=== PATIENT | female | born 2000 | race Caucasian/White ===

== ENCOUNTER 2018-02-18 22:39 | Emergency (ER) | payer MEDICAID, SELFPAY ==
[2018-02-18 22:40] VITALS: BP 155/98; PULSE 105; RESP 18; TEMP 36.4; O2SAT 98; BMI 33.8
--- NOTE | 2018-02-18 23:17 | CM.ED ---
SOCIAL WORK NOTE: CASE CONFERENCED WITH DR. CAMPUZANO. PT TO BE ASSESSED BY CRISIS.
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
--- NOTE | 2018-02-18 23:24 | ED.DEP ---
ED Disposition - Plan for ED Patient: Disposition: Home or Assisted Living Chief Complaint: Suicidal Instructions: ED Depression Referrals: Counseling,Center [GROUP OF PHYSICIANS] -
--- NOTE | 2018-02-18 23:42 | NURSING ---
CRISIS CALLED AT [phone]
[2018-02-18 23:50] LABS: Absolute Lymphocyte Count 3.51 X10^3/ul (0.83-4.51); Absolute Neutrophil Count 8.4 X10^3/uL (2.0-7.7); Basophil# 0.06 X10^3/uL; Basophil% 0.5 % (0-1); Eosinophil# 0.11 X10^3/uL; Eosinophils% 0.8 % (0-5); Hematocrit 38.3 % (37-47); Hemoglobin 12.7 g/dl (12.0-15.0); Lymphocyte # 3.51 X10^3/ul (4.0); Lymphocyte % 26.8 % (19-41); Mean Corp Hgb Conc 33.2 g/gl (32-36); Mean Corpuscular Hgb 28.3 pg (27.0-32.0); Mean Corpuscular Volume 85.3 fL (81-99); Mean Platelet Vol. 9.4 fl (6.2-12.0); Monocyte# 0.96 X10^3/uL; Monocyte% 7.3 % (0-10); Neutrophil # 8.42 X10^3/uL (2.7-7.7); Neutrophil % 64.3 % (47-70); Platelet Count 366 K/mm3 (150-450); RBC Distribution Width CV 13.2 % (11.6-14.6); RBC Distribution Width SD 40.8 fl (35.1-43.9); Red Blood Count 4.49 M/mm3 (4.2-5.4); White Blood Count 13.1 K/mm3 (4.4-11.0)
[2018-02-18 23:51] LABS: POSITIVE COUNT NO; POSITIVE DIFFERENTIAL NO; POSITIVE MORPHOLOGY NO
[2018-02-18 23:57] LABS: Amphetamine Urine VISTA NEGATIVE (<1000 ng/mL); Barbiturate Urine VISTA NEGATIVE (< 200 ng/mL); Benzodiazepine Urine VISTA NEGATIVE (< 200 ng/mL); Cocaine Urine VISTA NEGATIVE (< 300 ng/mL); Ecstacy Urine VISTA NEGATIVE (< 500 ng/mL); Methadone Urine VISTA NEGATIVE (< 300 ng/mL); PCP Urine VISTA NEGATIVE (< 25 ng/mL); THC Urine VISTA NEGATIVE (< 50 ng/mL); Vista UDS pH Range 4
[2018-02-19 00:05] LABS: Anion Gap 9 (5-15); BUN 11 mg/dL (7-18); BUN/Creat Ratio 14.8 RATIO (10-20); Calcium,Total 9.6 mg/dL (8.5-10.1); Chloride 109 mmol/L (98-107); Creatinine, Serum 0.74 mg/dL (0.55-1.02); EST Glomerular Filtration Rate 106 mL/min (>60); Est Glom Filt Rate - Afr Amer 128 mL/min (>60); Estimated Creatinine Clearance 95.91 ml/min; Glucose 96 mg/dL (74-106); Potassium 3.7 mmol/L (3.5-5.1); Sodium Level 141 mmol/L (136-145)
[2018-02-19 00:23] LABS: Pregnancy, Serum, hCG Quali. POSITIVE Negative (0-9 Nonpreg)
--- NOTE | 2018-02-19 00:24 | ED.RN ---
LAB CALLED WITH POSITIVE LAB RESULTS. SERUM POSITIVE. DR. ALDANA MADE AWARE. NO NEW ORDERS AT THIS TIME
[2018-02-19 00:43] VITALS: BP 155/96; PULSE 12
[2018-02-19 00:43] LABS: Mucous, Urine 0 SEEN /hpf (<or=2+); Red Blood Cells-Urine 0 SEEN /hpf (0-5)
[2018-02-19 00:45] LABS: Color, Urine Yellow (Yellow); Glucose, Dipstick Normal (Normal); Ketone-Dipstick Negative (Negative); Leukocyte Esterase-Dipstick 25 /ul (Negative); Nitrite-Dipstick Negative (Negative); Occult Blood-Urine Negative /ul (Negative); Protein-Dipstick 30 mg/dl (Negative); Specific Gravity, Urine 1.025 (1.002-1.030); Urine Bilirubin Dipstick Negative (Negative); Urine Clarity Cloudy (Clear); Urine Urobilinogen Normal (Normal)
[2018-02-19 00:59] LABS: Bacteria 1+ /hpf (None Seen)
[2018-02-19 01:00] LABS: Squamous Epithelial Cells - UA 5-10 SEEN /hpf (5-10); White Blood Cells 0-5 SEEN /hpf (0-5)
[2018-02-19 01:10] VITALS: RESP 16
--- NOTE | 2018-02-19 02:18 | ED.DEP ---
ED Disposition - Plan for ED Patient: Disposition: Home or Assisted Living Chief Complaint: Suicidal Instructions: ED Depression Prescriptions: Pnv No.95/Ferrous Fum/Folic AC [ Vitamin Tablet] 1 ea PO DAILY #30 tab Referrals: Counseling,Center [GROUP OF PHYSICIANS] - Jessica Viramontes [STAFF PHYSICIAN] -
[2018-02-19 02:38] VITALS: BP 148/92; PULSE 99; RESP 18; O2SAT 96
== END 2018-02-19 02:38 | disposition home or self-care (01) ==
PROVIDERS: Emergency Medicine; Emergency Provider Emergency Medicine
DX: F32.9 Major depressive disorder, single episode, unspecified (principal); Z33.1 Pregnant state, incidental
CPT/HCPCS: 36415; 80048; 80307; 80320; 81001; 84703; 85025; 99283; G0480

== ENCOUNTER → 2018-03-17 | Outpatient (CLI) | payer MEDICAID, SELFPAY ==
[2018-03-17 11:14] VITALS: BMI 33.8
[2018-03-17 15:29] LABS: Chlamydia Trachomatis by PCR Negative (Negative); Neisserai gonorrhoeae by PCR Negative (Negative); Probe Check PASS; Sample Adequacy Control PASS; Specimen Processing Control PASS
--- OUTSIDE RECORDS SUMMARY | 2018-06-14 20:39 | XMS RPT_ITS | CCD ---
:2000 External Reference #:[id number] Author Organization [employer] Care Team Providers Name Role Phone Unavailable Unavailable Unavailable Results Result Name Value Range Unit Interpretation Flag Date Location cur on 2018-02-28 CUR . Normal 02-28-2018 [facility] MICRO - Microbiology [facility] ([place]) ([id number]) PROCEDURE: Urine Culture [*1] SOURCE: Urine, Clean Catch BODY SITE: COLLECTED DATE/TIME: 02/25/2018 23:02 EST RECEIVED DATE/TIME: 02/26/2018 15:55 EST START DATE/TIME: 02/26/2018 15:55 EST FREE TEXT SOURCE: FINAL REPORTS Final Report [] Verified Date/Time/Personnel: 02/28/2018 07:54 EST 15,000 organisms per mL Mixed without predominant isolate(s). Sensitivity Testing not indicated. Probably contamination. Repeat culture suggested. PRELIMINARY REPORTS Preliminary Report [] Verified Date/Time/Personnel: 02/27/2018 13:26 EST Culture results pending. Performing Locations *1: This test was performed at: [facility], [address] [place] [address], [id number]- [facility] Comment: Performed By: #### CUR #### [address] [address] ua on 2018-02-26 Color Nom (U) Yellow Normal 02-26-2018 [facility] ([place]) ([id number]) Comment: Performed By: #### UA #### [address] [address] Glucose mass conc Negative Negative mg/dL Normal 02-26-2018 [facility] () [facility] ([place]) ([id number]) Comment: Performed By: #### UA #### [address] [address] Ketones Ql (U) Negative Negative Normal 02-26-2018 [facility] ([place] ([id number]) Comment: Performed By: #### UA #### [place] [address] UA Appear Clear Clear Normal 02-26-2018 [facility] ([place] ([id number]) Comment: Performed By: #### UA #### [place] [address] UA Blood Negative Negative Normal 02-26-2018 [facility] ([place]) ([id number]) Comment: Performed By: #### UA #### [place] [address] UA Leuk Est Negative Negative Normal 02-26-2018 [facility] ([place] ([id number]) Comment: Performed By: #### UA #### [place] [address] UA Nitrite Negative Negative Normal 02-26-2018 [facility] ([place] ([id number]) Comment: Performed By: #### UA #### [place] [address] UA pH 5.0 5.0 - 8.0 Normal 02-26-2018 [facility] ([place] ([id number]) Comment: Performed By: #### UA #### [place] [address] UA Protein Negative Negative Normal 02-26-2018 [facility] ([place] ([id number]) Comment: Performed By: #### UA #### [place] [address] UA Spec Grav 1.020 1.015-1.025 Normal 02-26-2018 [facility] ([place] ([id number]) Comment: Performed By: #### UA #### [place] [address] UA Specimen Type Void Normal 02-26-2018 [facility] ([place] ([id number]) Comment: Performed By: #### UA #### [place] [address] UA Urobilinogen 0.2 0.2-1.0 E.U./dL Normal 02-26-2018 [facility] ([place] ([id number]) Comment: Performed By: #### UA #### [address] [address] Urobilinogen Qn (U) Negative Negative Normal 02-26-2018 [facility] ([place] ([id number]) Comment: Performed By: #### UA #### [place] [id number] [place] [address] pregu on 2018-02-26 HCG ( test) Ql (U) Positive Normal 02-26-2018 [facility] ([place] ([id number]) Comment: Performed By: #### PREGU #### [address] [address] test (u) int HCG detected. 02-26-2018 [facility] ([place] ([id number]) Comment: Performed By: #### PREGU #### [address] [address] Encounters Date Type Reason Provider Location 02-26-2018 - Emergency department KVNG [facility] Facility:B 02-26-2018 patient visit Sawyer KNIGHT 05-23-2017 - Emergency department DARVIN KNIGHT Facility:B 05-23-2017 patient visit SUSAN JOHN Payers Payer Name Policy Number Location SELF PAY [employer] [facility] ([place] ([id number]) [id number] [facility] [place] ([address]) [id number] [facility]) ([phone]) The following information is from the original human readable content ENCOUNTER GUARANTOR PAYER SUBSCRIBER SOURCE 2018 VIVIEN Armas Primary VIVIEN Armas [facility] TAYLORDOB: Insurance:SELF PAY TAYLORDOB: [facility] [id number] E INSCOPolicy Number: [id number] [address]ository [address] [address] Date:2018 [place] [id number]: (000) Name:[phone] () 2017 VIVIEN Jackson VIVIEN Armas [facility] TAYLORDOB: Insurance:SELF TAYLORDOB: [facility] [id number] E PAYPolicy Number: [id number] Repository [address] Effective [address] Date:2017 [place] [address]Bcl: [phone]) [id number]: () Name:[phone] () (WP) Summary Purpose DATE CREATED AUTHOR AUTHOR'S ORGANIZATION 03/08/2018 [facility] ([place]) Family History No Family History Records Found Advance Directives No Advanced Directives Records Found Additional Source Comments FOR RECORDS PERTAINING TO PATIENTS WHO ARE OR HAVE BEEN ENROLLED IN A CHEMICAL DEPENDENCY/SUBSTANCE ABUSE PROGRAM, SOME INFORMATION MAY BE OMITTED. This clinical summary was aggregated from multiple sources. Caution should be exercised in using it in the provision of clinical care. This summary normalizes information from multiple sources, and as a consequence, information in this document may materially changethe coding, format and clinical context of patient data. In addition, data may be omittedin some cases. CLINICAL DECISIONS SHOULD BE BASED ON THE PRIMARY CLINICAL RECORDS. [facility] provides no warranty or guarantee of the accuracy or completeness of information in this document. UNRECOGNIZED CONTENT PROVIDED BELOW FOR UNRECOGNIZED SECTION INFORMATION SOURCE DATE CREATED AUTHOR AUTHOR'S ORGANIZATION 03/08/2018 [facility] ([place])
== END | disposition home or self-care (01) ==
PROVIDERS: Referring Provider Nurse Practitioner Women's Health; Visit Provider Nurse Practitioner Women's Health
DX: Z34.90 Encounter for supervision of normal pregnancy, unspecified, unspecified trimester (principal)
CPT/HCPCS: 87086; 87491; 87591

== ENCOUNTER → 2018-05-20 13:49 | Outpatient (CLI) | payer MEDICAID, SELFPAY ==
[2018-05-20 13:17] VITALS: BMI 41.7
[2018-05-20 14:40] LABS: Absolute Lymphocyte Count 3.27 X10^3/ul (0.83-4.51); Absolute Neutrophil Count 10.3 X10^3/uL (2.0-7.7); Basophil# 0.03 X10^3/uL; Basophil% 0.2 % (0-1); Eosinophils% 0.7 % (0-5); Hematocrit 34.4 % (37-47); Hemoglobin 11.8 g/dl (12.0-15.0); Lymphocyte # 3.27 X10^3/ul (4.0); Mean Corp Hgb Conc 34.3 g/gl (32-36); Mean Corpuscular Hgb 28.8 pg (27.0-32.0); Mean Corpuscular Volume 83.9 fL (81-99); Mean Platelet Vol. 9.5 fl (6.2-12.0); Monocyte% 7.4 % (0-10); Neutrophil # 10.25 X10^3/uL (2.7-7.7); Neutrophil % 69.2 % (47-70); Platelet Count 263 K/mm3 (150-450); RBC Distribution Width SD 39.5 fl (35.1-43.9); White Blood Count 14.8 K/mm3 (4.4-11.0)
[2018-05-20 14:41] LABS: POSITIVE COUNT NO; POSITIVE DIFFERENTIAL NO; POSITIVE MORPHOLOGY NO
[2018-05-20 14:43] LABS: Protein, Urine (Random) 21.1 mg/dL (<11.9); Protein:Creat Ratio 101 mg/g CRE (0-200)
[2018-05-20 15:06] LABS: ALB/GLOB Ratio 0.8 RATIO (0.9-2.4); AST(SGOT) 14 U/L (15-37); Alanine Aminotransfer ALT/SGPT 18 U/L (13-56); Albumin, Serum 3.5 g/dL (3.2-5.0); Alkaline Phosphatase 94 U/L (45-117); BUN 9 mg/dL (7-18); BUN/Creat Ratio 15.1 RATIO (10-20); Calcium,Total 9.7 mg/dL (8.5-10.1); Chloride 106 mmol/L (98-107); EST Glomerular Filtration Rate 136 mL/min (>60); Est Glom Filt Rate - Afr Amer 165 mL/min (>60); Globulin 4.3 g/dL (2.2-4.2); Glucose 66 mg/dL (74-106); Protein, Total 7.8 g/dL (6.4-8.2); Sodium Level 137 mmol/L (136-145)
[2018-05-20 15:07] LABS: Anion Gap 10 (5-15)
[2018-05-20 15:51] LABS: HIV - WCH Non-Reactive (Nonreactive)
[2018-05-20 18:03] LABS: Protein, Urine (Random) 82.1 mg/dL (<11.9); Protein:Creat Ratio 280 mg/g CRE (0-200)
[2018-05-21 04:56] LABS: Rapid Plasmin Reagin (RPR) NONREACTIVE (NONREACTIVE)
[2018-05-23 11:59] LABS: V-Zoster IgG (Immunity) 1868 index (Immune >165)
[2018-05-23 15:58] LABS: HEPATITIS B SURFACE AG Negative (Negative)
== END ==
PROVIDERS: Nurse Practitioner Women's Health; Referring Provider Obstetrics & Gynecology; Visit Provider Obstetrics & Gynecology
DX: O16.9 Unspecified maternal hypertension, unspecified trimester (principal); Z3A.17 17 weeks gestation of pregnancy
CPT/HCPCS: 36415; 80053; 82570; 84156; 85025; 86592; 86703; 86762; 86787; 86850; 86900; 87340

== ENCOUNTER → 2018-06-03 | Outpatient (CLI) | payer MEDICAID, SELFPAY ==
[2018-06-03 14:00] VITALS: BMI 42.8
[2018-06-03 14:51] LABS: ALB/GLOB Ratio 0.9 RATIO (0.9-2.4); AST(SGOT) 12 U/L (15-37); Alanine Aminotransfer ALT/SGPT 16 U/L (13-56); Albumin, Serum 3.5 g/dL (3.2-5.0); Alkaline Phosphatase 100 U/L (45-117); Anion Gap 8 (5-15); BUN 8 mg/dL (7-18); BUN/Creat Ratio 14.9 RATIO (10-20); Calcium,Total 9.6 mg/dL (8.5-10.1); Chloride 104 mmol/L (98-107); Creatinine, Serum 0.54 mg/dL (0.55-1.02); EST Glomerular Filtration Rate 153 mL/min (>60); Est Glom Filt Rate - Afr Amer 185 mL/min (>60); Globulin 4.1 g/dL (2.2-4.2); Glucose 68 mg/dL (74-106); Protein, Total 7.6 g/dL (6.4-8.2); Sodium Level 135 mmol/L (136-145)
[2018-06-03 15:57] LABS: Protein, Urine (Random) 22.6 mg/dL (<11.9); Protein:Creat Ratio 148 mg/g CRE (0-200)
== END | disposition home or self-care (01) ==
PROVIDERS: Referring Provider Obstetrics & Gynecology; Visit Provider Obstetrics & Gynecology
DX: O16.9 Unspecified maternal hypertension, unspecified trimester (principal)
CPT/HCPCS: 36415; 80053; 82570; 84156

== ENCOUNTER → 2018-06-17 | Outpatient (CLI) | payer MEDICAID, SELFPAY ==
[2018-06-17 13:21] VITALS: BMI 41.7
[2018-06-17 13:59] LABS: Absolute Lymphocyte Count 3.49 X10^3/ul (0.83-4.51); Absolute Neutrophil Count 11.2 X10^3/uL (2.0-7.7); Basophil# 0.03 X10^3/uL; Basophil% 0.2 % (0-1); Eosinophil# 0.12 X10^3/uL; Eosinophils% 0.8 % (0-5); Hematocrit 34.2 % (37-47); Hemoglobin 11.6 g/dl (12.0-15.0); Lymphocyte # 3.49 X10^3/ul (4.0); Lymphocyte % 21.8 % (19-41); Mean Corp Hgb Conc 33.9 g/gl (32-36); Mean Corpuscular Hgb 28.9 pg (27.0-32.0); Mean Corpuscular Volume 85.1 fL (81-99); Mean Platelet Vol. 9.5 fl (6.2-12.0); Monocyte# 1.03 X10^3/uL; Monocyte% 6.4 % (0-10); Neutrophil # 11.18 X10^3/uL (2.7-7.7); Neutrophil % 69.9 % (47-70); Platelet Count 287 K/mm3 (150-450); RBC Distribution Width CV 13.1 % (11.6-14.6); RBC Distribution Width SD 40.1 fl (35.1-43.9); Red Blood Count 4.02 M/mm3 (4.2-5.4)
[2018-06-17 14:04] LABS: POSITIVE COUNT NO; POSITIVE DIFFERENTIAL NO; POSITIVE MORPHOLOGY NO
[2018-06-17 14:16] LABS: ALB/GLOB Ratio 0.8 RATIO (0.9-2.4); AST(SGOT) 16 U/L (15-37); Alanine Aminotransfer ALT/SGPT 23 U/L (13-56); Albumin, Serum 3.5 g/dL (3.2-5.0); Alkaline Phosphatase 103 U/L (45-117); Anion Gap 11 (5-15); BUN 10 mg/dL (7-18); BUN/Creat Ratio 14.7 RATIO (10-20); Calcium,Total 9.4 mg/dL (8.5-10.1); Chloride 107 mmol/L (98-107); Creatinine, Serum 0.68 mg/dL (0.55-1.02); EST Glomerular Filtration Rate 116 mL/min (>60); Est Glom Filt Rate - Afr Amer 141 mL/min (>60); Globulin 4.3 g/dL (2.2-4.2); Glucose 62 mg/dL (74-106); Potassium 4.1 mmol/L (3.5-5.1); Protein, Total 7.8 g/dL (6.4-8.2); Sodium Level 139 mmol/L (136-145)
[2018-06-17 14:23] LABS: Protein, Urine (Random) 54.8 mg/dL (<11.9); Protein:Creat Ratio 169 mg/g CRE (0-200)
== END | disposition home or self-care (01) ==
PROVIDERS: Visit Provider Nurse Practitioner Women's Health
DX: O16.9 Unspecified maternal hypertension, unspecified trimester (principal); Z3A.00 Weeks of gestation of pregnancy not specified
CPT/HCPCS: 36415; 80053; 82570; 84156; 85025

== ENCOUNTER 2018-06-21 02:10 | Emergency (ER) | payer MEDICAID, SELFPAY ==
[2018-06-17 13:21] VITALS: BMI 41.7
[2018-06-21 02:11] VITALS: BP 133/92; PULSE 101; RESP 18; TEMP 36.7; O2SAT 98; BMI 43.8
--- NOTE | 2018-06-21 02:24 | EKG12_ITS ---
Test Reason : SHORTNESS OF BREATH Blood Pressure : / mmHG Vent. Rate : 095 BPM Atrial Rate : 095 BPM P-R Int : 126 ms QRS Dur : 086 ms QT Int : 368 ms P-R-T Axes : 045 047 025 degrees QTc Int : 462 ms Normal sinus rhythm Normal ECG Confirmed by KINGSTON ELISE, JERRI ([id number]), international editorial producer REI FREY ([id number]) on 06/23/2018 1:41:21 PM Referred By: LAWRENCE Confirmed By:JERRI ONOFRE MD
--- NOTE | 2018-06-21 02:24 | RAD_ITS ---
STUDY: X-RAY CHEST REASON FOR EXAM: Female, 18 years old. Shortness of breath TECHNIQUE: 2 views COMPARISON: None. FINDINGS: The lungs are clear and expanded. There is no demonstrated pleural abnormality. Normal size heart. Normal mediastinum and gordy. Normal visualized pulmonary arteries. Normal visualized aortic arch and descending thoracic aorta. Normal visualized thoracic spine. Normal visualized ribs, clavicles, and shoulders. There is no demonstrated abnormality of the visualized soft tissue structures of the upper abdomen. RAD/Chest PA and Lateral IMPRESSION: Normal x-ray examination of the chest. No acute findings in the lungs Electronically Signed: Fred Valderrama MD at 3:21 EDT Tel , Service support ,
--- NOTE | 2018-06-21 02:37 | ED.RN ---
NO OLD EKGS IN MUSE
[2018-06-21 02:39] LABS: Absolute Lymphocyte Count 3.67 X10^3/ul (0.83-4.51); Absolute Neutrophil Count 11.5 X10^3/uL (2.0-7.7); Basophil# 0.04 X10^3/uL; Basophil% 0.2 % (0-1); Eosinophil# 0.17 X10^3/uL; Hematocrit 31.4 % (37-47); Hemoglobin 10.9 g/dl (12.0-15.0); Lymphocyte # 3.67 X10^3/ul (4.0); Mean Corp Hgb Conc 34.7 g/gl (32-36); Mean Corpuscular Hgb 29.3 pg (27.0-32.0); Mean Corpuscular Volume 84.4 fL (81-99); Mean Platelet Vol. 9.8 fl (6.2-12.0); Monocyte# 1.12 X10^3/uL; Monocyte% 6.7 % (0-10); Neutrophil # 11.54 X10^3/uL (2.7-7.7); Neutrophil % 69.2 % (47-70); Platelet Count 247 K/mm3 (150-450); RBC Distribution Width CV 12.9 % (11.6-14.6); RBC Distribution Width SD 38.9 fl (35.1-43.9); Red Blood Count 3.72 M/mm3 (4.2-5.4); White Blood Count 16.7 K/mm3 (4.4-11.0)
[2018-06-21 02:43] LABS: POSITIVE COUNT NO; POSITIVE DIFFERENTIAL NO; POSITIVE MORPHOLOGY NO
[2018-06-21 02:57] LABS: Anion Gap 9 (5-15); BUN 10 mg/dL (7-18); BUN/Creat Ratio 16.4 RATIO (10-20); Chloride 106 mmol/L (98-107); Creatinine, Serum 0.61 mg/dL (0.55-1.02); EST Glomerular Filtration Rate 132 mL/min (>60); Est Glom Filt Rate - Afr Amer 160 mL/min (>60); Estimated Creatinine Clearance 116.35 ml/min; Glucose 87 mg/dL (74-106); Potassium 3.7 mmol/L (3.5-5.1); Sodium Level 138 mmol/L (136-145)
[2018-06-21 03:09] LABS: D-Dimer Quantitative (DVT/PE) 0.93 FEU/ug/m (0.27-0.49)
--- NOTE | 2018-06-21 03:11 | CT_ITS ---
HISTORY: SHORT OF BREATH, 22 WEEKS PREG, ELEVATED DDIMER EXAMINATION: CTA Chest WO/W Contrast TECHNIQUE: Helically acquired images were obtained of the chest following IV contrast as per pulmonary angiogram protocol with 3D reconstructions. A radiation dose optimization technique was used for this scan. IV Contrast dosage and agent: 100 Isovue 370 COMPARISON: None FINDINGS: UPPER ABDOMEN: No acute pathology. PULMONARY ARTERIES: Normal in caliber. No pulmonary embolism. AORTA AND GREAT VESSELS: Normal in caliber. No evidence of dissection. HEART AND PERICARDIUM: Heart size is normal. There is no pericardial effusion. No signs of right heart strain. MEDIASTINUM AND LENIN: There is no mediastinal or hilar adenopathy. LUNGS AND LARGE AIRWAYS: Clear. No pneumothorax. PLEURA: Unremarkable. No pleural effusion or thickening. BONES: No suspicious lytic or blastic abnormality observed. CT/CTA Chest W/WO Contrast IMPRESSION: Negative exam. No PE or acute chest disease identified. Individualized dose optimization techniques were used for this CT. at 0441 Reported and signed by: Glenn Goldman MD Electronically Signed: Glenn Goldman, at 4:40 EDT Tel , Service support ,
--- NOTE | 2018-06-21 04:53 | ED.VISSUMM ---
- ER Visit Summary Date of Service: 06/21/18 Chief Complaint: Shortness of breath History of Present Illness: The patient is a 18 F who presents with shortness of breath. She is felt short of breath for the past 4 hours. She denies any associated symptoms. No fevers chest pain congestion rhinorrhea cough nausea vomiting. She is 22 weeks . She denies any leg pain or swelling. No recent travel or surgery. No history of DVT or pulmonary embolism. Physical Examination: Heart rate 101 vitals otherwise normal No distress Moist mucous membranes Heart regular rhythm slightly tachycardic Lungs are clear Abdomen soft benign extremities without edema Alert Test Results: EKG shows sinus rhythm at a rate of 95. Labs are notable for white count of 16.7. Chemistries normal. Troponin negative. Chest x-ray normal. D-dimer elevated at 0.93. CTA of the chest is negative. Emergency Department Course and Treatment: Patient is pulmonary embolism is considered on the differential. Work-up as above notable for elevation of d-dimer so CTA was obtained which is negative. She does have a leukocytosis but she has no clear infectious source. She does not have pneumonia. She was advised to follow-up with her system support administrator and was discharged home. She understands to return for new or worsening symptoms. Treatment Plan: [] Disposition: Discharge Impression: Shortness of breath This note was generated with [employer] dictation software. It may contain incorrect words, spelling, and punctuation that were not noted in review of the chart prior to signing ED Disposition - Plan for ED Patient: Referrals: Care Physician,No Primary [Primary Care Provider] -
--- NOTE | 2018-06-21 04:55 | ED.DEP ---
ED Disposition - Plan for ED Patient: Instructions: ED Dyspnea Shortness of Breath Referrals: Care Physician,No Primary [Primary Care Provider] -
[2018-06-21 05:07] VITALS: RESP 15
== END 2018-06-21 05:08 | disposition home or self-care (01) ==
PROVIDERS: Emergency Provider Emergency Medicine
DX: O26.892 Other specified pregnancy related conditions, second trimester (principal); R06.00 Dyspnea, unspecified; R79.89 Other specified abnormal findings of blood chemistry; Z3A.22 22 weeks gestation of pregnancy
CPT/HCPCS: 36415; 71046; 71275; 80048; 84484; 85025; 85379; 93005; 99285; Q9967

== ENCOUNTER → 2018-07-30 | Outpatient (CLI) | payer MEDICAID, SELFPAY ==
[2018-07-30 15:15] VITALS: BMI 44.0
[2018-07-30 16:12] LABS: Protein, Urine (Random) 79.4 mg/dL (<11.9); Protein:Creat Ratio 238 mg/g CRE (0-200)
[2018-07-30 17:17] LABS: Absolute Lymphocyte Count 2.36 X10^3/ul (0.83-4.51); Absolute Neutrophil Count 10.9 X10^3/uL (2.0-7.7); Basophil# 0.03 X10^3/uL; Basophil% 0.2 % (0-1); Eosinophil# 0.08 X10^3/uL; Eosinophils% 0.5 % (0-5); Hematocrit 32.8 % (37-47); Lymphocyte # 2.36 X10^3/ul (4.0); Mean Corp Hgb Conc 33.5 g/gl (32-36); Mean Corpuscular Hgb 28.8 pg (27.0-32.0); Mean Corpuscular Volume 85.9 fL (81-99); Mean Platelet Vol. 10.3 fl (6.2-12.0); Monocyte# 0.99 X10^3/uL; Monocyte% 6.7 % (0-10); Neutrophil # 10.91 X10^3/uL (2.7-7.7); Neutrophil % 74.1 % (47-70); Platelet Count 275 K/mm3 (150-450); RBC Distribution Width CV 12.9 % (11.6-14.6); RBC Distribution Width SD 39.5 fl (35.1-43.9); Red Blood Count 3.82 M/mm3 (4.2-5.4); White Blood Count 14.7 K/mm3 (4.4-11.0)
[2018-07-30 17:20] LABS: POSITIVE COUNT YES; POSITIVE DIFFERENTIAL NO; POSITIVE MORPHOLOGY YES
[2018-07-30 17:42] LABS: Glucose Challenge Gest 1H 50g 117 mg/dL (70-140)
[2018-07-30 19:34] LABS: Platelet Estimate ADEQUATE (ADEQ); Red Cell Morphology NORM C+C NORMAL (NORM C&C)
[2018-08-02 14:23] LABS: Pathologist Review Reviewed
== END | disposition home or self-care (01) ==
LOC: LABSPEC 15:40 → LAB 15:51
PROVIDERS: Nurse Practitioner Women's Health; Referring Provider Obstetrics & Gynecology; Visit Provider Obstetrics & Gynecology
DX: O16.9 Unspecified maternal hypertension, unspecified trimester (principal); Z3A.27 27 weeks gestation of pregnancy
CPT/HCPCS: 36415; 82570; 82950; 84156; 85025

== ENCOUNTER → 2018-09-03 | Outpatient (CLI) | payer MEDICAID, SELFPAY ==
[2018-07-20 13:53] VITALS: BMI 43.9
[2018-09-03 15:07] VITALS: BMI 46.0
[2018-09-03 16:09] LABS: Protein, Urine (Random) 110.9 mg/dL (<11.9); Protein:Creat Ratio 348 mg/g CRE (0-200)
[2018-09-03 16:30] LABS: Absolute Lymphocyte Count 2.45 X10^3/uL (0.83-4.51); Absolute Neutrophil Count 12.4 X10^3/uL (2.0-7.7); Basophil# 0.06 X10^3/uL; Basophil% 0.4 % (0-1); Eosinophil# 0.08 X10^3/uL; Eosinophils% 0.5 % (0-5); Hematocrit 33.5 % (37-47); Hemoglobin 11.2 g/dL (12.0-15.0); Lymphocyte # 2.45 X10^3/ul (4.0); Lymphocyte % 14.9 % (19-41); Mean Corp Hgb Conc 33.4 g/dL (32-36); Mean Corpuscular Hgb 29.2 pg (27.0-32.0); Mean Corpuscular Volume 87.5 fL (81-99); Mean Platelet Vol. 10.4 fl (6.2-12.0); Monocyte# 1.14 X10^3/uL; NRBC Flagged by Analyzer 0 % (0-5); Neutrophil # 12.36 X10^3/uL (2.7-7.7); Neutrophil % 75.4 % (47-70); Platelet Count 294 K/mm3 (150-450); RBC Distribution Width CV 13.3 % (11.6-14.6); RBC Distribution Width SD 42.1 fl (35.1-43.9); Red Blood Count 3.83 M/mm3 (4.2-5.4); White Blood Count 16.4 K/mm3 (4.4-11.0)
[2018-09-03 16:53] LABS: ALB/GLOB Ratio 0.6 RATIO (0.9-2.4); AST(SGOT) 17 U/L (15-37); Alanine Aminotransfer ALT/SGPT 17 U/L (13-56); Albumin, Serum 2.7 g/dL (3.2-5.0); Alkaline Phosphatase 150 U/L (45-117); Anion Gap 7 (5-15); BUN 11 mg/dL (7-18); BUN/Creat Ratio 14.7 RATIO (10-20); Chloride 105 mmol/L (98-107); Creatinine, Serum 0.75 mg/dL (0.55-1.02); EST Glomerular Filtration Rate 105 mL/min (>60); Est Glom Filt Rate - Afr Amer 127 mL/min (>60); Globulin 4.2 g/dL (2.2-4.2); Glucose 133 mg/dL (74-106); Potassium 3.8 mmol/L (3.5-5.1); Protein, Total 6.9 g/dL (6.4-8.2); Sodium Level 136 mmol/L (136-145)
== END | disposition home or self-care (01) ==
PROVIDERS: Nurse Practitioner Women's Health; Referring Provider Obstetrics & Gynecology; Visit Provider Obstetrics & Gynecology
DX: O12.13 Gestational proteinuria, third trimester (principal); Z3A.00 Weeks of gestation of pregnancy not specified
CPT/HCPCS: 36415; 80053; 82570; 84156; 85025

== ENCOUNTER → 2018-09-10 | Outpatient (CLI) | payer MEDICAID, SELFPAY ==
[2018-07-30 15:15] VITALS: BMI 44.0
[2018-09-03 15:07] VITALS: BMI 46.0
--- NOTE | 2018-09-10 12:12 | US_ITS ---
STUDY: SECOND AND THIRD TRIMESTER OBSTETRICAL ULTRASOUND - LIMITED REASON FOR EXAM: Female, 18 years old. Routine survey. LMP: January 18, 2018. PRIOR ULTRASOUND: None. TECHNIQUE: TECHNICAL QUALITY: Adequate. FINDINGS: There is a single intrauterine fetus. The fetus is in a cephalic presentation. There is demonstrated cardiac activity with a heart rate of 139 bpm. There is a normal amniotic fluid volume. The largest amniotic fluid pocket measures 6.2 cm. The amniotic fluid index (ASAEL) is 16.0 cm. The placenta is fundal in location. There are Grade 1 placental changes. The cervix measures 3.5 cm in length. BIOMETRY: BPD: 8.54 cm: 34 weeks, 3 days HC: 31.24 cm: 35 weeks, 0 days AC: 29.15 cm: 33 weeks, 2 days FL: 5.75 cm: 30 weeks, 1 days Age by LMP: 33 weeks, 4 days. ACE by LMP: October 25, 2018. age by current US: 33 weeks, 2 days. ACE by current US: October 27, 2018. Estimated weight: 1999 grams, +/- 292 grams, 16 percentile. US/OB Limited With Biometrics IMPRESSION: Single live intrauterine gestation with mean gestational age of 33 weeks and 2 days. Electronically Signed: Domenico Kauffman, at 9:42 EDT , Service support ,
== END | disposition home or self-care (01) ==
PROVIDERS: Referring Provider Obstetrics & Gynecology; Visit Provider Obstetrics & Gynecology
DX: O16.3 Unspecified maternal hypertension, third trimester (principal); Z3A.00 Weeks of gestation of pregnancy not specified
CPT/HCPCS: 76816

== ENCOUNTER 2018-09-13 00:55 | Outpatient (CLI) | payer MEDICAID, SELFPAY ==
[2018-09-12 06:30] VITALS: BMI 46.0
[2018-09-13 01:25] VITALS: BMI 48.4
[2018-09-13 01:46] LABS: Bacteria 0 SEEN /hpf (None Seen); Mucous, Urine 0 SEEN /hpf (<or=2+)
[2018-09-13 01:51] LABS: Color, Urine Yellow (Yellow); Glucose, Dipstick Normal (Normal); Ketone-Dipstick 5 mg/dl (Negative); Leukocyte Esterase-Dipstick 25 /ul (Negative); Nitrite-Dipstick Negative (Negative); Occult Blood-Urine 10 /ul (Negative); Protein-Dipstick 100 mg/dl (Negative); Specific Gravity, Urine 1.025 (1.002-1.030); Urine Bilirubin Dipstick Negative (Negative); Urine Clarity Sl. Cloudy (Clear); Urine Urobilinogen Normal (Normal)
[2018-09-13 02:04] LABS: Calcium Oxalate Crystals Ur 1+ /hpf (<or=2+); Red Blood Cells-Urine 0-5 SEEN /hpf (0-5); Squamous Epithelial Cells - UA > 100 SEEN /hpf (5-10)
[2018-09-13 02:05] LABS: White Blood Cells 5-10 SEEN /hpf (0-5)
[2018-09-13 02:16] LABS: Fetal Fibronectin Negative
[2018-09-13 02:58] LABS: Absolute Lymphocyte Count 3.76 X10^3/uL (0.83-4.51); Absolute Neutrophil Count 12.2 X10^3/uL (2.0-7.7); Basophil# 0.09 X10^3/uL; Basophil% 0.5 % (0-1); Eosinophil# 0.14 X10^3/uL; Eosinophils% 0.8 % (0-5); Hematocrit 33.9 % (37-47); Hemoglobin 11.3 g/dL (12.0-15.0); Lymphocyte # 3.76 X10^3/ul (4.0); Lymphocyte % 20.9 % (19-41); Mean Corp Hgb Conc 33.3 g/dL (32-36); Mean Corpuscular Hgb 29.4 pg (27.0-32.0); Mean Corpuscular Volume 88.3 fL (81-99); Mean Platelet Vol. 10.1 fl (6.2-12.0); Monocyte# 1.35 X10^3/uL; Monocyte% 7.5 % (0-10); NRBC Flagged by Analyzer 0 % (0-5); Neutrophil # 12.19 X10^3/uL (2.7-7.7); Neutrophil % 67.9 % (47-70); Platelet Count 287 K/mm3 (150-450); RBC Distribution Width CV 13.3 % (11.6-14.6); RBC Distribution Width SD 42.4 fl (35.1-43.9); Red Blood Count 3.84 M/mm3 (4.2-5.4)
[2018-09-13 03:17] LABS: ALB/GLOB Ratio 0.6 RATIO (0.9-2.4); AST(SGOT) 18 U/L (15-37); Alanine Aminotransfer ALT/SGPT 16 U/L (13-56); Albumin, Serum 2.5 g/dL (3.2-5.0); Alkaline Phosphatase 149 U/L (45-117); Anion Gap 9 (5-15); BUN 14 mg/dL (7-18); BUN/Creat Ratio 23.5 RATIO (10-20); Calcium,Total 9.2 mg/dL (8.5-10.1); Chloride 110 mmol/L (98-107); EST Glomerular Filtration Rate 136 mL/min (>60); Est Glom Filt Rate - Afr Amer 164 mL/min (>60); Estimated Creatinine Clearance 118.29 ml/min; Globulin 4.3 g/dL (2.2-4.2); Glucose 84 mg/dL (74-106); Potassium 4.7 mmol/L (3.5-5.1); Protein, Total 6.8 g/dL (6.4-8.2); Sodium Level 140 mmol/L (136-145)
[2018-09-13 03:37] LABS: Protein, Urine (Random) 233.2 mg/dL (<11.9); Protein:Creat Ratio 1960 mg/g CRE (0-200)
[2018-09-13] MEDS: Betamethasone/Betamethasone 30 MG/5 ML Vial 12 MG IM (04:43)
--- NOTE | 2018-09-13 04:49 | US_ITS ---
STUDY: OBSTETRICAL ULTRASOUND - BIOPHYSICAL PROFILE REASON FOR EXAM: Female, 18 years old. well being. Preeclampsia. LMP: January 18, 2018. PRIOR ULTRASOUND: Comparison is made with prior examination dated September 10, 2018. TECHNIQUE: Transabdominal TECHNICAL QUALITY: Adequate. FINDINGS: There is a single intrauterine fetus. The fetus is in a cephalic presentation. There is demonstrated cardiac activity with a heart rate of 142 bpm. There is a normal amniotic fluid volume. The largest amniotic fluid pocket measures 6.5 cm x 3.7 cm. The amniotic fluid index (ASAEL) is 20.2 cm. The placenta is fundal in location. There are Grade 1 placental changes. Age by LMP: 34 weeks, 0 days. ACE by LMP: October 25, 2018. age by prior US: 33 weeks, 5 days. ACE by prior US: October 27, 2018. BIOPHYSICAL PROFILE: Breathing Movements (FBM): 0 Gross Body Movements (GBM): 2 Tone (FT): 2 Amniotic Fluid Volume (AFV): 2 TOTAL SCORE: US/Biophysical Prof W/O Non Stres IMPRESSION: biophysical profile of 07/17. Electronically Signed: Domenico Kauffman, at 8:50 EDT , Service support ,
--- NOTE | 2018-09-13 05:00 | PCM.HP.OB ---
- Problem List (1) Pre-eclampsia Status: Acute (2) Supervision of high risk in third trimester Status: Acute Comment: PRR ACE 10/25/18 boy Basilio BF:Woody (3) Hypertension affecting in third trimester Status: Acute Comment: baseline labs an EKG nl. no meds. weekly nsts after 32 weeks. growth q 4 and weekly afis (4) Status: Acute Qualifiers: Comment: decline genetic, carrier, and ntd screening. History Date of Admission: 09/13/18 Final ACE: 10/25/18 Gestational age: 34 Weeks and 0 Days History of this : This is a 18 year-old, G 1P0 at 34 weeks gestational age presents for contractions. Patient is not in labor however blood pressures are mildly elevated in the 140s over 80s to 90s and urine protein is elevated at almost 2000 mg. Patient denies any headaches or blurry vision and admits good movement. She denies any vaginal bleeding or loss of fluid.. Allergies No Known Allergies Allergy (Verified 09/13/18 01:26) Home Medications: Home Medications Pnv No.95/Ferrous Fum/Folic AC [ Vitamin Tablet] 1 ea PO DAILY 09/13/18 Smoking Status: Never smoker Number of Fetus(es): 1 Heart Tracins moderate variability reactive 1 isolated variable deceleration. Overall now tracing category 1 with no decelerations [place]: Irregular History Past Pregnancies: Past Pregnancies Delivery Date Name GA/Weeks Outcome Route Weight Infant Gender Labor Length Anesthesia Delivery Location Provider FOB Labs: Mom's Microbiology 09/13/18 01:52 Urine, Clean Catch Urine Culture - Pending Mom's Problem List Problem Status Onset Code Pre-eclampsia Acute O14.90 Mom[facility] Labs & Results 09/13/18 09/13/18 09/13/18 01:40 01:40 02:35 WBC 18.0 H RBC 3.84 L Hgb 11.3 L Hct 33.9 L MCV 88.3 MCH 29.4 MCHC 33.3 RDW Std Deviation 42.4 RDW Coeff of Kofi 13.3 Plt Count 287 MPV 10.1 Immature Gran % (Auto) 2.400 H Neut % (Auto) 67.9 Lymph % (Auto) 20.9 [place] % (Auto) 7.5 Eos % (Auto) 0.8 Baso % (Auto) 0.5 Absolute Neuts (auto) 12.2 H Absolute Lymphs (auto) 3.76 Nucleated RBC % 0 Sodium Potassium Chloride Carbon Dioxide Anion Gap BUN Creatinine Estim Creat Clear Calc Est GFR (MDRD) Af Amer Est GFR (MDRD) Non-Af BUN/Creatinine Ratio Glucose Calcium Total Bilirubin AST ALT Alkaline Phosphatase Total Protein Albumin Globulin Albumin/Globulin Ratio Urine Color Yellow Urine Clarity Sl. Cloudy Urine pH 6.0 Ur Specific [place] 1.025 Urine Protein 100 H Urine Glucose (UA) Normal Urine Ketones 5 H Urine Occult Blood 10 H Urine Nitrite Negative Urine Bilirubin Negative Urine Urobilinogen Normal Ur Leukocyte Esterase 25 H Urine RBC 0-5 SEEN Urine WBC 5-10 SEEN Ur Squamous Epith Cells > 100 SEEN Calcium Oxalate Crystal 1+ Urine Bacteria 0 SEEN Urine Mucus 0 SEEN U Random Total Protein Urine Creatinine Protein/Creatinin Ratio Fibronectin Negative 09/13/18 09/13/18 02:35 02:35 WBC RBC Hgb Hct MCV MCH MCHC RDW Std Deviation RDW Coeff of Kofi Plt Count MPV Immature Gran % (Auto) Neut % (Auto) Lymph % (Auto) [place] % (Auto) Eos % (Auto) Baso % (Auto) Absolute Neuts (auto) Absolute Lymphs (auto) Nucleated RBC % Sodium 140 Potassium 4.7 Chloride 110 H Carbon Dioxide 21.0 Anion Gap 9 BUN 14 Creatinine 0.60 Estim Creat Clear Calc 118.29 Est GFR (MDRD) Af Amer 164 Est GFR (MDRD) Non-Af 136 BUN/Creatinine Ratio 23.5 H Glucose 84 Calcium 9.2 Total Bilirubin 0.30 AST 18 ALT 16 Alkaline Phosphatase 149 H Total Protein 6.8 Albumin 2.5 L Globulin 4.3 H Albumin/Globulin Ratio 0.6 L Urine Color Urine Clarity Urine pH Ur Specific [place] Urine Protein Urine Glucose (UA) Urine Ketones Urine Occult Blood Urine Nitrite Urine Bilirubin Urine Urobilinogen Ur Leukocyte Esterase Urine RBC Urine WBC Ur Squamous Epith Cells Calcium Oxalate Crystal Urine Bacteria Urine Mucus U Random Total Protein 233.2 H Urine Creatinine 119.00 Protein/Creatinin Ratio 1960 H Fibronectin Social History Smoking Status Never smoker Expected Infant Delivery Method: Spontaneous Vaginal Review of Systems Constitutional: Denies: Fever, Malaise Eyes: Denies: Blurred vision, Vision Change HEENT: Denies: Head Aches, Visual Changes Cardiovascular: Denies: Chest Pain, Palpitations Respiratory: Denies: Cough, Shortness of Breath, Wheezing Gastrointestinal: Denies: Abdominal Pain, Diarrhea, Nausea, Vomiting Genitourinary: Denies: Dysuria, Hematuria Musculoskeletal: Denies: Joint Pain, Muscle pain Skin: Denies: Lesions, Rash Neurological: Denies: Blurred vision, Focal weakness, Headaches Psychiatric: Denies: Anxiety, Depression Endocrine: Denies: Heat/ Cold Intolerance Hematologic/ Lymphatic: Denies: Easy Bruising, Easy Bleeding Physical Exam General: Alert, Cooperative, No apparent distress HEENT: Atraumatic, Normocephalic. Negative for: Thyromegaly, Lymphadenopathy Cardiovascular: Regular rate Lungs: Normal air movement Abdomen: Soft, Non Tender, Gravid Neurological: Deep Tendon Reflexes 2+/4 and Symmetrical, Neuro grossly intact. Negative for: Clonus SKILL TRAINING PROGRAM COORDINATOR: Normal external genitalia. Negative for: Vulvar lesions Estimated gestational size: Appropriate for gestational size Presentation: Cephalic Cervix Dilation (cm): 1 Assessment/Plan All Active Problems (Last Reviewed 09/10/18 @ 12:59 by Myrna Panchal) Pre-eclampsia (Acute) Supervision of high risk in third trimester (Acute) Hypertension affecting in third trimester (Acute) (Acute) Elevated blood pressure affecting , antepartum (Resolved) Supervision of normal first (Resolved) This is a 18 year-old, G 1P0 at 34 weeks gestational age presents with chronic hypertension with superimposed preeclampsia with mild features. 1. Plan STO to monitor blood pressures and serial labs. 24-hour urine. 2. Maturity?plan Celestone 3. Variable heart rate deceleration recommend BPP today. growth us 16%ile last week and dean 16. Multi Select Codes - Visit Charges Observation E&M Codin Initial observation care L3
== END 2018-09-13 12:05 | disposition home or self-care (01) ==
LOC: WPOUT 00:58 → WP 01:00
PROVIDERS: Visit Provider Obstetrics & Gynecology
DX: O11.3 Pre-existing hypertension with pre-eclampsia, third trimester (principal); O09.93 Supervision of high risk pregnancy, unspecified, third trimester; O76 Abnormality in fetal heart rate and rhythm complicating labor and delivery; Z3A.34 34 weeks gestation of pregnancy
CPT/HCPCS: 59025; 59050; 76819; 80053; 81001; 82570; 82731; 84156; 85025; 87086; 87088; 96372; 99218; G0378; J0702

== ENCOUNTER 2018-09-14 07:50 | Outpatient (CLI) | payer MEDICAID, SELFPAY ==
[2018-09-13 01:25] VITALS: BMI 48.4
--- NOTE | 2018-09-14 07:56 | US_ITS ---
STUDY: OBSTETRICAL ULTRASOUND - BIOPHYSICAL PROFILE REASON FOR EXAM: Female, 18 years old. Hypertension. LMP: January 18, 2018. PRIOR ULTRASOUND: Comparison is made with prior study dated September 13, 2018. TECHNIQUE: Transabdominal TECHNICAL QUALITY: Adequate. FINDINGS: There is a single intrauterine fetus. The fetus is in a cephalic presentation. There is demonstrated cardiac activity with a heart rate of 139 bpm. There is a normal amniotic fluid volume. The largest amniotic fluid pocket measures 5. cm. The amniotic fluid index (ASAEL) is 14.3 cm. The placenta is fundal in location. There are Grade 1 placental changes. BIOPHYSICAL PROFILE: Breathing Movements (FBM): 0 Gross Body Movements (GBM): 2 Tone (FT): 2 Amniotic Fluid Volume (AFV): 2 TOTAL SCORE: 6 / 8 US/Biophysical Prof W/O Non Stres IMPRESSION: biophysical profile of 6/8. Electronically Signed: Domenico Kauffman, at 10:15 EDT , Service support ,
[2018-09-14 07:57] VITALS: BMI 47.8
[2018-09-14] MEDS: Betamethasone/Betamethasone 30 MG/5 ML Vial 12 MG IM (08:30)
[2018-09-14 09:03] LABS: Protein, Urine (Random) 191.4 mg/dL (<11.9); Protein:Creat Ratio 742 mg/g CRE (0-200)
--- NOTE | 2018-09-14 09:43 | OB.TRI.PN_ITS ---
Progress Notes Date of Service: 09/14/18 Progress Note: ptient presents with contractions, repeat bpp 09/18 fht 140 moderate variability reactive no decelerations category I tracing [place]: no regular a/p preeclampsia- second dose of celestone given reactive nst 09/18 bpp plan repeat bpp tomorrow. Laboratory Studies: Laboratory Tests 09/14/18 Range/Units 08:40 U Random Total Protein 191.4 H (<11.9) mg/dL Urine Creatinine 258.00 (NO RANGE EST.) mg/dL Protein/Creatinin Ratio 742 H (0-200) mg/g CRE
== END 2018-09-14 10:25 | disposition home or self-care (01) ==
LOC: WPOUT 07:54 → WP 07:54
PROVIDERS: Referring Provider Obstetrics & Gynecology; Visit Provider Obstetrics & Gynecology
DX: O14.90 Unspecified pre-eclampsia, unspecified trimester (principal); Z3A.00 Weeks of gestation of pregnancy not specified
CPT/HCPCS: 59025; 59050; 76819; 82570; 84156; 96372; 99218; G0378; J0702

== ENCOUNTER 2018-09-15 16:00 | Inpatient (IN) | payer MEDICAID, SELFPAY ==
[2018-07-30 15:15] VITALS: BMI 44.0
[2018-09-14 07:57] VITALS: BMI 47.8
--- NOTE | 2018-09-15 13:25 | US_ITS ---
STUDY: OBSTETRICAL ULTRASOUND - BIOPHYSICAL PROFILE REASON FOR EXAM: Female, 18 years old. Hypertension. LMP: January 18, 2019. PRIOR ULTRASOUND: Comparison is made with prior study dated September 14, 2018, September 13, 2018 and September 10, 2018. TECHNIQUE: Transabdominal TECHNICAL QUALITY: Adequate. FINDINGS: There is a single intrauterine fetus. The fetus is in a cephalic presentation. There is demonstrated cardiac activity with a heart rate of 140 bpm. There is a normal amniotic fluid volume. The largest amniotic fluid pocket measures 5.9 cm. The amniotic fluid index (ASAEL) is 18.1 cm. The placenta is fundal in location. There are Grade 1 placental changes. BIOPHYSICAL PROFILE: Breathing Movements (FBM): 0 Gross Body Movements (GBM): 2 Tone (FT): 2 Amniotic Fluid Volume (AFV): 2 TOTAL SCORE: 8 US/Biophysical Prof W/O Non Stres IMPRESSION: biophysical profile of 07/17. Electronically Signed: Domenico Kauffman, at 14:35 EDT , Service support ,
[2018-09-15 14:27] VITALS: BMI 47.8
[2018-09-15 14:46] VITALS: BMI 47.9
[2018-09-15 15:21] LABS: Hematocrit 31.4 % (37-47); Hemoglobin 10.5 g/dL (12.0-15.0); Mean Corp Hgb Conc 33.4 g/dL (32-36); Mean Corpuscular Hgb 29.3 pg (27.0-32.0); Mean Corpuscular Volume 87.7 fL (81-99); Platelet Count 295 K/mm3 (150-450); RBC Distribution Width CV 13.5 % (11.6-14.6); RBC Distribution Width SD 43.4 fl (35.1-43.9); Red Blood Count 3.58 M/mm3 (4.2-5.4)
[2018-09-15 15:24] LABS: Prothrombin Time (Protime)PT. 12.8 SECONDS (11.7-14.9)
[2018-09-15 15:25] LABS: Partial Thromboplast Time 21.8 Seconds (24.1-36.2)
[2018-09-15 15:32] LABS: Protein, Urine (Random) 114.3 mg/dL (<11.9); Protein:Creat Ratio 478 mg/g CRE (0-200)
[2018-09-15 15:35] LABS: AST(SGOT) 11 U/L (15-37); Alanine Aminotransfer ALT/SGPT 15 U/L (13-56); Creatinine, Serum 0.68 mg/dL (0.55-1.02); EST Glomerular Filtration Rate 117 mL/min (>60); Est Glom Filt Rate - Afr Amer 142 mL/min (>60); Estimated Creatinine Clearance 104.37 ml/min; Uric Acid 7.4 mg/dL (2.6-6.0)
[2018-09-15] MEDS: Lactated Ringers 1,000 ML 50 ML IV (17:10)
[2018-09-15] MEDS: Magnesium Sulfate 20 GM/500 ML BAG IV (17:35)
[2018-09-15] MEDS: miSOPROStol 25 MCG TABLET PO (17:48)
[2018-09-15] MEDS: Labetalol 200 MG Tablet PO ×2 (17:48→22:09)
[2018-09-15 20:47] LABS: ROM Internal Control Test YES-OK TO RESULT pt. (Internal QC)
[2018-09-15 20:48] LABS: ROM Patient Test Negative (Negative)
[2018-09-15 21:06] LABS: Group B Strep DNA By PCR POSITIVE (Negative); Probe Check PASS
[2018-09-16] MEDS: Magnesium Sulfate 20 GM/500 ML BAG IV ×2 (03:39→14:02)
--- NOTE | 2018-09-16 05:20 | PCM.HP.OB ---
- Problem List (1) Preeclampsia, severe Status: Acute (2) Supervision of high risk in third trimester Status: Acute Comment: PRR ACE 10/25/18 boy Basilio BF:Collin (3) Hypertension affecting in third trimester Status: Acute Comment: baseline labs an EKG nl. no meds. weekly nsts after 32 weeks. growth q 4 and weekly afis (4) Status: Acute Qualifiers: Comment: decline genetic, carrier, and ntd screening. History Date of Admission: 09/13/18 Final ACE: 10/25/18 Gestational age: 34 Weeks and 3 Days History of this : This is a 18 year-old, at 34 weeks 2 days gestational age presents for follow up after 07/17 BPP, and while FHT are reactive and overall reassuring, cat I her bps are severely elevated at 170s over 110s. she was first diagnosed with severe preeclampsia 4 days ago and was given a course of steroids. today her uic acid is elevated and she has stable proteinuria and no other lab abnormalities. she denies any WEBSTER or bv. Medical History: Medical History (Last Reviewed 09/16/18 @ 05:23 by Adriana Caldwell MD) Depression F32.9 Allergies No Known Allergies Allergy (Verified 09/15/18 15:25) Home Medications: Home Medications Pnv No.95/Ferrous Fum/Folic AC [ Vitamin Tablet] 1 ea PO DAILY 09/13/18 Smoking Status: Never smoker Alcohol: None Number of Fetus(es): 1 Heart Tracin moderate variability reactive no decelerations category I tracing [place]: no regular History Past Pregnancies: Past Pregnancies Delivery Date Name GA/Weeks Outcome Route Weight Infant Gender Labor Length Anesthesia Delivery Location Provider FOB Labs: Mom's Labs & Results 09/15/18 09/15/18 09/15/18 15:00 15:00 15:00 WBC 17.0 H RBC 3.58 L Hgb 10.5 L Hct 31.4 L MCV 87.7 MCH 29.3 MCHC 33.4 RDW Std Deviation 43.4 RDW Coeff of Kofi 13.5 Plt Count 295 MPV 10.0 PT 12.8 INR 1.0 APTT 21.8 L Creatinine Estim Creat Clear Calc Est GFR (MDRD) Af Amer Est GFR (MDRD) Non-Af Uric Acid AST ALT U Random Total Protein 114.3 H Urine Creatinine 239.00 Protein/Creatinin Ratio 478 H Vag Amniotic Fld Detect Group B Strep DNA Specimen Comment Blood Type Antibody Screen 09/15/18 09/15/18 09/15/18 15:00 15:00 20:00 WBC RBC Hgb Hct MCV MCH MCHC RDW Std Deviation RDW Coeff of Kofi Plt Count MPV PT INR APTT Creatinine 0.68 Estim Creat Clear Calc 104.37 Est GFR (MDRD) Af Amer 142 Est GFR (MDRD) Non-Af 117 Uric Acid 7.4 H AST 11 L ALT 15 U Random Total Protein Urine Creatinine Protein/Creatinin Ratio Vag Amniotic Fld Detect Group B Strep DNA POSITIVE H Specimen Comment Not Reportable Blood Type O POSITIVE Antibody Screen NEGATIVE 09/15/18 20:10 WBC RBC Hgb Hct MCV MCH MCHC RDW Std Deviation RDW Coeff of Kofi Plt Count MPV PT INR APTT Creatinine Estim Creat Clear Calc Est GFR (MDRD) Af Amer Est GFR (MDRD) Non-Af Uric Acid AST ALT U Random Total Protein Urine Creatinine Protein/Creatinin Ratio Vag Amniotic Fld Detect Negative Group B Strep DNA Specimen Comment Blood Type Antibody Screen Course Did the patient receive Yes care? Labs Blood Type: O RH: POSITIVE RPR/VDRL/Syphilis Nonreactive Rubella status Immune HbSAg Negative Date Done: 05/20/18 Chlamydia Negative Gonorrhea Negative HIV/AIDS Non-Reactive Group B Strep: Not Done Current Obstetrical History Gestational Diabetes No Incompetent Cervix No Infertility No IUGR No Macrosomia No Hypertension/Pre-eclampsia No Placenta Previa/Abruption Yes PTL/PROM No Uterine anomaly No Oligohydramnios No Polyhydramnios No Multiple gestation No Past Medical History Asthma No Diabetes No Hypertension No Heart disease No Mitral valve prolapse No Neurologic/Seizure disorder/ No Migraines Kidney disease No Liver disease No Varicosities No Clotting disorders/Hx of DVT No Thyroid Dysfunction Yes Other medical diseases No Psychiatric disorders Yes: depression Major trauma No Abnormal PAP smear No Sleep apnea No Mammogram in the last 2 years No Social History Alleged father collin Hx Smoking No Smoking Status Never smoker Expected Delivery Method: Spontaneous Vaginal Review of Systems Constitutional: Denies: Fever, Malaise Eyes: Denies: Blurred vision, Vision Change HEENT: Denies: Head Aches, Visual Changes Cardiovascular: Denies: Chest Pain, Palpitations Respiratory: Denies: Cough, Shortness of Breath, Wheezing Gastrointestinal: Denies: Abdominal Pain, Diarrhea, Nausea, Vomiting Genitourinary: Denies: Dysuria, Hematuria Musculoskeletal: Denies: Joint Pain, Muscle pain Skin: Denies: Lesions, Rash Neurological: Denies: Blurred vision, Focal weakness, Headaches Psychiatric: Denies: Anxiety, Depression Endocrine: Denies: Heat/ Cold Intolerance Hematologic/ Lymphatic: Denies: Easy Bruising, Easy Bleeding Physical Exam General: Alert, Cooperative, No apparent distress HEENT: Atraumatic, Normocephalic. Negative for: Thyromegaly, Lymphadenopathy Cardiovascular: Regular rate Lungs: Normal air movement Abdomen: Soft, Non Tender, Gravid Neurological: Deep Tendon Reflexes 2+/4 and Symmetrical, Neuro grossly intact. Negative for: Clonus SENIOR C SOFTWARE ENGINEER: Normal external genitalia. Negative for: Vulvar lesions Estimated gestational size: Appropriate for gestational size Presentation: Cephalic Cervix Dilation (cm): 0 Assessment/Plan All Active Problems (Last Reviewed 09/16/18 @ 05:23 by Adriana Caldwell MD) (Acute) Hypertension affecting in third trimester (Acute) Supervision of high risk in third trimester (Acute) Pre-eclampsia (Acute) Preeclampsia, severe (Acute) Elevated blood pressure affecting , antepartum (Resolved) Supervision of normal first (Resolved) This is a 18 year-old, , at 34 weeks 2 days gestational age with preeclampsia with severe features. 1. chronic htn with superimposed preeclampsia with severe features- magnesium sulfate and hypertensive protocol with labetalol, required 2 doses IV labetalol to initially control and now on 200mg BID maintenance 2. prematurity- s/p BMZ x 2, discussed prematurity complications with patient and will have peds discuss with her and be present at delivery 3. plan cytotec then Pit/FB IOL
[2018-09-16] MEDS: Acetaminophen 500 MG Tablet 1000 MG PO ×2 (07:39→15:43)
[2018-09-16 07:49] LABS: Absolute Lymphocyte Count 3.24 X10^3/uL (0.83-4.51); Absolute Neutrophil Count 12.1 X10^3/uL (2.0-7.7); Basophil# 0.11 X10^3/uL; Basophil% 0.6 % (0-1); Eosinophil# 0.11 X10^3/uL; Eosinophils% 0.6 % (0-5); Hematocrit 31.6 % (37-47); Hemoglobin 10.7 g/dL (12.0-15.0); Lymphocyte # 3.24 X10^3/ul (4.0); Lymphocyte % 18.7 % (19-41); Mean Corp Hgb Conc 33.9 g/dL (32-36); Mean Corpuscular Hgb 29.5 pg (27.0-32.0); Mean Corpuscular Volume 87.1 fL (81-99); Mean Platelet Vol. 9.7 fl (6.2-12.0); Monocyte# 1.29 X10^3/uL; Monocyte% 7.4 % (0-10); NRBC Flagged by Analyzer 0 % (0-5); Neutrophil # 12.06 X10^3/uL (2.7-7.7); Neutrophil % 69.8 % (47-70); Platelet Count 265 K/mm3 (150-450); RBC Distribution Width CV 13.5 % (11.6-14.6); RBC Distribution Width SD 42.8 fl (35.1-43.9); Red Blood Count 3.63 M/mm3 (4.2-5.4); White Blood Count 17.3 K/mm3 (4.4-11.0)
[2018-09-16] MEDS: Ondansetron 4 MG/2 ML Vial IV ×2 (08:13→22:37)
[2018-09-16 08:19] LABS: ALB/GLOB Ratio 0.6 RATIO (0.9-2.4); AST(SGOT) 14 U/L (15-37); Alanine Aminotransfer ALT/SGPT 13 U/L (13-56); Albumin, Serum 2.5 g/dL (3.2-5.0); Alkaline Phosphatase 139 U/L (45-117); Anion Gap 10 (5-15); BUN 11 mg/dL (7-18); BUN/Creat Ratio 17.6 RATIO (10-20); Calcium,Total 7.7 mg/dL (8.5-10.1); Chloride 105 mmol/L (98-107); Creatinine, Serum 0.62 mg/dL (0.55-1.02); EST Glomerular Filtration Rate 128 mL/min (>60); Est Glom Filt Rate - Afr Amer 155 mL/min (>60); Estimated Creatinine Clearance 114.48 ml/min; Glucose 94 mg/dL (74-106); Potassium 3.9 mmol/L (3.5-5.1); Protein, Total 6.5 g/dL (6.4-8.2); Sodium Level 137 mmol/L (136-145)
[2018-09-16] MEDS: Labetalol 200 MG Tablet 300 MG PO ×2 (08:44→19:30)
[2018-09-16] MEDS: 0.9% Normal Saline 100 ML IV.SOLN. INTRA-UTER (11:27)
--- NOTE | 2018-09-16 12:38 | PCM.PN.BLA ---
Progress Note fht 140 min-mod variability reactive. .5 cm dilated, elvated bps- given IV labetalol x 2, increased baseline oral labetalol to 300mg. segundo bulb inserted will start pitocin per protocol. labs rechecked and stable WNL
[2018-09-16] MEDS: Oxytocin 30 units/NS 500 ml 30 UNITS/500 ML IV.SOLN IV (13:12)
[2018-09-17] VITALS (21 sets, daily range): BP systolic 92–161; BP diastolic 49–94; PULSE 65–90; RESP 16–185; TEMP 36.1–37.4; O2SAT 94–100
[2018-09-17] MEDS: Magnesium Sulfate 20 GM/500 ML BAG IV ×3 (00:07→20:30)
[2018-09-17] MEDS: Lactated Ringers 1,000 ML 50 ML IV ×2 (00:07→06:43)
[2018-09-17] MEDS: fentaNYL-bupivacaine (epidural) 100 ML BAG EPIDURAL ×2 (00:55→05:34)
--- NOTE | 2018-09-17 02:55 | PN_ITS ---
Progress Note fht 120 moderate variability reactive no decelerations category I tracing [place]: regular /-3 ballotable asymclitic presentation, pitocin washout in process will continue to go back up. continue magnesium sulfate, bps controlled.
--- NOTE | 2018-09-17 04:01 | PCM.PN.BLA ---
Progress Note arom clear fluid fse and iupc placed. continue pit per protocol. different position changes for encourage descent. /
[2018-09-17] MEDS: Sodium Citrate/Citric Acid 30 ML UDC PO (07:11)
[2018-09-17] MEDS: Cefazolin 2 GM in 0.9% Normal Saline 100 ML IV (07:15)
--- NOTE | 2018-09-17 07:17 | PCM.PN.BLA ---
Progress Note fht 130 min variability nonreactive no scalp stimulation causing variables, intermittent late decels remote from delivery recommend COOPER primary c section patient agrees. suspect CPD also compounding labor due to high station and prolonged labor with arrest of dilation.
--- NOTE | 2018-09-17 07:29 | OP.PCM_ITS ---
Problem List (1) Preeclampsia, severe Status: Acute (2) Supervision of high risk in third trimester Status: Acute Comment: PRR ACE 10/25/18 katiuska [place] BF:Woody (3) Hypertension affecting in third trimester Status: Acute Comment: baseline labs an EKG nl. no meds. weekly nsts after 32 weeks. growth q 4 and weekly afis (4) Status: Acute Qualifiers: Comment: decline genetic, carrier, and ntd screening. (5) Late deceleration of heart rate Status: Acute (6) Cephalopelvic disproportion Status: Acute Delivery Classification: COOPER Final ACE: 10/25/18 Gestational age: 34 Weeks and 6 Days Indications for : Distress Description of Procedure: Patient presented with severely elevated blood pressures and diagnosed with preeclampsia with severe features. She had Gilberto been given steroids several days prior and was after 34 weeks the decision to induce labor was made. Patient was induced with Cytotec and then Chapman bulb and Pitocin and after almost 40 hours she was still 4 cm dilated remote from delivery and she devel oped minimal variability with intermittent late decelerations with absence of scalp stimulation therefore the decision was made for operative vaginal delivery. Patient had an epidural that was functioning and had been on magnesium sulfate throughout labor with IV labetalol given several times at baseline oral labetalol given for maintenance. She was taken the operating room. Anesthesia was adequate. The patient was placed in the dorsal supine position with leftward tilt. Patient was prepped and draped in the normal sterile fashion. Pfannenstiel skin incision was made with the scalpel and carried through to the underlying layer of fascia with the scalpel. Fascia was nicked in the midline and the incision extended laterally. The rectus bellies were dissected off superiorly and inferiorly with out complication both sharply and bluntly. The peritoneum was entered digitally. The incision was stretched and a low transverse uterine incision was made with the scalpel. The infant's h ead was delivered atraumatically followed by the anterior and posterior shoulders without complication the rest of the delivered. The cord was clamped and cut and the was handed off to awaiting nurse. The placenta was delivered spontaneously immediately following and was noted to be intact and have a three-vessel cord. The uterus was exteriorized cleared of all clots and debris, and the incision was closed in a double layer closure using #1 Monocryl. The uterus was returned to the maternal abdomen and gutters were cleared of all clots and debris. The ovaries and fallopian tubes were noted to be within normal limits. The peritoneum was closed with 3-0 Monocryl in a running fashion. Fascia was closed with 0 PDS in a running fashion. Subcutaneous tissue was copiously irrigated and the skin was closed with 3-0 Monocryl in a subcuticular fashion. Steri-Strips and Mepilex dressing were applied without complication. Patient was taken to recovery in stable condition. Amniotic Membrane Rupture Type: Artificial Amniotic Fluid Description: Clear Placenta Disposition: [facility] Cord Entanglement: None Esitmated Blood Loss (ml): 800 Infant Gender: Male Delayed cord clamping: Yes Pre-op Antibiotic Given: - - azithromycin Complications: None - Admit VTE Documentation VTE Present on Admission: No VTE Mechan Device Prophylaxis: SCD's
[2018-09-17] MEDS: Oxytocin 30 units/NS 500 ml 30 UNITS/500 ML IV.SOLN 167 UNITS IV (07:46)
[2018-09-17] MEDS: Carboprost Tromethamine 250 MCG/ML Ampul IM (07:50)
--- NOTE | 2018-09-17 09:47 | NURSING ---
IBCLC round with mother, checked in to see if mother would be interested at all in pumping some breastmilk for her baby. Mother said she originally thought she was just formula feed and that is her plan. Encouraged mother to think about her options, pumping/both/stick to her original plan and that if she decided she wanted to do any pumping for the health benefits I would be more than happy to help her and/or support her original plan.
[2018-09-17] MEDS: Acetaminophen 500 MG Tablet 1000 MG PO ×2 (10:54→18:47)
[2018-09-17] MEDS: Labetalol 200 MG Tablet PO (11:51)
[2018-09-17] MEDS: Ketorolac 30 MG/ML Syringe IV ×3 (11:51→23:36)
--- NOTE | 2018-09-17 14:13 | NURSING ---
at 1pm mother was in SCN with baby and requested to pump, states she would like to pump while here to provide her baby with milk. Mother seemed receptive and willing but quiet. Pump explained and pumping initiated.
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
--- NOTE | 2018-09-17 15:21 | NURSING ---
segundo cath tubing with blood noted to be in it and in the bag, this nurse feels its due to pt running over and pulling on segundo when she is up. segundo removed.
[2018-09-17] MEDS: Lactated Ringers 1,000 ML 100 ML IV (16:40)
--- NOTE | 2018-09-17 20:30 | NURSING ---
Discussed plan for pumping overnight, pumping supplies in SCN. saw pt today and educated on pumping. Pt states she is unsure of plan and may pump overnight. Encouraged pumping q3 hours if plans to breastfeed.
[2018-09-18] VITALS (12 sets, daily range): BP systolic 95–149; BP diastolic 53–82; PULSE 60–86; RESP 16–20; TEMP 35.8–36.6; O2SAT 96–100
--- NOTE | 2018-09-18 06:00 | NURSING ---
Pt encouraged to pump overnight and pt stated I am not sure I want to pump, this RN did not observe pumping. Discussed milk supply.
[2018-09-18] MEDS: Lactated Ringers 1,000 ML 50 ML IV (06:43)
[2018-09-18] MEDS: Ketorolac 30 MG/ML Syringe IV ×3 (06:48→18:22)
--- NOTE | 2018-09-18 06:59 | PCM.PN.OB ---
Patient Problems: Active and Suspected Problems (Last Reviewed 09/16/18 @ 05:23 by Adriana Caldwell MD) Preeclampsia, severe (Acute) Late deceleration of heart rate (Acute) Cephalopelvic disproportion (Acute) Subjective: doing well no complaints pain controlled no CP SOB N V ambulating well tolerating po lochia moderate, going well - Physical Exam General: Alert, Oriented x3 Vital Signs Temp Pulse Resp BP Pulse Ox 97.9 F 86 18 149/66 H 100 09/18/18 04:40 09/18/18 04:40 09/18/18 04:40 09/18/18 04:40 09/18/18 04:40 Oxygen Delivery Method Room Air Weight: 262 lb Body Mass Index (BMI) 47.9 Intake and Output for Last 24 Hours 09/16/18 09/17/18 09/18/18 23:59 23:59 23:59 Intake Total 1800 / 1800 1802 / 1802 626 / 626 Output Total 500 / 500 1600 / 1600 100 / 100 Balance 1300 / 1300 202 / 202 526 / 526 Microbiology Past 72 Hours 09/17/18 09:45 C. difficile DNA Amplification - Final Stool Laboratory Tests Past 24 Hrs 09/18/18 06:50 WBC Pending RBC Pending Hgb Pending Hct Pending MCV Pending MCH Pending MCHC Pending RDW Std Deviation Pending RDW Coeff of Kofi Pending Plt Count Pending Medical Necessity - Tobacco Use Smoking Status: Never smoker Assessment/Plan All Active Problems (Last Reviewed 09/16/18 @ 05:23 by Adriana Caldwell MD) (Acute) Hypertension affecting in third trimester (Acute) Supervision of high risk in third trimester (Acute) Pre-eclampsia (Acute) Preeclampsia, severe (Acute) Late deceleration of heart rate (Acute) Cephalopelvic disproportion (Acute) Elevated blood pressure affecting , antepartum (Resolved) Supervision of normal first (Resolved) s/p LTCS PPD # 1 1. routine post care 2. pumping support given 3. rh positive 4. rubella immune 5. preeclampsia with severe features- s/p magnesium x 24 hours post delivery, continue labetalol 200 mg BID. held last night due to low pressure.
[2018-09-18 07:08] LABS: Hematocrit 27.5 % (37-47); Mean Corp Hgb Conc 32.7 g/dL (32-36); Mean Corpuscular Hgb 29.3 pg (27.0-32.0); Mean Corpuscular Volume 89.6 fL (81-99); Mean Platelet Vol. 9.7 fl (6.2-12.0); Platelet Count 227 K/mm3 (150-450); RBC Distribution Width SD 45.1 fl (35.1-43.9); Red Blood Count 3.07 M/mm3 (4.2-5.4); White Blood Count 14.8 K/mm3 (4.4-11.0)
[2018-09-18] MEDS: Labetalol 200 MG Tablet PO ×2 (09:53→22:07)
[2018-09-18] MEDS: 0.9% Saline Lock 10 ML Syringe IV ×2 (12:03→18:22)
[2018-09-18] MEDS: Senna/Docusate Sodium 1 Tablet PO (18:22)
--- NOTE | 2018-09-18 20:18 | NURSING ---
1930 pt asking about being discharged tomorrow.
[2018-09-19 02:25] VITALS: BP 140/70; PULSE 76; RESP 18; TEMP 36.7; O2SAT 97
[2018-09-19] MEDS: Naproxen 250 MG Tablet PO ×2 (02:30→09:55)
[2018-09-19 06:51] VITALS: BP 133/68
[2018-09-19 08:00] VITALS: BP 146/98; PULSE 75; RESP 20; TEMP 36.7
[2018-09-19 08:30] VITALS: BP 138/68
[2018-09-19] MEDS: Senna/Docusate Sodium 1 Tablet PO (09:55)
[2018-09-19] MEDS: Labetalol 200 MG Tablet PO (09:55)
--- NOTE | 2018-09-19 11:32 | PCM.PN.OB ---
Patient Problems: Active and Suspected Problems (Last Reviewed 09/16/18 @ 05:23 by Adriana Caldwell MD) Preeclampsia, severe (Acute) Late deceleration of heart rate (Acute) Cephalopelvic disproportion (Acute) Subjective: doing well no complaints pain controlled no CP SOB N V ambulating well tolerating po lochia moderate, no WEBSTER BV - Physical Exam General: Alert, Oriented x3 Vital Signs Temp Pulse Resp BP Pulse Ox 98.0 F 75 20 H 138/68 H 97 09/19/18 08:00 09/19/18 08:00 09/19/18 08:00 09/19/18 08:30 09/19/18 02:25 Oxygen Delivery Method Room Air Weight: 262 lb Body Mass Index (BMI) 47.9 Intake and Output for Last 24 Hours 09/17/18 09/18/18 09/19/18 23:59 23:59 23:59 Intake Total 1802 / 1802 1053 / 1053 Output Total 1600 / 1600 900 / 900 Balance 202 / 202 153 / 153 Microbiology Past 72 Hours 09/17/18 09:45 C. difficile DNA Amplification - Final Stool Medical Necessity - Tobacco Use Smoking Status: Never smoker Assessment/Plan All Active Problems (Last Reviewed 09/16/18 @ 05:23 by Adriana Caldwell MD) (Acute) Hypertension affecting in third trimester (Acute) Supervision of high risk in third trimester (Acute) Pre-eclampsia (Acute) Preeclampsia, severe (Acute) Late deceleration of heart rate (Acute) Cephalopelvic disproportion (Acute) Elevated blood pressure affecting , antepartum (Resolved) Supervision of normal first (Resolved) s/p LTCS PPD # 2 1. routine post care 2. pumping support given 3. rh positive 4. rubella immune 5. preeclampsia with severe features- s/p magnesium x 24 hours post delivery, continue labetalol 200 mg BID. patient requesting discharge and doing well, bps stable
--- NOTE | 2018-09-19 11:33 | PCM.DC.SUM ---
Discharge Date and Diagnosis - Problem List Patient Problems: Active and Suspected Problems (Last Reviewed 09/16/18 @ 05:23 by Adriana Caldwell MD) Preeclampsia, severe (Acute) Late deceleration of heart rate (Acute) Cephalopelvic disproportion (Acute) Date of Admission: 09/13/18 Date of Discharge: 09/19/18 - Primary Discharge Diagnosis Active and Suspected Problems (Last Reviewed 09/16/18 @ 05:23 by Adriana Caldwell MD) Preeclampsia, severe (Acute) Late deceleration of heart rate (Acute) Cephalopelvic disproportion (Acute) Hospital Course and Treatment Consultations 09/15/18 17:33 Consult: Anesthesia Routine Comment: Reason For Exam: Labor Operations: - - ltcs Summary of Care Provided: The patient is a 18 year old F presents with preeclampsia with severe features and after failed induction she underwent a primary . patient underwent a section and had a routine recovery with a return of bowel and bladder function, was ambulating, voiding, and tolerating po, and was stable for discharge to home on POD 2. bps were well controlled with labetalol 200 BID and she was ready for dc/ Patient Problems: Active and Suspected Problems (Last Reviewed 09/16/18 @ 05:23 by Adriana Caldwell MD) Preeclampsia, severe (Acute) Late deceleration of heart rate (Acute) Cephalopelvic disproportion (Acute) - Physical Exam Vital Signs Temp Pulse Resp BP Pulse Ox 98.0 F 75 20 H 138/68 H 97 09/19/18 08:00 09/19/18 08:00 09/19/18 08:00 09/19/18 08:30 09/19/18 02:25 Oxygen Delivery Method Room Air Weight: 262 lb Body Mass Index (BMI) 47.9 Intake and Output for Last 24 Hours 09/17/18 09/18/18 09/19/18 23:59 23:59 23:59 Intake Total 1802 / 1802 1053 / 1053 Output Total 1600 / 1600 900 / 900 Balance 202 / 202 153 / 153 Microbiology Past 72 Hours 09/17/18 09:45 C. difficile DNA Amplification - Final Stool Home Medications: Medications to take at Discharge Pnv No.95/Ferrous Fum/Folic AC [ Vitamin Tablet] 1 ea PO DAILY 09/13/18 Labetalol [Trandate (Beta Tono)] 200 mg PO BID #60 tab 09/19/18 Naproxen [Naprosyn] 250 - 500 mg PO Q8H PRN PRN #30 tab 09/19/18 Oxycodone HCl/Acetaminophen [Percocet 5-325] 1 - 2 tablet PO Q4H PRN PRN 7 Days #15 tablet 09/19/18 Following Prescrptions Were Given to Patient: Naproxen [Naprosyn] 250 - 500 mg PO Q8H PRN PRN #30 tab PRN Reason: MILD PAIN Transmission Status: Pending to [address] Oxycodone HCl/Acetaminophen [Percocet 5-325] 1 - 2 tablet PO Q4H PRN PRN 7 Days #15 tablet PRN Reason: Pain Transmission Status: Received by [address] Labetalol [Trandate (Beta Tono)] 200 mg PO BID #60 tab Transmission Status: Pending to [address] Primary Care Physician: Care Physician,No Primary [Primary Care Provider] - Medical Necessity - Tobacco Use Smoking Status: Never smoker Meaningful Use Info Meaningful Use Diagnoses (Choose all that apply): None applicable
--- NOTE | 2018-09-19 11:35 | PCM.DCCSEC ---
Discharge Diet: No Restrictions Discharge Activity: May Not Drive - for 2 weeks, May not drive while taking narcotic pain medications., May Shower, May Take a Tub Bath - in 7 days May resume sexual activity in: 4-6 weeks Lifting Restrictions: 20 pounds Additional Activity Instructions:: Nothing in the vagina for 4-6 weeks. You may return to work/school in 6 weeks. Call your doctor if your incision/area has: Continuous Slow Oozing, Sudden Increased Bleeding, Increased Pain/ Swelling, Increased Redness, Foul Smelling Discharge Call your doctor if you observe: Fever of 101 or Higher, Using more than one pad per hour - for 2 hours Suture Line Care: Avoid Pulling/Pushing, Avoid Pinching/Bending Cleanse incision/area with: Keep Dressing Clean & Dry Additional Instructions: If you experience any of the following, contact your healthcare provider. Bleeding that soaks a pad every hour for 2 hours Fever 100.4 or higher Unrelieved incision or abdominal pain Swelling, redness, discharge or bleeding from your incision or episiotomy site Your incision begins to separate Problems urinating (including inability to urinate or burning while urinating). Visual changes Severe headache Flu-like symptoms Pain or redness in one of both of your breasts Pain, warmth, tenderness or swelling in your legs, especially the calf area Frequent nausea and vomiting Symptoms of depression or anxiety If you experience any of the following, call 911 or go to the nearest Emergency Room. Chest pain Problems breathing Seizure activity Partial or complete paralysis of a body part, slurred speech, weakness or drooping of the face, or a sudden inability to walk or hold your balance Allergies/Adverse Reactions: Allergies No Known Allergies Allergy (Verified 09/15/18 15:25) Medications to take at Discharge Pnv No.95/Ferrous Fum/Folic AC [ Vitamin Tablet] 1 ea PO DAILY 09/13/18 Labetalol [Trandate (Beta Tono)] 200 mg PO BID #60 tab 09/19/18 Naproxen [Naprosyn] 250 - 500 mg PO Q8H PRN PRN #30 tab 09/19/18 Oxycodone HCl/Acetaminophen [Percocet 5-325] 1 - 2 tablet PO Q4H PRN PRN 7 Days #15 tablet 09/19/18 The following prescriptions were given: Naproxen [Naprosyn] 250 - 500 mg PO Q8H PRN PRN #30 tab PRN Reason: MILD PAIN Transmission Status: [facility]. Oxycodone HCl/Acetaminophen [Percocet 5-325] 1 - 2 tablet PO Q4H PRN PRN 7 Days #15 tablet PRN Reason: Pain Transmission Status: Received by [address] Labetalol [Trandate (Beta Tono)] 200 mg PO BID #60 tab Transmission Status[facility]. Follow-Up: Call to make an appointment with your doctor for an incision check in 1-2 weeks. You will also need a 6 week post- follow up appointment. Test results from this visit will be discussed in further detail at your follow-up appointment, if applicable. Please Follow Up With: Adriana Caldwell MD - Call to make an appointment for an incision check in 1 [phone] When: You will need a post- check in 6 weeks. Primary Care Physician: Care Physician,No Primary [Primary Care Provider] - Within 1 Month (recommend Dr Hema Galvan with [facility].[phone])
[2018-09-19 13:40] VITALS: BP 134/94
[2018-09-19 13:57] VITALS: BP 139/92; PULSE 79; RESP 16; TEMP 36.3
--- NOTE | 2018-09-21 14:00 | CASEMGMT ---
Social Work Labor and Delivery Unit Date of Intervention: 09/21/2018 Time of Intervention: 1400 Reason for follow-up:Communication with patient/Mother of Baby (MOB) Nevaeh Bernard to finish psychosocial assessment that was initiated on 09-17-2018, and assess further for resource needs. Summary of Family/Staff/Agency Contact: Met with MOB in an empty room on the labor and delivery unit as the father of baby (FOB) Woody Knapp sleeping in MOB's bed. Reintroduced MOB to this administrator social welfare seeing MOB as a patient for [facility] and for the baby who is in the [facility]. A female visitor present on the unit with MOB who is FOB's 15 year old sister, though the 15 year old did not stay in the room for social work intervention. Discussed with MOB that needed to review a few more items from social history, as was not able to discuss on Thursday. MOB voiced that was sleepy on Thursday and having a hard time with questions. Baby Supplies: Reports to have sleep space, car seat, clothing, diapers, and wipes but does have to work on getting some preemie clothing and diapers as MOB was not expecting baby to be early. Education for MOB: Initially MOB denied to this narrative writer any learning disabilities but today MOB reports that did in fact have an IEP in school for math. Denies issues with reading, writing, or understanding what reads. From chart review and discussion with nursing, MOB is requiring reinforcement with teaching and baby care. Agency Involvement: MOB confirms to have WIC and then medicaid through [facility]. MOB reports receptivity to applying for food stamps, and agrees to [facility] referral. Denies any history of children services involvement at any point in MOB's life. [facility] [place] [facility]. Relationship with FOB: MOB denies any form of abuse or domestic violence in this relationship. Behavioral Health issue: MOB denies FOB to have any mental health history. MOB confirms this date that did deal with depression from the age of 10 until MOB graduated from high school. MOB reports was treated with fluoxetine and this medicine helped, but then MOB lost insurance so has been off of medicine for a couple of years now. MOB reports medicine was prescribed through [facility]. MOB denies any suicidal ideation as a teen. Addressed with MOB history of suicidal ideation as an adult. MOB reports once instance of going to the ED at [facility] in early 2018 for suicidal ideation due to people irritating MOB, but MOB denies that actually wanted to complete suicide. MOB denies any other thoughts since February 2018. MOB reports did not follow up with any mental health treatment after the ED visit. MOB does report perception that fluoxetine helped MOB. MOB denies any history of alcohol, drug or tobacco use or abuse. MOB reports she drank a mountain dew every couple of weeks during . depression: Talked with MOB about risk factors present. MOB reports has been thinking of getting back on medicine and reports receptivity to administrator social welfare helping to arrange follow up at [facility]. Safe Sleeping: MOB initially stated that does not know what this means. Educated MOB to safe sleeping and then MOB reported that this topic has been talked about with MOB. Shaken baby prevention: MOB reports this has been talked about and reports is supposed to put baby down and walk away. Educated MOB that baby is to be put in a safe place and walk away for just a short period of time like 5-10 minutes, not hours. Bonding: MOB reports to feel good about the baby. Support system: MOB reports at home going there is family around and close that can help MOB with the baby. No formal arrangement made at this point about who will be helping MOB. JEANIE has been going to work at night and DANILO has had JEANIE's 15 year old sister staying the night. Addressed with MOB that minors are not allowed to spend the night at hospital of delivery in a courtesy room, educating MOB to some reasoning behind this. MOB voiced that was told by nursing that this would be allowed and that JEANIE's sister has been staying the night since DANILO came into the hospital. Educated MOB that maybe the nursing staff did not know of the age of the sister, but it is a rule of [facility] that minors are not to spend the night and stay at the hospital. Educated MOB that teen moms who are in need of a courtesy room must have an adult parent or legal guardian present. Attempted to validate that this must be frustrating to MOB, but that as a rule of the hospital must abide by that rule. MOB voiced that will just go home at night then if cannot have the 15 year old stay the night. Explored with MOB as to why MOB would not stay the night. MOB voiced because would be bored and lonely. MOB denies having any other options in the family to spend the night with MOB. MOB voiced that this is why I don't talk to anyone as people make a big deal of things. The 15 year old stuck head into the room then and asked for the phone, at which time MOB told the sister that the sister is no longer able to stay overnight at hospital. This narrative writer attempted to educate MOB and the sister to reasons for this, at which time MOB got up and walked past this narrative writer out of the room. This narrative writer spoke with managers of the labor and delivery unit at [facility]. Management confirms ruling that minors are not allowed to spend the night at the hospital when not a patient. Even minor mothers who use courtesy rooms to provide care to their babies must have an adult present to use a courtesy room. Presented to [facility] and spoke with MOB, JEANIE Mckay, and JEANIE's sister at baby's bedside. Educated that this narrative writer spoke to management and that it is confirmed the sister is not allowed to spend the night. Both MOB and JEANIE voiced that the sister has been spending the night all along. Educated that this as not supposed to happen and attempted to explain reasoning. MOB pointed at this narrative writer, looking at JEANIE, and stated she is just making a big deal of this. Attempted to reorient that this is a decision not by this narrative writer but a hospital rule. Asked if there are any questions that MOB or FOB have at this time. MOB stated that No and I'm not talking to you. MOB then left baby's bedside with the 15 year old and JEANIE took over care of baby. Assessment: MOB more awake and alert during social work visit. MOB held good eye contact at the beginning, answered questions, recognized that was tired on Thursday when administrator social welfare tried to talk with MOB. MOB laughed a few times, and more expansive in answers to questions. MOB continued to be in agreement with [facility], as well as voiced receptivity to having administrator social welfare arrangement mental health follow up. MOB also willing to take Medicaid application to apply for food stamps. MOB reports to have most needed supplies and adequate family support at home. This narrative writer uncertain to what level of support MOB will have from others at home, though MOB repots support will be adequate, as JEANIE works 3rd shift and only a 15 year old has been consistently present at hospital since baby's delivery; DANILO was unable to say any other family member that could come to stay with DANILO overnight at the hospital. When this narrative writer addressed with MOB that JEANIE's sister, a minor, cannot stay overnight at the hospital DANILO's demeanor changed. MOB at this time put head down, stopped making eye contact, conversation became minimal, and body tensed. Attempted to offer validation of feelings and to explore how MOB deals with anger and frustration. MOB stated I don't talk to anyone. Explored whether MOB talks to support system, walks or listens to music as examples. MOB stated yes, but nothing further can kept head down rather than looking at this narrative writer. MOB exhibiting irritability when provided information that MOB does not like or agree with, as evidenced by MOB ceasing engagement in conversation with this narrative writer and walked out on this narrative writer 2 times (once in the room where talking and then at baby's bedside), unwilling to have further discussion to increase understanding about the topic that is upsetting MOB. MOB appearing to be irritated by content discussed and just done with conversation. As MOB was leaving baby's bedside this narrative writer addressed whether MOB still in agreement with mental health referral and MOB stated no. JEANIE denies any other questions to this narrative writer after MOB left baby's bedside. Plan: DANILO has been discharged as a [facility] patient, given a courtesy room on the labor and delivery unit to use while baby is in the SC[facility]. Social work to follow this family in the [facility]. Community resources will be provided to MOB prior to baby's discharge from the [facility] and to include: [facility] resource list, medicaid application to apply for food stamps, depression packet. [facility] referral to be made for this family and if MOB agrees a referral back to mental health counseling. No other services requested at this time. Social work remains involved via the [facility] and will follow until the baby's discharge. -SIS Carrera, MODEL AND PATTERN SUPERVISOR
--- NOTE | 2018-09-23 12:43 | CASEMGMT ---
Social Work Labor and Delivery Unit Met wit MOB on the [facility] to follow up regarding MOB's willingness for a mental health referral. MOB reports agreement to referral and signed release of information today. Intake assessment attained for MOB for Thursday09-28-2018 at 1515 with Ailcia Jones. Printed up a letter for MOB with appointment time, date, and what to bring. Verbally reviewed with MOB. depression packet, [facility] list and medicaid application for food stamps also provided and reviewed today. [facility] referral will be made from the [facility] unit. No other services requested or indicated from [facility] social work perspective. Social work will finalize any other referral needs based from the [facility] unit. -Melodie ALEGRE, PARTS CLERK
--- NOTE | 2018-09-23 18:40 | NURSING ---
Mother still in [facility]. Doing well.
== END 2018-09-19 15:00 | disposition home or self-care (01) | DRG 540 ==
LOC: WPOUT 09-16 10:06
PROVIDERS: Admitting Provider Obstetrics & Gynecology; Referring Provider Obstetrics & Gynecology; Visit Provider Obstetrics & Gynecology
DX: O76 Abnormality in fetal heart rate and rhythm complicating labor and delivery (principal); O62.0 Primary inadequate contractions; O14.14 Severe pre-eclampsia complicating childbirth; Z37.0 Single live birth; Z3A.34 34 weeks gestation of pregnancy; O65.4 Obstructed labor due to fetopelvic disproportion, unspecified; O60.14X0 Preterm labor third trimester with preterm delivery third trimester, not applicable or unspecified
CPT/HCPCS: 59025; 59050; 76819; 80053; 81001; 82565; 82570; 82731; 84112; 84156; 84450; 84460; 84550; 85025; 85027; 85610; 85730; 86850; 86900; 87086; 87088; 87493; 87653; 96372; 99218; J7120; A4216; G0378; J0290; J0702; J2405

== ENCOUNTER 2018-09-30 11:10 | Outpatient (CLI) | payer MEDICAID, SELFPAY ==
[2018-09-27 13:50] VITALS: BMI 47.8
[2018-09-30 10:51] VITALS: BP 159/80; PULSE 98; RESP 20; TEMP 36.6; O2SAT 97; BMI 44.7
[2018-09-30 11:31] VITALS: BMI 38.4
--- NOTE | 2018-09-30 11:41 | OB.TRI.NOTE ---
- Problem List (1) Hypertension affecting in third trimester Status: Acute Comment: baseline labs an EKG nl. no meds. weekly nsts after 32 weeks. growth q 4 and weekly afis History of Present Illness Date of Service: 09/30/18 Was patient seen by the physician?: No Reason For Visit: R/O PRE E Date of Service: 09/30/18 History of Present Illness: Patient seen for headache and elevated blood pressure. Patient is over a week . Patient has not been taking her blood pressure medication. Normal labs and repeat blood pressures mildly elevated. Preeclampsia?recommend continuing labetalol and follow-up in the office. Reviewed precautions. Allergies No Known Allergies Allergy (Verified 10/01/18 13:28) - Pertinent Past Medical History Medical History: Past Medical History (Last Reviewed 10/01/18 @ 13:27 by Hilda Dinh) Depression Physical Exam Vitals: Vital Signs Temp Pulse Resp BP Pulse Ox 97.8 F 98 20 H 159/80 H 97 09/30/18 10:51 09/30/18 10:51 09/30/18 10:51 09/30/18 10:51 09/30/18 10:51 Multi Select Codes - Urinary/Genital Urinary/Genital CPT Codes: Other Procedure See Report - no charge
[2018-09-30 11:54] LABS: Hemoglobin 11.4 g/dL (12.0-15.0); Mean Corp Hgb Conc 32.6 g/dL (32-36); Mean Corpuscular Hgb 29.2 pg (27.0-32.0); Mean Corpuscular Volume 89.7 fL (81-99); Mean Platelet Vol. 9.8 fl (6.2-12.0); Platelet Count 344 K/mm3 (150-450); RBC Distribution Width CV 12.4 % (11.6-14.6); RBC Distribution Width SD 40.9 fl (35.1-43.9); White Blood Count 13.1 K/mm3 (4.4-11.0)
[2018-09-30 12:24] LABS: AST(SGOT) 37 U/L (15-37); Alanine Aminotransfer ALT/SGPT 39 U/L (13-56); Creatinine, Serum 0.77 mg/dL (0.55-1.02); EST Glomerular Filtration Rate 101 mL/min (>60); Est Glom Filt Rate - Afr Amer 122 mL/min (>60); Estimated Creatinine Clearance 92.18 ml/min; Uric Acid 7.6 mg/dL (2.6-6.0)
--- NOTE | 2018-09-30 12:40 | NURSING ---
1115 pt received in room 2 for c/o headache and having high bp in er triage. call to Dr Caldwell for orders. Serial bp's started and attemping lab draw. Pt unable to urinate at this time.
--- NOTE | 2018-09-30 12:47 | NURSING ---
Dr Caldwell on floor at 1155 and serial bp's reported along with the fact that pt wasn't taking bp medicine and hasn't ate since yesterday. Pt finally started Labetolol at 1030 this am. pt no longer c/o headache. unable to get pt ptt lab tube, states ok to cancel that test.
--- NOTE | 2018-09-30 13:06 | NURSING ---
1255 pt discharged urine ratio cancelled per Dr Caldwell Labs called to her office. pt states understanding of taking her Labetolol twice a day.
== END 2018-09-30 12:55 | disposition home or self-care (01) ==
LOC: WPOUT 11:21 → WP 11:21
PROVIDERS: Referring Provider Obstetrics & Gynecology; Visit Provider Obstetrics & Gynecology
DX: O14.95 Unspecified pre-eclampsia, complicating the puerperium (principal); Z91.14 Patient's other noncompliance with medication regimen
CPT/HCPCS: 36415; 82565; 84450; 84460; 84550; 85027; 99218; G0378

== ENCOUNTER 2019-02-26 20:48 | Emergency (ER) | payer MEDICAID, SELFPAY ==
[2018-11-05 14:44] VITALS: BMI 38.4
[2019-02-26 20:49] VITALS: BP 149/93; PULSE 117; RESP 18; TEMP 36.1; O2SAT 99; BMI 36.6
--- NOTE | 2019-02-26 21:10 | ED.DCSUM_ITS ---
- ER Visit Summary Date of Service: 02/26/19 Chief Complaint: Right eye swelling History of Present Illness: The patient is a 19 F presents with swelling of her right eye that began today. Patient states it is gradually gotten worse throughout the day. Patient denies any trauma or injury. Patient missed is some mild redness to the right eye. Patient states it is itching. Patient denies any visual changes. Patient normally wears glasses. Patient states nothing makes it better or worse. Patient denies any matting crusting or drainage. Patient denies any photophobia. Patient denies any foreign body sensation. Physical Examination: Vital signs are stable. Patient is afebrile. Patient is in no acute distress. Pupils are equal, round, and reactive to light bilaterally. Extraocular muscles are intact. Conjunctive is clear. There is a small hordeolum on the lateral aspect of the right lower eyelid. There is no discharge or drainage. There is some mild tenderness. There are no corneal abrasions noted. Anterior chamber is clear. There is no hyphema. Funduscopic examination was benign. Cranial nerves II through XII are intact. There are no focal motor or sensory deficits. Emergency Department Course and Treatment: Patient was advised that this is a stye. Patient was instructed use warm compresses to the area. Patient was instructed to follow-up with her primary care physician in 3 to 5 days. Patient understood and was agreeable with the plan. All questions were answered. Disposition: Discharge home Impression: Hordeolum right lower eyelid This note was generated with [employer] dictation software. It may contain incorrect words, spelling, and punctuation that were not noted in review of the chart prior to signing ED Disposition - Plan for ED Patient: Disposition: Home or Assisted Living Diagnosis: Hordeolum externum right lower eyelid Instructions: Sty Referrals: Care Physician,No Primary [Primary Care Provider] - 5-7 Days
[2019-02-26 22:16] VITALS: RESP 16
== END 2019-02-26 22:16 | disposition home or self-care (01) ==
PROVIDERS: Emergency Provider Emergency Medicine
DX: H00.012 Hordeolum externum right lower eyelid (principal); I10 Essential (primary) hypertension; Z79.899 Other long term (current) drug therapy
CPT/HCPCS: 99282

== ENCOUNTER 2019-06-07 16:48 | Emergency (ER) | payer MEDICAID, SELFPAY ==
[2019-06-07 16:50] VITALS: BP 156/97; PULSE 115; RESP 16; TEMP 36.7; O2SAT 96; BMI 36.6
--- NOTE | 2019-06-07 17:01 | ED.VISSUMM ---
- ER Visit Summary Date of Service: 06/07/19 Chief Complaint: Depression with suicidal ideation History of Present Illness: The patient is a 19 F who presents with depression and suicidal ideation that began today. Patient states that her dad called the department manager's office when she told him that she was thinking of hurting herself. Patient states she was thinking of cutting herself. Currently, patient states she does not have any suicidal ideations. Patient has a history of depression and suicidal ideations. Patient denies any prior suicidal attempts. Patient states she does not like where she is at at the present time. Patient denies any visual or auditory hallucinations. Physical Examination: Vital signs are stable except for tachycardia of 115. Patient is afebrile. Patient is in no acute distress. Oral mucosa is pink and moist. Neck is supple. Trachea is midline. There is no JVD. Heart was regular rate and rhythm. Lungs are clear and equal bilaterally. Abdomen is soft. Bowel sounds are normal. There is no tenderness. Cranial nerves II through XII are intact. There are no focal motor or sensory deficits noted. Extremities are intact. There is no calf tenderness or edema. Patient does have a depressed mood and flat affect. Currently patient denies any suicidal ideations. Test Results: CBC showed a mild leukocytosis of 15.3. Basic metabolic profile was within normal limits. hCG was negative. Serum alcohol level was normal. Urine tox screen was ordered and is pending. Emergency Department Course and Treatment: Suicide precautions were maintained. outreach and education social worker was in to evaluate the patient and was able to safety plan with the patient. Patient will go home with her cousin's friend who will take responsibility for the patient. Patient will follow-up with crisis tomorrow. Patient understood and was agreeable with the plan. All questions were answered. Disposition: Discharge home Impression: 1. Depression This note was generated with [employer] dictation software. It may contain incorrect words, spelling, and punctuation that were not noted in review of the chart prior to signing ED Disposition - Plan for ED Patient: Disposition: Home or Assisted Living Diagnosis: Depression Instructions: ED Depression Referrals: Care Physician,No Primary [Primary Care Provider] - Counseling,Center [GROUP OF PHYSICIANS] - 1 Day
[2019-06-07 17:27] LABS: Absolute Lymphocyte Count 3.64 X10^3/uL (0.83-4.51); Absolute Neutrophil Count 10.3 X10^3/uL (2.0-7.7); Basophil# 0.09 X10^3/uL; Basophil% 0.6 % (0-1); Eosinophil# 0.22 X10^3/uL; Eosinophils% 1.4 % (0-5); Hemoglobin 12.7 g/dL (12.0-15.0); Lymphocyte # 3.64 X10^3/ul (4.0); Lymphocyte % 23.8 % (19-41); Mean Corp Hgb Conc 32.6 g/dL (32-36); Mean Corpuscular Hgb 28.3 pg (27.0-32.0); Mean Corpuscular Volume 86.9 fL (81-99); Mean Platelet Vol. 9.8 fl (6.2-12.0); Monocyte# 1.01 X10^3/uL; Monocyte% 6.6 % (0-10); NRBC Flagged by Analyzer 0 % (0-5); Neutrophil # 10.27 X10^3/uL (2.7-7.7); Neutrophil % 67.1 % (47-70); Platelet Count 385 K/mm3 (150-450); RBC Distribution Width CV 12.3 % (11.6-14.6); RBC Distribution Width SD 39.1 fl (35.1-43.9); Red Blood Count 4.49 M/mm3 (4.2-5.4); White Blood Count 15.3 K/mm3 (4.4-11.0)
[2019-06-07 17:49] LABS: Alcohol, Blood (Medical)-Serum < 3.0 mg/dL
[2019-06-07 17:59] LABS: Anion Gap 9 (5-15); BUN 13 mg/dL (7-18); BUN/Creat Ratio 18.6 RATIO (10-20); Calcium,Total 9.1 mg/dL (8.5-10.1); Chloride 107 mmol/L (98-107); EST Glomerular Filtration Rate 112 mL/min (>60); Est Glom Filt Rate - Afr Amer 136 mL/min (>60); Estimated Creatinine Clearance 100.55 ml/min; Glucose 113 mg/dL (74-106); Potassium 3.4 mmol/L (3.5-5.1); Sodium Level 140 mmol/L (136-145)
[2019-06-07 18:06] LABS: Internal QC Validated? YES +Cl - CLEAR BKGD; Pregnancy, Serum, hCG Quali. NEGATIVE Negative
[2019-06-07 18:30] LABS: Amphetamine Urine VISTA NEGATIVE (<1000 ng/mL); Barbiturate Urine VISTA NEGATIVE (< 200 ng/mL); Benzodiazepine Urine VISTA NEGATIVE (< 200 ng/mL); Cocaine Urine VISTA NEGATIVE (< 300 ng/mL); Ecstacy Urine VISTA NEGATIVE (< 500 ng/mL); Methadone Urine VISTA NEGATIVE (< 300 ng/mL); PCP Urine VISTA NEGATIVE (< 25 ng/mL); THC Urine VISTA NEGATIVE (< 50 ng/mL); Vista UDS pH Range 5
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
[2019-06-07 18:39] VITALS: BP 127/73; PULSE 85; RESP 18; O2SAT 100
--- NOTE | 2019-06-07 18:40 | ED.RN ---
THIS NURSE REVIEWED D/C INSTRUCTIONS WITH PT. PT VERBALIZED UNDERSTANDING OF INSTRUCTIONS. PT BELONGINGS RETURNED TO PT BY PARAG DEPARTMENTAL SHIPPING CLERK. PARAG WALKED PT OUT TO CAR. NO FURTHER NEEDS OR QUESTIONS AT THIS TIME
== END 2019-06-07 18:40 | disposition home or self-care (01) ==
PROVIDERS: Emergency Provider Emergency Medicine
DX: F32.9 Major depressive disorder, single episode, unspecified (principal); E66.9 Obesity, unspecified; I10 Essential (primary) hypertension; Z79.899 Other long term (current) drug therapy
CPT/HCPCS: 36415; 80048; 80307; 80320; 84703; 85025; 99283; G0480

== ENCOUNTER 2019-06-25 20:25 | Emergency (ER) | payer MEDICAID, SELFPAY ==
[2019-06-25 20:26] VITALS: BP 156/110; PULSE 124; RESP 15; TEMP 36.5; O2SAT 98; BMI 36.6
--- NOTE | 2019-06-25 20:43 | ED.VISSUMM ---
- ER Visit Summary Date of Service: 06/25/19 Chief Complaint: Suicidal thoughts, ingestion of medications History of Present Illness: The patient is a 19 F who presents with suicidal thoughts. She took extra of her 30 mg nifedipine tablets today because she states that she was depressed. She will not voice a reason as to why. She states I feel depressed and I am in my feelings. She has no symptoms currently except for feeling depressed. She has never been admitted to a psychiatric facility before. She does see a psychiatrist but does not know the name. Physical Examination: Vital signs reviewed. HEENT exam unremarkable. Heart is tachycardic and regular rhythm without murmurs. Lungs are clear to auscultation. Abdomen is soft and nontender. Extremities reveal no edema. Skin exam normal. Neurologic exam normal. Psychiatric exam reveals someone who is depressed. Her affect is inappropriate at times as she does laugh at me when I am doing my examination. However she states that she feels depressed. She has poor insight and poor judgment. Test Results: White blood cell of 17.3, chloride 108. Urinalysis reveals trace leukocytes. Toxicology, alcohol, Tylenol and salicylate levels are normal. Emergency Department Course and Treatment: Patient will be evaluated by crisis. Due to her suicidal ideation and her overdose of her home medications I feel she likely needs admitted to a psychiatric facility. Treatment Plan: [] Disposition: Likely transferred to a psychiatric facility Impression: Suicidal ideation, depression, overdose on medications This note was generated with Activity Rocket dictation software. It may contain incorrect words, spelling, and punctuation that were not noted in review of the chart prior to signing ED Disposition - Plan for ED Patient: Referrals: Care Physician,No Primary [NON-STAFF] -
[2019-06-25 21:25] VITALS: RESP 16
[2019-06-25 21:34] LABS: Bacteria 0 SEEN /hpf (None Seen); Mucous, Urine 0 SEEN /hpf (<or=2+); Red Blood Cells-Urine 0 SEEN /hpf (0-5)
[2019-06-25 21:35] LABS: Color, Urine Yellow (Yellow); Glucose, Dipstick Normal (Normal); Ketone-Dipstick 5 mg/dl (Negative); Leukocyte Esterase-Dipstick 25 /ul (Negative); Nitrite-Dipstick Negative (Negative); Occult Blood-Urine Negative /ul (Negative); Protein-Dipstick 100 mg/dl (Negative); Urine Bilirubin Dipstick Negative (Negative); Urine Clarity Clear (Clear); Urine Urobilinogen Normal (Normal)
[2019-06-25 21:38] LABS: Amphetamine Urine VISTA NEGATIVE (<1000 ng/mL); Barbiturate Urine VISTA NEGATIVE (< 200 ng/mL); Benzodiazepine Urine VISTA NEGATIVE (< 200 ng/mL); Cocaine Urine VISTA NEGATIVE (< 300 ng/mL); Ecstacy Urine VISTA NEGATIVE (< 500 ng/mL); Methadone Urine VISTA NEGATIVE (< 300 ng/mL); PCP Urine VISTA NEGATIVE (< 25 ng/mL); THC Urine VISTA NEGATIVE (< 50 ng/mL); Vista UDS pH Range 6
[2019-06-25 21:38] LABS: Absolute Lymphocyte Count 4.45 X10^3/uL (0.83-4.51); Absolute Neutrophil Count 11.5 X10^3/uL (2.0-7.7); Basophil% 0.6 % (0-1); Eosinophil# 0.14 X10^3/uL; Eosinophils% 0.8 % (0-5); Hematocrit 39.2 % (37-47); Hemoglobin 12.8 g/dL (12.0-15.0); Lymphocyte # 4.45 X10^3/ul (4.0); Lymphocyte % 25.7 % (19-41); Mean Corp Hgb Conc 32.7 g/dL (32-36); Mean Corpuscular Hgb 28.2 pg (27.0-32.0); Mean Corpuscular Volume 86.3 fL (81-99); Mean Platelet Vol. 9.8 fl (6.2-12.0); Monocyte# 1.03 X10^3/uL; Monocyte% 5.9 % (0-10); NRBC Flagged by Analyzer 0 % (0-5); Neutrophil # 11.52 X10^3/uL (2.7-7.7); Neutrophil % 66.5 % (47-70); Platelet Count 377 K/mm3 (150-450); RBC Distribution Width CV 12.3 % (11.6-14.6); RBC Distribution Width SD 37.9 fl (35.1-43.9); Red Blood Count 4.54 M/mm3 (4.2-5.4); White Blood Count 17.3 K/mm3 (4.4-11.0)
[2019-06-25 21:44] LABS: Squamous Epithelial Cells - UA 0-5 SEEN /hpf (5-10); White Blood Cells 0-5 SEEN /hpf (0-5)
[2019-06-25 21:54] LABS: Anion Gap 6 (5-15); BUN 14 mg/dL (7-18); BUN/Creat Ratio 14.6 RATIO (10-20); Calcium,Total 9.3 mg/dL (8.5-10.1); Chloride 108 mmol/L (98-107); Creatinine, Serum 0.96 mg/dL (0.55-1.02); EST Glomerular Filtration Rate 78 mL/min (>60); Est Glom Filt Rate - Afr Amer 94 mL/min (>60); Estimated Creatinine Clearance 73.32 ml/min; Glucose 99 mg/dL (74-106); Potassium 3.8 mmol/L (3.5-5.1); Sodium Level 138 mmol/L (136-145)
[2019-06-25 21:56] LABS: Alcohol, Blood (Medical)-Serum < 3.0 mg/dL; Internal QC Validated? YES +Cl - CLEAR BKGD; Pregnancy, Serum, hCG Quali. NEGATIVE Negative
[2019-06-25 22:00] VITALS: RESP 16
[2019-06-25 22:45] LABS: Acetaminophen (Tylenol) Level < 2.0 ug/mL (10.0-30.0); Salicylate < 1.7 mg/dL (2.8-20.0)
[2019-06-25 23:00] VITALS: RESP 14
--- NOTE | 2019-06-25 23:52 | NURSING ---
CALLED CRISIS AT [id number]
[2019-06-26 00:11] VITALS: BP 143/93; PULSE 96; RESP 16; O2SAT 98
[2019-06-26 01:00] VITALS: RESP 18
[2019-06-26 02:00] VITALS: RESP 18
--- NOTE | 2019-06-26 02:50 | ED.RN ---
REPORT CALLED TO ANDRE ON 1600 UNIT
== END 2019-06-26 02:30 ==
PROVIDERS: Emergency Medicine; Emergency Provider Emergency Medicine; PCP Family Medicine
DX: T46.1X2A Poisoning by calcium-channel blockers, intentional self-harm, initial encounter (principal); Y92.9 Unspecified place or not applicable; F32.9 Major depressive disorder, single episode, unspecified; I10 Essential (primary) hypertension; Z79.899 Other long term (current) drug therapy
CPT/HCPCS: 36415; 80048; 80307; 80320; 80329; 81001; 84703; 85025; 99282; G0480; J3486

== ENCOUNTER 2019-08-16 14:05 | Emergency (ER) | payer MEDICAID, SELFPAY ==
[2019-08-16 14:06] VITALS: BP 157/100; PULSE 120; RESP 16; TEMP 36.8; O2SAT 96; BMI 44.7
--- NOTE | 2019-08-16 14:17 | ED.RN ---
pt brought to ed voluntarily for psych eval. she is not pink slipped at this time. upon initial evaluation patient denied any suicidal or homicidal thoughts. when asked a second time patient again denied any suicidal or homicidal ideation. during screening portion of triage assessment patient answered yes to suicidal thoughts, but states she doesn't have a plan. hx of visits to ed for the same. last outpatient visit with psych printing and stamping supervisor was last week. called them today without a response. chargemaster specialist and supervisor ditching informed. med bowden rn 1950
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
[2019-08-16 15:38] LABS: Absolute Lymphocyte Count 2.34 X10^3/uL (0.83-4.51); Absolute Neutrophil Count 10.5 X10^3/uL (2.0-7.7); Basophil# 0.06 X10^3/uL; Basophil% 0.4 % (0-1); Eosinophil# 0.04 X10^3/uL; Eosinophils% 0.3 % (0-5); Hematocrit 38.1 % (37-47); Hemoglobin 12.1 g/dL (12.0-15.0); Lymphocyte # 2.34 X10^3/ul (4.0); Lymphocyte % 17.1 % (19-41); Mean Corp Hgb Conc 31.8 g/dL (32-36); Mean Corpuscular Hgb 27.4 pg (27.0-32.0); Mean Corpuscular Volume 86.4 fL (81-99); Mean Platelet Vol. 10.5 fl (6.2-12.0); Monocyte# 0.71 X10^3/uL; Monocyte% 5.2 % (0-10); NRBC Flagged by Analyzer 0 % (0-5); Neutrophil # 10.49 X10^3/uL (2.7-7.7); Neutrophil % 76.5 % (47-70); POSITIVE COUNT YES; Platelet Count 384 K/mm3 (150-450); RBC Distribution Width CV 12.7 % (11.6-14.6); RBC Distribution Width SD 39.7 fl (35.1-43.9); Red Blood Count 4.41 M/mm3 (4.2-5.4); White Blood Count 13.7 K/mm3 (4.4-11.0)
[2019-08-16 15:39] LABS: Differential Indicated SCAN CRITERIA MET
[2019-08-16 15:47] LABS: Anion Gap 7 (5-15); BUN 9 mg/dL (7-18); BUN/Creat Ratio 12.3 RATIO (10-20); Calcium,Total 9.2 mg/dL (8.5-10.1); Chloride 108 mmol/L (98-107); Creatinine, Serum 0.73 mg/dL (0.55-1.02); EST Glomerular Filtration Rate 107 mL/min (>60); Est Glom Filt Rate - Afr Amer 129 mL/min (>60); Estimated Creatinine Clearance 96.42 ml/min; Glucose 91 mg/dL (74-106); Sodium Level 140 mmol/L (136-145)
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
[2019-08-16 16:02] VITALS: RESP 16; O2SAT 99
[2019-08-16 16:10] LABS: Differential Comment SCANNED
[2019-08-16 16:18] LABS: Amphetamine Urine VISTA NEGATIVE (<1000 ng/mL); Barbiturate Urine VISTA NEGATIVE (< 200 ng/mL); Benzodiazepine Urine VISTA NEGATIVE (< 200 ng/mL); Cocaine Urine VISTA NEGATIVE (< 300 ng/mL); Ecstacy Urine VISTA NEGATIVE (< 500 ng/mL); Methadone Urine VISTA NEGATIVE (< 300 ng/mL); PCP Urine VISTA NEGATIVE (< 25 ng/mL); THC Urine VISTA NEGATIVE (< 50 ng/mL); Vista UDS pH Range 5
[2019-08-16 16:47] LABS: Internal QC Validated? YES +Cl - CLEAR BKGD; Pregnancy, Serum, hCG Quali. NEGATIVE Negative
[2019-08-16 16:50] LABS: Alcohol, Blood (Medical)-Serum < 3.0 mg/dL
--- NOTE | 2019-08-16 17:48 | ED.DEP ---
ED Disposition - Plan for ED Patient: Instructions: ED Depression Referrals: Jere Gomez DO [Primary Care Provider] - Counseling,Center [GROUP OF PHYSICIANS] -
[2019-08-16 18:32] VITALS: BP 140/89; PULSE 87; RESP 18; O2SAT 99
--- NOTE | 2019-08-16 19:11 | CM.ED ---
Solar Panel Installation Supervisor This social sciences professor with multiple visits to patient room. Patient now has housing and will discharge to friends home. Patient friend is coming to vegetable picker patient. Patient declining any community resources and aware of crisis follow up tomorrow. Teri ECHOLS, HERIBERTO
--- NOTE | 2019-08-17 11:05 | CM.ED ---
SOCIAL WORK Hilda with Crisis called in and reported made multiple attempts to contact patient and will continue to attempt to reach patient for follow up.
== END 2019-08-16 19:10 | disposition home or self-care (01) ==
PROVIDERS: Emergency Provider Emergency Medicine; PCP Family Medicine
DX: F32.9 Major depressive disorder, single episode, unspecified (principal)
CPT/HCPCS: 80048; 80307; 80320; 84703; 85025; 99283; G0480

== ENCOUNTER 2021-02-10 22:53 | Emergency (ER) | payer MEDICAID, SELFPAY ==
[2021-02-10 22:55] VITALS: BP 128/85; PULSE 135; RESP 18; TEMP 38.1; O2SAT 96; BMI 36.6
--- NOTE | 2021-02-11 01:04 | EKG12_ITS ---
Test Reason : DYSRHYTHMIA Blood Pressure : / mmHG Vent. Rate : 120 BPM Atrial Rate : 120 BPM P-R Int : 130 ms QRS Dur : 086 ms QT Int : 316 ms P-R-T Axes : 060 067 -07 degrees QTc Int : 446 ms Sinus tachycardia Otherwise normal ECG Confirmed by BONILLA ELISE, KEY ([id number]), video editor AIDEN DANIELS ([id number]) on 02/13/2021 12:16:46 PM Referred By: ROLY Confirmed By:KEY CRYSTAL MD
--- NOTE | 2021-02-11 01:04 | RAD_ITS ---
STUDY: X-RAY CHEST REASON FOR EXAM: Female, 21 years old. cough TECHNIQUE: Single AP portable view of the chest. COMPARISON: None. FINDINGS: Ill-defined subpleural groundglass opacities are seen more prominent in the lung bases , may represent atypical pneumonia or viral pneumonia (COVID-19 ?). There is no demonstrated pleural abnormality. Normal size heart. Normal mediastinum and gordy. Normal visualized pulmonary arteries. Normal visualized aortic arch and descending thoracic aorta. Normal visualized thoracic spine. Normal visualized ribs, clavicles, and shoulders. There is no demonstrated abnormality of the visualized soft tissue structures of the upper abdomen. RAD/Chest 1 View (Portable) IMPRESSION: Ill-defined subpleural groundglass opacities are seen more prominent in the lung bases , may represent atypical pneumonia or viral pneumonia (COVID-19 ?). Electronically Signed: Tigist Calderon MD at 3:01 EST Tel , Service support ,
[2021-02-11] MEDS: dexAMETHasone 10 MG/ML Vial IV (01:29)
[2021-02-11] MEDS: 0.9% Normal Saline 1,000 ML 999 ML IV (01:29)
[2021-02-11] MEDS: Acetaminophen 500 MG Tablet 1000 MG PO (01:29)
[2021-02-11 01:42] VITALS: BP 142/86; RESP 18; O2SAT 98
[2021-02-11 01:45] LABS: Absolute Neutrophil Count 6.2 X10^3/uL (2.0-7.7); Basophil# 0.03 X10^3/uL; Basophil% 0.4 % (0-1); Eosinophil# 0.03 X10^3/uL; Eosinophils% 0.4 % (0-5); Hematocrit 40.8 % (37-47); Hemoglobin 13.4 g/dL (12.0-15.0); Lymphocyte % 18.7 % (19-41); Mean Corp Hgb Conc 32.8 g/dL (32-36); Mean Corpuscular Hgb 27.7 pg (27.0-32.0); Mean Corpuscular Volume 84.3 fL (81-99); Mean Platelet Vol. 10.1 fl (6.2-12.0); Monocyte% 5.9 % (0-10); NRBC Flagged by Analyzer 0 % (0-5); Neutrophil # 6.22 X10^3/uL (2.7-7.7); Neutrophil % 72.7 % (47-70); Platelet Count 234 K/mm3 (150-450); RBC Distribution Width CV 12.5 % (11.6-14.6); RBC Distribution Width SD 38.5 fl (35.1-43.9); Red Blood Count 4.84 M/mm3 (4.2-5.4); White Blood Count 8.5 K/mm3 (4.4-11.0)
[2021-02-11 01:48] LABS: Internal QC Validated? YES +Cl - CLEAR BKGD; Pregnancy, Urine Negative Negative
[2021-02-11 02:06] LABS: Anion Gap 8 (5-15); BUN 10 mg/dL (7-18); BUN/Creat Ratio 12.1 RATIO (10-20); Calcium,Total 9.4 mg/dL (8.5-10.1); Chloride 100 mmol/L (98-107); Creatinine, Serum 0.83 mg/dL (0.55-1.02); EST Glomerular Filtration Rate 91 mL/min (>60); Est Glom Filt Rate - Afr Amer 110 mL/min (>60); Estimated Creatinine Clearance 83.37 ml/min; Glucose 111 mg/dL (74-106); Potassium 4.1 mmol/L (3.5-5.1); Sodium Level 135 mmol/L (136-145); Troponin-I HS 4 pg/mL (3.0-54.0)
[2021-02-11 02:09] LABS: D-Dimer Quantitative (DVT/PE) 0.37 FEU/ug/m (0.27-0.49)
--- NOTE | 2021-02-11 02:36 | EX.ED.DYSGE1 ---
HPI History of Present Illness Chief Complaint: Cough Narrative Narrative: Patient is a 21-year-old female who states that she began with nasal congestion muscle aches and cough about 1 week ago. She states she was tested for Covid on an outpatient basis at the urgent care and was positive. She states she has been doing well but over the last 1 to 2 days has had increased symptoms and secondary to this presents to the hospital for evaluation. Patient denies any history of lung disorder smoking vaping or need for supplemental oxygen PFSH [facility] Medical History (Updated 02/11/21 @ 02:[address] John Lei, DO) COVID-19 Depression Hypertension Home Medications nifedipine 30 mg tablet,extended release 24 hr 30 mg PO DAILY #30 tab 11/05/18 [Rx Last Taken Unknown] dexamethasone 4 mg tablet 4 mg PO DAILY #5 tab 02/04/21 [Rx Last Taken Unknown] dexamethasone [Decadron] 6 mg PO DAILY 10 Days #10 tab 02/11/21 [Rx Last Taken Unknown] Allergy/AdvReac Type Severity Reaction Status Date / Time No Known Allergies Allergy Verified 02/10/21 22:58 Family History (Updated 02/04/21 @ 13:59 by Blanca Springer) Grandmother Diabetes Other Asthma Cancer Hypertension Thyroid disorder Surgical History History of delivery Social History (Updated 02/04/21 @ 14:00 by Blanca Springer) Smoking Status: Never smoker alcohol intake: current alcohol intake frequency: a few times a month Alcohol type: other substance use type: does not use caffeine: Yes what type of physical activity do you participate in: none seatbelt use: always do you feel safe at home: Yes additional social history: [employer] Patient does not work ROS ROS ED Constitutional Constitutional ED: Reports chills and fever(s) ENT ENT ED: Reports rhinorrhea and sore throat Cardiovascular Cardiovascular: Denies chest pain Respiratory/Chest Respiratory/Chest: Reports cough and dyspnea Gastrointestinal Gastrointestinal: Reports diarrhea and nausea; Denies abdominal pain or vomiting Genitourinary Genitourinary ED: Denies dysuria Musculoskeletal Musculoskeletal: Reports myalgias Integumentary Denies rash Neurologic Neurologic: Reports headache(s) Hematologic/Lymphatic Hematologic/Lymphatic: Denies easy bleeding or easy bruising EXAM Physical Exam Const Vital Signs: 02/10/21 22:55 02/11/21 00:57 02/11/21 01:42 Temperature 100.6 F H Temperature Source Oral Pulse Rate 135 H Respiratory Rate 18 18 Respiratory Pattern Normal Blood Pressure 128/85 H 142/86 H Blood Pressure Mean 99 104 Pulse Ox 96 98 Oxygen Delivery Method Room Air Room Air 02/11/21 02:46 Temperature Temperature Source Pulse Rate 111 H Respiratory Rate 18 Respiratory Pattern Blood Pressure 135/93 H Blood Pressure Mean Pulse Ox 94 Oxygen Delivery Method Positive well nourished, well developed and obese General Appearance ED: well developed Nutritional Appearance: obese HEENT Reports moist mucous membranes HEENT Narrative: Cobblestoning the posterior pharynx consistent with sinus drainage but no airway edema or compromise Eyes PERRL and EOMs intact bilaterally Neck supple Neck Narrative: Positive anterior cervical lymphadenopathy Resp normal respiratory effort and clear to auscultation bilaterally Cardio regular rhythm Rate: other Other Details: Tachycardic rate with regular rhythm GI non-tender, non-distended and no masses GI Narrative: Bowel sounds are hyperactive Palpation: soft Extremity normal to inspection Extremity Narrative: No asymmetric edema no pitting edema negative Homans' sign bilaterally Neuro oriented x3 and CN's II-XII intact bilaterally Sensorium / Orientation: alert Motor Exam: strength 5/5 throughout Psych mental status grossly normal Skin no rashes or lesions noted MDM MDM MDM Narrative Medical decision making narrative: Patient presented to the ER with low-grade fever and tachycardic but otherwise satting well on room air. With her symptom profile did elect to perform basic laboratory studies chest x-ray and D-dimer as she is Covid positive and tachycardic. Blood work revealed no clinically significant findings and her D-dimer is negative indicating she does not have a PE as a cause of her symptoms. She was given IV fluids Tylenol Decadron and albuterol treatment. On reevaluation she has improvement of symptoms and reports feeling better and she remains in no acute respiratory distress. Therefore with improvement of symptoms and no need for supplemental oxygen there is no need for further work-up and patient can be discharged home Lab Data Attestation: I reviewed the patient's lab results. Labs: Laboratory Results - last 24 hr 02/11/21 02/11/21 02/11/21 01:30 01:30 01:30 WBC 8.5 RBC 4.84 Hgb 13.4 Hct 40.8 MCV 84.3 MCH 27.7 MCHC 32.8 RDW Std Deviation 38.5 RDW Coeff of Kofi 12.5 Plt Count 234 MPV 10.1 Immature Gran % (Auto) 1.900 H Neut % (Auto) 72.7 H Lymph % (Auto) 18.7 L Pettis % (Auto) 5.9 Eos % (Auto) 0.4 Baso % (Auto) 0.4 Absolute Neuts (auto) 6.2 Absolute Lymphs (auto) 1.60 Nucleated RBC % 0 D-Dimer Quant (PE/DVT) 0.37 Sodium 135 L Potassium 4.1 Chloride 100 Carbon Dioxide 27.0 Anion Gap 8 BUN 10 Creatinine 0.83 Estim Creat Clear Calc 83.37 Est GFR (MDRD) Af Amer 110 Est GFR (MDRD) Non-Af 91 BUN/Creatinine Ratio 12.1 Glucose 111 H Calcium 9.4 Troponin I High Sens 4 Urine Test 02/11/21 01:40 WBC RBC Hgb Hct MCV MCH MCHC RDW Std Deviation RDW Coeff of Kofi Plt Count MPV Immature Gran % (Auto) Neut % (Auto) Lymph % (Auto) Pettis % (Auto) Eos % (Auto) Baso % (Auto) Absolute Neuts (auto) Absolute Lymphs (auto) Nucleated RBC % D-Dimer Quant (PE/DVT) Sodium Potassium Chloride Carbon Dioxide Anion Gap BUN Creatinine Estim Creat Clear Calc Est GFR (MDRD) Af Amer Est GFR (MDRD) Non-Af BUN/Creatinine Ratio Glucose Calcium Troponin I High Sens Urine Test Negative Radiography Chest X-Ray - ED: 1 View, Read by ED Physician, Normal and Lungs Diagnostic Testing: Clinical Impression(s) from Imaging Studies Chest X-Ray 02/11/21 01:04 IMPRESSION: Ill-defined subpleural groundglass opacities are seen more prominent in the lung bases , may represent atypical pneumonia or viral pneumonia (COVID-19 ?). Electronically Signed: Tigist aClderon MD at 3:01 EST Tel , Service support , Discharge Plan Triage Chief Complaint: Cough ED Provider: John Lei Dx/Rx/DC Orders Clinical Impression: COVID-19 Instructions: Coronavirus Disease 2019 (COVID-19): Caring for Yourself or Others Prescriptions: New dexamethasone [Decadron] 6 mg tablet 6 mg PO DAILY 10 Days Qty: 10 RF: 0 No Action nifedipine [Procardia XL] 30 mg tablet extended release 24hr 30 mg PO DAILY Qty: 30 RF: 12 dexamethasone [Decadron] 4 mg tablet 4 mg PO DAILY Qty: 5 RF: 0 Other Ambulatory Orders: COVID Outpatient Monoclonal Antibody Referral (Routine) Timeframe: 1 Day Facility: [facility] - Location: [facility] Ordered By: Dr. John Lei Primary Care Provider: Jere Gomez Referrals: Jere Gomez DO [Primary Care Provider] - Disposition Disposition: Home, Self Care Discharge Date/Time: 02/11/21 02:50
[2021-02-11 02:46] VITALS: BP 135/93; PULSE 111; RESP 18; O2SAT 94
== END 2021-02-11 02:50 | disposition home or self-care (01) ==
PROVIDERS: Emergency Provider Emergency Medicine; PCP Family Medicine; Visit Provider Emergency Medicine
DX: U07.1 COVID-19 (principal); I10 Essential (primary) hypertension; Z79.899 Other long term (current) drug therapy; E66.9 Obesity, unspecified; Z68.36 Body mass index [BMI] 36.0-36.9, adult
CPT/HCPCS: 71045; 80048; 81025; 84484; 85025; 85379; 93005; 96361; 96374; 99285; J7030; A4216

== ENCOUNTER 2021-02-13 21:53 | Emergency (ER) | payer MEDICAID, SELFPAY ==
[2021-02-13 21:54] VITALS: BP 172/94; PULSE 127; RESP 18; TEMP 37.9; O2SAT 94
[2021-02-13 22:16] VITALS: O2SAT 94
[2021-02-13 22:17] VITALS: O2SAT 94
[2021-02-13] MEDS: dexAMETHasone 4 MG Tablet 6 MG PO (22:21)
--- NOTE | 2021-02-13 22:51 | ED.VIS.DYS ---
HPI History of Present Illness Chief Complaint: Shortness of Breath Informant: patient Narrative Narrative: Returns for evaluation of worsening dyspnea today. Day 9 of Covid diagnosis and symptoms. Initial performed in our clinic. States that headache and diarrhea initially. Dry cough. Diarrhea is improved. Mild loss of taste and smell. Nonvaccinated. First infection. She was seen 2 days ago in the ED here per patient had blood work-up x-rays. States sent home with return precautions. She states she did not go home on steroids. She was discharged with inhaler. History of hypertension. Denies diabetes history. Denies asthma or tobacco history. Review of records notes she had chest x-ray 2 days ago viral pneumonia changes. D-dimer was negative. Labs were stable. She was given 1 dose of dexamethasone.. The ED. Prior similar symptoms: Yes PFSH PFSH Medical History COVID-19 Depression Hypertension Home Medications nifedipine 30 mg tablet,extended release 24 hr 30 mg PO DAILY #30 tab 11/05/18 [Rx Last Taken Unknown] dexamethasone 4 mg tablet 4 mg PO DAILY #5 tab 02/04/21 [Rx Last Taken Unknown] dexamethasone [Decadron] 6 mg PO DAILY 10 Days #10 tab 02/11/21 [Rx Last Taken Unknown] dexamethasone 6 mg PO DAILY #9 tab 02/13/21 [Rx Last Taken Unknown] Allergy/AdvReac Type Severity Reaction Status Date / Time No Known Allergies Allergy Verified 02/13/21 11:55 Family History Grandmother Diabetes Other Asthma Cancer Hypertension Thyroid disorder Surgical History History of delivery Social History Smoking Status: Never smoker alcohol intake: current alcohol intake frequency: a few times a month Alcohol type: other substance use type: does not use caffeine: Yes what type of physical activity do you participate in: none seatbelt use: always do you feel safe at home: Yes additional social history: [employer] Patient does not work ROS ROS ED Constitutional Constitutional ED: Denies chills, fever(s) or sweats Eyes Eyes: Denies change in vision ENT ENT ED: Denies dysphagia or sore throat Cardiovascular Cardiovascular: Denies chest pain, leg edema, palpitations or racing heartbeat Respiratory/Chest Respiratory/Chest: Reports cough and dyspnea; Denies dyspnea on exertion Gastrointestinal Gastrointestinal: Denies abdominal pain, diarrhea, nausea or vomiting Genitourinary Genitourinary ED: Denies dysuria, hematuria or urinary frequency Musculoskeletal Musculoskeletal: Denies back pain, extremity pain or neck pain Integumentary Denies rash or wounds Neurologic Neurologic: Denies headache(s), paresthesias or weakness EXAM Physical Exam Const Vital Signs: 02/13/21 21:54 02/13/21 22:17 Temperature 100.3 F H Temperature Source Temporal Pulse Rate 127 H Respiratory Rate 18 Respiratory Effort Short of Breath Respiratory Depth Normal Respiratory Pattern Normal Blood Pressure 172/94 H Blood Pressure Mean 120 Pulse Ox 94 Oxygen Delivery Method Room Air Room Air Positive well nourished and well developed General Appearance ED: well developed and NAD HEENT Reports moist mucous membranes normocephalic and atraumatic Eyes PERRL, EOMs intact bilaterally and conjunctivae normal General Eye ED: Yes normal appearance of both eyes Neck no lymphadenopathy and supple General: Negative for tenderness Chest Wall Chest: Negative for tenderness Resp normal respiratory effort and normal air movement Effort and Inspection: symmetric chest movement; Negative for respiratory distress Cardio regular rhythm and no murmurs Rate: tachycardic Peripheral Pulses: pulses 2+ throughout GI normal to inspection, nondistended, normoactive bowel sounds and non-tender Palpation: Negative for guarding or rebound tenderness present Back/Spine no CVA tenderness and no thoracic nor lumbar tenderness Extremity normal to inspection General Extremety ED: Negative for edema or tenderness General Extremity: Negative for edema Neuro oriented x3 and no sensory deficits noted Sensorium / Orientation: awake and alert Skin no rashes or lesions noted and no wounds MDM MDM MDM Narrative Medical decision making narrative: Patient nontoxic. Temp elevated 100.3 on arrival. Tachycardic. Pulse ox 94% on room air on arrival. He is in no respiratory distress. Confirmed positive Covid test 9 days ago in the system. Covid pneumonia findings from 2 days ago. She was ambulated she dropped down to 90%. States mild dyspnea however not significant. She is a candidate for dexamethasone. With her BMI she is a candidate for monoclonal antibody treatment. I discussed this with the patient she agrees with 1 evaluation for this treatment. Currently today is day 9 tomorrow will be day 10. Consult was placed to be contacted for treatment tomorrow. She was given dose of steroids dexamethasone in the ED prescription for 9 additional days. Strict return precautions discussed. All questions were answered. Patient is being discharged under pandemic conditions under declared global, national and state disaster activation, with limited medical resources. Patient and community understands this. Results discussed in layman's terms to the patient satisfaction. All questions answered in layman's terms. Patient understands importance of follow-up care as directed. Patient has been instructed to return to the ED immediately if new symptoms, problems, or questions occur. We mutually agree with the plan of disposition. The patient understand that they may call or return with any questions or concerns at any time. Discharge Plan Triage Chief Complaint: Shortness of Breath ED Provider: Luis Covarrubias Dx/Rx/DC Orders Clinical Impression: COVID-19, BMI 36.0-36.9,adult Instructions: Coronavirus Disease 2019 (COVID-19): Caring for Yourself or Others, ED - COVID Monoclonal AB Infusion ... Prescriptions: New dexamethasone 6 mg tablet 6 mg PO DAILY Qty: 9 RF: 0 No Action nifedipine [Procardia XL] 30 mg tablet extended release 24hr 30 mg PO DAILY Qty: 30 RF: 12 dexamethasone [Decadron] 4 mg tablet 4 mg PO DAILY Qty: 5 RF: 0 dexamethasone [Decadron] 6 mg tablet 6 mg PO DAILY 10 Days Qty: 10 RF: 0 Other Ambulatory Orders: COVID Outpatient Monoclonal Antibody Referral (Routine) Timeframe: 1 Day Facility: [facility] - Location: [facility] Ordered By: Dr. Luis Covarrubias Primary Care Provider: Care Physician,No Primary Referrals: Jere Gomez DO [STAFF PHYSICIAN] - Activity Restrictions/Additional Instructions: Steroids sent to your pharmacy to take for the next 9 days. Expect a call tomorrow to discuss antibiotic infusion. Return if any worsening respiratory symptoms. Disposition Disposition: Home, Self Care Discharge Date/Time: 02/13/21 23:09
== END 2021-02-13 23:09 | disposition home or self-care (01) ==
LOC: ED 23:03
PROVIDERS: Emergency Provider Emergency Medicine; Visit Provider Emergency Medicine
DX: U07.1 COVID-19 (principal); F17.200 Nicotine dependence, unspecified, uncomplicated; I10 Essential (primary) hypertension; Z79.899 Other long term (current) drug therapy; E66.9 Obesity, unspecified; Z68.36 Body mass index [BMI] 36.0-36.9, adult
CPT/HCPCS: 99283

== ENCOUNTER 2022-12-23 06:08 | Emergency (ER) | payer MEDICAID, SELFPAY ==
[2022-12-23 06:10] VITALS: BP 144/71; PULSE 96; RESP 14; TEMP 36.1; O2SAT 98; BMI 42.0
[2022-12-23 06:13] VITALS: BP 144/71; PULSE 96; RESP 16; TEMP 36.1; O2SAT 98
[2022-12-23 06:26] LABS: Mucous, Urine 0 SEEN /hpf (<or=2+); Red Blood Cells-Urine 0 SEEN /hpf (0-5)
--- NOTE | 2022-12-23 06:27 | RAD_ITS ---
INDICATION: lower right rib pain EXAMINATION/TECHNIQUE: X-RAY - XR Chest 1 View COMPARISON: August 11, 2021. FINDINGS: LINES/DEVICES: None. LUNGS: No consolidation, edema or effusion. No pneumothorax. MEDIASTINUM AND CARDIOVASCULAR STRUCTURES: Cardiac silhouette not enlarged. BONES AND SOFT TISSUES: Unremarkable. RAD/Chest 1 View (Portable) IMPRESSION: No radiographic evidence of acute cardiopulmonary disease. Electronically Signed: Glenn Romero MD at 7:13 EST ,
--- NOTE | 2022-12-23 06:28 | EX.ED.DYSGE1 ---
HPI History of Present Illness Chief Complaint: Complaint Informant: patient Narrative Narrative: 22-year-old female presenting to the emergency room with right lower rib pain. Patient states that yesterday she began to have intermittent sharp pain that is worse with bending over. No other symptoms. Patient is an exceedingly poor historian. She states that a week ago she had some unknown symptoms that she told to a friend who thought she had a urinary tract infection. She did nothing and it went away. Then she developed this pain. She did nothing yesterday for the pain and 1 hour prior to this examination she took Motrin got a ride to the emergency department. She denies shortness of breath cough abdominal pain vomiting diarrhea fever rash or any other symptoms. She denies any trauma. [facility] Medical History COVID-19 Depression Hypertension Home Medications aripiprazole 2 mg tablet 2 mg PO DAILY 12/23/22 [History Last Taken Unknown] escitalopram oxalate 20 mg tablet 20 mg PO DAILY 12/23/22 [History Last Taken Unknown] Allergy/AdvReac Type Severity Reaction Status Date / Time No Known Allergies Allergy Verified 12/23/22 06:09 Family History Grandmother Diabetes Other Asthma Cancer Hypertension Thyroid disorder Surgical History History of delivery Social History Smoking Status: Never smoker alcohol intake: current alcohol intake frequency: a few times a month Alcohol type: other substance use type: does not use caffeine: Yes what type of physical activity do you participate in: none seatbelt use: always do you feel safe at home: Yes additional social history: Dukypv[employer]ilwn[employer] Patient does not work ROS ROS ED Constitutional Constitutional ED: Denies chills, fever(s) or weight loss Eyes Eyes: Denies change in vision or diplopia ENT ENT ED: Denies ear pain, rhinorrhea or sore throat Cardiovascular Cardiovascular: Reports chest pain; Denies orthopnea, palpitations or racing heartbeat Respiratory/Chest Respiratory/Chest: Denies cough, dyspnea or orthopnea Gastrointestinal Gastrointestinal: Denies abdominal pain, diarrhea, nausea or vomiting Genitourinary Genitourinary ED: Denies dysuria, hematuria or urinary frequency Musculoskeletal Musculoskeletal: Denies arthralgias or myalgias Integumentary Denies abscess or rash Neurologic Neurologic: Denies headache(s) or weakness Psychiatric Psychiatric: Denies anxiety, depression, suicidal ideation or suicidal thoughts Endocrine Endocrinology: Denies polydipsia, polyphagia or polyuria Allergic/Immunologic Allergic/Immunologic ED: Denies mouth swelling, tongue swelling or urticaria EXAM Physical Exam Const Vital Signs: 12/23/22 06:10 12/23/22 06:13 Temperature 97 F L 97 F L Temperature Source Temporal Temporal Pulse Rate 96 96 Respiratory Rate 14 16 Blood Pressure 144/71 H 144/71 H Blood Pressure Mean 95 95 Pulse Ox 98 98 Positive well nourished and well developed General Appearance ED: well developed HEENT Reports normocephalic, head/scalp atraumatic and moist mucous membranes Eyes PERRL and EOMs intact bilaterally Neck no lymphadenopathy, supple and no JVD Resp normal respiratory effort and clear to auscultation bilaterally Cardio regular rate, regular rhythm and no murmurs GI normal to inspection, nondistended, normoactive bowel sounds and non-tender Palpation: soft Back/Spine no CVA tenderness and normal ROM Extremity normal to inspection General Extremety ED: Negative for edema General Extremity: Negative for edema Neuro oriented x3 and CN's II-XII intact bilaterally Sensorium / Orientation: alert Motor Exam: strength 5/5 throughout Psych mental status grossly normal Mood & Affect: Negative for depressed or tearful Skin no rashes or lesions noted and no wounds MDM MDM MDM Narrative Medical decision making narrative: Urinalysis shows no overt infection and she is otherwise asymptomatic from a urine perspective. My independent interpretation of the chest x-ray is no acute process. Patient has intermittent sharp pains along the lower anterior right ribs. They are tender to palpation. I do not think that this represents PE. She is not short of breath. She has no DVT PE risk factors. It is reproducible. The abdomen is benign. I would recommend anti-inflammatories and if no improvement following up with primary care or return if worsening. Lab Data Labs: Laboratory Results - last 24 hr 12/23/22 06:19 Urine Color Yellow Urine Clarity Clear Urine pH 6.0 Ur Specific [place] 1.020 Urine Protein 30 H Urine Glucose (UA) Normal Urine Ketones Negative Urine Occult Blood Negative Urine Nitrite Negative Urine Bilirubin Negative Urine Urobilinogen Normal Ur Leukocyte Esterase 25 H Urine RBC 0 SEEN Urine WBC 0-5 SEEN Ur Squamous Epith Cells 0-5 SEEN Urine Bacteria 1+ Urine Mucus 0 SEEN Urine Test Negative Discharge Plan Triage Chief Complaint: Complaint ED Provider: Robb Mercado Dx/Rx/DC Orders Prescriptions: No Action escitalopram oxalate 20 mg tablet 20 mg PO DAILY Patient Comments: TAKE 1 TABLET BY MOUTH DAILY aripiprazole 2 mg tablet 2 mg PO DAILY Patient Comments: TAKE 1 TABLET BY MOUTH DAILY Primary Care Provider: Care Physician,No Primary Referrals: Care Physician,No Primary [Primary Care Provider] -
[2022-12-23 06:31] LABS: Color, Urine Yellow (Yellow); Glucose, Dipstick Normal (Normal); Ketone-Dipstick Negative (Negative); Leukocyte Esterase-Dipstick 25 /ul (Negative); Nitrite-Dipstick Negative (Negative); Occult Blood-Urine Negative /ul (Negative); Protein-Dipstick 30 mg/dl (Negative); Urine Bilirubin Dipstick Negative (Negative); Urine Clarity Clear (Clear); Urine Urobilinogen Normal (Normal)
[2022-12-23 06:39] LABS: Internal QC Validated? YES +Cl - CLEAR BKGD; Pregnancy, Urine Negative Negative
[2022-12-23 06:55] LABS: Bacteria 1+ /hpf (None Seen); Squamous Epithelial Cells - UA 0-5 SEEN /hpf (5-10); White Blood Cells 0-5 SEEN /hpf (0-5)
== END 2022-12-23 07:49 | disposition home or self-care (01) ==
PROVIDERS: Emergency Provider Emergency Medicine; Visit Provider Emergency Medicine
DX: R07.81 Pleurodynia (principal); I10 Essential (primary) hypertension; Z79.899 Other long term (current) drug therapy; F32.A Depression, unspecified
CPT/HCPCS: 71045; 81001; 81025; 99282

== ENCOUNTER 2022-12-25 15:02 | Emergency (ER) | payer MEDICAID, SELFPAY ==
[2022-12-25 15:03] VITALS: BP 145/90; PULSE 105; RESP 18; TEMP 35.7; O2SAT 98; BMI 48.2
[2022-12-25 16:49] LABS: Mucous, Urine 0 SEEN /hpf (<or=2+); Red Blood Cells-Urine 0 SEEN /hpf (0-5)
[2022-12-25 16:53] LABS: Absolute Lymphocyte Count 3.47 X10^3/uL (0.83-4.51); Absolute Neutrophil Count 9.6 X10^3/uL (2.0-7.7); Basophil% 0.7 % (0-1); Eosinophil# 0.17 X10^3/uL; Eosinophils% 1.2 % (0-5); Hematocrit 38.6 % (37-47); Hemoglobin 12.2 g/dL (12.0-15.0); Lymphocyte # 3.47 X10^3/ul (0.83-4.51); Lymphocyte % 23.8 % (19-41); Mean Corp Hgb Conc 31.6 g/dL (32-36); Mean Corpuscular Volume 91.7 fL (81-99); Mean Platelet Vol. 10.1 fl (6.2-12.0); Monocyte# 1.12 X10^3/uL; Monocyte% 7.7 % (0-10); NRBC Flagged by Analyzer 0 % (0-5); Neutrophil # 9.62 X10^3/uL (2.7-7.7); Neutrophil % 65.7 % (47-70); Platelet Count 326 K/mm3 (150-450); RBC Distribution Width CV 13.3 % (11.6-14.6); Red Blood Count 4.21 M/mm3 (4.2-5.4); White Blood Count 14.6 K/mm3 (4.4-11.0)
[2022-12-25 16:59] LABS: Color, Urine Yellow (Yellow); Glucose, Dipstick Normal (Normal); Ketone-Dipstick Negative (Negative); Leukocyte Esterase-Dipstick 100 /ul (Negative); Nitrite-Dipstick Negative (Negative); Occult Blood-Urine Negative /ul (Negative); Protein-Dipstick 30 mg/dl (Negative); Specific Gravity, Urine 1.025 (1.002-1.030); Urine Bilirubin Dipstick Negative (Negative); Urine Clarity Clear (Clear); Urine Urobilinogen Normal (Normal)
[2022-12-25 17:03] LABS: Anion Gap 4 (5-15); BUN 13 mg/dL (7-18); BUN/Creat Ratio 17.7 RATIO (10-20); Chloride 106 mmol/L (98-107); Creatinine, Serum 0.73 mg/dL (0.55-1.02); EST Glomerular Filtration Rate 103 mL/min (>60); Est Glom Filt Rate - Afr Amer 124 mL/min (>60); Estimated Creatinine Clearance 93.99 ml/min; Glucose 113 mg/dL (74-106); Potassium 4.1 mmol/L (3.5-5.1); Sodium Level 136 mmol/L (136-145)
[2022-12-25 17:19] LABS: White Blood Cells 0-5 SEEN /hpf (0-5)
[2022-12-25 17:20] LABS: Bacteria 1+ /hpf (None Seen); Internal QC Validated? YES +Cl - CLEAR BKGD; Pregnancy, Urine Negative Negative; Record Kit Lot#,Urine Preg 667200; Squamous Epithelial Cells - UA 0-5 SEEN /hpf (5-10)
--- NOTE | 2022-12-25 19:04 | EDS_ITS ---
HPI History of Present Illness Chief Complaint: Flank Pain Informant: patient Onset/Context/Timing Onset: Days (3) Context: Sudden Onset Timing: Continuous Quality: Cramping Location: Right upper abdomen Worsened by: Bending Relieved by: Nothing Narrative Narrative: Presents with right sided abdominal pain that has been constant for the past 3 days. Patient describes her pain as cramping. Patient states it is over the right upper abdomen and right side. Patient states her pain is worse with bending. Patient states nothing seems to help her pain. Patient denies any radiation of her pain. Patient denies any fevers or chills. Patient denies any dysuria or hematuria. Patient denies any nausea or vomiting. Patient denies any diarrhea, melena, or hematochezia. PFSH PFS Medical History COVID-19 Depression Hypertension Home Medications aripiprazole 2 mg tablet 2 mg PO DAILY 12/23/22 [History Last Taken Unknown] escitalopram oxalate 20 mg tablet 20 mg PO DAILY 12/23/22 [History Last Taken Unknown] Allergy/AdvReac Type Severity Reaction Status Date / Time No Known Allergies Allergy Verified 12/25/22 15:03 Family History Grandmother Diabetes Other Asthma Cancer Hypertension Thyroid disorder Surgical History History of delivery Social History Smoking Status: Never smoker alcohol intake: current alcohol intake frequency: a few times a month Alcohol type: other substance use type: does not use caffeine: Yes what type of physical activity do you participate in: none seatbelt use: always do you feel safe at home: Yes additional social history: [employer] Patient does not work [facility] [place] ED Constitutional Constitutional ED: Denies chills or fever(s) Eyes Eyes: Denies blurry vision or change in vision ENT ENT ED: Denies rhinorrhea or sore throat Cardiovascular Cardiovascular: Denies chest pain or palpitations Respiratory/Chest Respiratory/Chest: Denies cough or dyspnea Gastrointestinal Gastrointestinal: Reports abdominal pain; Denies nausea or vomiting Genitourinary Genitourinary ED: Denies dysuria or hematuria Musculoskeletal Musculoskeletal: Denies back pain or neck pain Integumentary Denies abscess or rash Neurologic Neurologic: Denies headache(s) or weakness Allergic/Immunologic Allergic/Immunologic ED: Denies mouth swelling or urticaria EXAM Physical Exam Const Vital Signs: 12/25/22 15:03 Temperature 96.3 F L Temperature Source Temporal Pulse Rate 105 H Respiratory Rate 18 Blood Pressure 145/90 H Blood Pressure Mean 108 Pulse Ox 98 Oxygen Delivery Method Room Air Positive well nourished, well developed and obese General Appearance ED: well developed and NAD Nutritional Appearance: obese HEENT Reports moist mucous membranes Neck supple and no JVD Chest Wall inspection of chest normal and palpation of chest normal Resp normal respiratory effort and clear to auscultation bilaterally Cardio regular rate and regular rhythm GI non-distended GI Narrative: There is mild tenderness over the right upper lateral abdomen. There is no bony crepitance or step-off. There is no rebound or guarding noted. There is negative Chung sign. Palpation: soft Extremity normal to inspection General Extremety ED: Negative for edema or tenderness General Extremity: Negative for edema Neuro oriented x3, CN's II-XII intact bilaterally and no sensory deficits noted Sensorium / Orientation: alert Motor Exam: strength 5/5 throughout Psych mental status grossly normal MDM MDM MDM Narrative Medical decision making narrative: Differential diagnosis includes viral illness, urinary tract infection, pyelonephritis, cholecystitis, cholelithiasis, pancreatitis, gastroenteritis, and dehydration. CBC will be obtained to assess for leukocytosis and anemia. Basic metabolic profile will be obtained to assess for electrolyte abnormality and renal function. Hepatic profile will be obtained to assess for hepatic function. Lipase will be obtained to assess for pancreatitis. Urinalysis will be obtained to assess for urinary tract infection. Lab Data Attestation: I reviewed the patient's lab results. Lab results narrative: CBC was reviewed. There is a mild leukocytosis of 14.6. The remainder is within normal limits. Basic metabolic profile was reviewed and was essentially within normal limits. Urinalysis was reviewed. There is no evidence of urinary tract infection or hematuria. Urine hCG was reviewed and was negative. Hepatic profile was reviewed and was within normal limits. Lipase was reviewed and was normal. Labs: Laboratory Results - last 24 hr 12/25/22 12/25/22 16:39 16:44 WBC 14.6 H RBC 4.21 Hgb 12.2 Hct 38.6 MCV 91.7 MCH 29.0 MCHC 31.6 L RDW Std Deviation 45.0 H RDW Coeff of Kofi 13.3 Plt Count 326 MPV 10.1 Immature Gran % (Auto) 0.900 Neut % (Auto) 65.7 Lymph % (Auto) 23.8 [place] % (Auto) 7.7 Eos % (Auto) 1.2 Baso % (Auto) 0.7 Absolute Neuts (auto) 9.6 H Absolute Lymphs (auto) 3.47 Nucleated RBC % 0 Sodium 136 Potassium 4.1 Chloride 106 Carbon Dioxide 26.0 Anion Gap 4 L BUN 13 Creatinine 0.73 Estim Creat Clear Calc 93.99 Est GFR (MDRD) Af Amer 124 Est GFR (MDRD) Non-Af 103 BUN/Creatinine Ratio 17.7 Glucose 113 H Calcium 9.0 Total Bilirubin 0.20 Direct Bilirubin 0.08 AST 15 ALT 24 Alkaline Phosphatase 100 Total Protein 7.7 Albumin 3.4 Globulin 4.3 H Lipase 22 Urine Color Yellow Urine Clarity Clear Urine pH 5.0 Ur Specific Jber 1.025 Urine Protein 30 H Urine Glucose (UA) Normal Urine Ketones Negative Urine Occult Blood Negative Urine Nitrite Negative Urine Bilirubin Negative Urine Urobilinogen Normal Ur Leukocyte Esterase 100 H Urine RBC 0 SEEN Urine WBC 0-5 SEEN Ur Squamous Epith Cells 0-5 SEEN Urine Bacteria 1+ Urine Mucus 0 SEEN Urine Test Negative Treatment and Re-Evaluation :: Patient was advised of her findings. Patient was feeling better on reevaluation. Patient was instructed to drink plenty of fluids. Patient was instructed to follow-up with her primary care physician in 5 to 7 days. Patient was instructed take Tylenol or ibuprofen as needed for pain. Patient understood and was agreeable with the plan. All questions were answered. Discharge Plan Triage Chief Complaint: Flank Pain ED Provider: Imtiaz eRyes Dx/Rx/DC Orders Clinical Impression: Acute right flank pain, Morbid obesity with BMI of 45.0-49.9, adult Instructions: ED Flank Pain, Uncertain Cause Prescriptions: No Action escitalopram oxalate 20 mg tablet 20 mg PO DAILY Patient Comments: TAKE 1 TABLET BY MOUTH DAILY aripiprazole 2 mg tablet 2 mg PO DAILY Patient Comments: TAKE 1 TABLET BY MOUTH DAILY Stand Alone Forms: ED Work / School Excuse Primary Care Provider: Care Physician,No Primary Referrals: Care Physician,No Primary [Primary Care Provider] - Disposition Disposition: Home, Self Care
[2022-12-25 20:05] LABS: AST(SGOT) 15 U/L (15-37); Alanine Aminotransfer ALT/SGPT 24 U/L (13-56); Albumin, Serum 3.4 g/dL (3.2-5.0); Alkaline Phosphatase 100 U/L (45-117); Bilirubin, Direct 0.08 mg/dL (0.00-0.30); Globulin 4.3 g/dL (2.2-4.2); Lipase 22 U/L (13-75); Protein, Total 7.7 g/dL (6.4-8.2)
== END 2022-12-25 21:18 | disposition home or self-care (01) ==
PROVIDERS: Emergency Provider Emergency Medicine; Visit Provider Emergency Medicine
DX: R10.9 Unspecified abdominal pain (principal); E66.01 Morbid (severe) obesity due to excess calories; Z68.42 Body mass index [BMI] 45.0-49.9, adult; I10 Essential (primary) hypertension; F32.A Depression, unspecified; Z79.899 Other long term (current) drug therapy
CPT/HCPCS: 80048; 80076; 81001; 81025; 83690; 85025; 99282

== ENCOUNTER 2022-12-27 12:14 | Emergency (ER) | payer MEDICAID, SELFPAY ==
[2022-12-27 12:15] VITALS: BP 147/95; PULSE 96; RESP 18; TEMP 36.1; O2SAT 98; BMI 48.4
--- NOTE | 2022-12-27 12:39 | US_ITS ---
EXAM: US ABDOMEN LIMITED, RIGHT UPPER QUADRANT CLINICAL INDICATION: Right upper quadrant pain TECHNIQUE: Real-time ultrasound of the right upper quadrant with image documentation. COMPARISON: No relevant prior studies available. FINDINGS: LIVER: The liver is mildly enlarged measuring about 18.8 cm in length. Echogenic liver which may reflect fatty infiltration or hepatocellular disease. No intrahepatic biliary ductal dilation. GALLBLADDER: The gallbladder wall measures 1.8 mm. The common bile duct measures 4.3 mm. No shadowing gallstone. No pericholecystic fluid. Negative sonographic Chung''s sign. COMMON BILE DUCT: Unremarkable as visualized. The proximal common bile duct is within normal limits for the patient''s age. PANCREAS: The tail of the pancreas is obscured by bowel gas. RIGHT KIDNEY: The right kidney measures 11 cm in length. There is no hydronephrosis. US/Gallbladder IMPRESSION: 1. Mild hepatomegaly. 2. Echogenic liver which may reflect fatty infiltration or hepatocellular disease. 3. No evidence of gallstones. Electronically Signed: Jeramie Nagy MD at 14:25 EST ,
[2022-12-27 13:06] LABS: Absolute Lymphocyte Count 3.21 X10^3/uL (0.83-4.51); Absolute Neutrophil Count 10.4 X10^3/uL (2.0-7.7); Basophil% 0.7 % (0-1); Eosinophil# 0.15 X10^3/uL; Hematocrit 35.5 % (37-47); Hemoglobin 11.1 g/dL (12.0-15.0); Lymphocyte # 3.21 X10^3/ul (0.83-4.51); Mean Corp Hgb Conc 31.3 g/dL (32-36); Mean Corpuscular Hgb 27.5 pg (27.0-32.0); Mean Corpuscular Volume 87.9 fL (81-99); Mean Platelet Vol. 9.5 fl (6.2-12.0); Monocyte# 1.32 X10^3/uL; Monocyte% 8.6 % (0-10); NRBC Flagged by Analyzer 0 % (0-5); Neutrophil # 10.37 X10^3/uL (2.7-7.7); Neutrophil % 67.9 % (47-70); Platelet Count 376 K/mm3 (150-450); RBC Distribution Width CV 13.2 % (11.6-14.6); RBC Distribution Width SD 42.6 fl (35.1-43.9); Red Blood Count 4.04 M/mm3 (4.2-5.4); White Blood Count 15.3 K/mm3 (4.4-11.0)
[2022-12-27 13:21] LABS: ALB/GLOB Ratio 0.8 RATIO (0.9-2.4); AST(SGOT) 11 U/L (15-37); Alanine Aminotransfer ALT/SGPT 22 U/L (13-56); Albumin, Serum 3.3 g/dL (3.2-5.0); Alkaline Phosphatase 101 U/L (45-117); Anion Gap 4 (5-15); BUN 16 mg/dL (7-18); BUN/Creat Ratio 22.3 RATIO (10-20); Calcium,Total 9.6 mg/dL (8.5-10.1); Chloride 107 mmol/L (98-107); Creatinine, Serum 0.72 mg/dL (0.55-1.02); EST Glomerular Filtration Rate 105 mL/min (>60); Est Glom Filt Rate - Afr Amer 127 mL/min (>60); Estimated Creatinine Clearance 95.29 ml/min; Globulin 4.1 g/dL (2.2-4.2); Glucose 71 mg/dL (74-106); Lipase 29 U/L (13-75); Potassium 3.9 mmol/L (3.5-5.1); Protein, Total 7.4 g/dL (6.4-8.2); Sodium Level 137 mmol/L (136-145)
--- NOTE | 2022-12-27 13:26 | ED.VIS.GI ---
HPI HPI - GI History of Present Illness Chief Complaint: Abd Pain Informant: patient Abdominal Pain/Flank Pain Onset: Weeks (1) Timing: Intermittent (Especially 30-45 minutes after meals) Quality: Aching Location: Right Flank Current Severity: Mild Maximum Severity: Severe Worsened by: Food Relieved by: Nothing Nausea/Vomiting/Emesis GI Symptom: Negative for Nausea or Vomiting Diarrhea/Melena/Hematochezia GI Symptom: Negative for Diarrhea, Melena or Hematochezia Associated Symptoms Associated Symptoms: Negative for Dysuria, Frequency or Hematuria Narrative Narrative: Patient states has been having intermittent right upper flank pain for the past week especially after meals. It continues. She denies any fevers, chills, jaundice, pruritus, nausea, vomiting, prior blood per rectum, melena. She denies any urinary symptoms. Seems to be what ever she eats. Today she had cereal with toast and 45 minutes later she was in pain. That is better now. States she was seen here couple times already this past week for the same symptoms and nobody can tell me what is wrong. She presents today, Thursday. [facility] Medical History COVID-19 Depression Hypertension Home Medications aripiprazole 2 mg tablet 2 mg PO DAILY 12/23/22 [History Last Taken Unknown] escitalopram oxalate 20 mg tablet 20 mg PO DAILY 12/23/22 [History Last Taken Unknown] dicyclomine 10 mg capsule 20 mg (2 x 10 mg) PO Q6H PRN PRN abdominal pain #20 CAPSULES 12/27/22 [Rx Last Taken Unknown] pantoprazole 40 mg tablet,delayed release 40 mg PO DAILY #30 tabs 12/27/22 [Rx Last Taken Unknown] Allergy/AdvReac Type Severity Reaction Status Date / Time No Known Allergies Allergy Verified 12/27/22 12:14 Family History Grandmother Diabetes Other Asthma Cancer Hypertension Thyroid disorder Surgical History History of delivery Social History Smoking Status: Never smoker alcohol intake: current alcohol intake frequency: a few times a month Alcohol type: other substance use type: does not use caffeine: Yes what type of physical activity do you participate in: none seatbelt use: always do you feel safe at home: Yes additional social history: [employer] Patient does not work ROS ROS ED Constitutional Constitutional ED: Denies chills or fever(s) Eyes Eyes: Denies change in vision or diplopia ENT ENT ED: Denies rhinorrhea or sore throat Cardiovascular Cardiovascular: Denies chest pain or palpitations Respiratory/Chest Respiratory/Chest: Denies cough or dyspnea Gastrointestinal Gastrointestinal: Reports abdominal pain; Denies diarrhea, nausea or vomiting Genitourinary Genitourinary ED: Reports flank pain; Denies dysuria or hematuria Musculoskeletal Musculoskeletal: Denies back pain or neck pain Integumentary Denies abscess or rash Neurologic Neurologic: Denies headache(s), paresthesias or weakness Psychiatric Psychiatric: Denies anxiety or suicidal thoughts EXAM Physical Exam Const Vital Signs: 12/27/22 12:15 Temperature 97 F L Temperature Source Temporal Pulse Rate 96 Respiratory Rate 18 Blood Pressure 147/95 H Blood Pressure Mean 112 Pulse Ox 98 Oxygen Delivery Method Room Air Positive well nourished, well developed and obese General Appearance ED: well developed and NAD Nutritional Appearance: obese HEENT Reports moist mucous membranes normocephalic and atraumatic Eyes PERRL and EOMs intact bilaterally Neck full ROM and supple Resp normal respiratory effort and clear to auscultation bilaterally Cardio regular rate, regular rhythm and no murmurs GI non-distended GI Narrative: Mild right flank and upper quadrant tenderness no guarding or rebound negative Chung otherwise benign abdomen Auscultation: normoactive bowel sounds Palpation: soft Back/Spine no CVA tenderness General Back: other FROM Extremity normal to inspection General Extremety ED: Negative for edema, pulses abnormal or tenderness General Extremity: Negative for edema or pulses abnormal Neuro oriented x3, CN's II-XII intact bilaterally and no sensory deficits noted Sensorium / Orientation: awake and alert Motor Exam: strength 5/5 throughout Skin no rashes or lesions noted and no wounds MDM MDM MDM Narrative Medical decision making narrative: Clinically patient doing well. She states she has a family history of gallstones and she is concerned because this is associated with meals. Her pain is very lateral for that, but given the symptoms which sound like colicky discomfort after meals, I think it is reasonable to obtain an ultrasound of the gallbladder and obtain associated labs. This was done, I reviewed the ultrasound images and the report which I agree with, shows a normal gallbladder with no stones, normal gallbladder wall negative sonographic Chung's, but what looks like fatty infiltration of the liver. She has normal liver enzymes and lipase, she has a worsening leukocytosis, however she rarely does not have a leukocytosis when her blood counts are checked, looking back at her old labs both ED and outpatient. Given this scenario, I thought it was reasonable to obtain a CT of the abdomen/pelvis to evaluate the liver and for urolithiasis, other potential intestinal etiologies that could be in the differential. She was amenable to that. I reviewed those images and report which I agree with as well, it basically shows hepatic steatosis no other focal abnormality. The 4 cm left adnexal cyst is asymptomatic on her at this time. Musculoskeletal etiology is certainly in the differential diagnosis as well, but I do not think her leukocytosis is related to her hepatic steatosis. At this time I think she can safely be discharged home to take a PPI which I am going to prescribe her, as well as dicyclomine, for potential intraluminal etiologies. Follow-up advised. I do not think there are any other emergent tests that are indicated or needed/helpful at this time as I discussed with her and she is comfortable with that plan, but we did discuss gallbladder-related issues that could be non-stone related, and the need for an outpatient HIDA scan if her symptoms continue. Of note that test is not available during the weekend when she presents at this time. Patient does not have a PCP. 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 She was given the next doctor on the unassigned list to follow-up with. History & Record Review Additional record(s) reviewed:: Prior ED visit and Prior labs Lab Data Attestation: I reviewed the patient's lab results. Labs: Laboratory Results - last 24 hr 12/27/22 12:55 WBC 15.3 H RBC 4.04 L Hgb 11.1 L Hct 35.5 L MCV 87.9 MCH 27.5 MCHC 31.3 L RDW Std Deviation 42.6 RDW Coeff of Kofi 13.2 Plt Count 376 MPV 9.5 Immature Gran % (Auto) 0.800 Neut % (Auto) 67.9 Lymph % (Auto) 21.0 [place] % (Auto) 8.6 Eos % (Auto) 1.0 Baso % (Auto) 0.7 Absolute Neuts (auto) 10.4 H Absolute Lymphs (auto) 3.21 Nucleated RBC % 0 Sodium 137 Potassium 3.9 Chloride 107 Carbon Dioxide 26.0 Anion Gap 4 L BUN 16 Creatinine 0.72 Estim Creat Clear Calc 95.29 Est GFR (MDRD) Af Amer 127 Est GFR (MDRD) Non-Af 105 BUN/Creatinine Ratio 22.3 H Glucose 71 L Calcium 9.6 Total Bilirubin 0.30 AST 11 L ALT 22 Alkaline Phosphatase 101 Total Protein 7.4 Albumin 3.3 Globulin 4.1 Albumin/Globulin Ratio 0.8 L Lipase 29 Radiography Diagnostic Testing: Clinical Impression(s) from Imaging Studies Gallbladder Ultrasound 12/27/22 12:39 IMPRESSION: 1. Mild hepatomegaly. 2. Echogenic liver which may reflect fatty infiltration or hepatocellular disease. 3. No evidence of gallstones. Electronically Signed: Jeramie Nagy MD at 14:25 EST , Abdomen/Pelvis CT 12/27/22 14:38 IMPRESSION: 1. No focal acute inflammatory process. 2. Hepatic steatosis. 3. 4 cm left adnexal cyst. Electronically Signed: Jeramie Nagy MD at 15:57 EST , Discharge Plan Triage Chief Complaint: Abd Pain ED Provider: Jonatan Trujillo Dx/Rx/DC Orders Clinical Impression: Acute right flank pain Instructions: ED Flank Pain, Uncertain Cause Prescriptions: New pantoprazole 40 mg tablet,delayed release (DR/EC) 40 mg PO DAILY Qty: 30 0RF dicyclomine 10 mg capsule 20 mg PO Q6H PRN PRN (Reason: abdominal pain) Qty: 20 0RF No Action escitalopram oxalate 20 mg tablet 20 mg PO DAILY Patient Comments: TAKE 1 TABLET BY MOUTH DAILY aripiprazole 2 mg tablet 2 mg PO DAILY Patient Comments: TAKE 1 TABLET BY MOUTH DAILY Primary Care Provider: Care Physician,No Primary Referrals: Nacho Cash MD [Med Staff - Active Staff] - As soon as possible (call for appt) Disposition Disposition: Home, Self Care
--- NOTE | 2022-12-27 14:38 | CT_ITS ---
INDICATION: Right flank pain. EXAMINATION: CT ABDOMEN AND PELVIS WITHOUT CONTRAST - CT Abdomen And Pelvis W/O Contrast Injection TECHNIQUE: Helically acquired images were obtained of the abdomen and pelvis without oral or IV contrast. A radiation dose optimization technique was used for this scan. IV Contrast dosage and agent: None. Oral contrast: None. RADIATION DOSAGE (If Supplied By Facility): CTDIvol = ( 23.17 ) mGy, DLP = ( 1267.80 ) mGycm COMPARISON: No relevant prior comparison study available FINDINGS: LOWER CHEST: Minimal atelectatic changes in right lung base. No cardiomegaly or pericardial effusion. LIVER: Hepatic steatosis. No focal mass. GALLBLADDER AND BILIARY TREE: No calcified gallstones. No gallbladder distension or wall edema. No intra- or extrahepatic biliary ductal dilation. PANCREAS: No focal cystic or solid mass. SPLEEN: Normal size without focal cystic or solid mass. ADRENAL GLANDS: No nodules. KIDNEYS AND URETERS: Anteriorly malrotated right kidney. No evidence of renal stones. No hydronephrosis. PERITONEUM: No ascites or free air. No other fluid collection. BOWEL: No evidence of acute appendicitis. No stomach or bowel distension. No focal inflammatory change. LYMPH NODES: No enlarged mesenteric or retroperitoneal lymph nodes. VESSELS: Aorta is non-dilated. URINARY BLADDER: Unremarkable. REPRODUCTIVE ORGANS: 4 cm left adnexal cyst. No pelvic mass. ABDOMINAL WALL: Tiny umbilical hernia containing fat. BONES: No lytic or blastic abnormality. CT/Abdomen/Pelvis without Cont IMPRESSION: 1. No focal acute inflammatory process. 2. Hepatic steatosis. 3. 4 cm left adnexal cyst. Electronically Signed: Jeramie Nagy MD at 15:57 EST ,
[2022-12-27 16:14] VITALS: PULSE 79; RESP 18; O2SAT 99
== END 2022-12-27 16:20 | disposition home or self-care (01) ==
PROVIDERS: Emergency Provider Emergency Medicine; Visit Provider Emergency Medicine
DX: R10.9 Unspecified abdominal pain (principal); I10 Essential (primary) hypertension; F32.A Depression, unspecified; Z79.899 Other long term (current) drug therapy
CPT/HCPCS: 74176; 76705; 80053; 83690; 85025; 99282; A4216

== ENCOUNTER 2023-04-26 08:54 | Emergency (ER) | payer MEDICAID, SELFPAY ==
[2023-04-26 08:55] VITALS: BP 124/109; PULSE 110; RESP 20; TEMP 36.6; O2SAT 95; BMI 46.7
--- NOTE | 2023-04-26 09:03 | EX.ED.DYSGE1 ---
HPI History of Present Illness Chief Complaint: Cough Detail of Chief Complaint: Fever, cough, and sore throat Informant: patient Narrative Narrative: Patient presents to the emergency department complaining of not feeling well since yesterday. Initially she started with a headache yesterday. She woke up around 1 AM and she had chills and a sore throat. Fever up to 101. She is at the [place] where she tells me several girls have COVID. Patient denies chest pain or shortness of breath. Patient has history of hypertension. [facility] Medical History (Updated 04/26/23 @ 10:[address] Mele Azul DO) Cephalopelvic disproportion COVID-19 Depression Hypertension Hypertension affecting in third trimester Late deceleration of heart rate Preeclampsia, severe Home Medications aripiprazole 2 mg tablet 2 mg PO DAILY 12/23/22 [History Last Taken Unknown] escitalopram oxalate 20 mg tablet 20 mg PO DAILY 12/23/22 [History Last Taken Unknown] dicyclomine 10 mg capsule 20 mg (2 x 10 mg) PO Q6H PRN PRN abdominal pain #20 CAPSULES 12/27/22 [Rx Last Taken Unknown] pantoprazole 40 mg tablet,delayed release 40 mg PO DAILY #30 tabs 12/27/22 [Rx Last Taken Unknown] amoxicillin 500 mg tablet 500 mg PO TID #30 tabs 04/26/23 [Rx Last Taken Unknown] Allergy/AdvReac Type Severity Reaction Status Date / Time No Known Allergies Allergy Verified 04/26/23 08:55 Family History Grandmother Diabetes Other Asthma Cancer Hypertension Thyroid disorder Surgical History History of delivery Social History Smoking Status: Never smoker alcohol intake: current alcohol intake frequency: a few times a month Alcohol type: other substance use type: does not use caffeine: Yes what type of physical activity do you participate in: none seatbelt use: always do you feel safe at home: Yes additional social history: [employer] Patient does not work ROS ROS ED Review of Systems ROS Unobtainable: other Constitutional Constitutional ED: Reports chills, fever(s) and lethargy; Denies sweats or weight loss Eyes Eyes: Denies blurry vision, change in vision or diplopia ENT ENT ED: Reports sore throat; Denies rhinorrhea Cardiovascular Cardiovascular: Denies chest pain, orthopnea or racing heartbeat Respiratory/Chest Respiratory/Chest: Reports cough; Denies dyspnea, dyspnea on exertion, orthopnea or sputum Gastrointestinal Gastrointestinal: Denies abdominal pain, diarrhea, nausea or vomiting Genitourinary Genitourinary ED: Denies dysuria, hematuria or urinary frequency Musculoskeletal Musculoskeletal: Denies arthralgias, back pain, myalgias or neck pain Integumentary Denies abscess, Abrasions or rash Neurologic Neurologic: Denies headache(s) or weakness Psychiatric Psychiatric: Denies anxiety, depression or suicidal thoughts Endocrine Endocrinology: Denies polydipsia, polyphagia or polyuria Hematologic/Lymphatic Hematologic/Lymphatic: Denies easy bleeding, easy bruising or lymphadenopathy Allergic/Immunologic Allergic/Immunologic ED: Denies mouth swelling, tongue swelling or urticaria EXAM Physical Exam Const Vital Signs: 04/26/23 08:55 04/26/23 08:55 04/26/23 09:09 Temperature 97.9 F 97.8 F Temperature Source Oral Temporal Pulse Rate 110 H Respiratory Rate 20 H Respiratory Effort Normal Respiratory Depth Normal Respiratory Pattern Normal Blood Pressure 124/109 H Blood Pressure Mean 114 Pulse Ox 95 Oxygen Delivery Method Room Air Room Air Positive well nourished and well developed General Appearance ED: well developed and NAD HEENT Reports TM's clear and moist mucous membranes normocephalic and atraumatic; Negative for trauma or tenderness Tympanic Membrane ED: Yes TM's clear Eyes PERRL and EOMs intact bilaterally General Eye ED: Negative for pale conjunctiva or scleral icterus Neck no lymphadenopathy, supple and no JVD General: Negative for tenderness Chest Wall inspection of chest normal and palpation of chest normal Chest: Negative for tenderness Resp normal respiratory effort and clear to auscultation bilaterally Effort and Inspection: Negative for respiratory distress or pain with movement Auscultation: Negative for rhonchi, wheezes or diminished lung sounds Cardio regular rate, regular rhythm, S1 normal heart sound, S2 normal heart sound and no murmurs Peripheral Pulses: pulses 2+ throughout GI normal to inspection, nondistended, normoactive bowel sounds, soft to palpation, non-tender, non-distended and no masses Back/Spine no CVA tenderness and no thoracic nor lumbar tenderness Extremity normal to inspection General Extremety ED: Negative for edema General Extremity: Negative for edema Neuro oriented x3, CN's II-XII intact bilaterally, no sensory deficits noted and gait normal Sensorium / Orientation: awake, alert, oriented to person, oriented to place and oriented to time Motor Exam: strength 5/5 throughout and strength abnormal Psych mental status grossly normal Skin no rashes or lesions noted and no wounds MDM MDM MDM Narrative Medical decision making narrative: Patient presents with sore throat as well as fever and mild cough. In the differential would be viral URI versus strep pharyngitis. Clinically she looks well. COVID flu and RSV testing was taken up and was negative. Patient had swab for group A strep which was positive for strep. Patient was started on amoxicillin. She will be discharged and advised to follow-up with primary care physician on-call for no doc within the next 3 to 5 days. Vies return if worsening pain, difficulty swallowing, or condition worsening way. Discharge Plan Triage Chief Complaint: Cough ED Provider: Mele Azul Dx/Rx/DC Orders Clinical Impression: Acute streptococcal pharyngitis Instructions: ED Pharyngitis, Strep (Confirmed) Prescriptions: New amoxicillin 500 mg tablet 500 mg PO TID Qty: 30 0RF No Action escitalopram oxalate 20 mg tablet 20 mg PO DAILY Patient Comments: TAKE 1 TABLET BY MOUTH DAILY aripiprazole 2 mg tablet 2 mg PO DAILY Patient Comments: TAKE 1 TABLET BY MOUTH DAILY pantoprazole 40 mg tablet,delayed release (DR/EC) 40 mg PO DAILY Qty: 30 0RF dicyclomine 10 mg capsule 20 mg PO Q6H PRN PRN (Reason: abdominal pain) Qty: 20 0RF Primary Care Provider: Care Physician,No Primary Referrals: Saeid Ruvalcaba DO [Med Staff - [employer]] - 3-5 Days Care Physician,No Primary [Primary Care Provider] - Disposition Disposition: Home, Self Care Discharge Date/Time: 04/26/23 10:44
[2023-04-26 09:09] VITALS: O2SAT 98
--- OUTSIDE RECORDS SUMMARY | 2023-04-26 10:11 | XMS RPT_ITS | CCD ---
Author Name Unknown Address [address] [place] [address] Organization [facility] Care Team Providers Care Refrigeration Technician Name Role Phone SHYLA SANDOVAL Attending Unavailable ROMARIO DICKSON Referring Unavailabl e JL AMAYA Primary Care Unavailable Unavailable Primary Care Provider Unavailabl e Unavailable Primary Care Provider Unavailabl e Medications Current Medications Medication Drug Class(es) Dates Sig (Normalized) Sig (Original) erythromycin 0.005 mg/mg ophthalmic ointment (2 sources) Macrolide, Macrolide Antimicrobial Start: 12-19-2022 End: 12-26-2022 erythromycin (ROMYCIN) 5 mg/gram (0.5 %) ophthalmic ointment Indications: Eye irritation Use 1 application in the right eye four times daily for 7 days. 3.5 g 0 12/19/2022 12/26/2022 Active Completed/Discontinued Medications Medication Drug Class(es) Dates Sig (Normalized) Sig (Original) ARIPiprazole 20 mg oral tablet (5 sources) Atypical Antipsychotic take 1 tablet by mouth once daily ARIPiprazole (ABILIFY) 20 mg tablet Take 20 mg by mouth once daily. 0 Active Problems Problem Classification Problem Date Documented Date Episodic/Chronic Abdominal pain (1 source) Finding of sensation of abdomen; Translations: [Unspecified abdominal pain] 12-26-2022 Episodic Headache; including migraine (1 source) Headache; Translations: [Headache, unspecified headache type] Episodic Inflammation; infection of eye (except that caused by tuberculosis or sexually transmitteddisease) (1 source) Acute conjunctivitis of left eye; Translations: [Unspecified acute conjunctivitis, left eye] 04-22-2023 Episodic Mood disorders (6 sources) Major depressive disorder; Translations: [Major depressive disorder, single episode, unspecified] Onset: 12-19-2019 12-19-2019 Chronic Other nutritional; endocrine; and metabolic disorders (6 sources) Body mass index 40+ - severely obese; Translations: [Morbid (severe) obesity due to excess calories] Onset: 12-19-2019 12-19-2019 Chronic Other upper respiratory infections (2 sources) Sore throat symptom; Translations: [Acute pharyngitis, unspecified] 10-27-2022 Episodic Residual codes; unclassified (1 source) Procedure not done; Translations: [Procedure and treatment not carried out, unspecified reason] 12-23-2022 Episodic Residual codes; unclassified (1 source) Treatment not available; Translations: [Procedure and treatment not carried out for other reasons] 12-26-2022 Episodic Viral infection (1 source) Viral disease; Translations: [Viral infection, unspecified] Episodic Results Test Name Value Interpretation Reference Range Facil ity Vital Signs Date Time Vital Sign Value Performing Clinician Faci lity 04-22-2023 13:19-0400 Body temperature 98.6 [degF] Lionel Grey APRN.COMMERCIAL REAL ESTATE AGENT Work Phone: [facility] 04-22-2023 13:19-0400 Body weight 121.6 kg Lionel Grey APRN.CNP Work Phone: [facility] 04-22-2023 13:19-0400 Diastolic blood pressure 70 mm[Hg] Lionel Grey APRN.COMMERCIAL REAL ESTATE AGENT Work Phone: [facility] 04-22-2023 13:19-0400 Heart rate 108 /min Lionel Grey APRN.COMMERCIAL REAL ESTATE AGENT Work Phone: [facility] 04-22-2023 13:19-0400 Respiratory rate 16 /min Lionel Grey APRN.COMMERCIAL REAL ESTATE AGENT Work Phone: [facility] 04-22-2023 13:19-0400 SaO2% (BldA) [Mass fraction] 97 % Lionel Grey APRN.CNP Work Phone: [facility] 04-22-2023 13:19-0400 Systolic blood pressure 108 mm[Hg] Lionel Que PLANT SPECIALIST.COMMERCIAL REAL ESTATE AGENT Work Phone: [facility] 12-12-2022 07:39-0400 Body temperature 97.39 [degF] Lionel Grey PLANT SPECIALIST.COMMERCIAL REAL ESTATE AGENT Work Phone: [facility] 12-12-2022 07:39-0400 Body weight 119.3 kg Lionel Grey PLANT SPECIALIST.COMMERCIAL REAL ESTATE AGENT Work Phone: [facility] 12-12-2022 07:39-0400 Diastolic blood pressure 80 mm[Hg] Lionel Que PLANT SPECIALIST.COMMERCIAL REAL ESTATE AGENT Work Phone: [facility] 12-12-2022 07:39-0400 Heart rate 120 /min Lionel Grey PLANT SPECIALIST.COMMERCIAL REAL ESTATE AGENT Work Phone: [facility] 12-12-2022 07:39-0400 Respiratory rate 22 /min Lionel Grey PLANT SPECIALIST.COMMERCIAL REAL ESTATE AGENT Work Phone: [facility] 12-12-2022 07:39-0400 SaO2% (BldA) [Mass fraction] 98 % Lionel Grey PLANT SPECIALIST.COMMERCIAL REAL ESTATE AGENT Work Phone: [facility] 12-12-2022 07:39-0400 Systolic blood pressure 120 mm[Hg] Lionel Que PLANT SPECIALIST.COMMERCIAL REAL ESTATE AGENT Work Phone: [facility] 10-27-2022 14:43-0400 Body temperature 98.91 [degF] Love Almaraz PLANT SPECIALIST.COMMERCIAL REAL ESTATE AGENT Work Phone: [facility] 10-27-2022 14:43-0400 Body weight 117.03 kg Love Almaraz PLANT SPECIALIST.COMMERCIAL REAL ESTATE AGENT Work Phone: [facility] 10-27-2022 14:43-0400 Diastolic blood pressure 86 mm[Hg] Love Almaraz PLANT SPECIALIST.COMMERCIAL REAL ESTATE AGENT Work Phone: [facility] 10-27-2022 14:43-0400 Heart rate 97 /min Love Almaraz PLANT SPECIALIST.COMMERCIAL REAL ESTATE AGENT Work Phone: [facility] 10-27-2022 14:43-0400 Respiratory rate 18 /min Love Almaraz PLANT SPECIALIST.COMMERCIAL REAL ESTATE AGENT Work Phone: [facility] 10-27-2022 14:43-0400 SaO2% (BldA) [Mass fraction] 100 % Love Almaraz PLANT SPECIALIST.COMMERCIAL REAL ESTATE AGENT Work Phone: [facility] 10-27-2022 14:43-0400 Systolic blood pressure 129 mm[Hg] Love Cooner PLANT SPECIALIST.COMMERCIAL REAL ESTATE AGENT Work Phone: [facility] 05-08-2021 11:57-0400 Body temperature 97.39 [degF] Yareli Praisler-Wood PLANT SPECIALIST.COMMERCIAL REAL ESTATE AGENT Work Phone: [facility] 05-08-2021 11:57-0400 Body weight 107.05 kg Yareli Praisler-Wood PLANT SPECIALIST.COMMERCIAL REAL ESTATE AGENT Work Phone: [facility] 05-08-2021 11:57-0400 Diastolic blood pressure 80 mm[Hg] Yareli Praisler-Wood PLANT SPECIALIST.COMMERCIAL REAL ESTATE AGENT Work Phone: [facility] 05-08-2021 11:57-0400 Heart rate 93 /min Yareli Praisler-Wood PLANT SPECIALIST.COMMERCIAL REAL ESTATE AGENT Work Phone: [facility] 05-08-2021 11:57-0400 Respiratory rate 18 /min Yareli Praisler-Wood PLANT SPECIALIST.COMMERCIAL REAL ESTATE AGENT Work Phone: [facility] 05-08-2021 11:57-0400 SaO2% (BldA) [Mass fraction] 96 % Yareli Praisler-Wood PLANT SPECIALIST.COMMERCIAL REAL ESTATE AGENT Work Phone: [facility] 05-08-2021 11:57-0400 Systolic blood pressure 142 mm[Hg] Yareli Praisler-Wood PLANT SPECIALIST.COMMERCIAL REAL ESTATE AGENT Work Phone: [facility] Encounters Encounter Date Encounter Type Care Provider Facility Start: 04-22-2023 End: 04-22-2023 ambulatory Facility:[facility] Start: 04-22-2023 End: 04-22-2023 Patient encounter procedure Lionel Grey PLANT SPECIALIST.COMMERCIAL REAL ESTATE AGENT Work Phone: [facility] Care Procedures Date Procedure Procedure Detail Performing Clinician Start: 12-12-2022 COVID & INFLUENZA A/ B & RSV NAAT, ROUTINE Lionel Grey APRN.CNP Work Phone: Start: 12-12-2022 Iadna respiratry pro be & rev trnscr 3-5 targets Lionel Grey APRN.COMMERCIAL REAL ESTATE AGENT Work Phone: Start: 12-12-2022 Sars-cov-2 detection by dna/rna Lionel Grey APRN.COMMERCIAL REAL ESTATE AGENT Work Phone: Start: 10-27-2022 STREP A MOLECULAR (POC) Love Almaraz APRN.COMMERCIAL REAL ESTATE AGENT Work Phone: Plan of Treatment Date Care Activity Detail Author Start: 07-30-2028 Urine microalbumin profile DTaP,Tdap,Td Vaccine (9 - Td or Tdap) [facility] Start: 10-10-2022 Covid-19 Vaccine (2022- season) Covid-19 Vaccine ( season) [facility] Start: 10-10-2022 Influenza vaccination Influenza Vaccine (#1) [facility] Start: 05-08-2021 End: 05-22-2021 Influenza virus A and B RNA and SARS-CoV-2 (COVID-19) N gene panel - Respiratory specimen by RAFA with probe detection COVID WITH FLUA+B, ROUTINE Microbiology Routine Viral illness Expected: 05/08/2021, Expires: 05/22/2021 [facility] Work Phone: Immunizations Immunization Date Immunization Notes Care Provider Fa emerita 12-19-2019 influenza, injectabl e, quadrivalent, contains preservative Yareli Guzman APRN.COMMERCIAL REAL ESTATE AGENT Work Phone: [facility] 12-19-2019 influenza virus vaccine, unspecified formulation Love Almaraz APRN.COMMERCIAL REAL ESTATE AGENT Work Phone: [facility] 01-17-2013 influenza virus vaccine, live, attenuated, for intranasal use Yareli Guzman APRN.COMMERCIAL REAL ESTATE AGENT Work Phone: [facility] Work Phone: 10-28-2010 tetanus toxoid, redu libia diphtheria toxoid, and acellular pertussis vaccine, adsorbed Yareli OrnelasWood PLANT SPECIALIST.COMMERCIAL REAL ESTATE AGENT Work Phone: [facility] Work Phone: 02-19-2007 diphtheria, tetanus toxoids and acellular pertussis vaccine Yareli Praisler-Wood PLANT SPECIALIST.COMMERCIAL REAL ESTATE AGENT Work Phone: [facility] Work Phone: 05-31-2003 diphtheria, tetanus toxoids and acellular pertussis vaccine Yareli Praisler-Wood PLANT SPECIALIST.COMMERCIAL REAL ESTATE AGENT Work Phone: [facility] Work Phone: 05-31-2003 measles, mumps and rubella virus vaccine Yareli Praisler-Wood PLANT SPECIALIST.[facility] Work Phone: [facility] Work Phone: 05-31-2003 poliovirus vaccine, inactivated Yareli Chaoisler-Wood PLANT SPECIALIST.[facility] Work Phone: [facility] Work Phone: 08-21-2000 measles, mumps and rubella virus vaccine Yareli Praisler-Wood PLANT SPECIALIST.COMMERCIAL REAL ESTATE AGENT Work Phone: [facility] Work Phone: 08-22-1999 diphtheria, tetanus toxoids and acellular pertussis vaccine Yareli Praisler-Wood PLANT SPECIALIST.COMMERCIAL REAL ESTATE AGENT Work Phone: [facility] Work Phone: 08-22-1999 poliovirus vaccine, inactivated Yareli Praisler-Wood PLANT SPECIALIST.COMMERCIAL REAL ESTATE AGENT Work Phone: [facility] Work Phone: 04-25-1999 varicella virus vaccine Hilaria y Libra-Wood PLANT SPECIALIST.COMMERCIAL REAL ESTATE AGENT Work Phone: [facility] Work Phone: 02-19-1999 hepatitis B vaccine, pediatric or pediatric/adolescent dosage Yareli Chaoisler-Wood PLANT SPECIALIST.COMMERCIAL REAL ESTATE AGENT Work Phone: [facility] Work Phone: 1998 diphtheria, tetanus toxoids and acellular pertussis vaccine Yareli Praisler-Wood PLANT SPECIALIST.COMMERCIAL REAL ESTATE AGENT Work Phone: [facility] Work Phone: 1998 poliovirus vaccine, inactivated Yareli Prasaeedler-Wood PLANT SPECIALIST.COMMERCIAL REAL ESTATE AGENT Work Phone: [facility] Work Phone: 1998 diphtheria, tetanus toxoids and acellular pertussis vaccine Yareli Zhannaisler-Wood PLANT SPECIALIST.COMMERCIAL REAL ESTATE AGENT Work Phone: [facility] Work Phone: 1998 poliovirus vaccine, inactivated Yareli Prasaeedler-Wood PLANT SPECIALIST.COMMERCIAL REAL ESTATE AGENT Work Phone: [facility] Work Phone: 1998 hepatitis B vaccine, pediatric or pediatric/adolescent dosage Yareli Praisler-Wood PLANT SPECIALIST.COMMERCIAL REAL ESTATE AGENT Work Phone: [facility] Work Phone: 1998 hepatitis B vaccine, pediatric or pediatric/adolescent dosage Yareli Praisler-Wood PLANT SPECIALIST.COMMERCIAL REAL ESTATE AGENT Work Phone: [facility] Work Phone: Payers Date Payer Category Payer Medicaid [employer] [facility] [place] [id number] 2022-Present [phone] [address] [address] [place] [address] Medicaid [id number] 2022 Unknown [id number] 2018 Medicaid [employer] [place] [id number] 2018-Present [phone] [address] [address] [place] [address] Medicaid [id number] 1998 Unknown [id number] Social History Date Type Detail Facility Start: 01-17-2013 End: 10-27-2022 Tobacco smoking status NHIS Never smoked tobacco [facility] Work Phone: Start: 01-17-2013 End: 10-27-2022 Tobacco use and exposure Smokeless tobacco non-user [facility] Work Phone: Start: 05-08-2021 End: 04-22-2023 Alcohol intake Current non-drinker of alcohol (finding) [facility] Start: 2000 Sex Assigned At Female C [facility] Start: 04-28-2021 End: 05-08-2021 Exposure to SARS-CoV-2 (event) Not sure [facility] History of tobacco use Passive smoker [facility] Start: 03-04-2022 End: 10-27-2022 History of Social function [facility] Start: 03-04-2022 End: 10-27-2022 Tobacco use panel [facility] National Score (1-10 0), lower number is lower risk 58 [facility] Start: 03-06-2021 Sexual orientation Heterosexual (ana rosa novak) [facility] Clinical Notes 05-08-2021 to 04-22-2023 Lionel Grey APRN.COMMERCIAL REAL ESTATE AGENT - 04/22/2023 1:36 PM EDTPatient InstructionsJessy Mas APRN.COMMERCIAL REAL ESTATE AGENT - 12/26/2022 12:21 PM Hung Mayberry APRN.COMMERCIAL REAL ESTATE AGENT - 12/23/2022 3:36 PM ESTPatient Instructions Note Date & Type Note Facility 04-22-2023 Note HNO ID: [id number] Author: LIONEL GREY APRN.COMMERCIAL REAL ESTATE AGENT Service: ? Author Type: Nurse Practitioner Type: Progress Notes Filed: 04/22/2023 13:37 Note Text: Subjective HPI HPI Nevaeh Bernard is a 23 year old female who presents today for CC of left eye redness, drainage. This started today. Has tried nothing for relief. Symptoms are worsened by nothing. Risk factors pink eye exposures at home. Denies uri symptoms. Denies possibility of being . .Patient presents with: Eye Problem: left red, swelling and drainage x today PAST MEDICAL HISTORY Diagnosis Date Depression Hypertension NEGATIVE MEDICAL HISTORY PAST SURGICAL HISTORY Procedure Laterality Date ANESTH, SECTION TONSILLECTOMY PRIMARY/SECONDARY ALLERGIES Patient has no known allergies. MEDICATIONS ARIPiprazole (ABILIFY) 20 mg tablet Take 20 mg by mouth once daily. buPROPion XL (WELLBUTRIN XL) 150 mg 24 hr tablet Take 150 mg by mouth once daily. ibuprofen (MOTRIN) 800 mg tablet Take 1 tablet by mouth every 8 hours as needed for pain. Take with food. trimethoprim-polymyxin (POLYTRIM) 10,000 unit- 1 mg/mL ophthalmic solution Use 1 Drop in the left eye four times daily for 7 days. FLUOXETINE HCL (FLUOXETINE ORAL) Take 20 mg by mouth. (Patient not taking: Reported on 03/19/2021 ) FAMILY HISTORY Problem Relation Age of Onset other (blood clot) Mother . Hypertension Father Diabetes Maternal Grandmother Hypertension Other Paternal side. Migraines Other Social History Tobacco Use Smoking status: Never Passive exposure: Yes Smokeless tobacco: Never Substance Use Topics Alcohol use: No Drug use: No Review of Systems Constitutional: Negative for chills and fever. HENT: Negative for ear discharge, ear pain and sore throat. Eyes: Positive for discharge and redness. Negative for blurred vision, double vision, photophobia and pain. Neurological: Negative for headaches. Objective Blood pressure 108/70, pulse 108, temperature 37 ?C (98.6 ?F), resp. rate 16, weight 121.6 kg (268 lb 1.3 oz), last menstrual period 11/30/2022, SpO2 97%. Physical Exam Constitutional: General: She is not in acute distress. Appearance: She is not toxic-appearing. HENT: Right Ear: Hearing, tympanic membrane and external ear normal. Left Ear: Hearing, tympanic membrane, ear canal and external ear normal. Nose: No mucosal edema. Mouth/Throat: Pharynx: Uvula midline. Eyes: General: Right eye: No discharge. Left eye: No discharge. Conjunctiva/sclera: Right eye: Right conjunctiva is not injected. Left eye: Left conjunctiva is injected. Lymphadenopathy: Cervical: Right cervical: No superficial cervical adenopathy. Left cervical: No superficial cervical adenopathy. Comments: No cervical lymphadenopathy bilaterally Neurological: Mental Status: She is oriented to person, place, and time. ASSESSMENT/PLAN: 1. Acute conjunctivitis of left eye, unspecified acute conjunctivitis type - ICD9: 372.00, ICD10: H10.32 - see medication orders - course and contagiousness issues discussed, including hand washing. - Instructed to call if high fever, development of periorbital redness or swelling, eye pain, visual changes, concerns or if symptoms persist. - POLYMYXIN B SULFATE 10,000 UNIT-TRIMETHOPRIM 1 MG/ML EYE DROPS Lionel Grey APRN.COMMERCIAL REAL ESTATE AGENT [facility] 04-22-2023 History of Present illness Narrative Subjective HPI HPI Nevaeh Bernard is a 23 year old female who presents today for CC of left eye redness, drainage. This started today. Has tried nothing for relief. Symptoms are worsened by nothing. Risk factors pink eye exposures at home. Denies uri symptoms. Denies possibility of being . .Patient presents with: Eye Problem: left red, swelling and drainage x today PAST MEDICAL HISTORY Diagnosis Date Depression Hypertension NEGATIVE MEDICAL HISTORY PAST SURGICAL HISTORY Procedure Laterality Date ANESTH, SECTION TONSILLECTOMY PRIMARY/SECONDARY <AGE 12 ALLERGIES Patient has no known allergies. MEDICATIONS ARIPiprazole (ABILIFY) 20 mg tablet Take 20 mg by mouth once daily. buPROPion XL (WELLBUTRIN XL) 150 mg 24 hr tablet Take 150 mg by mouth once daily. ibuprofen (MOTRIN) 800 mg tablet Take 1 tablet by mouth every 8 hours as needed for pain. Take with food. trimethoprim-polymyxin (POLYTRIM) 10,000 unit- 1 mg/mL ophthalmic solution Use 1 Drop in the left eye four times daily for 7 days. FLUOXETINE HCL (FLUOXETINE ORAL) Take 20 mg by mouth. (Patient not taking: Reported on 03/19/2021 ) FAMILY HISTORY Problem Relation Age of Onset other (blood clot) Mother . Hypertension Father Diabetes Maternal Grandmother Hypertension Other Paternal side. Migraines Other Social History Tobacco Use Smoking status: Never Passive exposure: Yes Smokeless tobacco: Never Substance Use Topics Alcohol use: No Drug use: No Review of Systems Constitutional: Negative for chills and fever. HENT: Negative for ear discharge, ear pain and sore throat. Eyes: Positive for discharge and redness. Negative for blurred vision, double vision, photophobia and pain. Neurological: Negative for headaches. Objective Blood pressure 108/70, pulse 108, temperature 37 C (98.6 F), resp. rate 16, weight 121.6 kg (268 lb 1.3 oz), last menstrual period 11/30/2022, SpO2 97%. Physical Exam Constitutional: General: She is not in acute distress. Appearance: She is not toxic-appearing. HENT: Right Ear: Hearing, tympanic membrane and external ear normal. Left Ear: Hearing, tympanic membrane, ear canal and external ear normal. Nose: No mucosal edema. Mouth/Throat: Pharynx: Uvula midline. Eyes: General: Right eye: No discharge. Left eye: No discharge. Conjunctiva/sclera: Right eye: Right conjunctiva is not injected. Left eye: Left conjunctiva is injected. Lymphadenopathy: Cervical: Right cervical: No superficial cervical adenopathy. Left cervical: No superficial cervical adenopathy. Comments: No cervical lymphadenopathy bilaterally Neurological: Mental Status: She is oriented to person, place, and time. ASSESSMENT/PLAN: 1. Acute conjunctivitis of left eye, unspecified acute conjunctivitis type - ICD9: 372.00, ICD10: H10.32 - see medication orders - course and contagiousness issues discussed, including hand washing. - Instructed to call if high fever, development of periorbital redness or swelling, eye pain, visual changes, concerns or if symptoms persist. - POLYMYXIN B SULFATE 10,000 UNIT-TRIMETHOPRIM 1 MG/ML EYE DROPS Lionel Grey APRN.COMMERCIAL REAL ESTATE AGENT documented in this encounter [facility] 04-22-2023 Instructions Lionel Grey APRN.ISAAC - 04/22/2023 1:33 PM EDT CONJUNCTIVITIS GENERAL INFORMATION: Conjunctivitis is also known as pink eye. It is an irritation of the underside of the eyelid and the white part of the eye. Conjunctivitis can be caused by infection, chemical irritation, or allergy. If infectious, it is very contagious. INSTRUCTIONS: The doctor has prescribed antibiotic drops or ointment. Use them as prescribed. Do not touch the dropper to the eye. Throw out the medication after completing treatment. If the doctor only prescribed the medication to be placed in one eye, and the other eye starts to bother you with the same symptoms, you may treat it in the same fashion. To ease discomfort, apply a warm or cool clean washcloth to your eye several times a day for 10 to 20 minutes. Gently wipe away discharge from the eyes with tissues. Wash your hands often with soap and use paper towels to dry them. Do not share towels, washcloths, or pillows. This could spread infection. Do not use eye make-up until the infection has resolved. Keep contact lenses out of eyes until the irritation is gone. Discard any eye make-up which you may have contaminated before the infection was diagnosed, and any eye make-up older than one year. Children should not return to school or daycare until the eye is no longer pink. Do not drive or operate machinery if your vision is blurred. Wear sunglasses if your eyes are sensitive to the light. CONTACT YOUR DOCTOR IF YOU OR YOUR CHILD NOTICE: *The eye is still pink 3 days after starting treatment with medicine. *Pain in the eye increases. *The redness is spreading. *Vision becomes blurred. *You have a temperature over 100.5 F (38 C). documented in this encounter [facility] 12-26-2022 Note HNO ID: [id number] Author: Jessy Mas APRN.ISAAC Service: ? Author Type: Nurse Practitioner Type: Progress Notes Filed: 12/26/2022 12:33 PM Note Text: Telemedicine Visit - Distance Health Virtual Visit Note Patient seen on [employer] Video Visit platform. Location of patient: [place] No primary care provider on file. I have communicated my name and active licensure. The patient's identity and physical location were verified at the time of this visit. Either the patient or their legal employment representative has been informed of the risks and benefits of -- and alternatives to -- treatment through a remote evaluation and consents to proceed with the evaluation remotely. History of Present Illness Nevaeh Bernard is a 22 year old year old female who presents for the past 3 -4day(s) with symptoms that are: Constant right flank pain/ abd cramping - tried motrin and no change Denies FEVER CHILLS N/V/D PAST MEDICAL HISTORY Diagnosis Date Depression Hypertension NEGATIVE MEDICAL HISTORY PAST SURGICAL HISTORY Procedure Laterality Date ANESTH, SECTION TONSILLECTOMY PRIMARY/SECONDARY FAMILY HISTORY Problem Relation Age of Onset other (blood clot) Mother . Hypertension Father Diabetes Maternal Grandmother Hypertension Other Paternal side. Migraines Other Social History Tobacco Use Smoking status: Never Passive exposure: Yes Smokeless tobacco: Never Substance Use Topics Alcohol use: No Drug use: No Current Outpatient Medications Medication Sig erythromycin (ROMYCIN) 5 mg/gram (0.5 %) ophthalmic ointment Use 1 application in the right eye four times daily for 7 days. ARIPiprazole (ABILIFY) 20 mg tablet Take 20 mg by mouth once daily. buPROPion XL (WELLBUTRIN XL) 150 mg 24 hr tablet Take 150 mg by mouth once daily. ibuprofen (MOTRIN) 800 mg tablet Take 1 tablet by mouth every 8 hours as needed for pain. Take with food. FLUOXETINE HCL (FLUOXETINE ORAL) Take 20 mg by mouth. (Patient not taking: Reported on 03/19/2021 ) No current facility-administered medications for this visit. ALLERGIES No Known Allergies Video Exam (Examination performed via Video enabled technology) General appearance: Alert, oriented, pleasant, in NAD :Yes Ill appearing :No Lethargic appearing :No Respiratory distress :No ASSESSMENT/PLAN: 1. Treatment not available - ICD9: V64.3, ICD10: Z53.8 (primary diagnosis) 2. Abdominal cramping - ICD9: 789.00, ICD10: R10.9 REFER TO IN PERSON EVAL PLAN: - Red flags discussed for need for in person care - All questions answered Jessy Mas APRN.CNP If you let us know who your primary care provider is, we will send them a notification of today's visit through our electronic medical records system. Since not all providers have access to our notifications, we strongly encourage you to share the following record of today's visit with your primary care provider at your next visit. This will help in providing you the best care. If you do not have an established Primary Care physician and would like to continue care with a [facility] Primary Care physician, please ask your provider to place a Establish Primary Care order. Use Fanminder to manage your care, wherever you are, 01/09, on your mobile device or computer. Fanminder connects you to [employer] so you can access all your health information in one place and also schedule and request virtual appointments with primary care providers. [facility] [place] 12-26-2022 History of Present illness Narrative Telemedicine Visit - Distance Health Virtual Visit Note Patient seen on [employer] Video Visit platform. Location of patient: [place] No primary care provider on file. I have communicated my name and active licensure. The patient's identity and physical location were verified at the time of this visit. Either the patient or their legal employment representative has been informed of the risks and benefits of -- and alternatives to -- treatment through a remote evaluation and consents to proceed with the evaluation remotely. History of Present Illness Nevaeh Bernard is a 22 year old year old female who presents for the past 3 -4day(s) with symptoms that are: Constant right flank pain/ abd cramping - tried motrin and no change Denies FEVER CHILLS N/V/D PAST MEDICAL HISTORY Diagnosis Date Depression Hypertension NEGATIVE MEDICAL HISTORY PAST SURGICAL HISTORY Procedure Laterality Date ANESTH, SECTION TONSILLECTOMY PRIMARY/SECONDARY <AGE 10 FAMILY HISTORY Problem Relation Age of Onset other (blood clot) Mother . Hypertension Father Diabetes Maternal Grandmother Hypertension Other Paternal side. Migraines Other Social History Tobacco Use Smoking status: Never Passive exposure: Yes Smokeless tobacco: Never Substance Use Topics Alcohol use: No Drug use: No Current Outpatient Medications Medication Sig erythromycin (ROMYCIN) 5 mg/gram (0.5 %) ophthalmic ointment Use 1 application in the right eye four times daily for 7 days. ARIPiprazole (ABILIFY) 20 mg tablet Take 20 mg by mouth once daily. buPROPion XL (WELLBUTRIN XL) 150 mg 24 hr tablet Take 150 mg by mouth once daily. ibuprofen (MOTRIN) 800 mg tablet Take 1 tablet by mouth every 8 hours as needed for pain. Take with food. FLUOXETINE HCL (FLUOXETINE ORAL) Take 20 mg by mouth. (Patient not taking: Reported on 03/19/2021 ) No current facility-administered medications for this visit. ALLERGIES No Known Allergies Video Exam (Examination performed via Video enabled technology) General appearance: Alert, oriented, pleasant, in NAD :Yes Ill appearing :No Lethargic appearing :No Respiratory distress :No ASSESSMENT/PLAN: 1. Treatment not available - ICD9: V64.3, ICD10: Z53.8 (primary diagnosis) 2. Abdominal cramping - ICD9: 789.00, ICD10: R10.9 REFER TO IN PERSON EVAL PLAN: - Red flags discussed for need for in person care - All questions answered Jessy Mas APRN.CNP If you let us know who your primary care provider is, we will send them a notification of today's visit through our electronic medical records system. Since not all providers have access to our notifications, we strongly encourage you to share the following record of today's visit with your primary care provider at your next visit. This will help in providing you the best care. If you do not have an established Primary Care physician and would like to continue care with a [facility] [place] Virtual Primary Care physician, please ask your provider to place a Establish Primary Care order. Use Fanminder to manage your care, wherever you are, 01/09, on your mobile device or computer. Fanminder connects you to [employer] so you can access all your health information in one place and also schedule and request virtual appointments with primary care providers. documented in this encounter [facility] [place] 12-23-2022 Note HNO ID: [id number] Author: Hung Roland APRN.CNP Service: ? Author Type: Nurse Practitioner Type: Progress Notes Filed: 12/23/2022 3:37 PM Note Text: Nontoxic-appearing female presents urgent care chief complaint left lower abdominal pain. Duration of symptoms 2 days. Associated symptoms worsening left lower abdominal pain. Was seen in ED this morning. Diagnosed with costochondritis. Presents today with worsening discomfort. I explained to patient this is a ER follow-up we do not see abdominal pain through the urgent care. Referred patient back to [facility]. Patient verbalized understand agrees with plan of care. Hung Roland APRN.CNP [facility] [place] 12-23-2022 History of Present illness Narrative Nontoxic-appearing female presents urgent care chief complaint left lower abdominal pain. Duration of symptoms 2 days. Associated symptoms worsening left lower abdominal pain. Was seen in ED this morning. Diagnosed with costochondritis. Presents today with worsening discomfort. I explained to patient this is a ER follow-up we do not see abdominal pain through the urgent care. Referred patient back to [facility]. Patient verbalized understand agrees with plan of care. Hung Roland APRN.ISAAC documented in this encounter [facility] [place] 12-19-2022 Note HNO ID: [id number] Author: Cari Viramontes APRN.ISAAC Service: ? Author Type: Nurse Practitioner Type: Progress Notes Filed: 12/19/2022 12:30 PM Note Text: Subjective She came in with complaints of right eye itching and irritation. Patient says she frequently gets styes. Patient said it feels just like a stye. Patient initially said she has visual changes but not actual visual changes is just from the fluid. Patient says when she dries up the fluid the vision is normal. Patient denies any eyeball pain. The history is provided by the patient. No russian language professor was used. Eye Problem Review of Systems Constitutional: Negative. Skin: Negative. Objective Physical Exam Constitutional: Appearance: Normal appearance. Eyes: General: Lids are normal. Vision grossly intact. Gaze aligned appropriately. Right eye: No foreign body. Left eye: No foreign body. Conjunctiva/sclera: Conjunctivae normal. Right eye: Right conjunctiva is not injected. Left eye: Left conjunctiva is not injected. Comments: Patient says that itching and is in the area marked above. No visible stye at this time Pulmonary: Effort: Pulmonary effort is normal. Neurological: Mental Status: She is alert. PAST MEDICAL HISTORY Diagnosis Date Depression Hypertension NEGATIVE MEDICAL HISTORY PAST SURGICAL HISTORY Procedure Laterality Date ANESTH, SECTION TONSILLECTOMY PRIMARY/SECONDARY ALLERGIES Patient has no known allergies. MEDICATIONS ARIPiprazole (ABILIFY) 20 mg tablet Take 20 mg by mouth once daily. buPROPion XL (WELLBUTRIN XL) 150 mg 24 hr tablet Take 150 mg by mouth once daily. erythromycin (ROMYCIN) 5 mg/gram (0.5 %) ophthalmic ointment Use 1 application in the right eye four times daily for 7 days. ibuprofen (MOTRIN) 800 mg tablet Take 1 tablet by mouth every 8 hours as needed for pain. Take with food. FLUOXETINE HCL (FLUOXETINE ORAL) Take 20 mg by mouth. (Patient not taking: Reported on 03/19/2021 ) FAMILY HISTORY Problem Relation Age of Onset other (blood clot) Mother . Hypertension Father Diabetes Maternal Grandmother Hypertension Other Paternal side. Migraines Other Social History Tobacco Use Smoking status: Never Passive exposure: Yes Smokeless tobacco: Never Substance Use Topics Alcohol use: No Drug use: No ASSESSMENT/PLAN: 1. Eye irritation - ICD9: 379.99, ICD10: H57.89 - ERYTHROMYCIN 5 MG/GRAM (0.5 %) EYE OINTMENT Was educated about proper use of medication and supportive therapies. Patient was educated to monitor for symptoms of worsening and follow-up with the eye doctor if anything changes or worsens. Patient was okay with this care plan. Patient was also educated to discard her make-up and get new make-up. Cari Viramontes APRN.ISAAC [facility] [place] 12-12-2022 Note HNO ID: [id number] Author: Lionel Grey APRN.[employer] Service: ? Author Type: Nurse Practitioner Type: Progress Notes Filed: 12/12/2022 11:16 AM Note Text: Subjective HPI HPI Nevaeh Bernard is a 22 year old female who presents today for CC of cough, congestion. This started today. Has tried nothing for relief. Symptoms are worsened by nothing. Risk factors sick exposures at home/covid. .Patient presents with: Cough: Congestion, upset stomach started this morning, was exposed to covid PAST MEDICAL HISTORY Diagnosis Date Depression Hypertension NEGATIVE MEDICAL HISTORY PAST SURGICAL HISTORY Procedure Laterality Date ANESTH, SECTION TONSILLECTOMY PRIMARY/SECONDARY ALLERGIES Patient has no known allergies. MEDICATIONS ARIPiprazole (ABILIFY) 20 mg tablet Take 20 mg by mouth once daily. buPROPion XL (WELLBUTRIN XL) 150 mg 24 hr tablet Take 150 mg by mouth once daily. ibuprofen (MOTRIN) 800 mg tablet Take 1 tablet by mouth every 8 hours as needed for pain. Take with food. FLUOXETINE HCL (FLUOXETINE ORAL) Take 20 mg by mouth. (Patient not taking: Reported on 03/19/2021 ) FAMILY HISTORY Problem Relation Age of Onset other (blood clot) Mother . Hypertension Father Diabetes Maternal Grandmother Hypertension Other Paternal side. Migraines Other Social History Tobacco Use Smoking status: Never Passive exposure: Yes Smokeless tobacco: Never Substance Use Topics Alcohol use: No Drug use: No Review of Systems Constitutional: Negative for fever. HENT: Positive for congestion. Negative for ear pain, nosebleeds and sore throat. Respiratory: Positive for cough. Negative for shortness of breath and wheezing. Gastrointestinal: Positive for diarrhea. Negative for abdominal pain, constipation, nausea and vomiting. Musculoskeletal: Negative for neck pain. Objective Blood pressure 120/80, pulse 120, temperature 36.3 ?C (97.4 ?F), resp. rate 22, weight 119.3 kg (263 lb), last menstrual period 11/12/2019, SpO2 98 %. Physical Exam Constitutional: General: She is not in acute distress. Appearance: She is not toxic-appearing or diaphoretic. HENT: Head: Normocephalic and atraumatic. Right Ear: Hearing, tympanic membrane, ear canal and external ear normal. Left Ear: Hearing, tympanic membrane, ear canal and external ear normal. Nose: Nose normal. Mouth/Throat: Pharynx: Uvula midline. No pharyngeal swelling, oropharyngeal exudate, posterior oropharyngeal erythema or uvula swelling. Eyes: General: Lids are normal. No scleral icterus. Right eye: No discharge. Left eye: No discharge. Conjunctiva/sclera: Conjunctivae normal. Pupils: Pupils are equal, round, and reactive to light. Neck: Trachea: Trachea normal. Cardiovascular: Rate and Rhythm: Normal rate and regular rhythm. Heart sounds: Normal heart sounds. Pulmonary: Effort: Pulmonary effort is normal. Breath sounds: Normal breath sounds. Musculoskeletal: Cervical back: Normal range of motion and neck supple. Lymphadenopathy: Cervical: No cervical adenopathy. Right cervical: No superficial cervical adenopathy. Left cervical: No superficial cervical adenopathy. Skin: Findings: No rash. Neurological: Mental Status: She is alert and oriented to person, place, and time. ASSESSMENT/PLAN: 1. URI, acute - ICD9: 465.9, ICD10: J06.9 - Discussed viral etiology and rationale for treatment. - Symptomatic treatment with prn analgesia - Supportive care with fluids and rest - Follow up in 3-5 days if symptoms persist or sooner if worsening of symptoms -if positive for covid is a candidate for treatment, would have to return for bloodwork, declined bloodwork today. - COVID AND INFLUENZA A/B AND RSV NAAT, ROUTINE - COVID NAAT, UPPER RESPIRATORY, ROUTINE - ROUTINE FLU A/B + RSV Lionel Grey APRN.[facility] 12-12-2022 History of Present illness Narrative Subjective HPI HPI Nevaeh Bernard is a 22 year old female who presents today for CC of cough, congestion. This started today. Has tried nothing for relief. Symptoms are worsened by nothing. Risk factors sick exposures at home/covid. .Patient presents with: Cough: Congestion, upset stomach started this morning, was exposed to covid PAST MEDICAL HISTORY Diagnosis Date Depression Hypertension NEGATIVE MEDICAL HISTORY PAST SURGICAL HISTORY Procedure Laterality Date ANESTH, SECTION TONSILLECTOMY PRIMARY/SECONDARY <AGE 10 ALLERGIES Patient has no known allergies. MEDICATIONS ARIPiprazole (ABILIFY) 20 mg tablet Take 20 mg by mouth once daily. buPROPion XL (WELLBUTRIN XL) 150 mg 24 hr tablet Take 150 mg by mouth once daily. ibuprofen (MOTRIN) 800 mg tablet Take 1 tablet by mouth every 8 hours as needed for pain. Take with food. FLUOXETINE HCL (FLUOXETINE ORAL) Take 20 mg by mouth. (Patient not taking: Reported on 03/19/2021 ) FAMILY HISTORY Problem Relation Age of Onset other (blood clot) Mother . Hypertension Father Diabetes Maternal Grandmother Hypertension Other Paternal side. Migraines Other Social History Tobacco Use Smoking status: Never Passive exposure: Yes Smokeless tobacco: Never Substance Use Topics Alcohol use: No Drug use: No Review of Systems Constitutional: Negative for fever. HENT: Positive for congestion. Negative for ear pain, nosebleeds and sore throat. Respiratory: Positive for cough. Negative for shortness of breath and wheezing. Gastrointestinal: Positive for diarrhea. Negative for abdominal pain, constipation, nausea and vomiting. Musculoskeletal: Negative for neck pain. Objective Blood pressure 120/80, pulse 120, temperature 36.3 C (97.4 F), resp. rate 22, weight 119.3 kg (263 lb), last menstrual period 11/12/2019, SpO2 98 %. Physical Exam Constitutional: General: She is not in acute distress. Appearance: She is not toxic-appearing or diaphoretic. HENT: Head: Normocephalic and atraumatic. Right Ear: Hearing, tympanic membrane, ear canal and external ear normal. Left Ear: Hearing, tympanic membrane, ear canal and external ear normal. Nose: Nose normal. Mouth/Throat: Pharynx: Uvula midline. No pharyngeal swelling, oropharyngeal exudate, posterior oropharyngeal erythema or uvula swelling. Eyes: General: Lids are normal. No scleral icterus. Right eye: No discharge. Left eye: No discharge. Conjunctiva/sclera: Conjunctivae normal. Pupils: Pupils are equal, round, and reactive to light. Neck: Trachea: Trachea normal. Cardiovascular: Rate and Rhythm: Normal rate and regular rhythm. Heart sounds: Normal heart sounds. Pulmonary: Effort: Pulmonary effort is normal. Breath sounds: Normal breath sounds. Musculoskeletal: Cervical back: Normal range of motion and neck supple. Lymphadenopathy: Cervical: No cervical adenopathy. Right cervical: No superficial cervical adenopathy. Left cervical: No superficial cervical adenopathy. Skin: Findings: No rash. Neurological: Mental Status: She is alert and oriented to person, place, and time. ASSESSMENT/PLAN: 1. URI, acute - ICD9: 465.9, ICD10: J06.9 - Discussed viral etiology and rationale for treatment. - Symptomatic treatment with prn analgesia - Supportive care with fluids and rest - Follow up in 3-5 days if symptoms persist or sooner if worsening of symptoms -if positive for covid is a candidate for treatment, would have to return for bloodwork, declined bloodwork today. - COVID & INFLUENZA A/B & RSV NAAT, ROUTINE - COVID NAAT, UPPER RESPIRATORY, ROUTINE - ROUTINE FLU A/B + RSV Lionel Grey APRN.[employer] documented in this encounter [facility] 12-12-2022 Instructions Lionel Grey APRN.ISAAC - 12/12/2022 7:54 AM EDT RESPIRATORY INFECTION GENERAL INFORMATION: An upper respiratory tract infection, or cold, is a viral infection of the airway passages. It can be caused by any one of almost 200 different viruses. Common symptoms include a runny or stuffy nose, sneezing, watery eyes, sore throat, cough, and slight fever. Colds are contagious, especially during the first 3 or 4 days and cannot be cured by antibiotics. They are spread by coughs, sneezes, and direct contact, especially [id number]. A respiratory tract infection usually clears up in a few days, but some people may be sick for a week or two. INSTRUCTIONS: 1. Be careful not to blow your nose too hard because this may cause a nosebleed. 2. Use a cool-mist humidifier (vaporizer) to increase air moisture. This will make it easier for you to breathe. Do not use hot steam. 3. Rest as much as possible and get plenty of sleep. 4. Wash your hands often, especially after you blow your nose. Cover your mouth and nose with a tissue when you sneeze or cough. 5. Drink plenty of clear fluids (8 glasses a day) such as water, fruit juice, tea, clear soups, and carbonated beverages. CONTACT YOUR DOCTOR IF : 1. Your fever lasts more than 3 days. 2. You have a sore throat that gets worse or you see white or yellow spots in your throat. 3. Your cough gets worse or lasts more than 10 days. 4. You develop a rash anywhere on your skin. 5. You have an earache or a headache. 6. You have thick greenish or yellowish discharge from your nose. RETURN IMMEDIATELY IF: 1. You cough up thick yellow, green, fields, or bloody sputum. 2. You have difficulty breathing, pain in your chest, or your skin or nails look fields or blue. 3. You have shaking chills or a temperature over 102 F (39 C). documented in this encounter [facility] [place] 10-27-2022 Note HNO ID: [id number] Author: Love Almaraz APRN.ISAAC Service: ? Author Type: Nurse Practitioner Type: Progress Notes Filed: 10/27/2022 3:08 PM Note Text: SUBJECTIVE: Nevaeh Bernard is a 22 year old female. Who presents today with sore throat , cough chills since yesterday. She has been exposed to others who are sick. She has taken cold medicine today. She has no fever. She is here today for strep testing. HPI PAST MEDICAL HISTORY Diagnosis Date Depression Hypertension NEGATIVE MEDICAL HISTORY FAMILY HISTORY Problem Relation Age of Onset other (blood clot) Mother . Hypertension Father Diabetes Maternal Grandmother Hypertension Other Paternal side. Migraines Other Social History Tobacco Use Smoking status: Never Passive exposure: Yes Smokeless tobacco: Never Substance Use Topics Alcohol use: No Drug use: No ALLERGIES No Known Allergies Current Outpatient Medications Medication Sig Dispense Refill ARIPiprazole (ABILIFY) 20 mg tablet Take 20 mg by mouth once daily. buPROPion XL (WELLBUTRIN XL) 150 mg 24 hr tablet Take 150 mg by mouth once daily. ibuprofen (MOTRIN) 800 mg tablet Take 1 tablet by mouth every 8 hours as needed for pain. Take with food. 60 tablet 1 FLUOXETINE HCL (FLUOXETINE ORAL) Take 20 mg by mouth. (Patient not taking: Reported on 03/19/2021 ) No current facility-administered medications for this visit. OBJECTIVE: BP 129/86 Pulse 97 Temp 37.2 ?C (98.9 ?F) Resp 18 Wt 117 kg (258 lb) LMP 11/12/2019 (Approximate) SpO2 100% BMI 47.96 kg/m? ROS: All systems reviewed and are otherwise negative Constitutional: Well developed, well nourished, AANDO X3. ENT: Head is atraumatic, airway patent, mucosal membranes moist, pink, no exudate, no peritonsillar abscess, geovanni TM clear with no signs of infection Neck: full ROM, no meningeal signs Cardiac: heart tones regular rate and rhythm Respiratory: lung CTA : no CVA tenderness MS: moves all extremities, no deformities noted Neuro: GCS 15 no focal deficits Skin: warm and dry with out rash, lesion or ecchymosis Psych: alert appropriate, speech clear Diagnostic testing: Strep testing is negative MDM: Patient presented to the [facility] today for strep testing. Testing was obtained and is negative. Vital signs were evaluated and found to be within normal limits. Nevaeh Bernard was in no acute distress. We have discussed over the counter medications to use for their symptoms. She has requested a step test and it is negative. They will follow-up with their family doctor in the next 2-3 days. If symptoms worsen they will go straight to the emergency department for further evaluation and treatment. They voiced understanding of the plan of care and are in agreement. ASSESSMENT/PLAN: 1. Sore throat - ICD9: 462, ICD10: J02.9 - STREP A MOLECULAR (POC) Love Almaraz APRN.[facility] 10-27-2022 History of Present illness Narrative SUBJECTIVE: Nevaeh Bernard is a 22 year old female. Who presents today with sore throat , cough chills since yesterday. She has been exposed to others who are sick. She has taken cold medicine today. She has no fever. She is here today for strep testing. HPI PAST MEDICAL HISTORY Diagnosis Date Depression Hypertension NEGATIVE MEDICAL HISTORY FAMILY HISTORY Problem Relation Age of Onset other (blood clot) Mother . Hypertension Father Diabetes Maternal Grandmother Hypertension Other Paternal side. Migraines Other Social History Tobacco Use Smoking status: Never Passive exposure: Yes Smokeless tobacco: Never Substance Use Topics Alcohol use: No Drug use: No ALLERGIES No Known Allergies Current Outpatient Medications Medication Sig Dispense Refill ARIPiprazole (ABILIFY) 20 mg tablet Take 20 mg by mouth once daily. buPROPion XL (WELLBUTRIN XL) 150 mg 24 hr tablet Take 150 mg by mouth once daily. ibuprofen (MOTRIN) 800 mg tablet Take 1 tablet by mouth every 8 hours as needed for pain. Take with food. 60 tablet 1 FLUOXETINE HCL (FLUOXETINE ORAL) Take 20 mg by mouth. (Patient not taking: Reported on 03/19/2021 ) No current facility-administered medications for this visit. OBJECTIVE: BP 129/86 Pulse 97 Temp 37.2 C (98.9 F) Resp 18 Wt 117 kg (258 lb) LMP 11/12/2019 (Approximate) SpO2 100% BMI 47.96 kg/m ROS: All systems reviewed and are otherwise negative Constitutional: Well developed, well nourished, A&O X3. ENT: Head is atraumatic, airway patent, mucosal membranes moist, pink, no exudate, no peritonsillar abscess, geovanni TM clear with no signs of infection Neck: full ROM, no meningeal signs Cardiac: heart tones regular rate and rhythm Respiratory: lung CTA : no CVA tenderness MS: moves all extremities, no deformities noted Neuro: GCS 15 no focal deficits Skin: warm and dry with out rash, lesion or ecchymosis Psych: alert appropriate, speech clear Diagnostic testing: Strep testing is negative MDM: Patient presented to the [facility] today for strep testing. Testing was obtained and is negative. Vital signs were evaluated and found to be within normal limits. Nevaeh Bernard was in no acute distress. We have discussed over the counter medications to use for their symptoms. She has requested a step test and it is negative. They will follow-up with their family doctor in the next 2-3 days. If symptoms worsen they will go straight to the emergency department for further evaluation and treatment. They voiced understanding of the plan of care and are in agreement. ASSESSMENT/PLAN: 1. Sore throat - ICD9: 462, ICD10: J02.9 - STREP A MOLECULAR (POC) Love Almaraz APRN.[employer] documented in this encounter [facility] [place] 05-08-2021 History of Present illness Narrative Subjective HPI Nevaeh Bernard is a 21 year old female who presents with a headache since yesterday. Patient states I think I have a bug flu . She took tylenol for her headache. She has had an upset stomach today. She had to miss work due to her illness. Review of Systems Constitutional: Negative for chills and fever. Respiratory: Negative. Cardiovascular: Negative. Gastrointestinal: Positive for nausea. Neurological: Positive for headaches. BP 142/80 Pulse 93 Temp 36.3 C (97.4 F) (Tympanic) Resp 18 Wt 107 kg (236 lb) LMP 11/12/2019 (Approximate) SpO2 96% BMI 43.87 kg/m PAST MEDICAL HISTORY Diagnosis Date Depression Hypertension NEGATIVE MEDICAL HISTORY PAST SURGICAL HISTORY Procedure Laterality Date ANESTH, SECTION TONSILLECTOMY PRIMARY/SECONDARY <AGE 10 ALLERGIES Patient has no known allergies. MEDICATIONS buPROPion XL (WELLBUTRIN XL) 150 mg 24 hr tablet Take 150 mg by mouth once daily. ibuprofen (MOTRIN) 800 mg tablet Take 1 tablet by mouth every 8 hours as needed for pain. Take with food. FLUOXETINE HCL (FLUOXETINE ORAL) Take 20 mg by mouth. FAMILY HISTORY Problem Relation Age of Onset other (blood clot) Mother . Hypertension Father Diabetes Maternal Grandmother Hypertension Other Paternal side. Migraines Other Social History Tobacco Use Smoking status: Passive Smoke Exposure - Never Smoker Smokeless tobacco: Never Used Substance Use Topics Alcohol use: No Drug use: No Objective Physical Exam Vitals and nursing note reviewed. Constitutional: Appearance: She is obese. Cardiovascular: Rate and Rhythm: Normal rate and regular rhythm. Heart sounds: Normal heart sounds. Pulmonary: Effort: Pulmonary effort is normal. No respiratory distress. Breath sounds: Normal breath sounds. No wheezing or rales. Skin: General: Skin is warm and dry. Findings: No erythema or rash. Neurological: Mental Status: She is alert. ASSESSMENT/PLAN: 1. Viral illness - ICD9: 079.99, ICD10: B34.9 (primary diagnosis) - Discussed viral etiology and rationale for treatment. - Symptomatic treatment with prn analgesia - Supportive care with fluids and rest - COVID WITH FLUA+B, ROUTINE 2. Headache, unspecified headache type - ICD9: 784.0, ICD10: R51.9 - offered headache treatment in [facility], patient declined. - work excuse given. - Follow-up with your PCP in 3-5 days if symptoms have not improved or sooner if symptoms worsen - Discussed red flags and need for immediate medical evaluation if any occur. - Discussed supportive care treatment with fluids, rest and analgesia. - Discussed expected course of illness Yareli Guzman APRN.ISAAC documented in this encounter [facility] 05-08-2021 Instructions Yareli Guzman APRN.CNP - 05/08/2021 12:05 PM EDT ASSESSMENT/PLAN: 1. Viral illness - ICD9: 079.99, ICD10: B34.9 (primary diagnosis) - Discussed viral etiology and rationale for treatment. - Symptomatic treatment with prn analgesia - Supportive care with fluids and rest - COVID WITH FLUA+B, ROUTINE 2. Headache, unspecified headache type - ICD9: 784.0, ICD10: R51.9 - offered headache treatment in [facility], patient declined. - work excuse given. - Follow-up with your PCP in 3-5 days if symptoms have not improved or sooner if symptoms worsen - Discussed red flags and need for immediate medical evaluation if any occur. - Discussed supportive care treatment with fluids, rest and analgesia. - Discussed expected course of illness Yareli Guzman APRN.[facility] HEADACHE GENERAL INFORMATION: Almost everyone has a headache occasionally. Most headaches are caused by tension, eye strain, or emotional upset. Headaches can also occur with many medical illnesses. They may be a side effect of some medications. A headache that occurs without other symptoms and only lasts a few hours probably isn't a cause for concern. INSTRUCTIONS: 1. You may use [id number]-[id number] pain medication such as acetaminophen, ibuprofen, or aspirin unless your doctor recommends otherwise. 2. Try some of the following measures to relieve your headache: Stretch and massage the muscles in your shoulders, neck, jaw, and scalp. Take a hot bath. Rest in a quiet, darkened room. Place a warm or cold wet cloth (whichever feels better to you) over the aching area. 3. Don't skip meals or delay meals for very long. Drink plenty of fluids. 4. Avoid alcoholic beverages and cigarette smoking. These often make a headache worse. 5. Get plenty of rest. A good night's sleep often is the best way to relieve a headache. CONTACT YOUR DOCTOR IF: 1. Your headache gets worse or lasts longer than 24 hours. 2. You develop a temperature over 100.5 F (38 C) 3. You need to take medicine to relieve headache pain more than 3 times a week. RETURN TO THE ED IF: 1. Your headache is different from any headache you ever had before, or is the worst headache of your life. 2. You feel confused or drowsy. 3. Your neck feels stiff. 4. You have a temperature of 102 F (39 C) or higher. 5. You have eye problems such as sensitivity to light or blurred or double vision. 6. You start to vomit. 7. You have difficulty walking, talking, or moving your arms or legs. documented in this encounter [facility] documented in this encounter [facility] note* Diagnosis Sore throat- Primary Acute pharyngitis documented in this encounter [facility] note* Diagnosis URI, acute- Primary Acute upper respiratory infections of unspecified site documented in this encounter [facility] note* Diagnosis Procedure not carried out- Primary Procedure not carried out for other reasons documented in this encounter [facility] note* Diagnosis Treatment not available- Primary Procedure not carried out for other reasons Abdominal cramping Abdominal pain, unspecified site documented in this encounter [facility] note* Diagnosis Acute conjunctivitis of left eye, unspecified acute conjunctivitis type- Primary documented in this encounter [facility] Summary Purpose Family History No Family History Records FoundNo Family History Records FoundNo Family History Records Found Advance Directives No Advanced Directives Records FoundNo Advanced Directives Records FoundNo Advanced Directives Records Found Health Concerns Infection Onset Date Last Indicated Resolved Time COVID-19 Rule-Out 05/08/2021 05/08/2021 Additional Source Comments INFORMATION SOURCE (unrecogn ized section and content) DATE CREATED AUTHOR AUTHOR'S ORGANIZ ATION 04/19/2020 [facility] ([place]) DATE CREATED AUTHOR AUTHOR'S ORGANIZ ATION 04/23/2023 [facility] [place] Source Comments (unrecognize d section and content) In the event this informatio n is protected by the Federal Confidentiality of Alcohol and Drug Abuse Patient Records regulations: The Federal rules restrict any use of the information to criminally investigate or prosecute any alcohol or drug abuse patient.[facility] [place] event this information is protected by the Federal Confidentiality of Alcohol and Drug Abuse Patient Records regulations: The Federal rules restrict any use of the information to criminally investigate or prosecute any alcohol or drug abuse patient.[facility] [place] [place] event this information is protected by the Federal Confidentiality of Alcohol and Drug Abuse Patient Records regulations: The Federal rules restrict any use of the information to criminally investigate or prosecute any alcohol or drug abuse patient.[facility] [place] event this information is protected by the Federal Confidentiality of Alcohol and Drug Abuse Patient Records regulations: The Federal rules restrict any use of the information to criminally investigate or prosecute any alcohol or drug abuse patient.[facility] [place] event this information is protected by the Federal Confidentiality of Alcohol and Drug Abuse Patient Records regulations: The Federal rules restrict any use of the information to criminally investigate or prosecute any alcohol or drug abuse patient.[facility] [place] event this information is protected by the Federal Confidentiality of Alcohol and Drug Abuse Patient Records regulations: The Federal rules restrict any use of the information to criminally investigate or prosecute any alcohol or drug abuse patient.[facility] Reason for Visit (unrecogniz ed section and content) Reason Comments Cough ST, congestion x1 da y Reason Comments Cough Congestion, upset st omach started this morning, was exposed to covid Reason Comments Abdominal Pain Reason Comments Eye Problem left red, swelling a nd drainage x today FOR RECORDS PERTAINING TO PATIENTS WHO ARE OR HAVE BEEN ENROLLED IN A CHEMICAL DEPENDENCY/SUBSTANCEABUSE PROGRAM, SOME INFORMATION MAY BE OMITTED. This clinical summary was aggregated from multiple sources. Caution should be exercised in using it in the provision of clinical care. This summary normalizes information from multiple sources, and as a consequence, information in this document may materially change the coding, format and clinical context of patient data. In addition, data may be omitted in some cases. CLINICAL DECISIONS SHOULD BE BASED ON THE PRIMARY CLINICAL RECORDS. [employer] provides no warranty or guarantee of the accuracy or completeness of information in this document.
[2023-04-26] MEDS: AMOXICILLIN 500 MG CAPSULE PO (10:43)
== END 2023-04-26 10:44 | disposition home or self-care (01) ==
PROVIDERS: Emergency Provider Emergency Medicine; Visit Provider Emergency Medicine
DX: J02.0 Streptococcal pharyngitis (principal); I10 Essential (primary) hypertension; R50.9 Fever, unspecified; F32.A Depression, unspecified; Z79.899 Other long term (current) drug therapy
CPT/HCPCS: 87631; 87651; 99282

== ENCOUNTER 2024-05-14 13:26 | Emergency (ER) | payer MEDICAID, SELFPAY ==
[2024-05-14 13:26] VITALS: BP 158/96; PULSE 105; RESP 17; TEMP 36.2; O2SAT 97; BMI 52.1
--- NOTE | 2024-05-14 13:38 | ED.VIS.FEGU ---
HPI HPI - Female History of Present Illness Chief Complaint: Vag Bleeding Detail of Chief Complaint: Vaginal bleeding Informant: patient Narrative Narrative: Patient presents to the emergency department complaint of vaginal bleeding that started 3 days ago. Patient states that she is going through a pad an hour. Seems to have slowed down today. She states that prior to this bleeding starting she had gone about 2 weeks with persistent heavy bleeding similarly where she was going through a pad an hour. She complains of some fatigue. She states anemia runs in the family. She denies feeling lightheaded or dizzy. She denies significant abdominal pain. She has had intermittent cramping. She is G1, P0. Does not think she is but she is not on hormone therapy. [facility] Medical History (Updated 05/14/24 @ 14:[address] Mele Azul DO) COVID-19 Hypertension 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 Depression Preeclampsia, severe Hypertension affecting in third trimester Home Medications ?Medication ?Instructions ?Recorded ?Last Taken ?Type aripiprazole 2 mg tablet 2 mg PO DAILY 12/23/22 Unknown History escitalopram oxalate 20 mg tablet 20 mg PO DAILY 12/23/22 Unknown History dicyclomine 10 mg capsule 20 mg (2 x 10 mg) PO Q6H PRN PRN 12/27/22 Unknown Rx abdominal pain #20 CAPSULES pantoprazole 40 mg tablet,delayed 40 mg PO DAILY #30 tabs 12/27/22 Unknown Rx release amoxicillin 500 mg tablet 500 mg PO TID #30 tabs 04/26/23 Unknown Rx norethindrone acetate 5 mg tablet 5 mg PO DAILY #30 tabs 05/14/24 Unknown Rx Allergy/AdvReac Type Severity Reaction Status Date / Time No Known Allergies Allergy Verified 05/14/24 13:29 Family History Grandmother Diabetes Other Asthma Cancer Hypertension Thyroid disorder Surgical History History of delivery Social History Smoking Status: Never smoker alcohol intake: current alcohol intake frequency: a few times a month Alcohol type: other substance use type: does not use caffeine: Yes what type of physical activity do you participate in: none seatbelt use: always do you feel safe at home: Yes additional social history: [employer] Patient does not work ROS ROS ED Review of Systems ROS Unobtainable: other Constitutional Constitutional ED: Reports lethargy; Denies chills, fever(s), sweats or weight loss Eyes Eyes: Denies blurry vision, change in vision or diplopia ENT ENT ED: Denies rhinorrhea or sore throat Cardiovascular Cardiovascular: Denies chest pain, orthopnea or racing heartbeat Respiratory/Chest Respiratory/Chest: Denies cough, dyspnea, dyspnea on exertion, orthopnea or sputum Gastrointestinal Gastrointestinal: Denies abdominal pain, diarrhea, nausea or vomiting Genitourinary Genitourinary ED: Reports other Details: Vaginal bleeding ; Denies dysuria, hematuria or urinary frequency Musculoskeletal Musculoskeletal: Denies arthralgias, back pain, myalgias or neck pain Integumentary Denies abscess, Abrasions or rash Neurologic Neurologic: Denies headache(s) or weakness Psychiatric Psychiatric: Denies anxiety, depression or suicidal thoughts Endocrine Endocrinology: Denies polydipsia, polyphagia or polyuria Hematologic/Lymphatic Hematologic/Lymphatic: Denies easy bleeding, easy bruising or lymphadenopathy Allergic/Immunologic Allergic/Immunologic ED: Denies mouth swelling, tongue swelling or urticaria EXAM Physical Exam Const Vital Signs: 05/14/24 13:26 05/14/24 13:52 Temperature 97.1 F L Temperature Source Oral Pulse Rate 105 H Pulse Rate [Lying] 102 H Pulse Rate [Sitting (for 1 minute prior to obtaining)] 116 H Pulse Rate [Standing (for 1 minute prior to obtaining)] 114 H Respiratory Rate 17 Blood Pressure 158/96 H Blood Pressure [Lying] 132/79 H Blood Pressure [Sitting (for 1 minute prior to obtaining)] 136/95 H Blood Pressure [Standing (for 1 minute prior to obtaining)] 140/79 H Blood Pressure Mean 116 Blood Pressure Mean [Lying] 96 Blood Pressure Mean [Sitting (for 1 minute prior to obtaining)] 108 Blood Pressure Mean [Standing (for 1 minute prior to obtaining)] 99 Pulse Ox 97 Oxygen Delivery Method Room Air Positive well nourished and well developed General Appearance ED: well developed and NAD HEENT Reports TM's clear and moist mucous membranes normocephalic and atraumatic; Negative for trauma or tenderness Tympanic Membrane ED: Yes TM's clear Eyes PERRL and EOMs intact bilaterally General Eye ED: Negative for pale conjunctiva or scleral icterus Neck no lymphadenopathy, supple and no JVD General: Negative for tenderness Chest Wall inspection of chest normal and palpation of chest normal Chest: Negative for tenderness Resp normal respiratory effort and clear to auscultation bilaterally Effort and Inspection: Negative for respiratory distress or pain with movement Auscultation: Negative for rhonchi, wheezes or diminished lung sounds Cardio regular rate, regular rhythm, S1 normal heart sound, S2 normal heart sound and no murmurs Peripheral Pulses: pulses 2+ throughout GI normal to inspection, nondistended, normoactive bowel sounds, soft to palpation, non-tender, non-distended and no masses Back/Spine no CVA tenderness and no thoracic nor lumbar tenderness Extremity normal to inspection General Extremety ED: Negative for edema General Extremity: Negative for edema Neuro oriented x3, CN's II-XII intact bilaterally, no sensory deficits noted and gait normal Sensorium / Orientation: awake, alert, oriented to person, oriented to place and oriented to time Motor Exam: strength 5/5 throughout and strength abnormal Psych mental status grossly normal Skin no rashes or lesions noted and no wounds MDM MDM MDM Narrative Medical decision making narrative: Patient presents with 3-day history of vaginal bleeding going through a pad an hour for 3 days. She denies any significant abdominal pain. Clinically looks well. IV line established. Orthostatic vital signs obtained were negative. CBC with differential white count of 12.5 with hemoglobin 10 platelet count of 422. hCG was negative. Discussed case with CHRONOGRAPH OPERATOR on-call Dr. Saeid Shah who recommended pelvic ultrasound to evaluate and starting patient on Aygestin. I will write her prescription for Aygestin and patient to follow-up with Dr. Saeid Shah as an outpatient. Lab Data Attestation: I reviewed the patient's lab results. Labs: Laboratory Results - last 24 hr 05/14/24 13:40 WBC 12.5 H RBC 3.63 L Hgb 10.0 L Hct 30.3 L MCV 83.5 MCH 27.5 MCHC 33.0 RDW Std Deviation 38.8 RDW Coeff of Kofi 12.8 Plt Count 422 MPV 10.0 Immature Gran % (Auto) 1.000 H Neut % (Auto) 61.3 Lymph % (Auto) 28.1 [place] % (Auto) 6.6 Eos % (Auto) 2.2 Baso % (Auto) 0.8 Absolute Neuts (auto) 7.6 Absolute Lymphs (auto) 3.50 Nucleated RBC % 0 Serum , Qual NEGATIVE Discharge Plan Triage Chief Complaint: Vag Bleeding ED Provider: Mele Azul Dx/Rx/DC Orders Clinical Impression: DUB (dysfunctional uterine bleeding) Instructions: ED Dysfunctional Uterine Bleeding Prescriptions: New norethindrone acetate 5 mg tablet 5 mg PO DAILY Qty: 30 0RF Rx Instructions: 1 tab p.o. twice daily x 3 days then 1 tab p.o. daily No Action escitalopram oxalate 20 mg tablet 20 mg PO DAILY Patient Comments: TAKE 1 TABLET BY MOUTH DAILY aripiprazole 2 mg tablet 2 mg PO DAILY Patient Comments: TAKE 1 TABLET BY MOUTH DAILY pantoprazole 40 mg tablet,delayed release (DR/EC) 40 mg PO DAILY Qty: 30 0RF dicyclomine 10 mg capsule 20 mg PO Q6H PRN PRN (Reason: abdominal pain) Qty: 20 0RF amoxicillin 500 mg tablet 500 mg PO TID Qty: 30 0RF Primary Care Provider: Care Physician,No Primary Referrals: Adriana Caldwell MD [Med Staff - Active Staff] - 5-7 Days Care Physician,No Primary [Primary Care Provider] - Print Language: Azeri Disposition Disposition: Home, Self Care
[2024-05-14 13:52] VITALS: BP 132/79; BP 136/95; BP 140/79; PULSE 102; PULSE 114; PULSE 116
[2024-05-14 14:04] LABS: Absolute Neutrophil Count 7.6 X10^3/uL (2.0-7.7); Basophil% 0.8 % (0-1); Eosinophil# 0.27 X10^3/uL; Eosinophils% 2.2 % (0-5); Hematocrit 30.3 % (37-47); Lymphocyte % 28.1 % (19-41); Mean Corpuscular Hgb 27.5 pg (27.0-32.0); Mean Corpuscular Volume 83.5 fL (81-99); Monocyte# 0.82 X10^3/uL; Monocyte% 6.6 % (0-10); NRBC Flagged by Analyzer 0 % (0-5); Neutrophil # 7.64 X10^3/uL (2.7-7.7); Neutrophil % 61.3 % (47-70); Platelet Count 422 K/mm3 (150-450); RBC Distribution Width CV 12.8 % (11.6-14.6); RBC Distribution Width SD 38.8 fl (35.1-43.9); Red Blood Count 3.63 M/mm3 (4.2-5.4); White Blood Count 12.5 K/mm3 (4.4-11.0)
[2024-05-14 14:23] LABS: Internal QC Validated? YES +Cl - CLEAR BKGD; Pregnancy, Serum, hCG Quali. NEGATIVE Negative
--- NOTE | 2024-05-14 14:41 | US_ITS ---
PROCEDURE: TRANSVAGINAL NON- 05/14/2024 REASON FOR EXAM: VAGINAL BLEEDING , ANEMIA, heavy menses TECHNIQUE: Pelvic ultrasound is performed using a transvaginal transducer COMPARISON: None FINDINGS: The uterus is anteverted. Line uterus measures 8.7 cm LV 5.6 cm AP x 4.1 cm T. no fibroids are identified. Endometrium is 4 mm in thickness. Nabothian cysts in the cervix are incidentally noted. The right ovary measures 1.9 x 1.0 x 1.3 cm. The left ovary is visualized and measures 2.5 0.8 x 1.6 cm Normal blood flow detected in both ovaries. No adnexal findings. No free fluid in the cul-de-sac. US/Transvaginal Non- IMPRESSION: NORMAL ULTRASOUND OF THE HIPS. Reading [facility]
== END 2024-05-14 15:37 | disposition home or self-care (01) ==
PROVIDERS: Emergency Provider Emergency Medicine; Referring Provider Emergency Medicine; Visit Provider Emergency Medicine
DX: N93.8 Other specified abnormal uterine and vaginal bleeding (principal); I10 Essential (primary) hypertension; R53.83 Other fatigue; Z79.899 Other long term (current) drug therapy
CPT/HCPCS: 76830; 84703; 85025; 86850; 86900; 86901; 99283; A4216

== ENCOUNTER → 2024-05-24 | Outpatient (CLI) | payer MEDICAID, SELFPAY ==
[2024-05-24 14:03] LABS: Absolute Lymphocyte Count 3.08 X10^3/uL (0.83-4.51); Absolute Neutrophil Count 7.2 X10^3/uL (2.0-7.7); Basophil# 0.12 X10^3/uL; Eosinophil# 0.17 X10^3/uL; Eosinophils% 1.5 % (0-5); Hematocrit 30.7 % (37-47); Hemoglobin 9.7 g/dL (12.0-15.0); Lymphocyte # 3.08 X10^3/ul (0.83-4.51); Lymphocyte % 26.6 % (19-41); Mean Corp Hgb Conc 31.6 g/dL (32-36); Mean Corpuscular Hgb 26.3 pg (27.0-32.0); Mean Corpuscular Volume 83.2 fL (81-99); Mean Platelet Vol. 10.4 fl (6.2-12.0); Monocyte# 0.86 X10^3/uL; Monocyte% 7.4 % (0-10); NRBC Flagged by Analyzer 0 % (0-5); Neutrophil # 7.23 X10^3/uL (2.7-7.7); Neutrophil % 62.4 % (47-70); Platelet Count 489 K/mm3 (150-450); RBC Distribution Width CV 13.3 % (11.6-14.6); RBC Distribution Width SD 40.7 fl (35.1-43.9); Red Blood Count 3.69 M/mm3 (4.2-5.4); White Blood Count 11.6 K/mm3 (4.4-11.0)
[2024-05-24 15:22] LABS: Estradiol 14.8 pg/mL; Follicle Stimulating Hormone 2.1 mIU/mL
[2024-05-24 16:39] LABS: Hemoglobin A1c 6.8 % (<=5.6)
== END | disposition home or self-care (01) ==
LOC: LAB 12:23
PROVIDERS: Referring Provider Obstetrics & Gynecology; Visit Provider Obstetrics & Gynecology
DX: N93.9 Abnormal uterine and vaginal bleeding, unspecified (principal)
CPT/HCPCS: 36415; 82670; 83001; 83036; 83498; 84146; 84402; 84403; 84443; 85025

== ENCOUNTER 2024-06-08 17:52 | Emergency (ER) | payer MEDICAID, SELFPAY ==
[2024-06-08 17:53] VITALS: BP 154/95; PULSE 110; RESP 20; TEMP 36.1; O2SAT 98; BMI 52.7
[2024-06-08] MEDS: 0.9% Normal Saline (1000mL) 1,000 ML 999 ML IV (18:21)
[2024-06-08 18:39] LABS: Absolute Lymphocyte Count 3.38 X10^3/uL (0.83-4.51); Absolute Neutrophil Count 12.3 X10^3/uL (2.0-7.7); Basophil# 0.09 X10^3/uL; Basophil% 0.5 % (0-1); Eosinophil# 0.15 X10^3/uL; Eosinophils% 0.9 % (0-5); Hematocrit 29.5 % (37-47); Hemoglobin 9.3 g/dL (12.0-15.0); Lymphocyte # 3.38 X10^3/ul (0.83-4.51); Lymphocyte % 19.7 % (19-41); Mean Corp Hgb Conc 31.5 g/dL (32-36); Mean Corpuscular Hgb 25.3 pg (27.0-32.0); Mean Corpuscular Volume 80.2 fL (81-99); Mean Platelet Vol. 9.8 fl (6.2-12.0); Monocyte# 1.05 X10^3/uL; Monocyte% 6.1 % (0-10); NRBC Flagged by Analyzer 0 % (0-5); Neutrophil # 12.32 X10^3/uL (2.7-7.7); Neutrophil % 71.8 % (47-70); Platelet Count 428 K/mm3 (150-450); RBC Distribution Width CV 13.8 % (11.6-14.6); RBC Distribution Width SD 40.3 fl (35.1-43.9); Red Blood Count 3.68 M/mm3 (4.2-5.4); White Blood Count 17.2 K/mm3 (4.4-11.0)
[2024-06-08 18:54] LABS: Internal QC Validated? YES +Cl - CLEAR BKGD; Pregnancy, Serum, hCG Quali. NEGATIVE Negative; Record Kit Lot#, Serum Preg. 929381
[2024-06-08 18:56] LABS: Mucous, Urine 0 SEEN /hpf (<or=2+)
--- NOTE | 2024-06-08 18:57 | EX.ED.DYSGE1 ---
HPI History of Present Illness Chief Complaint: Flank Pain Narrative Narrative: Patient is a 24-year-old female with past medical history of PCOS, depression, hypertension who presents to the emergency department with a chief complaint of right flank pain. States that this started this afternoon and she states that this was very painful for her and states that it was difficult for her to walk secondary to the pain. Patient states that the pain has gotten better but is still persistent therefore she came here for further evaluation management. Patient denies history kidney stones denies any trauma or injuries to her back. [facility] Medical History COVID-19 Hypertension 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 Depression Preeclampsia, severe Hypertension affecting in third trimester Home Medications ?Medication ?Instructions ?Recorded ?Last Taken ?Type aripiprazole 2 mg tablet 2 mg PO DAILY 12/23/22 06/08/24 History escitalopram oxalate 20 mg tablet 20 mg PO DAILY 12/23/22 06/08/24 History pantoprazole 40 mg tablet,delayed 40 mg PO DAILY #30 tabs 12/27/22 06/08/24 Rx release blood-glucose meter,continuous #1 ea 06/08/24 Unknown Rx (Dexcom G7 Roving Teller) blood-glucose sensor (Dexcom G7 #12 ea 06/08/24 Unknown Rx Sensor device) cephalexin 500 mg capsule 500 mg PO BID 7 days #14 caps 06/08/24 Unknown Rx desogestrel 0.15 mg-ethinyl 1 tab PO DAILY 06/08/24 06/08/24 History estradiol 0.03 mg tablet ([place]) dicyclomine 10 mg capsule 20 mg PO Q6H PRN abdominal pain 06/08/24 Unknown History hydroxyzine pamoate 25 mg capsule 25 mg PO BID 06/08/24 06/08/24 History metformin 500 mg tablet 500 mg PO DAILY 06/08/24 06/08/24 History norethindrone acetate 5 mg tablet 5 mg PO DAILY 06/08/24 06/08/24 History semaglutide 0.25 mg or 0.5 mg (2 0.25 mg subcut FR 06/08/24 Unknown History mg/3 mL) subcutaneous pen injector (Ozempic) trazodone 50 mg tablet 50 mg PO QHS 06/08/24 06/06/24 History Allergy/AdvReac Type Severity Reaction Status Date / Time No Known Allergies Allergy Verified 06/08/24 17:53 Family History Grandmother Diabetes Other Asthma Cancer Hypertension Thyroid disorder Surgical History History of delivery Social History adopted: No housing: apartment number of children: 1 current occupational status: unemployed pets and animals: No history of recent travel: No sexually active: Yes Smoking Status: Never smoker second hand exposure: No alcohol intake: current alcohol intake frequency: a few times a month Alcohol type: other substance use type: does not use caffeine: Yes what type of physical activity do you participate in: walking frequency: 3-4 times per week duration: 15-30 minutes/day seatbelt use: always do you feel safe at home: Yes additional social history: Single Patient does not work ROS ROS ED ROS Narrative Constitutional: Denies fevers, chills, headaches Eyes: Denies change in vision double vision blurry vision Cardiovascular: Denies chest pain or palpitations Respiratory: Denies coughing wheezing shortness of breath Abdomen: Complains of right flank pain as noted above denies nausea vomit diarrhea : Denies urinary symptoms Neurological: Denies numbness, weakness, tingling Musculoskeletal: Denies back pain Skin: Denies rashes or lesions EXAM Physical Exam Narrative Exam Narrative: General: Patient is lying bed rest comfortably not appear to be in acute distress Head: Atraumatic, normocephalic Eyes: PERRL bilateral, EOMI bilateral, no conjunctival injection noted Neck: Soft, supple, trachea midline Cardiovascular: Patient tachycardic with regular rhythm no murmurs gallops rubs noted Respiratory: Clear to auscultation bilaterally Abdomen: Soft, nondistended, no tenderness palpation, bowel sounds present x 4 Extremities: +5/5 strength noted in the bilateral upper and lower extremities, radial pulses +2/4 in the bilateral extremities Neurological: Patient follow commands knew that she was at [facility] year is 2024 Skin: Warm, dry, intact no rashes lesions noted Const Vital Signs: 06/08/24 17:53 06/08/24 19:52 Temperature 97 F L Temperature Source Temporal Pulse Rate 110 H 100 Respiratory Rate 20 H 18 Blood Pressure 154/95 H 151/79 H Blood Pressure Mean 114 103 Pulse Ox 98 100 Oxygen Delivery Method Room Air Room Air MDM MDM MDM Narrative Medical decision making narrative: Patient is a 24-year-old female who presented to the emerged part with chief complaint of right flank pain. On the differential diagnosis includes but not limited to cholecystitis, urolithiasis, UTI, pyelonephritis. Once workup is obtained reviewed she will be reevaluated. Patient's CBC was reviewed showed a white blood cell count of 17,000 she chronically has a elevated leukocytosis, hemoglobin 9.3 which is stable, plate count was normal at 428. Patient sodium 1 normal at 139, potassium of 4.3, creatinine normal at 0.84. Patient's AST and ALT were noted to be 19 and 15 respectively. Patient's lipase normal at 35, test negative. Patient's urinalysis was significant for 500 leukocyte esterase 25-50 white cells with 1+ bacteria indicating a urinary tract infection she was given a gram of Rocephin this was sent for culture. Patient's CT abdomen pelvis with IV contrast showed no acute findings in the abdomen and pelvis hepatomegaly and diffuse steatosis noted. Discussed the results with the patient she would like to go home at this point time. Patient was given prescription for Keflex was advised to follow-up and urine culture and follow-up with her primary care physician outpatient setting. She is vies return with worsening symptoms and concerns. She is agreeable to plan all question concerns answered she is discharged home in stable condition. Lab Data Labs: Laboratory Results - last 24 hr 06/08/24 06/08/24 18:25 18:50 WBC 17.2 H RBC 3.68 L Hgb 9.3 L Hct 29.5 L MCV 80.2 L MCH 25.3 L MCHC 31.5 L RDW Std Deviation 40.3 RDW Coeff of Kofi 13.8 Plt Count 428 MPV 9.8 Immature Gran % (Auto) 1.000 H Neut % (Auto) 71.8 H Lymph % (Auto) 19.7 [place] % (Auto) 6.1 Eos % (Auto) 0.9 Baso % (Auto) 0.5 Absolute Neuts (auto) 12.3 H Absolute Lymphs (auto) 3.38 Nucleated RBC % 0 Sodium 139 Potassium 4.3 Chloride 104 Carbon Dioxide 21.3 Anion Gap 13 BUN 16 Creatinine 0.84 Estim Creat Clear Calc 132.05 Est GFR (MDRD) Non-Af 99 BUN/Creatinine Ratio 18.7 Glucose 112 H Calcium 9.4 Total Bilirubin 0.18 AST 19 ALT 15 Alkaline Phosphatase 130 H Total Protein 7.7 Albumin 4.0 Globulin 3.7 Albumin/Globulin Ratio 1.1 Lipase 35 Serum , Qual NEGATIVE Urine Color Yellow Urine Clarity Sl. Cloudy Urine pH 5.0 Ur Specific Tiger 1.020 Urine Protein TNP Urine Glucose (UA) Normal Urine Ketones Negative Urine Occult Blood 250 H Urine Nitrite Negative Urine Bilirubin Negative Urine Urobilinogen Normal Ur Leukocyte Esterase 500 H Urine RBC 0-5 SEEN Urine WBC 25-50 SEEN Ur Squamous Epith Cells 0-5 SEEN Urine Bacteria 1+ Urine Mucus 0 SEEN U Random Total Protein 57.4 H Radiography Diagnostic Testing: Clinical Impression(s) from Imaging Studies Abdomen/Pelvis CT 06/08/24 19:10 IMPRESSION: No acute findings in the abdomen and pelvis. Hepatomegaly and diffuse steatosis. Reading Location: [facility] Discharge Plan Triage Chief Complaint: Flank Pain ED Provider: Jonathan Cruz Dx/Rx/DC Orders Clinical Impression: Urinary tract infection, Right flank pain Prescriptions: New cephalexin 500 mg capsule 500 mg PO BID 7 Days Qty: 14 0RF No Action (DME) Dexcom G7 Sensor Device See Rx Instructions .Route Qty: 12 0RF Rx Instructions: As directed (DME) Dexcom G7 Roving Teller Misc See Rx Instructions .Route Qty: 1 0RF Rx Instructions: To check sugars QID escitalopram oxalate 20 mg tablet 20 mg PO DAILY aripiprazole 2 mg tablet 2 mg PO DAILY pantoprazole 40 mg tablet,delayed release (DR/EC) 40 mg PO DAILY Qty: 30 0RF desogestrel-ethinyl estradiol [[place]] 0.15-0.03 mg tablet 1 tab PO DAILY metformin 500 mg tablet 500 mg PO DAILY trazodone 50 mg tablet 50 mg PO QHS norethindrone acetate 5 mg tablet 5 mg PO DAILY Patient Comments: dicyclomine 10 mg capsule 20 mg PO Q6H PRN (Reason: abdominal pain) hydroxyzine pamoate 25 mg capsule 25 mg PO BID Ozempic 0.25 mg or 0.5 mg (2 mg/3 mL) pen injector 0.25 mg subcut FR Patient Comments: HAVENT STARTED YET Rx Instructions: for 4 weeks Primary Care Provider: Care Physician,No Primary Referrals: Care Physician,No Primary [Primary Care Provider] - Celina Segundo, BE[facility] FLUMER-[facility] [[facility]] - Activity Restrictions/Additional Instructions: Follow-up with the primary care physician that you are referred to or if you have 1 follow-up with them. Follow-up on urine culture. Take antibiotics as prescribed. Return with worsening symptoms and concerns. Print Language: Kinyarwanda Disposition Disposition: Home, Self Care
[2024-06-08 18:59] LABS: ALB/GLOB Ratio 1.1 RATIO (0.9-2.4); AST(SGOT) 19 U/L (<=31); Alanine Aminotransfer ALT/SGPT 15 U/L (<=34); Alkaline Phosphatase 130 U/L (35-104); Anion Gap 13 (5-15); BUN 16 mg/dL (4-19); BUN/Creat Ratio 18.7 RATIO (10-20); Calcium,Total 9.4 mg/dL (7.6-11.0); Carbon Dioxide 21.3 mmol/L (21.0-32.0); Chloride 104 mmol/L (98-108); Creatinine, Serum 0.84 mg/dL (0.70-1.20); EST Glomerular Filtration Rate 99 (>60); Estimated Creatinine Clearance 132.05 ml/min (50-250); Globulin 3.7 g/dL (2.2-4.2); Glucose 112 mg/dL (70-99); Lipase 35 U/L (13-75); Potassium 4.3 mmol/L (3.3-5.1); Protein, Total 7.7 g/dL (5.9-8.4); Sodium Level 139 mmol/L (133-145); Total Bilirubin 0.18 mg/dL (0.00-1.30)
--- NOTE | 2024-06-08 19:10 | CT_ITS ---
PROCEDURE: ABDOMEN/PELVIS W IV CONT ONLY 06/08/2024 REASON FOR EXAM: R FLANK PAIN TECHNIQUE: Abdomen and pelvis CT with intravenous contrast. Coronal and Sagittal reconstruction series were provided. PATIENT PREPARATION: Per protocol ORAL CONTRAST TYPE: None. AMOUNT: mL CONTRAST: Omnipaque 350 VOLUME: 100 mL Not Provided Gauge IV One or more dose reduction techniques were used (e.g., Automated exposure control, adjustment of the mA and/or kV according to patient size, use of iterative reconstruction technique. COMPARISON: CT abdomen and pelvis 12/27/2022 FINDINGS: Lung bases: Unremarkable. Liver: Hepatomegaly, craniocaudal length 21.7 cm. Diffuse steatosis. No focal lesion. Gallbladder: No ductal dilation. No cholelithiasis. No wall thickening or pericholecystic fluid. Spleen: No splenomegaly or focal lesion. Pancreas: Normal size without evidence of mass surrounding inflammation or ductal dilation. Adrenals: Unremarkable Kidneys: Normal renal sizes. No hydronephrosis. Bladder: Urinary bladder is unremarkable. Reproductive Organs: No suspicious pelvic mass or fluid collection. Bowel: Stomach is unremarkable. No bowel dilation or wall thickening. Appendix: The appendix is not identified. There is no inflammatory process identified in the right lower quadrant to suggest appendicitis. Lymph nodes: No suspicious lymph node enlargement. Vasculature: The abdominal aorta and IVC are normal. Peritoneum / Retroperitoneum: No ascites. No pneumoperitoneum. Bones: Unremarkable. CT/Abdomen/Pelvis W IV Cont ONLY IMPRESSION: No acute findings in the abdomen and pelvis. Hepatomegaly and diffuse steatosis. Reading Location: [facility]
[2024-06-08 19:12] LABS: Color, Urine Yellow (Yellow); Glucose, Dipstick Normal (Normal); Ketone-Dipstick Negative (Negative); Leukocyte Esterase-Dipstick 500 /ul (Negative); Nitrite-Dipstick Negative (Negative); Occult Blood-Urine 250 /ul (Negative); Urine Bilirubin Dipstick Negative (Negative); Urine Clarity Sl. Cloudy (Clear); Urine Urobilinogen Normal (Normal)
[2024-06-08 19:24] LABS: White Blood Cells 25-50 SEEN /hpf (0-5)
[2024-06-08 19:25] LABS: Red Blood Cells-Urine 0-5 SEEN /hpf (0-5); Squamous Epithelial Cells - UA 0-5 SEEN /hpf (5-10)
[2024-06-08 19:26] LABS: Bacteria 1+ /hpf (None Seen)
[2024-06-08 19:52] VITALS: BP 151/79; PULSE 100; RESP 18; O2SAT 100
[2024-06-08 20:02] LABS: Protein, Urine (Random) 57.4 mg/dL (0.0-12.0)
[2024-06-08] MEDS: Ceftriaxone 1 GM/50 ML BAG IV (20:36)
[2024-06-08 21:00] VITALS: PULSE 96
[2024-06-08 21:30] VITALS: BP 139/100; PULSE 96; RESP 18; TEMP 36.8; O2SAT 100
== END 2024-06-08 21:32 | disposition home or self-care (01) ==
PROVIDERS: Emergency Provider Emergency Medicine; Referring Provider Emergency Medicine; Visit Provider Emergency Medicine
DX: R10.9 Unspecified abdominal pain (principal); N39.0 Urinary tract infection, site not specified; I10 Essential (primary) hypertension; F32.A Depression, unspecified
CPT/HCPCS: 74177; 80053; 81001; 83690; 84156; 84703; 85025; 87086; 87088; 87186; 96361; 96365; 99283; Q9967; A4216

== ENCOUNTER → 2024-07-11 | Outpatient (CLI) | payer MEDICAID, SELFPAY ==
[2024-07-11 10:48] LABS: Absolute Neutrophil Count 9.2 X10^3/uL (2.0-7.7); Basophil# 0.13 X10^3/uL; Basophil% 0.8 % (0-1); Eosinophil# 0.29 X10^3/uL; Eosinophils% 1.8 % (0-5); Hemoglobin 10.1 g/dL (12.0-15.0); Lymphocyte % 31.9 % (19-41); Mean Corp Hgb Conc 30.6 g/dL (32-36); Mean Corpuscular Hgb 23.3 pg (27.0-32.0); Mean Corpuscular Volume 76.2 fL (81-99); Mean Platelet Vol. 9.6 fl (6.2-12.0); Monocyte# 1.14 X10^3/uL; Monocyte% 7.1 % (0-10); NRBC Flagged by Analyzer 0 % (0-5); Neutrophil # 9.17 X10^3/uL (2.7-7.7); Neutrophil % 57.5 % (47-70); POSITIVE DIFFERENTIAL YES; POSITIVE MORPHOLOGY YES; Platelet Count 419 K/mm3 (150-450); RBC Distribution Width CV 15.2 % (11.6-14.6); RBC Distribution Width SD 41.8 fl (35.1-43.9); Red Blood Count 4.33 M/mm3 (4.2-5.4)
[2024-07-11 10:49] LABS: Differential Indicated SCAN CRITERIA MET
[2024-07-11 11:15] LABS: Atypical Lymphocyte 1+ %; Differential Comment SCANNED
[2024-07-13 04:07] LABS: Thyroid Peroxidase AB 32 IU/mL (0-34)
[2024-07-14 08:09] LABS: Chlamydia By Nucleic Acid AMP Positive (Negative); Gonococcus By Nucleic Acid AMP Negative (Negative)
== END | disposition home or self-care (01) ==
PROVIDERS: Referring Provider Obstetrics & Gynecology; Visit Provider Obstetrics & Gynecology
DX: Z11.3 Encounter for screening for infections with a predominantly sexual mode of transmission (principal); R79.89 Other specified abnormal findings of blood chemistry; N93.9 Abnormal uterine and vaginal bleeding, unspecified
CPT/HCPCS: 36415; 84439; 85025; 86376; 87491; 87591

== ENCOUNTER 2024-08-31 21:38 | Emergency (ER) | payer MEDICAID, SELFPAY ==
[2024-08-31 21:42] VITALS: BP 169/104; PULSE 111; RESP 20; TEMP 37; O2SAT 99; BMI 51.4
--- NOTE | 2024-08-31 21:56 | EDS_ITS ---
HPI HPI - Psych History of Present Illness Chief Complaint: Suicidal Narrative Narrative: 44-year-old female past medical history of hypertension, depression presents with suicidal ideation. She had called her cousin stating "goodbye and I love you". She told police that her medication stopped working and she started to hear voices in her head that were telling her to kill herself. She states that she has never experienced hallucinations previously and they only started today. She has been depressed for about a week. She states her last psychiatric admission was 2 years ago when she was admitted for 3 days. She denies any somatic symptoms. [facility] Medical History COVID-19 Hypertension 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 Depression Preeclampsia, severe Hypertension affecting in third trimester Home Medications Medication Instructions Recorded Last Taken Type aripiprazole 2 mg tablet 2 mg PO DAILY 12/23/2206/08 History escitalopram oxalate 20 mg tablet 20 mg PO DAILY 12/2306/08/24 History pantoprazole 40 mg tablet,delayed 40 mg PO DAILY #30 t abs 12/27/22 06/08/24 Rx release blood-glucose sensor (Dexcom G7 #12 ea 06/08/24 Unknow n Rx Sensor device) blood-glucose,fitting room inspector,cont #1 ea 06/08/24 Unknown Rx (Dexcom G7 Nuclear Equipment Test Engineer) dicyclomine 10 mg capsule 20 mg PO Q6H PRN abdominal p ain 06/08/24 Unknown History hydroxyzine pamoate 25 mg capsule 25 mg PO BID 5 06/08/24 History metformin 500 mg tablet 500 mg PO DAILY 06/08/24 History trazodone 50 mg tablet 50 mg PO QHS 06/08/24 History tirzepatide (weight loss) 2.5 2.5 mg (0.5 mL) subcut Q WEEK #2 mL 06/22/24 Unknown Rx mg/0.5 mL subcutaneous pen injector (Zepbound) levonorgestrel (Mirena) 1 device intrauterine ONCE 0 07/11/24 Unknown History doxycycline monohydrate 100 mg 100 mg PO BID #28 caps 07/14/24 Unknown Rx capsule Allergy/AdvReac Type Severity Reaction Status Date / Time No Known Allergies Allergy Verified 07/11/24 09:19 Family History Grandmother Diabetes Other Asthma Cancer Hypertension Thyroid disorder Surgical History History of delivery Social History adopted: No housing: apartment number of children: 1 current occupational status: unemployed pets and animals: No history of recent travel: No sexually active: Yes Smoking Status: Never smoker second hand exposure: No alcohol intake: current alcohol intake frequency: a few times a month Alcohol type: other substance use type: does not use caffeine: Yes what type of physical activity do you participate in: walking frequency: 3-4 times per week duration: 15-30 minutes/day seatbelt use: always do you feel safe at home: Yes additional social history: Single Patient does not work ROS ROS ED ROS Narrative Review of systems positive for depression and suicidal ideation with command hallucinations telling her to kill herself. No chest pain, no shortness of breath, no nausea or vomiting. EXAM Physical Exam Narrative Exam Narrative: Afebrile. Vital signs noted. Nontoxic-appearing. Cardiovascular examination reveals mild tachycardia. Lungs are clear to auscultation bilaterally. Abdomen is soft and nontender, obese, without guarding or rebound. Positive bowel sounds. Neurological examination nonfocal, nonlateralizing. Psychiatric examination shows depressed, flat affect. Cooperative. Positive suicidal ideation. No current internal stimulation. Const Vital Signs: 08/31/24 21:42 08/31/24 21:42 08/31/24 22:38 Temperature 98.6 F 98.6 F Temperature Source Oral Oral Pulse Rate 111 H 111 H Respiratory Rate 20 H 20 H 18 Blood Pressure 169/104 H 169/104 H Blood Pressure Mean 125 125 Pulse Ox 99 99 98 Oxygen Delivery Method Room Air Room Air Room Air MDM MDM MDM Narrative Medical decision making narrative: Differential diagnosis includes depression with suicidal ideation versus depression with psychosis. In discussion with the crisis counselor, they are already recommending placement. Medical screening labs will be obtained and reviewed. Labs were hemolyzed, and were redrawn but CMP returned with slightly elevated LFTs which I think is nonspecific, negative , and negative et hyl alcohol. At this point in time, patient signed out to Dr. Lei to continue medical clearance by rechecking the laboratories and discussing the patient as needed with crisis counselor, will plan is for placement. She is in stable condition. History & Record Review Discussion w/independent historian: Patient Lab Data Attestation: I reviewed the patient's lab results. Labs: Laboratory Results - last 24 hr 08/31/24 08/31/24 08/31/24 21:45 21:45 22:50 WBC Cancelled Cancelled Corrected WBC Cancelled Cancelled RBC Cancelled Cancelled Hgb Cancelled Cancelled Hct Cancelled Cancelled MCV Cancelled Cancelled MCH Cancelled Cancelled MCHC Cancelled Cancelled RDW Std Deviation Cancelled Cancelled RDW Coeff of Kofi Cancelled Cancelled Plt Count Cancelled Cancelled MPV Cancelled Cancelled Immature Gran % (Auto) Cancelled Cancelled Neut % (Auto) Cancelled Cancelled Lymph % (Auto) Cancelled Cancelled [place] % (Auto) Cancelled Cancelled Eos % (Auto) Cancelled Cancelled Baso % (Auto) Cancelled Cancelled Absolute Neuts (auto) Cancelled Cancelled Absolute Lymphs (auto) Cancelled Cancelled Total Counted Cancelled Cancelled Neutrophils % (Manual) Cancelled Cancelled Band Neutrophils % Cancelled Cancelled Lymphocytes % (Manual) Cancelled Cancelled Monocytes % (Manual) Cancelled Cancelled Eosinophils % (Manual) Cancelled Cancelled Basophils % (Manual) Cancelled Cancelled Metamyelocytes % Cancelled Cancelled Myelocytes % Cancelled Cancelled Promyelocytes % Cancelled Cancelled Blast Cells % Cancelled Cancelled Plasma Cell % (Manual) Cancelled Cancelled Other Cells % Cancelled Cancelled Nucleated RBC % Cancelled Cancelled Nucleated RBCs/100 WBC Cancelled Cancelled Differential Comment Cancelled Cancelled Diff Path Review Cancelled Cancelled Hypersegmented Neuts Cancelled Cancelled Atypical Lymphocytes Cancelled Cancelled Reactive Lymphocytes Cancelled Cancelled Smudge Cells Cancelled Cancelled Toxic Granulation Cancelled Cancelled Toxic Vacuolation Cancelled Cancelled Dohle Bodies Cancelled Cancelled Enmanuel Rods Cancelled Cancelled Platelet Estimate Cancelled Cancelled Plt Morphology Comment Cancelled Cancelled RBC Morphology Cancelled Cancelled Cancelled Polychromasia Cancelled Hypochromasia Cancelled Basophilic Stippling Cancelled Anisocytosis Cancelled Microcytosis Cancelled Macrocytosis Cancelled Spherocytes Cancelled Sickle Cells Cancelled Target Cells Cancelled Tear Drop Cells Cancelled Ovalocytes Cancelled Stomatocytes Cancelled [place] Bodies Cancelled Patricia Cells Cancelled Bite Cells Cancelled Crenated Cell Cancelled Acanthocytes ([place]) Cancelled Rouleaux Cancelled Schistocytes Cancelled Sodium 140 Potassium 3.9 Chloride 102 Carbon Dioxide 22.8 Anion Gap 15 BUN 13 Creatinine 0.81 Estim Creat Clear Calc 134.68 Est GFR (MDRD) Non-Af 103 BUN/Creatinine Ratio 16.3 Glucose 137 H Calcium 9.2 Total Bilirubin 0.21 AST 57 H ALT 44 H Alkaline Phosphatase 135 H Total Protein 7.8 Albumin 4.2 Globulin 3.6 Albumin/Globulin Ratio 1.2 Serum , Qual NEGATIVE Ethyl Alcohol < 10.1 08/31/24 22:50 WBC Corrected WBC RBC Hgb Hct MCV MCH MCHC RDW Std Deviation RDW Coeff of Kofi Plt Count MPV Immature Gran % (Auto) Neut % (Auto) Lymph % (Auto) [place] % (Auto) Eos % (Auto) Baso % (Auto) Absolute Neuts (auto) Absolute Lymphs (auto) Total Counted Neutrophils % (Manual) Band Neutrophils % Lymphocytes % (Manual) Monocytes % (Manual) Eosinophils % (Manual) Basophils % (Manual) Metamyelocytes % Myelocytes % Promyelocytes % Blast Cells % Plasma Cell % (Manual) Other Cells % Nucleated RBC % Nucleated RBCs/100 WBC Differential Comment Diff Path Review Hypersegmented Neuts Atypical Lymphocytes Reactive Lymphocytes Smudge Cells Toxic Granulation Toxic Vacuolation Dohle Bodies Enmanuel Rods Platelet Estimate Plt Morphology Comment RBC Morphology Cancelled Polychromasia Cancelled Hypochromasia Cancelled Basophilic Stippling Cancelled Anisocytosis Cancelled Microcytosis Cancelled Macrocytosis Cancelled Spherocytes Cancelled Sickle Cells Cancelled Target Cells Cancelled Tear Drop Cells Cancelled Ovalocytes Cancelled Stomatocytes Cancelled [place] Bodies Cancelled [place] Cells Cancelled Bite Cells Cancelled Crenated Cell Cancelled Acanthocytes ([place]) Cancelled Rouleaux Cancelled Schistocytes Cancelled Sodium Potassium Chloride Carbon Dioxide Anion Gap BUN Creatinine Estim Creat Clear Calc Est GFR (MDRD) Non-Af BUN/Creatinine Ratio Glucose Calcium Total Bilirubin AST ALT Alkaline Phosphatase Total Protein Albumin Globulin Albumin/Globulin Ratio Serum , Qual Ethyl Alcohol Management Discussion w/another healthcare provider: Behavioral health Discharge Plan Triage Chief Complaint: Suicidal ED Provider: Stef Allen Dx/Rx/DC Orders Prescriptions: No Action Mirena 21 mcg/24hr (up to 8 yrs) 52 mg intrauterine device 1 device intrauterine ONCE Rx Instructions: as a single dose (DME) Dexcom G7 Sensor Device See Rx Instructions .Route Qty: 12 0RF Rx Instructions: As directed (DME) Dexcom G7 Nuclear Equipment Test Engineer Misc See Rx Instructions .Route Qty: 1 0RF Rx Instructions: To check sugars QID escitalopram oxalate 20 mg tablet 20 mg PO DAILY aripiprazole 2 mg tablet 2 mg PO DAILY pantoprazole 40 mg tablet,delayed release (DR/EC) 40 mg PO DAILY Qty: 30 0RF metformin 500 mg tablet 500 mg PO DAILY trazodone 50 mg tablet 50 mg PO QHS dicyclomine 10 mg capsule 20 mg PO Q6H PRN (Reason: abdominal pain) hydroxyzine pamoate 25 mg capsule 25 mg PO BID Zepbound 2.5 mg/0.5 mL pen injector 2.5 mg subcut QWEEK Qty: 2 0RF Rx Instructions: for 4 weeks doxycycline monohydrate 100 mg capsule 100 mg PO BID Qty: 28 0RF Primary Care Provider: Care Physician,No Primary Referrals: Care Physician,No Primary [Primary Care Provider] - Print Language: Cuban
--- OUTSIDE RECORDS SUMMARY | 2024-08-31 22:19 | XMS RPT_ITS | CCD ---
Author Organization [facility] Care Team Providers Care Respiratory Technician Name Role Phone SHYLA SANDOVAL Attending Unavailable ADRIANA DICKSON Referring Unavailabl e JL AMAYA Primary Care Unavailable Unavailable Primary Care Provider Unavailabl e Unavailable Primary Care Provider Unavailabl e Unavailable Primary Care Provider Unavailabl e Care Physician, No Primary Primary Care Provider Unavailable Dr. Mele Azul DO Referring Provider Dr. Mele Azul DO Emergency Provider Dr. Mele Azul DO Attending Provider Care Physician, No Primary Referring Provider Un available Dr. Adriana Dickson MD Attending Provider Dr. Adriana Dickson MD Referring Provider Glenn Turcios Attending Provider [phone] Jonathan Cruz DO Attending Provider Dr. Jonathan Cruz DO Referring Provider Dr. Jonathan Cruz DO Emergency Provider Glenn Turcios Attending Unavailable Care Physician, No Primary Primary Care Unava ilable Care Physician, No Primary Referring Unava ilable Care Physician, No Primary Primary Care Unava ilable Glenn Turcios Attending Unavailable Care Physician, No Primary Referring Unava ilable Care Physician, No Primary Primary Care Unava ilable Glenn Turcios Attending Unavailable Care Physician, No Primary Referring Unava ilable Care Physician, No Primary Primary Care Unava ilable Adriana Dickson Attending Unavailable Care Physician, No Primary Referring Unava ilable Care Physician, No Primary Referring Unava ilable Adriana Dickson Attending Unavailable Care Physician, No Primary Primary Care Unava ilable Ungur, Remus Referring Unavailable Ungur, Remus Attending Unavailable Care Physician, No Primary Primary Care Unava ilable Care Physician, No Primary Primary Care Unava ilable Cruz, Jonathan Attending Unavailable Nancy Jonathan Referring Unavailable Glenn Turcios Attending Unavailable Care Physician, No Primary Primary Care Unava ilable Care Physician, No Primary Primary Care Unava ilable Adriana Dickson Attending Unavailable Adriana Dickson Referring Unavailable Care Physician, No Primary Primary Care Unava ilable Adriana Dickson Attending Unavailable Adriana Dickson Referring Unavailable Medications Current Medications Medication Drug Class(es) Dates Sig (Normalized) Sig (Original) ARIPiprazole 2 mg oral tablet (14 sources) Atypical Antipsychotic Start: 12-23-2022 take 1 tablet by mouth once daily Aripiprazole 2 mg tablet Active 2 mg PO DAILY December 23, 2022 1:00am take 1 tablet by mouth once jass y ARIPiprazole (ABILIFY) 20 mg tablet Take 20 mg by mouth once daily. Active Comment on above: Take 20 mg by mouth once daily. Blood-Glucose Sensor (Dexcom G7 Sensor) device (2 sources) Start: 06-09-19 Blood-Glucose Sensor (Dexcom G7 Sensor) device Active 0 .Route June 08, 2024 12:00am As directed Blood-Glucose,Receive r,Cont (Dexcom G7 Vp Treasurer) misc (2 sources) Start: 06-09-19 Blood-Glucose,Rece iver,Cont (Dexcom G7 Vp Treasurer) misc Active 0 .Route June 08, 2024 12:00am To check sugars QID 24 hr buPROPion hydrochloride 150 mg extended release oral tablet (8 sources) Aminoketone Start: 04-05-19 take 1 tablet by mouth once daily buPROPion XL (WELLBUTRIN XL) 150 mg 24 hr tablet Take 150 mg by mouth once daily. 04/05/2021 Active Comment on above: Take 150 mg by mouth once daily. dicyclomine hydrochloride 10 mg oral capsule (7 sources) Anticholinergic Start: 12-28-19 23 End: 06-09-19 take 2 capsules by mouth every six hours as needed for pain Dicyclomine 10 mg capsule Active 20 mg PO EVERY 6 HOURS as needed for abdominal pain June 08, 2024 12:00am Start: 12-27-2022 take 20 mg by mouth every six hours as needed Dicyclomine Active 20 MG PO EVERY 6 HOURS NEEDED December 27, 2022 5:02pm doxycycline monohydrate 100 mg oral capsule (1 source) Tetracycline-class Drug Start: 07-14-2024 take 1 capsule by mouth twice daily Doxycycline Monohydrate 100 mg capsule Active 100 mg PO TWICE A DAY July 14, 2024 12:00am erythromycin 0.005 mg/mg ophthalmic ointment (2 sources) Macrolide, Macrolide Antimicrobial Start: 12-19-2022 End: 12-26-2022 erythromycin (ROMYCIN) 5 mg/gram (0.5 %) ophthalmic ointment Indications: Eye irritation Use 1 application in the right eye four times daily for 7 days. 3.5 g 0 12/19/2022 12/26/2022 Active Comment on above: Use 1 application in the right eye four times daily for 7 days. escitalopram 20 mg oral tablet (7 sources) Serotonin Reuptake Inhibitor Start: 12-23-2022 take 1 tablet by mouth once daily Escitalopram Oxalate 20 mg tablet Active 20 mg PO DAILY December 23, 2022 1:00am FLUoxetine 20 mg oral tablet (8 sources) Serotonin Reuptake Inhibitor FLUOXETINE HCL (FLUOXETINE ORAL) Take 20 mg by mouth. Active Comment on above: Take 20 mg by mouth. hydrOXYzine pamoate 25 mg oral capsule (2 sources) Antihistamine Start: 06-08-2024 take 1 capsule by mouth twice daily Hydroxyzine Pamoate 25 mg capsule Active 25 mg PO TWICE A DAY June 08, 2024 12:00am ibuprofen 800 mg oral tablet (9 sources) Nonsteroidal Anti-inflammatory Drug Start: 02-22-2021 End: 08-17-2023 take 1 tablet by mouth every eight hours as needed for pain ibuprofen (MOTRIN) 800 mg tablet Indications: Neck pain Take 1 tablet by mouth every 8 hours as needed for pain. Take with food. 60 tablet 08/17/2023 Active Comment on above: Take 1 tablet by rich every 8 hours as needed for pain. Take with food. levonorgestrel 0.342018 mg/hr intrauterine system (1 source) Progestin, Progestin-containing Intrauterine Device Start: 07-11-2024 Levonorgestrel (Mirena) 21 mcg/24hr (up to 8 yrs) 52 mg intrauterine device Active 1 NMA INTRA-UTER ONCE July 11, 2024 12:00am as a single dose metFORMIN hydrochloride 500 mg oral tablet (4 sources) Biguanide Start: 06-08-2024 End: 06-08-2024 take 1 tablet by mouth once daily Metformin 500 mg tablet Active 500 mg PO DAILY June 08, 2024 12:00am pantoprazole 40 mg delayed release oral tablet (5 sources) Proton Pump Inhibitor Start: 12-27-2022 take 1 tablet by mouth once daily Pantoprazole 40 mg tablet,delayed release (DR/EC) Active 40 mg PO DAILY December 27, 2022 1:00am polymyxin b 31874 unt/ml / trimethoprim 1 mg/ml ophthalmic solution (1 source) Dihydrofolate Reductase Inhibitor Antibacterial, Polymyxin-class Antibacterial Start: 04-22-2023 End: 04-29-2023 take 1 drop(s) into the eye(s) four times daily trimethoprim-polym yxin (POLYTRIM) 10,000 unit- 1 mg/mL ophthalmic solution Indications: Acute conjunctivitis of left eye, unspecified acute conjunctivitis type Use 1 Drop in the left eye four times daily for 7 days. 10 mL 0 04/22/2023 04/29/2023 Active Comment on above: Use 1 Drop in the le ft eye four times daily for 7 days. Tirzepatide (Weight Loss) (2 sources) Start: 06-22-2024 Tirzepatide (Weight Loss) (Zepbound) 2.5 mg/0.5 mL pen injector Active 2.5 mg SC EVERY WEEK 2 June 22, 2024 12:00am for 4 weeks traZODone hydrochloride 50 mg oral tablet (2 sources) Serotonin Reuptake Inhibitor Start: 06-08-2024 take 1 tablet by mouth at bedtime Trazodone 50 mg tablet Active 50 mg PO AT BEDTIME June 08, 2024 12:00am Completed/Discontinued Medications Medication Drug Class(es) Dates Sig (Normalized) Sig (Original) acetaminophen 325 mg / oxyCODONE hydrochloride 5 mg oral tablet (7 sources) Opioid Agonist Start: 09-19-2018 End: 09-29-2018 Oxycodone-Acetamino phen 1 TABLET tablet Discontinued 1 - 2 {tbl} PO EVERY 4 HOURS NEEDED as needed for Pain 15 September 19, 2018 September 25, 2018 12:00am September 29, 2018 12:06am Start: 09-19-2018 End: 09-29-2018 take 1 tablet by mouth every four hours as needed Oxycodone-Acetaminophen Discontinued 1 - 2 TABLET PO EVERY 4 HOURS NEEDED 15 September 19, 2018 September 29, 2018 12:06am amoxicillin 500 mg oral tablet (5 sources) Penicillin-class Antibacterial Start: 04-26-2023 End: 05-24-2024 take 1 tablet by mouth three times daily Amoxicillin 500 mg tablet Discontinued 500 mg PO THREE TIMES A DAY April 26, 2023 12:00am May 24, 2024 12:03pm cephalexin 500 mg oral capsule (2 sources) Cephalosporin Antibacterial Start: 06-08-2024 End: 07-11-2024 take 1 capsule by mouth twice daily Cephalexin 500 mg capsule Discontinued 500 mg PO TWICE A DAY 14 June 08, 2024 12:00am July 11, 2024 9:22am Desogestrel-Ethin yl Estradiol (5 sources) Progestin, Estrogen Start: 06-08-2024 End: 07-11-2024 take 0.15 tablet by mouth once daily Desogestrel-Ethin yl Estradiol (Juleber) 0.15-0.03 mg tablet Discontinued 1 {tbl} PO DAILY June 08, 2024 12:00am July 11, 2024 9:22am Start: 05-24-2024 End: 05-24-2024 take 0.15 tablet by mouth once daily Desogestrel-Ethinyl Estradiol (Apri) 0.15-0.03 mg tablet Discontinued 1 {tbl} PO daily May 24, 2024 12:00am May 24, 2024 12:13pm dexamethasone 6 mg oral tablet (20 sources) Corticosteroid Start: 02-11-2021 End: 12-23-2022 take 1 tablet by mouth once daily Dexamethasone 6 mg tablet Discontinued 6 mg PO DAILY February 13, 2021 1:00am December 23, 2022 7:09am Start: 02-04-2021 End: 12-23-2022 take 1 tablet by mouth once daily Dexamethasone (Decadron) 4 mg tablet Discontinued 4 mg PO DAILY February 04, 2021 1:00am December 23, 2022 7:09am NIFEdipine 30 mg osmotic 24 hr extended release oral tablet (7 sources) Dihydropyridine Calcium Channel Tono Start: 11-05-2018 End: 12-23-2022 take 1 tablet by mouth once daily Nifedipine (Procardia Xl) 30 mg tablet extended release 24hr Discontinued 30 mg PO DAILY November 05, 2018 12:00am December 23, 2022 7:09am norethindrone acetate 5 mg oral tablet (9 sources) Start: 06-08-2024 End: 07-11-2024 take 1 tablet by mouth once daily Norethindrone Acetate 5 mg tablet Discontinued 5 mg PO DAILY June 08, 2024 12:00am July 11, 2024 9:23am Start: 05-14-2024 End: 06-08-2024 take 1 tablet by mouth twice daily, then take 1 tablet by mouth once daily Norethindrone Acetate 5 mg tablet Discontinued 5 mg PO DAILY May 24, 2024 12:13pm June 08, 2024 6:56pm 1 tab p.o. twice daily x 3 days then 1 tab p.o. daily Pnv Cmb#95-Ferrous Fumarate- Fa (3 sources) Start: 02-19-2018 End: 09-13-2018 Pnv Cmb#95-Ferrous Fumarate- Fa Discontinued 1 EACH PO DAILY February 19, 2018 1:00am September 13, 2018 1:27am Start: 02-19-2018 End: 09-13-2018 Pnv Cmb#95-Ferrous Fumarate- Fa Discontinued 1 EACH PO DAILY February 19, 2018 12:00am September 13, 2018 12:27am Pnv Cmb#95-Ferrous Fumarate- Fa 1 EACH tablet (4 sources) Start: 02-19-2018 End: 09-13-2018 Pnv Cmb#95-Ferrous Fumarate- Fa 1 EACH tablet Discontinued 1 NMA PO DAILY February 19, 2018 1:00am September 13, 2018 1:27am Semaglutide (4 sources) Start: 06-08-2024 End: 06-08-2024 Semaglutide (Ozempic) 0.25 m g or 0.5 mg (2 mg/3 mL) pen injector Discontinued 0.25 mg SC EVERY WEEK 3 June 08, 2024 12:00am June 08, 2024 6:56pm for 4 weeks Start: 06-08-2024 End: 06-22-2024 Semaglutide (Ozempic) 0.25 m g or 0.5 mg (2 mg/3 mL) pen injector Discontinued 0.25 mg SC FR June 08, 2024 12:00am June 22, 2024 2:30pm for 4 weeks Problems Active Problems Problem Classification Problem Date Documented Da te Episodic/Chronic Abdominal pain (15 sources) Right flank pain; Translations: [Unspecified abdominal pain] Onset: 08-18-2024 12-25-2022 Episodic Contraceptive and procreative management (11 sources) Patient encounter status; Translations: [Encounter for contraceptive management, unspecified] Onset: 07-11-2024 09-30-2018 Episodic Comment on above: No PA required on IU D No PA required on IU D with insurance type 05/24/24 Diabetes mellitus without complication (6 sources) Type 2 diabetes mellitus; Translations: [Type 2 diabetes mellitus without complications] Onset: 06-08-2024 06-08-2024 Chronic Diabetes mellitus without complication (3 sources) High hemoglobin A1c level; Translations: [Other abnormal glucose] 05-25-2024 Episodic Fetopelvic disproportion; obstruction (7 sources) Cephalopelvic disproportion; Translations: [Maternal care for disproportion, unspecified] 09-30-2018 Episodic Headache; including migraine (1 source) Headache; Translations: [Headache, unspecified headache type] Episodic Hypertension complicating ; childbirth and the puerperium (14 sources) Hypertension complicating ; Translations: [Unspecified maternal hypertension, third trimester] 07-30-2018 Chronic Comment on above: baseline labs an EKG nl. no meds. weekly nsts after 32 weeks. growth q 4 and weekly afis check baseline labs/ normal, repeat bp in 2 weeks Hypertension complicating ; childbirth and the puerperium (9 sources) Pre-eclampsia; Translations: [Unspecified pre-eclampsia, unspecified trimester] 09-16-2018 Episodic Immunizations and screening for infectious disease (1 source) Encounter for screening for infections with a predominantly sexual mode of transmission; Translations: [Encounter for screening for infections with a predominantly sexual mode of transmission] Onset: 07-14-2024 Episodic Inflammation; infection of eye (except that caused by tuberculosis or sexually transmitteddisease) (8 sources) Hordeolum externum of lower eyelid of right eye; Translations: [Hordeolum externum right lower eyelid] 02-27-2019 Episodic Mood disorders (15 sources) Major depressive disorder; Translations: [Major depressive disorder, single episode, unspecified] Onset: 12-19-2019 12-19-2019 Chronic Other bone disease and musculoskeletal deformities (7 sources) Costal chondritis; Translations: [Chondrocostal junction syndrome [Tietze]] 12-23-2022 Episodic Other complications of ; puerperium affecting management of mother (4 sources) Late heart deceleration 03-05-2023 Episodic Other complications of (7 sources) High risk ; Translations: [Supervision of high risk , unspecified, third trimester] 07-30-2018 Episodic Comment on above: PRR ACE 10/25/18 katiuska [place] BF:Woody Other endocrine disorders (6 sources) Polycystic ovary syndrome; Translations: [Polycystic ovarian syndrome] 05-25-2024 Chronic Other endocrine disorders (1 source) Polycystic ovarian syndrome; Translations: [Polycystic ovarian syndrome] Onset: 06-08-2024 Chronic Other female genital disorders (10 sources) Abnormal uterine bleeding; Translations: [Other specified abnormal uterine and vaginal bleeding] 05-14-2024 Chronic Comment on above: continue aygestin un til IUD insertion Other female genital disorders (1 source) Abnormal uterine and vaginal bleeding, unspecified; Translations: [Abnormal uterine and vaginal bleeding, unspecified] Onset: 08-18-2024 Chronic Other lower respiratory disease (7 sources) Rib pain; Translations: [Pleurodynia] 12-23-2022 Episodic Other nutritional; endocrine; and metabolic disorders (14 sources) Body mass index 40+ - severely obese; Translations: [Morbid (severe) obesity due to excess calories] Onset: 12-19-2019 12-19-2019 Chronic Other nutritional; endocrine; and metabolic disorders (7 sources) Body mass index 30+ - obesity; Translations: [Body mass index (BMI) 36.0-36.9, adult] 02-13-2021 Chronic Other nutritional; endocrine; and metabolic disorders (5 sources) Obesity; Translations: [Obesity, unspecified] 06-08-2024 Chronic Other nutritional; endocrine; and metabolic disorders (1 source) Obesity, unspecified; Translations: [Obesity, unspecified] Onset: 06-08-2024 Chronic Other nutritional; endocrine; and metabolic disorders (1 source) Body mass index (BMI) 50.0-59.9, adult; Translations: [Body mass index [BMI] 50.0-59.9, adult] Onset: 06-08-2024 Chronic Other and delivery including normal (14 sources) Normal ; Translations: [Encounter for supervision of normal first , unspecified trimester] 09-13-2018 Episodic Comment on above: PRR ACE 10/25/18 BF:Woody soriano genetic, car rier, and ntd screening. Other screening for suspected conditions (not mental disorders or infectious disease) (3 sources) Thyroid hormone tests abnormal; Translations: [Other specified abnormal findings of blood chemistry] 05-25-2024 Episodic Other skin disorders (1 source) Neck swelling; Translations: [Localized swelling, mass and lump, neck] 08-17-2023 Episodic Other upper respiratory infections (7 sources) Sore throat symptom; Translations: [Acute pharyngitis, unspecified] 10-27-2022 Episodic Residual codes; unclassified (1 source) Procedure not done; Translations: [Procedure and treatment not carried out, unspecified reason] 12-23-2022 Episodic Residual codes; unclassified (1 source) Treatment not available; Translations: [Procedure and treatment not carried out for other reasons] 12-26-2022 Episodic Spondylosis; intervertebral disc disorders; other back problems (1 source) Neck pain; Translations: [Cervicalgia] 08-17-2023 Episodic Superficial injury; contusion (1 source) Superficial bruising of head and neck; Translations: [Contusion of unspecified part of head, initial encounter] 08-17-2023 Episodic Unclassified (2 sources) E66.9 - Obesity, unspecified,E11.9 - Type 2 diabetes mellitus without complications Unclassified (1 source) Obesity, class 3; Translations: [Obesity, class 3] Onset: 06-08-2024 Urinary tract infections (2 sources) Urinary tract infectious disease; Translations: [Urinary tract infection, site not specified] 06-16-2024 Episodic Viral infection (8 sources) Viral disease; Translations: [Viral infection, unspecified] Episodic Past or Other Problems Problem Classification Problem Date Documented Da te Episodic/Chronic Unclassified (3 sources) Late heart deceleration; Translations: [Late deceleration of heart rate] 09-30-2018 Results Test Name Value Interpretation Reference Range Facility Chlamydia/GC RAFA aptimaon CHLAMY,NUC ACID Positive Abnormal Negative [facility] Comment on above: Performed By: #### L [id number] #### [facility] [address] [place], [address] GC BY NUC ACID Negative Normal Negative [facility] Comment on above: Result Comment: Perf ormed at: =G - [facility] [address] [id number] Night Custodian: Anay Andrew MD, Phone: [phone] Performed By: #### L [id number] #### [facility] [address] [place], [address] Thyroid Peroxidase ABon 06-0 THYR PEROX AB 32 IU/mL Normal 0-34 [facility] Comment on above: Result Comment: Perf ormed at: CB - [facility] [address] [id number] Night Custodian: Luke Walden PhD, Phone: [phone] Performed By: #### L [id number] #### [facility] [address] [place], [place], [id number] Absolute lymphocyte countOrd ered By: Adriana Dickson on 07-11-2024 Lymphocytes Auto (Unsp spec) [#/Vol] 5.10 10*3/uL High 0.83-4.51 [facility] Absolute neutrophil countOrd ered By: Adriana Dickson on 07-11-2024 Neutrophils (Bld) [#/Vol] 9.2 10*3/uL High 2.0-7.7 [facility] Automated lymphocyte count a s percentage of total leukocytesOrdered By: Adriana Dickson on 07-11-2024 Lymphocytes/100 WBC Auto (Unsp spec) 31.9 % 19-41 [facility] Basophil percentageOrdered B y: Adriana Dickson on 07-11-2024 Basophils/100 WBC (Bld) 0.8 % 0-1 [facility] Blood manual differential co mment interpretation (narrative result)Ordered By: Adriana Dickson on 07-11-2024 Manual differential comment Burke (Bld) [Interp] SCANNED [facility] Comment on above: LYMPHOCYTOSIS NOTED CBC W/Diff, Automatedon ATYPICAL LYMPH 1+ Normal [facility] Comment on above: Performed By: #### L [id number] #### [facility] [address] [place], [place], [id number] SMEAR COMMENT SCANNED Normal [facility] Comment on above: Result Comment: LYMP HOCYTOSIS NOTED Performed By: #### L [id number] #### [facility] [address] [place], [place], [id number] Chlamydia trachomatis rRNA d etection by probe and target amplification methodOrdered By: Adriana Dickson on 07-11-2024 C. trachomatis rRNA RAFA+probe Ql (Unsp spec) Positive High Negative [facility] Eosinophil percentageOrdered By: Adriana Dickson on 07-11-2024 Eosinophils/100 WBC (Bld) 1.8 % 0-5 [facility] Erythrocyte distribution wid th ratioOrdered By: Adriana Dickson on 07-11-2024 Erythrocyte distribution width (RBC) [Ratio] 15.2 % High 11.6-14.6 [facility] Erythrocyte distribution wid th standard deviationOrdered By: Adriana Dicksno on 07-11-2024 Erythrocyte distribution width (RBC) [Ratio] 41.8 fl 35.1-43.9 [facility] Hematocrit Auto (Bld) [Volum e fraction]Ordered By: Adriana Dickson on 07-11-2024 Hematocrit (Bld) [Volume fraction] 33.0 % Low 37-47 [facility] Hemoglobin measurementOrdere d By: Adriana Dickson on 07-11-2024 Hemoglobin (Bld) [Mass/Vol] 10.1 g/dL Low 12.0-15.0 [facility] Immature granulocytes/100 WB C Auto (Bld)Ordered By: Adriana Dickson on 07-11-2024 Immature granulocytes/100 WBC (Bld) 0.900 % 0.0-0.9 [facility] Comment on above: IG% - Immature Granu locytes (promyelocytes, myelocytes and metamyelocytes) > 1% indicates that a LEFT SHIFT is Present. MCV (mean corpuscular volume ) determinationOrdered By: Adriana Dickson on 07-11-2024 MCV (RBC) [Entitic vol] 76.2 fL Low 81-99 [facility] Mean corpuscular hemoglobin (MCH) determinationOrdered By: Adriana Dickson on 07-11-2024 MCH (RBC) [Entitic mass] 23.3 pg Low 27.0-32.0 [facility] Mean corpuscular hemoglobin concentration (MCHC) determinationOrdered By: Adriana Dickson on 07-11-2024 MCHC (RBC) [Mass/Vol] 30.6 g/dL Low 32-36 [facility] Mean platelet volume determi nationOrdered By: Adriana Dickson on 07-11-2024 Platelet mean volume (Bld) [Entitic vol] 9.6 fL 6.2-12.0 [facility] Monocyte percentageOrdered B y: Adriana Dickson on 07-11-2024 Monocytes/100 WBC (Bld) 7.1 % 0-10 [facility] Neisseria gonorrhoeae nuclei c acid detection by amplified probe techniqueOrdered By: Adriana Dickson on 07-11-2024 N. gonorrhoeae DNA RAFA+probe Ql (Unsp spec) Negative Negative [facility] Comment on above: Performed at: =[address] [id number] Director: Anay Andrew MD, Phone: [phone] Neutrophil percentageOrdered By: Adriana Dickson on 07-11-2024 Neutrophils/100 WBC (Bld) 57.5 % 47-70 [facility] Nucleated red blood cell per centageOrdered By: Adriana Dickson on 07-11-2024 Nucleated RBC/100 WBC (Bld) [Ratio] 0 % 0-5 [facility] Watchmaking Teacher Office Visit Reporton 07-11-2024 Watchmaking Teacher Office Visit Report [facility] [address], [address] [place] [address] OFFICE VISIT Date of Service: 07/11/24 MR#: [id number] Acct: [id number] Name: NEVAEH WALL Rep #: [id number] : 2000 Provider: Dr. Adriana harding MD Age/Sex: 24/F [place] [facility] [place]: S[place] Intake Vital Signs 05/24/24 12:06 05/25/24 09:14 06/08/24 17:53 07/11/24 09:10 Height 5 ft 2 in 5 ft 2 in 5 ft 2 in 5 ft 2 in Weight: 288 lb 8 oz BMI 52.7 BP 148/98 H Intake Visit Reasons: Discuss PCOS, insert IUD [employer] Required: No Is patient in pain?: No Allergies No Known Allergies Allergy (Verified 07/11/24 09:19) Medications ???Medication ???Instructions ???Recorded ???Confirmed ???Type aripiprazole 2 mg tablet 2 mg PO DAILY 12/23/22 07/11/24 Hi story escitalopram oxalate 20 mg tablet 20 mg PO DAILY 12/23/22 07/11/24 History pantoprazole 40 mg tablet,delayed 40 mg PO DAILY #30 tabs 12/27/22 07/11/24 Rx release blood-glucose sensor (Dexcom G7 #12 ea 06/08/24 07/11/24 Rx Sensor device) blood-glucose,netbackup administrator,con t #1 ea 06/08/24 07/11/24 Rx (Dexcom G7 Vp Treasurer) dicyclomine 10 mg capsule 20 mg PO Q6H PRN abdominal pain 07/11/24 History hydroxyzine pamoate 25 mg capsule 25 mg PO BID 06/08/24 07/11/24 Hi story metformin 500 mg tablet 500 mg PO DAILY 06/08/24 07/11/24 History trazodone 50 mg tablet 50 mg PO QHS 06/08/24 07/11/24 His tory tirzepatide (weight loss) 2.5 2.5 mg (0.5 mL) subcut QWEEK #2 mL 06/22/24 07/11/24 Rx mg/0.5 mL subcutaneous pen injector (Zepbound) levonorgestrel (Mirena) 1 device intrauterine ONCE 5 07/11/24 History Is last menstrual period known: Yes Last Menstrual Period: 05/11/24 Post menopausal: No : No PFSH PFSH Medical History COVID-19 Hypertension 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 Depression Preeclampsia, severe Hypertension affecting in third trimester Surgical History History of delivery Family History Grandmother Diabetes Other Asthma Cancer Hypertension Thyroid disorder Social History adopted: No housing: apartment number of children: 1 current occupational status: unemployed pets and animals: No history of recent travel: No sexually active: Yes Smoking Status: Never smoker second hand exposure: No alcohol intake: current alcohol intake frequency: a few times a month Alcohol type: other substance use type: does not use caffeine: Yes what type of physical activity do you participate in: walking frequency: 3-4 times per week duration: 15-30 minutes/day seatbelt use: always do you feel safe at home: Yes additional social history: Single Patient does not work History 1 Elective abortions Hx Para 1 Spontaneous abortions Hx # Term Pregnancies Ectopic pregnancies Hx # Pregnancies Multiple births # of living children 1 Past Pregnancies Del. Date Name GA/Weeks Outcome Route Bth Weight Infant Gen Labor Lgth Anesthesia Del Locatn Provider FOB 09/17/18 Basilio 34 live - 4lbs 2oz Male spinal [facility] S EM Delivery Date: 09/17/18 Last Updated by: Hilda Dinh [place] w/SI severe pre eclampsia at 34 weeks. CPD; NRFHTs HPI Discuss PCOS, insert IUD Details: NEVAEH WALL is a 24 year old who presents for IUD insertion for PCOS managment. she has stopped bleeding now, needs to have repeat bloodwork. she denies any pelvic pain, no hirsutism. Female Reproductive History Last Menstrual Period: 05/11/24 ROS Const Constitutional: Reports system reviewed and no additional complaints, except as documented : Reports system reviewed and no additional complaints, except as documented and as per HPI Exam Const General: cooperative, healthy appearing, comfortable and no acute distress External Female Exam: normal external appearance and normal appearance of the urethra Urethra: normal appearance of the urethra Speculum Exam - Vagina: normal appearance of the vagina and normal vaginal discharge Speculum Exam - Cervix: normal appearance of the cervix (strings seen 3-4 cm in length) Bimanual Exam- Vagina Uterus: normal bimanual exam Bimanual Exam- Adnexa, other: normal adnexae, adnexae mobile and no masses Office Procedures IUD Insertion IUD Details: Sign in Communication: Completed Sign out documentation: Completed The uterus sounded to 9 cm. After prepping the cervix with betadine and using sterile technique, the cervix was graspe (more content not included)... Normal [facility] Platelet countOrdered By: Marlene Dickson on 07-11-2024 Platelets (Bld) [#/Vol] 419 10*3/uL 150-450 [facility] RBC Auto (Bld) [#/Vol]Ordere d By: Adriana Dickson on 07-11-2024 RBC (Bld) [#/Vol] 4.33 10*6/uL 4.2-5.4 [facility] Serum or plasma thyroperoxid ase antibody assay (units/volume)Ordered By: Adriana Dickson on 07-11-2024 TPO Ab Qn 32 [IU]/mL 0-34 [facility] Comment on above: Performed at: [address] [id number] Director: Luke Walden PhD, Phone: [phone] T4 Free Directon 07-11-2024 T4 FREE DIRECT 0.90 ng/dL Normal 0.76-1.46 [facility] Comment on above: Performed By: #### L 400.0001 #### [facility] [place], [address] T4 freeOrdered By: Adriana Bashir mehulntelyssa on 07-11-2024 Free T4 [Mass/Vol] 0.90 ng/dL 0.76-1.46 [facility] White blood cell (WBC) count Ordered By: Adriana Paulette on 07-11-2024 WBC (Bld) [#/Vol] 16.0 10*3/uL High 4.4-11.0 [facility] Urine Cultureon 06-10-2024 [facility] Presumptive E. coli [place] Count 11,000-25,000 Presumptive E. coli: REACTION Ampicillin Islt EVERETTE 4 Ampicillin+Sulbac Islt EVERETTE <=2 S Cefepime Islt EVERETTE <=0.12 S cefTRIAXone Islt EVERETTE <=0.25 S Ciprofloxacin Islt EVERETTE <=0.06 S B-Lactamase Extended Susc Islt NEG Gentamicin Islt EVERETTE <=1 S levoFLOXacin Islt EVERETTE <=0.12 S Meropenem Islt EVERETTE <=0.25 S Nitrofurantoin Islt EVERETTE <=16 S Pip+Tazo Islt EVERETTE <=4 S TMP SMX Islt EVERETTE <=20 S Normal [facility] Comment on above: Performed By: #### L 400.0001 #### [facility] [address] [facility] [place], [place], [id number] Abdomen/Pelvis W IV Cont ONL Yon 06-08-2024 Abdomen/Pelvis W IV Cont ONLY [facility] [address] [place], [place] [id number] Abdomen/Pelvis W IV Cont ONLY MR#: [id number] Acct: [id number] Name: NEVAEH WALL Rep #: [id number] : 2000 F 24 From: Kishan de jesus MD PCP: Care Physician,No Primary Status: REG ER Study: Abdomen/Pelvis W IV Cont ONLY Date of Exam: Exam# [id number] Ordering Dr: Jonathan Cruz DO PROCEDURE: ABDOMEN/PELVIS W IV CONT ONLY 06/08/2024 REASON FOR EXAM: R FLANK PAIN TECHNIQUE: Abdomen and pelvis CT with intravenous contrast. Coronal and Sagittal reconstruction series were provided. PATIENT PREPARATION: Per protocol ORAL CONTRAST TYPE: None. AMOUNT: mL CONTRAST: Omnipaque 350 VOLUME: 100 mL Not Provided Gauge IV One or more dose reduction techniques were used (e.g., Automated exposure control, adjustment of the mA and/or kV according to patient size, use of iterative reconstruction technique. COMPARISON: CT abdomen and pelvis 12/27/2022 FINDINGS: Lung bases: Unremarkable. Liver: Hepatomegaly, craniocaudal length 21.7 cm. Diffuse steatosis. No focal lesion. Gallbladder: No ductal dilation. No cholelithiasis. No wall thickening or pericholecystic fluid. Spleen: No splenomegaly or focal lesion. Pancreas: Normal size without evidence of mass surrounding inflammation or ductal dilation. Adrenals: Unremarkable Kidneys: Normal renal sizes. No hydronephrosis. Bladder: Urinary bladder is unremarkable. Reproductive Organs: No suspicious pelvic mass or fluid collection. Bowel: Stomach is unremarkable. No bowel dilation or wall thickening. Appendix: The appendix is not identified. There is no inflammatory process identified in the right lower quadrant to suggest appendicitis. Lymph nodes: No suspicious lymph node enlargement. Vasculature: The abdominal aorta and IVC are normal. Peritoneum / Retroperitoneum: No ascites. No pneumoperitoneum. Bones: Unremarkable. CT/Abdomen/Pelvis W IV Cont ONLY IMPRESSION: No acute findings in the abdomen and pelvis. Hepatomegaly and diffuse steatosis. Reading Location: [facility] CC: Dr. Jonathan Cruz DO; No Primary Care Physician Proj Engineer: Signed Normal [facility] Absolute lymphocyte countOrd ered By: Jonathan Cruz on 06-08-2024 Lymphocytes Auto (Unsp spec) [#/Vol] 3.38 10*3/uL 0.83-4.51 [facility] Absolute neutrophil countOrd ered By: Jonathan Cruz on 06-08-2024 Neutrophils (Bld) [#/Vol] 12.3 10*3/uL High 2.0-7.7 [facility] Anion gap in Serum or Plasma Ordered By: Jonathan Cruz on 06-08-2024 Anion gap [Moles/Vol] 13 mmol/L 5-15 [facility] Automated lymphocyte count a s percentage of total leukocytesOrdered By: Jonathan Cruz on 06-08-2024 Lymphocytes/100 WBC Auto (Unsp spec) 19.7 % 19- [facility] BUN/creatinine ratioOrdered By: Jonathan Cruz on 06-08-2024 Urea nitrogen/Creatinine [Mass ratio] 18.7 mg/mg 10-20 [facility] Basophil percentageOrdered B y: Jonathan Cruz on 06-08-2024 Basophils/100 WBC (Bld) 0.5 % 0-1 [facility] Bilirubin Test strip Ql (U)O rdered By: Jonathan Nancy on 06-08-2024 Bilirubin Ql (U) Negative Negative [facility] Bilirubin, totalOrdered By: Jonathan Nancy on 06-08-2024 Bilirubin [Mass/Vol] 0.18 mg/dL 0.00-1.30 [facility] CBC W/Diff, Automatedon 05-12 Absolute Lymph 3.38 X10 3/uL Normal 0.83-4.51 [facility] Comment on above: Performed By: #### L 501.2450, L500.4050, L100.0100, L700.6800 #### [facility] [address] [place], [address] Absolute Neut 12.3 X10 3/uL High 2.0-7.7 [facility] Comment on above: Performed By: #### L 501.2450, L500.4050, L100.0100, L700.6800 #### [facility] [address] [place], [address] Basophils/100 WBC (Bld) 0.5 % Normal 0-1 [facility] Comment on above: Performed By: #### L 501.2450, L500.4050, L100.0100, L700.6800 #### [facility] [address] [place], [address] Eosinophils/100 WBC (Bld) 0.9 % Normal 0-5 [facility] Comment on above: Performed By: #### L 501.2450, L500.4050, L100.0100, L700.6800 #### [facility] [address] [place], [address] Erythrocyte distribution width (RBC) [Ratio] 13.8 % Normal 11.6-14.6 [facility] Comment on above: Performed By: #### L 501.2450, L500.4050, L100.0100, L700.6800 #### [facility] [address] [place], [address] Hematocrit (Bld) [Volume fraction] 29.5 % Low 37-47 [facility] Comment on above: Performed By: #### L 501.2450, L500.4050, L100.0100, L700.6800 #### [facility] [address] [place], [address] Hemoglobin (Bld) [Mass/Vol] 9.3 g/dL Low 12.0-15.0 [facility] Comment on above: Performed By: #### L 501.2450, L500.4050, L100.0100, L700.6800 #### [facility] [address] [place], [address] IG% 1.000 High 0.0-0.9 [facility] Comment on above: Result Comment: IG% - Immature Granulocytes (promyelocytes, myelocytes and metamyelocytes) > 1% indicates that a LEFT SHIFT is Present. Performed By: #### L 501.2450, L500.4050, L100.0100, L700.6800 #### [facility] [address] [place], [address] Lymphocytes/100 WBC (Bld) 19.7 % Normal 19-41 [facility] Comment on above: Performed By: #### L 501.2450, L500.4050, L100.0100, L700.6800 #### [facility] [address] [place], [address] MCH (RBC) [Entitic mass] 25.3 pg Low 27.0-32.0 [facility] Comment on above: Performed By: #### L 501.2450, L500.4050, L100.0100, L700.6800 #### [facility] [address] [place], [address] MCHC (RBC) [Mass/Vol] 31.5 g/dL Low 32-36 [facility] Comment on above: Performed By: #### L 501.2450, L500.4050, L100.0100, L700.6800 #### [facility] [address] [place], [address] MCV (RBC) [Entitic vol] 80.2 fL Low 81-99 [facility] Comment on above: Performed By: #### L 501.2450, L500.4050, L100.0100, L700.6800 #### [facility] [address] [place], [address] Monocytes/100 WBC (Bld) 6.1 % Normal 0-10 [facility] Comment on above: Performed By: #### L 501.2450, L500.4050, L100.0100, L700.6800 #### [facility] [address] [place], [address] Neutrophils/100 WBC (Bld) 71.8 % High 47-70 [facility] Comment on above: Performed By: #### L 501.2450, L500.4050, L100.0100, L700.6800 #### [facility] [address] [place], [address] Nucleated RBC (Bld) [#/Vol] 0 10*3/uL Normal 0-5 [facility] Comment on above: Performed By: #### L 501.2450, L500.4050, L100.0100, L700.6800 #### [facility] [address] [place], [address] Platelet mean volume (Bld) [Entitic vol] 9.8 fL Normal 6.2-12.0 [facility] Comment on above: Performed By: #### L 501.2450, L500.4050, L100.0100, L700.6800 #### [facility] [address] [place], [address] Platelets (Bld) [#/Vol] 428 10*3/uL Normal 150-450 [facility] Comment on above: Performed By: #### L 501.2450, L500.4050, L100.0100, L700.6800 #### [facility] [address] [place], [address] RBC (Bld) [#/Vol] 3.68 10*6/uL Low 4.2-5.4 [facility] Comment on above: Performed By: #### L 501.2450, L500.4050, L100.0100, L700.6800 #### [facility] [address] [place], [address] RDW SD 40.3 fl Normal 35.1-43.9 [facility] Comment on above: Performed By: #### L 501.2450, L500.4050, L100.0100, L700.6800 #### [facility] [address] [place], [address] WBC (Bld) [#/Vol] 17.2 10*3/uL High 4.4-11.0 [facility] Comment on above: Performed By: #### L 501.2450, L500.4050, L100.0100, L700.6800 #### [facility] [address] [place], [address] Carbon dioxide, total [Moles /volume] in Central venous bloodOrdered By: Jonathan Cruz on 06-08-2024 CO2 [Moles/Vol] 21.3 mmol/L 21.0-32.0 [facility] Chloride assayOrdered By: Justin Cruz on 06-08-2024 Chloride [Moles/Vol] 104 mmol/L 98-108 [facility] Comprehensive Metabolic Prof ilon 06-08-2024 Albumin [Mass/Vol] 4.0 g/dL Normal 3.5-5.0 [facility] Comment on above: Performed By: #### L 501.2450, L500.4050, L100.0100, L700.6800 #### [facility] [address] [place], [address] Albumin/Globulin [Mass ratio] 1.1 {ratio} Normal 0.9-2.4 [facility] Comment on above: Performed By: #### L 501.2450, L500.4050, L100.0100, L700.6800 #### [facility] [address] [place], [address] ALK PHOS 130 U/L High 35-104 [facility] Comment on above: Performed By: #### L 501.2450, L500.4050, L100.0100, L700.6800 #### [facility] [address] [place], [address] ALT [Catalytic activity/Vol] 15 U/L Normal <=34 [facility] Comment on above: Performed By: #### L 501.2450, L500.4050, L100.0100, L700.6800 #### [facility] [address] [place], [address] AST [Catalytic activity/Vol] 19 U/L Normal <=31 [facility] Comment on above: Performed By: #### L 501.2450, L500.4050, L100.0100, L700.6800 #### [facility] [address] [place], [address] Bilirubin [Mass/Vol] 0.18 mg/dL Normal 0.00-1.30 [facility] Comment on above: Performed By: #### L 501.2450, L500.4050, L100.0100, L700.6800 #### [facility] [address] [place], [address] BUN/CRE 18.7 RATIO Normal 10-20 [facility] Comment on above: Performed By: #### L 501.2450, L500.4050, L100.0100, L700.6800 #### [facility] [address] [place], [address] Calcium [Mass/Vol] 9.4 mg/dL Normal 7.6-11.0 [facility] Comment on above: Performed By: #### L 501.2450, L500.4050, L100.0100, L700.6800 #### [facility] [address] [place], [address] Chloride [Moles/Vol] 104 mmol/L Normal 98-108 [facility] Comment on above: Performed By: #### L 501.2450, L500.4050, L100.0100, L700.6800 #### [facility] [address] [place], [address] CO2 [Moles/Vol] 21.3 mmol/L Normal 21.0-32.0 [facility] Comment on above: Performed By: #### L 501.2450, L500.4050, L100.0100, L700.6800 #### [facility] [address] [place], [address] Creatinine [Mass/Vol] 0.84 mg/dL Normal 0.70-1.20 [facility] Comment on above: Performed By: #### L 501.2450, L500.4050, L100.0100, L700.6800 #### [facility] [address] [place], [address] ECRCL 132.05 ml/min Normal 50-250 [facility] Comment on above: Performed By: #### L 501.2450, L500.4050, L100.0100, L700.6800 #### [facility] [address] [place], [address] GAP 13 Normal 5-15 [facility] Comment on above: Performed By: #### L 501.2450, L500.4050, L100.0100, L700.6800 #### [facility] [address] [place], [address] GFR/1.73 sq M.predicted among non-blacks MDRD (S/P/Bld) [Vol rate/Area] 99 mL/min/{1.73_m2} Normal >60 [facility] Comment on above: Result Comment: mL/m in/1.73m2 CKD-EPI Creatinine Equation (2020) Performed By: #### L 501.2450, L500.4050, L100.0100, L700.6800 #### [facility] [address] [place], [address] Globulin (S) [Mass/Vol] 3.7 g/dL Normal 2.2-4.2 [facility] Comment on above: Performed By: #### L 501.2450, L500.4050, L100.0100, L700.6800 #### [facility] [address] [place], [address] Glucose [Mass/Vol] 112 mg/dL High 70-99 [facility] Comment on above: Performed By: #### L 501.2450, L500.4050, L100.0100, L700.6800 #### [facility] [address] [place], [address] Potassium [Moles/Vol] 4.3 mmol/L Normal 3.3-5.1 [facility] Comment on above: Performed By: #### L 501.2450, L500.4050, L100.0100, L700.6800 #### [facility] [address] [place], [address] Sodium [Moles/Vol] 139 mmol/L Normal 133-145 [facility] Comment on above: Performed By: #### L 501.2450, L500.4050, L100.0100, L700.6800 #### [facility] [address] [place], [address] T PROT 7.7 g/dL Normal 5.9-8.4 [facility] Comment on above: Performed By: #### L 501.2450, L500.4050, L100.0100, L700.6800 #### [facility] [address] [place], [address] Urea nitrogen [Mass/Vol] 16 mg/dL Normal 4-19 [facility] Comment on above: Performed By: #### L 501.2450, L500.4050, L100.0100, L700.6800 #### [facility] [address] [place], [address] Emergency Department Summary on 06-08-2024 Emergency Department Summary [facility] Medical Records Department [address] [place] [address] Emergency Department Summary 06/08/24 MR#: [id number] Acct: [id number] Name: NEVAEH WALL Rep #: [id number] : 2000 24 From: Jonathan Cruz DO PCP: Care Physician,No Primary Status:REG ER Location: ED HPI History of Present Illness Chief Complaint: Flank Pain Narrative Narrative: Patient is a 24-year-old female with past medical history of PCOS, depression, hypertension who presents to the emergency department with a chief complaint of right flank pain. States that this started this afternoon and she states that this was very painful for her and states that it was difficult for her to walk secondary to the pain. Patient states that the pain has gotten better but is still persistent therefore she came here for further evaluation management. Patient denies history kidney stones denies any trauma or injuries to her back. [facility] Medical History COVID-19 Hypertension 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 Depression Preeclampsia, severe Hypertension affecting in third trimester Home Medications ???Medication ???Instructions ???Recorded ???Last Taken ???Type aripiprazole 2 mg tablet 2 mg PO DAILY 12/23/22 06/08/24 Hi story escitalopram oxalate 20 mg tablet 20 mg PO DAILY 12/23/22 06/08/24 History pantoprazole 40 mg tablet,delayed 40 mg PO DAILY #30 tabs 12/27/22 06/08/24 Rx release blood-glucose meter,continuous #1 ea 06/08/24 Unknown Rx (Dexcom G7 Vp Treasurer) blood-glucose sensor (Dexcom G7 #12 ea 06/08/24 Unknown Rx Sensor device) cephalexin 500 mg capsule 500 mg PO BID 7 days #14 caps 05/12 Unknown Rx desogestrel 0.15 mg-ethinyl 1 tab PO DAILY 06/08/24 06/08/24 H istory estradiol 0.03 mg tablet ([place]) dicyclomine 10 mg capsule 20 mg PO Q6H PRN abdominal pain Unknown History hydroxyzine pamoate 25 mg capsule 25 mg PO BID 06/08/24 06/08/24 Hi story metformin 500 mg tablet 500 mg PO DAILY 06/08/24 06/08/24 History norethindrone acetate 5 mg tablet 5 mg PO DAILY 06/08/24 06/08/24 H istory semaglutide 0.25 mg or 0.5 mg (2 0.25 mg subcut FR 06/08/24 Unknown History mg/3 mL) subcutaneous pen injector (Ozempic) trazodone 50 mg tablet 50 mg PO QHS 06/08/24 06/06/24 His tory Allergy/AdvReac Type Severity Reaction Status Date / Time No Known Allergies Allergy Verified 06/08/24 17:53 Family History Grandmother Diabetes Other Asthma Cancer Hypertension Thyroid disorder Surgical History History of delivery Social History adopted: No housing: apartment number of children: 1 current occupational status: unemployed pets and animals: No history of recent travel: No sexually active: Yes Smoking Status: Never smoker second hand exposure: No alcohol intake: current alcohol intake frequency: a few times a month Alcohol type: other substance use type: does not use caffeine: Yes what type of physical activity do you participate in: walking frequency: 3-4 times per week duration: 15-30 minutes/day seatbelt use: always do you feel safe at home: Yes additional social history: Single Patient does not work ROS ROS ED ROS Narrative Constitutional: Denies fevers, chills, headaches Eyes: Denies change in vision double vision blurry vision Cardiovascular: Denies chest pain or palpitations Respiratory: Denies coughing wheezing shortness of breath Abdomen: Complains of right flank pain as noted above denies nausea vomit diarrhea : Denies urinary symptoms Neurological: Denies numbness, weakness, tingling Musculoskeletal: Denies back pain Skin: Denies rashes or lesions EXAM Physical Exam Narrative Exam Narrative: General: Patient is lying bed rest comfortably not appear to be in acute distress Head: Atraumatic, normocephalic Eyes: PERRL bilateral, EOMI bilateral, no conjunctival injection noted Neck: Soft, supple, trachea midline Cardiovascular: Patient tachycardic with regular rhythm no murmurs gallops rubs noted Respiratory: Clear to auscultation bilaterally Abdomen: Soft, nondistended, no tenderness palpation, bowel sounds present x 4 Extremities: +5/5 strength noted in the bilateral upper and lower extremities, radial pulses +2/4 in the bilateral extremities Neurological: Patient follow commands knew that she was at [facility] year is 2024 Skin: Warm, dry, intact no rashes lesions noted Const Vital Signs: 06/08/24 17:53 06/08/24 19:52 Temperature 97 F L Temperature Source Temporal (more content not included)... Normal [facility] Eosinophil percentageOrdered By: Jonathan Cruz on 06-08-2024 Eosinophils/100 WBC (Bld) 0.9 % 0-5 [facility] Erythrocyte distribution wid th ratioOrdered By: Jonathan Cruz on 06-08-2024 Erythrocyte distribution width (RBC) [Ratio] 13.8 % 11.6-14.6 [facility] Erythrocyte distribution wid th standard deviationOrdered By: Jonathansilvia Cruz on 06-08-2024 Erythrocyte distribution width (RBC) [Ratio] 40.3 fl 35.1-43.9 [facility] Glomerular filtration rate ( GFR) estimation/1.73 sq m using serum, plasma, or whole bOrdered By: Jonathansilvia Cruz on 06-08-2024 GFR/1.73 sq M.predicted among non-blacks MDRD (S/P/Bld) [Vol rate/Area] 99 mL/min/{1.73_m2} >60 [facility] Comment on above: mL/min/1.73m2 CKD-EP I Creatinine Equation (2020) Hematocrit Auto (Bld) [Volum e fraction]Ordered By: Jonathan Cruz on 06-08-2024 Hematocrit (Bld) [Volume fraction] 29.5 % Low 37-47 [facility] Hemoglobin measurementOrdere d By: Jonathan Cruz on 06-08-2024 Hemoglobin (Bld) [Mass/Vol] 9.3 g/dL Low 12.0-15.0 [facility] Immature granulocytes/100 WB C Auto (Bld)Ordered By: Jonathan Cruz on 06-08-2024 Immature granulocytes/100 WBC (Bld) 1.000 % High 0.0-0.9 [facility] Comment on above: IG% - Immature Granu locytes (promyelocytes, myelocytes and metamyelocytes) > 1% indicates that a LEFT SHIFT is Present. Internal Medicine Office Vis tito 06-08-2024 Internal Medicine Office Visit [facility] [address] [place] [address] [address] [place], [place] [address] OFFICE VISIT Date of Service: 06/08/24 MR#: [id number] Acct: [id number] Name: NEVAEH WALL Rep #: [id number] : 2000 Provider: AUSTIN Aburto Age/Sex: 24/F Location: [facility] Status: Signed Intake Vital Signs 05/24/24 12:06 05/25/24 09:14 06/08/24 09:20 Height 5 ft 2 in 5 ft 2 in 5 ft 2 in Weight: 287 lb 6 oz BMI 52.5 BP 132/82 H Blood Pressure Location Lt brachial Position Sitting Respiration 16 Pulse 102 H Pulse Source Monitor Temp 97 F L Temp Source Temporal Pulse Oximetry (%) 97 Oxygen Delivery Method room air Intake Visit Reasons: ACUTE POSSIBLE DIABETES ISSUES-EST CARE IN AUGUST Chief Complaint: acute concerns for diabetes [employer] Required: No Accompanied by: Self Is patient in pain?: No Allergies No Known Allergies Allergy (Verified 06/08/24 09:13) Medications ???Medication ???Instructions ???Recorded ???Confirmed ???Type aripiprazole 2 mg tablet 2 mg PO DAILY 12/23/22 06/08/24 Hi story escitalopram oxalate 20 mg tablet 20 mg PO DAILY 12/23/22 06/08/24 History dicyclomine 10 mg capsule 20 mg (2 x 10 mg) PO Q6H PRN PRN 1 02/26/22 06/08/24 Rx abdominal pain #20 CAPSULES pantoprazole 40 mg tablet,delayed 40 mg PO DAILY #30 tabs 12/27/22 06/08/24 Rx release norethindrone acetate 5 mg tablet 5 mg PO DAILY #30 tabs 05/24/24 0 06/08/24 Rx blood-glucose meter,continuous #1 ea 06/08/24 06/08/24 Rx (Dexcom G7 Vp Treasurer) blood-glucose sensor (Dexcom G7 #12 ea 06/08/24 06/08/24 Rx Sensor device) metformin 500 mg tablet 500 mg PO QDAY #90 tabs 06/08/24 0 06/08/24 Rx semaglutide 0.25 mg or 0.5 mg (2 0.25 mg (0.368 mL) subcut QWEEK #3 06/08/24 06/08/24 Rx mg/3 mL) subcutaneous pen injector mL (Ozempic) Patient : No Have you fallen in the past year?: No [facility] Medical History COVID-19 Hypertension 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 Depression Preeclampsia, severe Hypertension affecting in third trimester Surgical History History of delivery Family History Grandmother Diabetes Other Asthma Cancer Hypertension Thyroid disorder Social History (Updated 06/08/24 @ 09:20 by Merle Biggs) adopted: No housing: apartment number of children: 1 current occupational status: unemployed pets and animals: No history of recent travel: No sexually active: Yes Smoking Status: Never smoker second hand exposure: No alcohol intake: current alcohol intake frequency: a few times a month Alcohol type: other substance use type: does not use caffeine: Yes what type of physical activity do you participate in: walking frequency: 3-4 times per week duration: 15-30 minutes/day seatbelt use: always do you feel safe at home: Yes additional social history: Single Patient does not work HPI HPI Chief Complaint: acute concerns for diabetes Details: NEVAEH WALL, is a 24 F who presents to the office today for f/u since seeing computer science intern. She states that they did some blood work and told her that she was diabetic to f/u here in our office. Patient states that she has been healthy up to this point although when asked about specific issues she states that she has had some blood pressure issues as well as some thyroid problems. She states that she has not been on medication for these problems though. Patient states that there is some diabetes in her family with her mother, her cousin, as well as her aunt and Uncle Patient states that her diet is "pretty good". She states that her diet consists of a lot of salad She does not consume pop/soda. She drinks "a little of everything" including water, tea, Duc- aid. She does not use any nicotine products She does not use ETOH She states that the past few weeks she has been trying to walk for exercise. She does see her eye doctor annually She does see a Dentist annually as well She denies any recent visual changes, urinary frequency, increase in thirst, chest pains / pressures, shortness of breath, dizziness ROS Const Constitutional: No body ache, excessive sweating, fatigue, fever(s), frequent falls, headache(s), snoring, weakness, weight change, sleep problems or change in appetite Eyes Eyes: No blurry vision, change in vision, eye pain or Light sensitivity ENT ENT: No abnormal hearing, ear or mastoid pain, tinnitus, nasal congestion, headache(s), neck pain or sore throat Resp Respiratory: No cough, shortness of breath, snoring or wheezing Cardio Cardiology: No chest pain at rest, chest pain with exertion (more content not included)... Normal [facility] Ketones Test strip Ql (U)Ord ered By: Jonathan Cruz on 06-08-2024 Ketones Ql (U) Negative Negative [facility] - Chemistry and C hemistry - challengeOrdered By: Jonathan Cruz on 06-08-2024 AST [Catalytic activity/Vol] 19 U/L <32 [facility] Lipaseon 06-08-2024 Lipase [Catalytic activity/Vol] 35 U/L Normal 13-75 [facility] Comment on above: Result Comment: Plerenée bishop note: LIPASE revised reference range effective 22. New Lipase methodology. Expected to produce lower values than the previous assay method. NEW Reference Range: 13 - 75 U/L Performed By: #### L 501.2450, L500.4050, L100.0100, L700.6800 #### [facility] [address] [place] [address], [id number] Lipase measurementOrdered By : Jonathan Cruz on 06-08-2024 Lipase [Catalytic activity/Vol] 35 U/L 13-75 [facility] Comment on above: Please note:LIPASE r evised reference range effective 22. New Lipase methodology. Expected to produce lower values than the previous assay method. NEW Reference Range: 13 - 75 U/L MCV (mean corpuscular volume ) determinationOrdered By: Jonathan Cruz on 06-08-2024 MCV (RBC) [Entitic vol] 80.2 fL Low 81-99 [facility] Mean corpuscular hemoglobin (MCH) determinationOrdered By: Jonathan Cruz on 06-08-2024 MCH (RBC) [Entitic mass] 25.3 pg Low 27.0-32.0 [facility] Mean corpuscular hemoglobin concentration (MCHC) determinationOrdered By: Jonathan Cruz on 06-08-2024 MCHC (RBC) [Mass/Vol] 31.5 g/dL Low 32-36 [facility] Mean platelet volume determi nationOrdered By: Jonathan Cruz on 06-08-2024 Platelet mean volume (Bld) [Entitic vol] 9.8 fL 6.2-12.0 [facility] Microscopic analysis of urin e for red blood cells (RBC)Ordered By: Jonathan Cruz on 06-08-2024 Microscopic analysis of urine for red blood cells (RBC) 0-5 SEEN /hpf 0-5 [facility] Monocyte percentageOrdered B y: Jonathan Cruz on 06-08-2024 Monocytes/100 WBC (Bld) 6.1 % 0-10 [facility] Mucus LM Ql (Urine sed)Order ed By: Jonathan Cruz on 06-08-2024 Mucus Ql (Urine sed) 0 SEEN /hpf [facility] Neutrophil percentageOrdered By: Jonathan Cruz on 06-08-2024 Neutrophils/100 WBC (Bld) 71.8 % High 47-70 [facility] Nitrite Test strip Ql (U)Ord ered By: Jonathan Cruz on 06-08-2024 Nitrite Ql (U) Negative Negative [facility] Nucleated red blood cell per centageOrdered By: Jonathan Cruz on 06-08-2024 Nucleated RBC/100 WBC (Bld) [Ratio] 0 % 0-5 [facility] Platelet countOrdered By: Justin Cruz on 06-08-2024 Platelets (Bld) [#/Vol] 428 10*3/uL 150-450 [facility] Potassium measurement (mass/ volume)Ordered By: Jonathan Cruz on 06-08-2024 Potassium (Unsp spec) [Mass/Vol] 4.3 mmol/L 3.3-5.1 [facility] ,Serum,hCG Quali.on 06-08-2024 HCG, SERUM QUAL Negative Normal [facility] Comment on above: Performed By: #### L 501.2450, L500.4050, L100.0100, L700.6800 #### [facility] [address] [facility] [place], [place], [address] Protein Test strip Ql (U)Ord ered By: Jonathan Cruz on 06-08-2024 Protein Ql (U) TNP [facility] Comment on above: Test not performed Protein, Urine (Random)on Protein (U) [Mass/Vol] 57.4 mg/dL High 0.0-12.0 [facility] Comment on above: Performed By: #### L 501.1930 ####[facility] [address] [place], [place], [id number] RBC Auto (Bld) [#/Vol]Ordere d By: Jonathan Cruz on 06-08-2024 RBC (Bld) [#/Vol] 3.68 10*6/uL Low 4.2-5.4 [facility] Serum beta-hCG test, qualita tiveOrdered By: Jonathan Cruz on 06-08-2024 Beta HCG ( test) Ql Negative [facility] Serum creatinine measurement (mass/volume)Ordered By: Jonathan Cruz on 06-08-2024 Creatinine [Mass/Vol] 0.84 mg/dL 0.70-1.20 [facility] Serum globulin measurementOr dered By: Jonathan Cruz on 06-08-2024 Globulin (S) [Mass/Vol] 3.7 g/dL 2.2-4.2 [facility] Serum glucose measurement (m ass/volume)Ordered By: Jonathan Cruz on 06-08-2024 Glucose [Mass/Vol] 112 mg/dL High 70-99 [facility] Serum or plasma alanine gomez otransferase (ALT) measurementOrdered By: Jonathan Cruz on 06-08-2024 ALT [Catalytic activity/Vol] 15 U/L <35 [facility] Serum or plasma albumin jay urement (mass/volume)Ordered By: Jonathan Cruz on 06-08-2024 Albumin [Mass/Vol] 4.0 g/dL 3.5-5.0 [facility] Serum or plasma albumin/glob ulin mass ratioOrdered By: Jonathan Cruz on 06-08-2024 Albumin/Globulin [Mass ratio] 1.1 {ratio} 0.9-2.4 [facility] Serum or plasma alkaline purvi sphatase measurementOrdered By: Jonathan Cruz on 06-08-2024 ALP [Catalytic activity/Vol] 130 U/L High 35-104 [facility] Serum or plasma calcium jay urement (mass/volume)Ordered By: Jonathan Cruz on 06-08-2024 Calcium [Mass/Vol] 9.4 mg/dL 7.6-11.0 [facility] Serum or plasma urea nitroge n measurement (mass/volume)Ordered By: Jonathan Cruz on 06-08-2024 Urea nitrogen [Mass/Vol] 16 mg/dL 4-19 [facility] Sodium levelOrdered By: Joelle Cruz on 06-08-2024 Sodium [Moles/Vol] 139 mmol/L 133-145 [facility] Squamous epithelial cells de tection in urine sediment by light microscopyOrdered By: Jonathan Cruz on 06-08-2024 Epithelial cells.squamous LM Ql (Urine sed) 0-5 SEEN /hpf 5-10 [facility] Total proteinOrdered By: Greta Cruz on 06-08-2024 Protein [Mass/Vol] 7.7 g/dL 5.9-8.4 [facility] Urinalysis, Completeon 06-08 BACTERIA 1+ /hpf Normal None Seen [facility] Comment on above: Order Comment: CLEAN CATCH Performed By: #### L 400.0001 #### [facility] [address] [place], [place], [id number] EPI,SQUAMOUS 0-5 SEEN Normal 5-10 [facility] Comment on above: Order Comment: CLEAN CATCH Performed By: #### L 400.0001 #### [facility] [address] [place], [address] RBC 0-5 SEEN Normal 0-5 [facility] Comment on above: Order Comment: CLEAN CATCH Performed By: #### L 400.0001 #### [facility] [address] [place], [place], [phone] WBC 25-50 SEEN Normal 0-5 [facility] Comment on above: Order Comment: CLEAN CATCH Performed By: #### L 400.0001 #### [facility] [address] [place], [place], [id number] Mucus Ql (Urine sed) 0 SEEN Normal [facility] Comment on above: Order Comment: CLEAN CATCH Performed By: #### L 400.0001 #### [facility] [address] [place], [place], [phone] Urine clarityOrdered By: Greta Cruz on 06-08-2024 Clarity (U) Sl. Cloudy Clear [facility] Urine color determinationOrd ered By: Jonathan Cruz on 06-08-2024 Color (U) Yellow Yellow [facility] Urine cultureOrdered By: Greta Cruz on 06-08-2024 Bacteria identified Cx Nom (U) Presumptive E. coli Abnormal [facility] Urine glucose detectionOrder ed By: Jonathan Cruz on 06-08-2024 Glucose Ql (U) Normal mg/dl Normal [facility] Urine leukocyte esterase det ection by dipstickOrdered By: Jonathan Cruz on 06-08-2024 Leukocyte esterase Test strip Ql (U) 500 /ul High Negative [facility] Urine pHOrdered By: Jonathan conti on 06-08-2024 pH (U) 5.0 [pH] 5.0 - 8.0 [facility] Urine protein measurement (m ass/volume)Ordered By: Jonathan Cruz on 06-08-2024 Protein (U) [Mass/Vol] 57.4 mg/dL High 0.0-12.0 [facility] Urine sediment bacteria coun t by microscopy (number/high power field)Ordered By: Jonathan Cruz on 06-08-2024 Bacteria LM.HPF (Urine sed) [#/Area] 1 /[HPF] None Seen [facility] Urine specific gravity measu rementOrdered By: Jonathan Cruz on 06-08-2024 Specific gravity (U) [Rel density] 1.020 1.002-1.03 0 [facility] Urine urobilinogen measureme ntOrdered By: Jonathansilvia Cruz on 06-08-2024 Urobilinogen Ql (U) Normal mg/dl Normal [facility] White blood cell (WBC) count Ordered By: Jonathan Cruz on 06-08-2024 WBC (Bld) [#/Vol] 17.2 10*3/uL High 4.4-11.0 [facility] White blood cell countOrdere d By: Jonathan Cruz on 06-08-2024 White blood cell count 25-50 SEEN /hpf 0-5 [facility] 17-Hydroxyprogesteroneon 17ALPHA [place]-PROG < 10 Normal . [facility] Comment on above: Order Comment: Test( s) 642017-11-[id number] Progesterone LCMSwas developed and its performance characteristicsdetermined by [facility]. It has not been cleared or approvedby the Food and Drug Administration.N Result Comment: Adul t Female Follicular 15 - 70 Luteal 35 - 290 Performed at: [address] [id number] Night Custodian: Mohan Morgan MD, Phone: [phone] Performed By: #### L 509.3001, L3400.4800, L3100.5400, L3100.9000, L100.0100, L3100.5125, L3300.1750, L501.9520, L501.9985 ####[facility] [address] [place], [place], [phone] PROLACTIN 4465on 05-28-2024 PROLACTIN 11.7 ng/mL Normal 4.8-33.4 [facility] Comment on above: Performed By: #### L 509.3001, L3400.4800, L3100.5400, L3100.9000, L100.0100, L3100.5125, L3300.1750, L501.9520, L501.9985 ####[facility] [address] [place], [place], [id number] Testosterone Freeon 05-29-19 25 TESTOSTER FREE 4.1 pg/mL Normal 0.0-4.2 [facility] Comment on above: Result Comment: Perf ormed at: [facility] [address] [id number] Night Custodian: Luke Walden PhD, Phone: [phone] Performed at: [facility] [address] [id number] Night Custodian: Mohan Morgan MD, Phone: [phone] Performed By: #### L 509.3001, L3400.4800, L3100.5400, L3100.9000, L100.0100, L3100.5125, L3300.1750, L501.9520, L501.9985 ####[facility] [address] [place], [place], [address] Absolute lymphocyte countOrd ered By: Adriana Dickson on 05-24-2024 Lymphocytes Auto (Unsp spec) [#/Vol] 3.08 10*3/uL 0.83-4.51 [facility] Absolute neutrophil countOrd ered By: Adriana Dickson on 05-24-2024 Neutrophils (Bld) [#/Vol] 7.2 10*3/uL 2.0-7.7 [facility] Automated lymphocyte count a s percentage of total leukocytesOrdered By: Adriana Dickson on 05-24-2024 Lymphocytes/100 WBC Auto (Unsp spec) 26.6 % 19-41 [facility] Basophil percentageOrdered B y: Adriana Dickson on 05-24-2024 Basophils/100 WBC (Bld) 1.0 % 0-1 [facility] CBC W/Diff, Automatedon 05-10 Absolute Lymph 3.08 X10 3/uL Normal 0.83-4.51 [facility] Comment on above: Performed By: #### L 509.3001, L3400.4800, L3100.5400, L3100.9000, L100.0100, L3100.5125, L3300.1750, L501.9520, L501.9985 ####[facility] [address] [place], [address] Absolute Neut 7.2 X10 3/uL Normal 2.0-7.7 [facility] Comment on above: Performed By: #### L 509.3001, L3400.4800, L3100.5400, L3100.9000, L100.0100, L3100.5125, L3300.1750, L501.9520, L501.9985 ####[facility] [address] [place], [address] Basophils/100 WBC (Bld) 1.0 % Normal 0-1 [facility] Comment on above: Performed By: #### L 509.3001, L3400.4800, L3100.5400, L3100.9000, L100.0100, L3100.5125, L3300.1750, L501.9520, L501.9985 ####[facility] [address] [place], [address] Eosinophils/100 WBC (Bld) 1.5 % Normal 0-5 [facility] Comment on above: Performed By: #### L 509.3001, L3400.4800, L3100.5400, L3100.9000, L100.0100, L3100.5125, L3300.1750, L501.9520, L501.9985 ####[facility] [address] [place], [address] Erythrocyte distribution width (RBC) [Ratio] 13.3 % Normal 11.6-14.6 [facility] Comment on above: Performed By: #### L 509.3001, L3400.4800, L3100.5400, L3100.9000, L100.0100, L3100.5125, L3300.1750, L501.9520, L501.9985 ####[facility] [address] [place], [address] Hematocrit (Bld) [Volume fraction] 30.7 % Low 37-47 [facility] Comment on above: Performed By: #### L 509.3001, L3400.4800, L3100.5400, L3100.9000, L100.0100, L3100.5125, L3300.1750, L501.9520, L501.9985 ####[facility] [address] [place], [address] Hemoglobin (Bld) [Mass/Vol] 9.7 g/dL Low 12.0-15.0 [facility] Comment on above: Performed By: #### L 509.3001, L3400.4800, L3100.5400, L3100.9000, L100.0100, L3100.5125, L3300.1750, L501.9520, L501.9985 ####[facility] [address] [place], [phone] IG% 1.100 High 0.0-0.9 [facility] Comment on above: Result Comment: IG% - Immature Granulocytes (promyelocytes, myelocytes and metamyelocytes) > 1% indicates that a LEFT SHIFT is Present. Performed By: #### L 509.3001, L3400.4800, L3100.5400, L3100.9000, L100.0100, L3100.5125, L3300.1750, L501.9520, L501.9985 ####[facility] [address] [place], [address] Lymphocytes/100 WBC (Bld) 26.6 % Normal 19-41 [facility] Comment on above: Performed By: #### L 509.3001, L3400.4800, L3100.5400, L3100.9000, L100.0100, L3100.5125, L3300.1750, L501.9520, L501.9985 ####[facility] [address] [place], [phone] MCH (RBC) [Entitic mass] 26.3 pg Low 27.0-32.0 [facility] Comment on above: Performed By: #### L 509.3001, L3400.4800, L3100.5400, L3100.9000, L100.0100, L3100.5125, L3300.1750, L501.9520, L501.9985 ####[facility] [address] [place], [address] MCHC (RBC) [Mass/Vol] 31.6 g/dL Low 32-36 [facility] Comment on above: Performed By: #### L 509.3001, L3400.4800, L3100.5400, L3100.9000, L100.0100, L3100.5125, L3300.1750, L501.9520, L501.9985 ####[facility] [address] [place], [address] MCV (RBC) [Entitic vol] 83.2 fL Normal 81-99 [facility] Comment on above: Performed By: #### L 509.3001, L3400.4800, L3100.5400, L3100.9000, L100.0100, L3100.5125, L3300.1750, L501.9520, L501.9985 ####[facility] [address] [place], [address] Monocytes/100 WBC (Bld) 7.4 % Normal 0-10 [facility] Comment on above: Performed By: #### L 509.3001, L3400.4800, L3100.5400, L3100.9000, L100.0100, L3100.5125, L3300.1750, L501.9520, L501.9985 ####[facility] [address] [place], [address] Neutrophils/100 WBC (Bld) 62.4 % Normal 47-70 [facility] Comment on above: Performed By: #### L 509.3001, L3400.4800, L3100.5400, L3100.9000, L100.0100, L3100.5125, L3300.1750, L501.9520, L501.9985 ####[facility] [address] [place], [address] Nucleated RBC (Bld) [#/Vol] 0 10*3/uL Normal 0-5 [facility] Comment on above: Performed By: #### L 509.3001, L3400.4800, L3100.5400, L3100.9000, L100.0100, L3100.5125, L3300.1750, L501.9520, L501.9985 ####[facility] [address] [place], [address] Platelet mean volume (Bld) [Entitic vol] 10.4 fL Normal 6.2-12.0 [facility] Comment on above: Performed By: #### L 509.3001, L3400.4800, L3100.5400, L3100.9000, L100.0100, L3100.5125, L3300.1750, L501.9520, L501.9985 ####[facility] [address] [place], [address] Platelets (Bld) [#/Vol] 489 10*3/uL High 150-450 [facility] Comment on above: Performed By: #### L 509.3001, L3400.4800, L3100.5400, L3100.9000, L100.0100, L3100.5125, L3300.1750, L501.9520, L501.9985 ####[facility] [address] [place], [address] RBC (Bld) [#/Vol] 3.69 10*6/uL Low 4.2-5.4 [facility] Comment on above: Performed By: #### L 509.3001, L3400.4800, L3100.5400, L3100.9000, L100.0100, L3100.5125, L3300.1750, L501.9520, L501.9985 ####[facility] [address] [place], [place], [id number] RDW SD 40.7 fl Normal 35.1-43.9 [facility] Comment on above: Performed By: #### L 509.3001, L3400.4800, L3100.5400, L3100.9000, L100.0100, L3100.5125, L3300.1750, L501.9520, L501.9985 ####[facility] [address] [facility] [address] [place], [place], [phone] WBC (Bld) [#/Vol] 11.6 10*3/uL High 4.4-11.0 [facility] Comment on above: Performed By: #### L 509.3001, L3400.4800, L3100.5400, L3100.9000, L100.0100, L3100.5125, L3300.1750, L501.9520, L501.9985 ####[facility] [address] [facility] [place], [place], [phone] E2 post dose follitropin [Ma ss/Vol]Ordered By: Adriana Dickson on 05-24-2024 Estradiol (E2) Level 14.8 pg/mL [facility] Comment on above: FEMALES ADULT FEMALE : Premenopausal: 15-350 pg/mL(E2 levels vary widely through the menstrual cycle) Postmenopausal: <10 pg/mL GILBERTO STAGES MEAN AGE REFERENCE RANGES Stage I(>14 days and prepubertal) 7.1 years Undetectable-20 pg/mLL Stage II 10.5 years Undetectable-24 pg/mL Stage III 11.6 years Undetectable-60 pg/mL Stage IV 12.3 years 15-85 pg/mL Stage V 14.5 years 15-350 pg/mL Puberty onset (transition from Gilberto stage I to Gilberto stage II) occurs for girls at a median age of 10.5 (/- 2) years. There is evidence that it may occur up to 1 year earlier in obese girls and in girls.Progression through Gilberto stages is variable. Gilberto stage V (adult) should be reached by age 18. Eosinophil percentageOrdered By: Adriana Paulette on 05-24-2024 Eosinophils/100 WBC (Bld) 1.5 % 0-5 [facility] Erythrocyte distribution wid th (RBC) [Ratio]Ordered By: Adriana Dickson on 05-24-2024 Erythrocyte distribution width (RBC) [Entitic vol] 40.7 fL 35.1-43.9 [facility] Erythrocyte distribution wid th ratioOrdered By: Adriana Paulette on 05-24-2024 Erythrocyte distribution width (RBC) [Ratio] 13.3 % 11.6-14.6 [facility] Erythrocyte distribution wid th standard deviationOrdered By: Adriana Paulette on 05-24-2024 Erythrocyte distribution width (RBC) [Ratio] 40.7 fl 35.1-43.9 [facility] Estradiolon 05-24-2024 ESTRADIOL 14.8 pg/mL Normal [facility] Comment on above: Result Comment: FEMA LES ADULT FEMALE: Premenopausal: 15-350 pg/mL(E2 levels vary widely through the menstrual cycle) Postmenopausal: <10 pg/mL GILBERTO STAGES MEAN AGE REFERENCE RANGES Stage I(>14 days and prepubertal) 7.1 years Undetectable-20 pg/mLL Stage II 10.5 years Undetectable-24 pg/mL Stage III 11.6 years Undetectable-60 pg/mL Stage IV 12.3 years 15-85 pg/mL Stage V 14.5 years 15-350 pg/mL Puberty onset (transition from Gilberto stage I to Gilberto stage II) occurs for girls at a median age of 10.5 (/- 2) years. There is evidence that it may occur up to 1 year earlier in obese girls and in girls. Progression through Gilberto stages is variable. Gilberto stage V (adult) should be reached by age 18. Performed By: #### L 509.3001, L3400.4800, L3100.5400, L3100.9000, L100.0100, L3100.5125, L3300.1750, L501.9520, L501.9985 ####[facility] [address] [place], [place], [id number] Follicle Stimulating Hormone on 05-24-2024 FSH 2.1 mIU/mL Normal [facility] Comment on above: Result Comment: FEMA LE: Follicular: 1.4 - 18.1 mIU/mL Midcycle: 3.4 - 33.4 mIU/mL Luteal: 1.5 - 9.1 mIU/mL Post Menopause: 23.0 - 116.3 mIU/mL MALE: 1.4 - 18.1 mIU/mL NORMAL REFERENCE RANGES FEMALE FOLLICULAR 2.3 - 12.6 mIU/mL MID-CYCLE PEAK 5.2 - 17.5 mIU/mL LUTEAL 1.7 - 12.9 mIU/mL POST-MENOPAUSAL ON MHT 5.9 - 72.8 mIU/mL NOT ON MHT 12.7 - 132.2 mlU/mL MALE 0.7 - 10.8 mIU/mL Performed By: #### L 509.3001, L3400.4800, L3100.5400, L3100.9000, L100.0100, L3100.5125, L3300.1750, L501.9520, L501.9985 ####[facility] [address] [place], [place], [phone] Follicle stimulating hormone (FSH) levelOrdered By: Adriana Dickson on 05-24-2024 Follicle Stimulating Hormone 2.1 mIU/mL [facility] Comment on above: FEMALE:Follicular: 1 .4 - 18.1 mIU/mLMidcycle: 3.4 - 33.4 mIU/mLLuteal: 1.5 - 9.1 mIU/mLPost Menopause: 23.0 - 116.3 mIU/mLMALE: 1.4 - 18.1 mIU/mL NORMAL REFERENCE RANGES FEMALE FOLLICULAR 2.3 - 12.6 mIU/mL MID-CYCLE PEAK 5.2 - 17.5 mIU/mL LUTEAL 1.7 - 12.9 mIU/mL POST-MENOPAUSAL ON MHT 5.9 - 72.8 mIU/mL NOT ON MHT 12.7 - 132.2 mlU/mL MALE 0.7 - 10.8 mIU/mL Hematocrit Auto (Bld) [Volum e fraction]Ordered By: Adriana Dickson on 05-24-2024 Hematocrit (Bld) [Volume fraction] 30.7 % Low 37-47 [facility] Hemoglobin A1con 05-24-2024 HbA1c (Bld) [Mass fraction] 6.8 % High <=5.6 [facility] Comment on above: Result Comment: Norm al < 5.7 % Prediabetic 5.7 - 6.4 % Diabetic >or= 6.5 % Please note range changes. Performed By: #### L 509.3001, L3400.4800, L3100.5400, L3100.9000, L100.0100, L3100.5125, L3300.1750, L501.9520, L501.9985 ####[facility] [address] [place], [address] Hemoglobin A1c percentageOrd ered By: Adriana Dickson on 05-24-2024 HbA1c (Bld) [Mass fraction] 6.8 % High <5.7 [facility] Comment on above: Normal < 5.7 % Predi abetic 5.7 - 6.4 % Diabetic >or= 6.5 % Please note range changes. Hemoglobin measurementOrdere d By: Adriana Dickson on 05-24-2024 Hemoglobin (Bld) [Mass/Vol] 9.7 g/dL Low 12.0-15.0 [facility] Immature granulocytes/100 WB C Auto (Bld)Ordered By: Adriana Dickson on 05-24-2024 Immature granulocytes/100 WBC (Bld) 1.100 % High 0.0-0.9 [facility] Comment on above: IG% - Immature Granu locytes (promyelocytes, myelocytes and metamyelocytes) > 1% indicates that a LEFT SHIFT is Present. L509.3001on 05-24-2024 Testosterone [Mass/Vol] 62.70 ng/dL High 9-58 [facility] Comment on above: Performed By: #### L 509.3001, L3400.4800, L3100.5400, L3100.9000, L100.0100, L3100.5125, L3300.1750, L501.9520, L501.9985 ####[facility] [address] [place], [address] Laboratory - Chemistry and C hemistry - challengeOrdered By: Adriana Dickson on 05-24-2024 Testosterone [Mass/Vol] 62.70 ng/dL High 9-58 [facility] Lymphocytes Auto (Unsp spec) [#/Vol]Ordered By: Adriana Dickson on 05-24-2024 Lymphocytes (Bld) [#/Vol] 3.08 10*3/uL 0.83-4.51 [facility] Lymphocytes/100 WBC Auto (Un sp spec)Ordered By: Adriana Dickson on 05-24-2024 Lymphocytes/100 WBC (Bld) 26.6 % 19-41 [facility] MCV (mean corpuscular volume ) determinationOrdered By: Adriana Dickson on 05-24-2024 MCV (RBC) [Entitic vol] 83.2 fL 81-99 [facility] Mean corpuscular hemoglobin (MCH) determinationOrdered By: Adriana Dickson on 05-24-2024 MCH (RBC) [Entitic mass] 26.3 pg Low 27.0-32.0 [facility] Mean corpuscular hemoglobin concentration (MCHC) determinationOrdered By: Adriana Dickson on 05-24-2024 MCHC (RBC) [Mass/Vol] 31.6 g/dL Low 32-36 [facility] Mean platelet volume determi nationOrdered By: Adriana Dickson on 05-24-2024 Platelet mean volume (Bld) [Entitic vol] 10.4 fL 6.2-12.0 [facility] Monocyte percentageOrdered B y: Adriana Dickson on 05-24-2024 Monocytes/100 WBC (Bld) 7.4 % 0-10 [facility] Neutrophil percentageOrdered By: Adriana Dickson on 05-24-2024 Neutrophils/100 WBC (Bld) 62.4 % 47-70 [facility] Nucleated red blood cell per centageOrdered By: Adriana Dickson on 05-24-2024 Nucleated RBC/100 WBC (Bld) [Ratio] 0 % 0-5 [facility] 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 Adriana harding MD Age/Sex: 24/F [place] [facility] [place]: Signed Intake Vital Signs 05/14/24 13:26 05/24/24 11:59 05/24/24 12:06 Height 5 ft 2 in 5 ft 2 in 5 ft 2 in Weight: 286 lb 2 oz BMI 52.3 BP 150/95 H Intake Visit Reasons: ER F/U PT STATED WAS TOLD THIS DAY FROM PER ER [employer] [employer] Required: No Is patient in pain?: No Allergies No Known Allergies Allergy (Verified 05/24/24 12:03) Medications ???Medication ???Instructions ???Recorded ???Confirmed ???Type aripiprazole 2 mg tablet 2 mg PO DAILY 12/23/22 05/24/24 Hi story escitalopram oxalate 20 mg tablet 20 mg PO DAILY 12/23/22 05/24/24 History dicyclomine 10 mg capsule 20 mg (2 x 10 mg) PO Q6H PRN PRN 1 02/26/22 05/24/24 Rx abdominal pain #20 CAPSULES pantoprazole 40 mg tablet,delayed 40 mg PO DAILY #30 tabs 12/27/22 05/24/24 Rx release norethindrone acetate 5 mg tablet 5 mg PO DAILY #30 tabs 05/24/24 0 05/24/24 Rx Is last menstrual period known: No Post menopausal: No Patient : No : No PFSH Medical History COVID-19 Hypertension 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 Depression Preeclampsia, severe Hypertension affecting in third trimester Surgical History History of delivery Family History Grandmother Diabetes Other Asthma Cancer Hypertension Thyroid disorder Social History (Updated 05/24/24 @ 12:05 by Chantelle Lynn) number of children: 1 current occupational status: unemployed Smoking Status: Never smoker alcohol intake: current alcohol intake frequency: a few times a month Alcohol type: other substance use type: does not use caffeine: Yes what type of physical activity do you participate in: none seatbelt use: always do you feel safe at home: Yes additional social history: Single Patient does not work HPI ER F/U PT STATED WAS TOLD THIS DAY FROM PER ER Details: NEVAEH WALL is a 24 year old who presents for heavy vaginal bleeding, anemia. she skipped a menses and then had heavy bl;eeding for 14 days, presented to the ER and was put on aygestin. now she isn't bleeding, open to going on contorl. she does have uncontorlled HTN, needs to establish with PCP. History 1 Elective abortions Hx Para 1 Spontaneous abortions Hx # Term Pregnancies Ectopic pregnancies Hx # Pregnancies Multiple births # of living children 1 Past Pregnancies Del. Date Name GA/Weeks Outcome Route Bth Weight Infant Gen Labor Lgth Anesthesia Del Locatn Provider FOB 09/17/18 Basilio 34 live - 4lbs 2oz Male spinal WC S EM Delivery Date: 09/17/18 Last Updated by: Hilda Dinh cHTN w/SI severe pre eclampsia at 34 weeks. CPD;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 [Entitic vol] 87.9 fL 81-99 [facility] Hematocrit Auto (Bld) [Volum e fraction]Ordered By: Jonatan Trujillo on 12-27-2022 Hematocrit (Bld) [Volume fraction] 35.5 % 37-47 [facility] Laboratory - Chemistry and C hemistry - challengeOrdered By: Jonatandwain Trujillo on 12-27-2022 ALP [Catalytic activity/Vol] 101 U/L 45-117 [facility] ALT [Catalytic activity/Vol] 22 U/L 13-56 [facility] CO2 [Moles/Vol] 26.0 mmol/L 21.0-32.0 [facility] Globulin (S) [Mass/Vol] 4.1 g/dL 2.2-4.2 [facility] Lipase [Catalytic activity/Vol] 29 U/L 13-75 [facility] Comment on above: Please note:LIPASE r evised reference range effective 22. New Lipase methodology. Expected to produce lower values than the previous assay method. NEW Reference Range: 13 - 75 U/L Urea nitrogen/Creatinine [Mass ratio] 22.3 mg/mg 10-20 [facility] Laboratory - Hematology and Cell countsOrdered By: Jonatan Trujillo on 12-27-2022 Erythrocyte distribution width (RBC) [Entitic vol] 42.6 fL 35.1-43.9 [facility] Erythrocyte distribution width (RBC) [Ratio] 13.2 % 11.6-14.6 [facility] Immature granulocytes/100 WBC (Bld) 0.800 % 0.0-0.9 [facility] Comment on above: IG% - Immature Granu locytes (promyelocytes, myelocytes and metamyelocytes) > 1% indicates that a LEFT SHIFT is Present. MCH (RBC) [Entitic mass] 27.5 pg 27.0-32.0 [facility] Nucleated RBC/100 WBC (Bld) [Ratio] 0 % 0-5 [facility] MCHC Auto (RBC) [Mass/Vol]Or dered By: Jonatan Trujillo on 12-27-2022 MCHC (RBC) [Mass/Vol] 31.3 g/dL 32-36 [facility] No Panel InformationOrdered By: Jonatan Trujillo on 12-27-2022 Estimated Creatinine Clearance Calc 95.29 ml/min [facility] Estimated GFR (MDRD) Amer 127 mL/min >60 [facility] Comment on above: GFR Calc Estimated GFR (MDRD) Non-Af Amer 105 mL/min >60 [facility] Comment on above: Non- GFR Calc Platelets bldOrdered By: John Trujillo on 12-27-2022 Platelets (Bld) [#/Vol] 376 10*3/uL 150-450 [facility] Serum or plasma albumin jay urement (mass/volume)Ordered By: Jonatan Trujillo on 12-27-2022 Albumin [Mass/Vol] 3.3 g/dL 3.2-5.0 [facility] Serum or plasma albumin/glob ulin mass ratioOrdered By: Jonatan Trujillo on 12-27-2022 Albumin/Globulin [Mass ratio] 0.8 {ratio} 0.9-2.4 [facility] Serum or plasma calcium jay urement (mass/volume)Ordered By: Jonatan Trujillo on 12-27-2022 Calcium [Mass/Vol] 9.6 mg/dL 8.5-10.1 [facility] Serum or plasma creatinine m easurement (mass/volume)Ordered By: Jonatan Trujillo on 12-27-2022 Creatinine [Mass/Vol] 0.72 mg/dL 0.55-1.02 [facility] Comment on above: The validity of the calculated GFR & GFRAA in patients over 70 years has not been determined. Clinical correlation is essential. Serum or plasma urea nitroge n measurement (mass/volume)Ordered By: Jonatan Trujillo on 12-27-2022 Urea nitrogen [Mass/Vol] 16 mg/dL 7-18 [facility] Thin prep Papanicolaou smear with manual screeningOrdered By: Jonatan Trujillo on 12-27-2022 Thin prep Papanicolaou smear with manual screening 11 U/L 15-37 [facility] Thin prep Papanicolaou smear with manual screening 4 5-15 [facility] Absolute lymphocyte countOrd ered By: ED PROVIDER on 12-25-2022 Lymphocytes Auto (Unsp spec) [#/Vol] 3.47 10*3/uL 0.83-4.51 [facility] Basophil percentageOrdered B y: ED PROVIDER on 12-25-2022 Basophil percentage 0-5 SEEN /hpf 0-5 [facility] Basophils/100 WBC (Bld) 0.7 % 0-1 [facility] Chloride [Moles/Vol] 106 mmol/L 98-107 [facility] Eosinophils/100 WBC (Bld) 1.2 % 0-5 [facility] Glucose [Mass/Vol] 113 mg/dL 74-106 [facility] Comment on above: Fasting Glucose resu lt from 100 to 125 mg/dL suggests IMPAIRED HOMEOSTASIS per A.D.A. criteria. Neutrophils (Bld) [#/Vol] 9.6 10*3/uL 2.0-7.7 [facility] Neutrophils/100 WBC (Bld) 65.7 % 47-70 [facility] Potassium [Moles/Vol] 4.1 mmol/L 3.5-5.1 [facility] Sodium [Moles/Vol] 136 mmol/L 136-145 [facility] WBC (Bld) [#/Vol] 14.6 10*3/uL 4.4-11.0 [facility] Basophil percentageOrdered B y: Imtiaz Reyes on 12-25-2022 Bilirubin [Mass/Vol] 0.20 mg/dL 0.20-1.00 [facility] Comment on above: For patients on eltr ombopag therapy, use of Dimension [place] TBIL is not recommended. Protein [Mass/Vol] 7.7 g/dL 6.4-8.2 [facility] Bilirubin Test strip Ql (U)O rdered By: ED PROVIDER on 12-25-2022 Bilirubin Ql (U) Negative Negative [facility] Blood erythrocytes count (nu mber/volume)Ordered By: ED PROVIDER on 12-25-2022 RBC (Bld) [#/Vol] 4.21 10*6/uL 4.2-5.4 [facility] Blood hemoglobin measurement (mass/volume)Ordered By: ED PROVIDER on 12-25-2022 Hemoglobin (Bld) [Mass/Vol] 12.2 g/dL 12.0-15.0 [facility] Blood lymphocytes/100 leukoc ytesOrdered By: ED PROVIDER on 12-25-2022 Lymphocytes/100 WBC (Bld) 23.8 % 19-41 [facility] Blood monocytes/100 leukocyt esOrdered By: ED PROVIDER on 12-25-2022 Monocytes/100 WBC (Bld) 7.7 % 0-10 [facility] Blood platelet mean volumeOr dered By: ED PROVIDER on 12-25-2022 Platelet mean volume (Bld) [Entitic vol] 10.1 fL 6.2-12.0 [facility] Determination of erythrocyte mean corpuscular volume (MCV)Ordered By: ED PROVIDER on 12-25-2022 MCV (RBC) [Entitic vol] 91.7 fL 81-99 [facility] Direct bilirubinOrdered By: Imtiaz Reyes on 12-25-2022 Bilirubin.direct [Mass/Vol] 0.08 mg/dL 0.00-0.30 [facility] Hematocrit Auto (Bld) [Volum e fraction]Ordered By: ED PROVIDER on 12-25-2022 Hematocrit (Bld) [Volume fraction] 38.6 % 37-47 [facility] Ketones Test strip Ql (U)Ord ered By: ED PROVIDER on 12-25-2022 Ketones Ql (U) Negative Negative [facility] Laboratory - Chemistry and C hemistry - challengeOrdered By: ED PROVIDER on 12-25-2022 HCG ( test) Ql (U) Negative [facility] Comment on above: Very dilute urine sp ecimens, as indicated by a low specificgravity, may not contain retail wireless sales representative levels of hCG. If is still suspected, a first morning urinespecimen should be collected 48 hours later and tested. CO2 [Moles/Vol] 26.0 mmol/L 21.0-32.0 [facility] Urea nitrogen/Creatinine [Mass ratio] 17.7 mg/mg 10-20 [facility] Laboratory - Chemistry and C hemistry - challengeOrdered By: Imtiaz Reyes on 12-25-2022 ALP [Catalytic activity/Vol] 100 U/L 45-117 [facility] ALT [Catalytic activity/Vol] 24 U/L 13-56 [facility] Globulin (S) [Mass/Vol] 4.3 g/dL 2.2-4.2 [facility] Lipase [Catalytic activity/Vol] 22 U/L 13-75 [facility] Comment on above: Please note:LIPASE r evised reference range effective 22. New Lipase methodology. Expected to produce lower values than the previous assay method. NEW Reference Range: 13 - 75 U/L Laboratory - Hematology and Cell countsOrdered By: ED PROVIDER on 12-25-2022 Erythrocyte distribution width (RBC) [Entitic vol] 45.0 fL 35.1-43.9 [facility] Erythrocyte distribution width (RBC) [Ratio] 13.3 % 11.6-14.6 [facility] Immature granulocytes/100 WBC (Bld) 0.900 % 0.0-0.9 [facility] Comment on above: IG% - Immature Granu locytes (promyelocytes, myelocytes and metamyelocytes) > 1% indicates that a LEFT SHIFT is Present. MCH (RBC) [Entitic mass] 29.0 pg 27.0-32.0 [facility] Nucleated RBC/100 WBC (Bld) [Ratio] 0 % 0-5 [facility] MCHC Auto (RBC) [Mass/Vol]Or dered By: ED PROVIDER on 12-25-2022 MCHC (RBC) [Mass/Vol] 31.6 g/dL 32-36 [facility] Mucus LM Ql (Urine sed)Order ed By: ED PROVIDER on 12-25-2022 Mucus Ql (Urine sed) 0 SEEN /hpf [facility] Nitrite Test strip Ql (U)Ord ered By: ED PROVIDER on 12-25-2022 Nitrite Ql (U) Negative Negative [facility] No Panel InformationOrdered By: ED PROVIDER on 12-25-2022 Estimated Creatinine Clearance Calc 93.99 ml/min [facility] Estimated GFR (MDRD) Amer 124 mL/min >60 [facility] Comment on above: GFR Calc Estimated GFR (MDRD) Non-Af Amer 103 mL/min >60 [facility] Comment on above: Non- GFR Calc Platelets bldOrdered By: ED PROVIDER on 12-25-2022 Platelets (Bld) [#/Vol] 326 10*3/uL 150-450 [facility] Protein Test strip Ql (U)Ord ered By: ED PROVIDER on 12-25-2022 Protein Ql (U) 30 mg/dl Negative [facility] Serum or plasma albumin jay urement (mass/volume)Ordered By: Imtiaz Reyes on 12-25-2022 Albumin [Mass/Vol] 3.4 g/dL 3.2-5.0 [facility] Serum or plasma calcium jay urement (mass/volume)Ordered By: ED PROVIDER on 12-25-2022 Calcium [Mass/Vol] 9.0 mg/dL 8.5-10.1 [facility] Serum or plasma creatinine m easurement (mass/volume)Ordered By: ED PROVIDER on 12-25-2022 Creatinine [Mass/Vol] 0.73 mg/dL 0.55-1.02 [facility] Comment on above: The validity of the calculated GFR & GFRAA in patients over 70 years has not been determined. Clinical correlation is essential. Serum or plasma urea nitroge n measurement (mass/volume)Ordered By: ED PROVIDER on 12-25-2022 Urea nitrogen [Mass/Vol] 13 mg/dL 7-18 [facility] Squamous epithelial cells de tection in urine sediment by light microscopyOrdered By: ED PROVIDER on 12-25-2022 Epithelial cells.squamous LM Ql (Urine sed) 0-5 SEEN /hpf 5-10 [facility] Thin prep Papanicolaou smear with manual screeningOrdered By: Imtiaz Reyes on 12-25-2022 Thin prep Papanicolaou smear with manual screening 15 U/L 15-37 [facility] Thin prep Papanicolaou smear with manual screeningOrdered By: ED PROVIDER on 12-25-2022 Thin prep Papanicolaou smear with manual screening 4 5-15 [facility] Urine blood detectionOrdered By: ED PROVIDER on 12-25-2022 RBC Ql (U) Negative Negative [facility] RBC Ql (U) 0 SEEN /hpf 0-5 [facility] Urine clarityOrdered By: ED PROVIDER on 12-25-2022 Clarity (U) Clear Clear [facility] Urine color determinationOrd ered By: ED PROVIDER on 12-25-2022 Color (U) Yellow Yellow [facility] Urine glucose detectionOrder ed By: ED PROVIDER on 12-25-2022 Glucose Ql (U) Normal mg/dl Normal [facility] Urine leukocyte esterase det ection by dipstickOrdered By: ED PROVIDER on 12-25-2022 Leukocyte esterase Test strip Ql (U) 100 /ul Negative [facility] Urine pHOrdered By: ED PROVI OMID on 12-25-2022 pH (U) 5.0 [pH] 5.0 - 8.0 [facility] Urine sediment bacteria coun t by microscopy (number/high power field)Ordered By: ED PROVIDER on 12-25-2022 Bacteria LM.HPF (Urine sed) [#/Area] 1 /[HPF] None Seen [facility] Urine specific gravity measu rementOrdered By: ED PROVIDER on 12-25-2022 Specific gravity (U) [Rel density] 1.025 1.002-1.03 0 [facility] Urobilinogen Auto test strip Ql (U)Ordered By: ED PROVIDER on 12-25-2022 Urobilinogen Ql (U) Normal mg/dl Normal [facility] Basophil percentageOrdered B y: Robb Mercado on 12-23-2022 Basophil percentage 0-5 SEEN /hpf 0-5 [facility] Bilirubin Test strip Ql (U)O rdered By: Robb Mercado on 12-23-2022 Bilirubin Ql (U) Negative Negative [facility] CNOVon 12-23-2022 CNOV Office Visit (UCWSTR ) -- NEVAEH WALL ([id number]) 2000 F Homeless Date Time Provider Department 12/23/22 3:30 PM HUNG ROLAND [facility] During your visit today, we recorded the following information about you: Hung Roland APRN.WOOL HANKER 12/23/2022 3:37 PM Signed Nontoxic-appearing female presents urgent care chief complaint [...] agrees with plan of care. Hung Roland APRN.WOOL HANKER Allergies As of Date: 12/23/2022 (No Known Allergies) Date Reviewed: 12/19/2022 Reviewed by: Sisi Leach LPN - Fully Assessed Primary Visit Diagnosis:Procedure not carried out [Z53.9] Prescriptions as of 12/23/2022 - erythromycin (ROMYCIN) 5 mg/gram (0.5 %) ophthalmic ointment Use 1 application in the right eye four times daily for 7 days. - ARIPiprazole (ABILIFY) 20 mg tablet Take 20 mg by mouth once daily. - buPROPion XL (WELLBUTRIN XL) 150 mg 24 hr tablet Take 150 mg by mouth once daily. - ibuprofen (MOTRIN) 800 mg tablet Take 1 tablet by mouth every 8 hours as needed for pain. Take with food. - FLUOXETINE HCL (FLUOXETINE ORAL) Take 20 mg by mouth. Problem List As Of Date 12/23/2022 Noted Resolved Obesity, Class III, BMI >= 40 [E66.01] 12/19/2019 Major depressive disorder [F32.9] 12/19/2019 Encounter Status:Closed by HUNG ROLAND on 12/23/22 Normal [facility] Ketones Test strip Ql (U)Ord ered By: Robb Mercado on 12-23-2022 Ketones Ql (U) Negative Negative [facility] Laboratory - Chemistry and C hemistry - challengeOrdered By: Robb Mercado on 12-23-2022 HCG ( test) Ql (U) Negative [facility] Comment on above: Very dilute urine sp ecimens, as indicated by a low specificgravity, may not contain retail wireless sales representative levels of hCG. If is still suspected, a first morning urinespecimen should be collected 48 hours later and tested. Mucus LM Ql (Urine sed)Order ed By: Robb Mercado on 12-23-2022 Mucus Ql (Urine sed) 0 SEEN /hpf [facility] Nitrite Test strip Ql (U)Ord ered By: Robb Mercado on 12-23-2022 Nitrite Ql (U) Negative Negative [facility] Protein Test strip Ql (U)Ord ered By: Robb Mercado on 12-23-2022 Protein Ql (U) 30 mg/dl Negative [facility] Squamous epithelial cells de tection in urine sediment by light microscopyOrdered By: Robb Mercado on 12-23-2022 Epithelial cells.squamous LM Ql (Urine sed) 0-5 SEEN /hpf 5-10 [facility] Urine blood detectionOrdered By: Robb Mercado on 12-23-2022 RBC Ql (U) Negative Negative [facility] RBC Ql (U) 0 SEEN /hpf 0-5 [facility] Urine clarityOrdered By: Placido Mercado on 12-23-2022 Clarity (U) Clear Clear [facility] Urine color determinationOrd ered By: Robb Mercado on 12-23-2022 Color (U) Yellow Yellow [facility] Urine glucose detectionOrder ed By: Robb Mercado on 12-23-2022 Glucose Ql (U) Normal mg/dl Normal [facility] Urine leukocyte esterase det ection by dipstickOrdered By: Robb Mercado on 12-23-2022 Leukocyte esterase Test strip Ql (U) 25 /ul Negative [facility] Urine pHOrdered By: Robb honeycutt on 12-23-2022 pH (U) 6.0 [pH] 5.0 - 8.0 [facility] Urine sediment bacteria coun t by microscopy (number/high power field)Ordered By: Robb Mercado on 12-23-2022 Bacteria LM.HPF (Urine sed) [#/Area] 1 /[HPF] None Seen [facility] Urine specific gravity measu rementOrdered By: Robb Mercado on 12-23-2022 Specific gravity (U) [Rel density] 1.020 1.002-1.03 0 [facility] Urobilinogen Auto test strip Ql (U)Ordered By: Robb Mercado on 12-23-2022 Urobilinogen Ql (U) Normal mg/dl Normal [facility] CNOVon 12-19-2022 CNOV Office Visit (UCWSTR ) -- NEVAEH WALL ([id number]) 2000 F Homeless Date Time Provider Department 12/19/22 12:15 PM KANDY FITZPATRICK [facility] During your visit today, we recorded the following information about you: Temperature Pulse Respiration Blood pressure 97.7 degrees 81/minute 20/minute 138/83 Weight Last Period 124.7 kg 11/30/22 Kandy Fitzpatrick APRN.WOOL HANKER 12/19/2022 12:30 PM Signed Subjective She came in with complaints of [...] history is provided by the patient. No speech and language specialist was used. Eye Problem Review of Systems [...] discard her make-up and get new make-up. Kandy Fitzpatrick APRN.WOOL HANKER Allergies As of Date: 12/19/2022 (No Known Allergies) Date Reviewed: 12/19/2022 Reviewed by: Siis Leach LPN - Fully Assessed Reason for Visit: Eye Problem [43] Cmt: R eye, blurred vision and watery since today Primary Visit Diagnosis:Eye irritation [H57.89] Order(s):erythromycin (ROMYCIN) 5 mg/gram (0.5 %) ophthalmic ointmentUse 1 application in the right eye four times daily for 7 days.Disp: 3.5 gRfl: 0 Prescriptions as of 12/19/2022 - erythromycin (ROMYCIN) 5 mg/gram (0.5 %) ophthalmic ointment Use 1 application in the right eye four times daily for 7 days. - ARIPiprazole (ABILIFY) 20 mg tablet Take 20 mg by mouth once daily. - buPROPion XL (WELLBUTRIN XL) 150 mg 24 hr tablet Take 150 mg by mouth once daily. - ibuprofen (MOTRIN) 800 mg tablet Take 1 tablet by mouth every 8 hours as needed for pain. Take with food. - FLUOXETINE HCL (FLUOXETINE ORAL) Take 20 mg by mouth. Problem List As Of Date 12/19/2022 Noted Resolved Obesity, Class III, BMI >= 40 [E66.01] 12/19/2019 Major depressive disorder [F32.9] 12/19/2019 Prescriptions ordered this encounter Disp Refills Start End ERYTHROMYCIN 5 MG/GRAM (0.5 %) EYE O* 3.5 g 0 12/19/2022 12/26/2022 Route: RIGHT EYE Sig: Use 1 application in the right eye four times daily for 7 days. Letter Text Encounter Status:Closed by KANDY FITZPATRICK on 12/19/22 [facility] David 12-12-2022 CNOV Office Visit (UCWSTR ) -- NEVAEH WALL ([id number]) 2000 F Homeless Date Time Provider Department 12/12/22 7:45 AM LIONEL GREY [facility] During your visit today, we recorded the following information about you: Temperature Pulse Respiration Blood pressure 97.4 degrees 120/minute 22/minute 120/80 Weight 119.3 kg Lionel Grey APRN.CNP 12/12/2022 7:54 AM Signed RESPIRATORY INFECTION GENERAL INFORMATION: An upper respiratory [...] by coughs, sneezes, and direct contact, especially [id number]. A respiratory tract infection usually clears up [...] a temperature over 102 F (39 C). Lionel Grey APRN.CNP 12/12/2022 11:16 AM Signed Subjective HPI HPI Nevaeh Wall is a 22 year old female who [...] Rate and Rhythm: Normal rate and regular r (more content not included)... Normal [facility] COVID NAAT, UPPER RESPIRATOR Y, ROUTINEon 11-03-2023 SARS-CoV-2 (COVID-19) RNA RAFA+probe Ql (Resp) Not detected See comment [facility] ROUTINE FLU A/B + RSVon FLUAV RNA RAFA+probe Ql (Unsp spec) Not detected Not Detected [facility] FLUBV RNA RAFA+probe Ql (Unsp spec) Not detected Not Detected [facility] RSV A RNA RAFA+probe Ql (Unsp spec) Not detected Not Detected [facility] FLUAV RNA RAFA+probe Ql (Unsp spec) Not detected Normal Not Detected [facility] Comment on above: Order Comment: Speci men Type: SWAB OF INTERNAL NOSEOrdering Facility: [facility] Address: [address] [place] [address] Performed By: #### R TFRSV, 70569-4 ####[facility] [id number] [place] [address] [place] FLUBV RNA RAFA+probe Ql (Unsp spec) Not detected Normal Not Detected [facility] Comment on above: Order Comment: Speci men Type: SWAB OF INTERNAL NOSEOrdering Facility: [facility] Address: [address] [place] [address] Performed By: #### R TFRSV, 18369-2 ####[facility] [id number] [place] [address] [place] RSV A RNA RAFA+probe Ql (Unsp spec) Not detected Normal Not Detected [facility] Comment on above: Order Comment: Speci men Type: SWAB OF INTERNAL NOSEOrdering Facility: [facility] Address: [address] [place] [address] Performed By: #### R TFRSV, 10271-5 ####[facility] [id number] [place] [address] [place] SARS-CoV-2 RNA Resp Ql RAFA+p robeon 12-12-2022 SARS-CoV-2 (COVID-19) RNA RAFA+probe Ql (Resp) COVID 19 RESULT: Not detected The method used is RT-PCR or an equivalent NAAT method. Reference Range (the expected result in uninfected individuals): Not detected Normal [facility] Comment on above: Performed By: #### R TFRSV, 86557-9 ####[facility] [id number] [place] [id number] [place] CNOVon 10-27-2022 CNOV Office Visit ([facility] ) -- NEVAEH WALL ([id number]) 2000 F Homeless Date Time Provider Department 10/27/22 2:45 PM LOVE ALMARAZ [facility] During your visit today, we recorded the following information about you: Temperature Pulse Respiration Blood pressure 98.9 degrees 97/minute 18/minute 129/86 Weight 117 kg Love Almaraz APRN.WOOL HANKER 10/27/2022 3:08 PM Signed SUBJECTIVE: Nevaeh Wall is a 22 year old female. Who [...] is negative MDM: Patient presented to the [facility] today for strep testing. Testing was obtained and is negative. Vital signs were evaluated and found to be within normal limits. Nevaeh Wall was in no acute distress. We have [...] - STREP A MOLECULAR (POC) Love Almaraz APRN.WOOL HANKER Allergies As of Date: 10/27/2022 (No Known Allergies) Date Reviewed: 10/27/2022 Reviewed by: Karli Thrasher MA - Fully Assessed Reason for Visit: Cough [28] Cmt: ST, congestion x1 day Primary Visit Diagnosis:Sore throat [J02.9] Order(s):STREP A MOLECULAR (POC) [3285096] Order #: [id number]. #:[id number] Prescriptions as of 10/27/2022 - ARIPiprazole (ABILIFY) 20 mg tablet Take 20 mg by mouth once daily. - buPROPion XL (WELLBUTRIN XL) 150 mg 24 hr tablet Take 150 mg by mouth once daily. - ibuprofen (MOTRIN) 800 mg tablet Take 1 tablet by mouth every 8 hours as needed for pain. Take with food. - FLUOXETINE HCL (FLUOXETINE ORAL) Take 20 mg by mouth. Problem List As Of Date 10/27/2022 Noted Resolved Obesity, Class III, BMI >= 40 [E66.01] 12/19/2019 Major depressive disorder [F32.9] 12/19/2019 Letter Text Encounter Status:Closed by LOVE ALMARAZ on 10/27/22 Normal [facility] STREP A MOLECULAR (POC)on Procedural Control Valid [facility] Strep A (POCT) Negative Negative [facility] .Auto Diffon 11-23-2019 Ammonia (P) [Mass/Vol] 0.70 10 3/mcL Normal 0.15-1.00 [facility] ([place] Comment on above: Performed By: #### G FR, CMP, LIPID, TSH, ANEU, ADIFF, CBC #### [address] [address] #### A1C #### [address] [address] Basophils (Bld) [#/Vol] 0.10 10 3/mcL Normal 0.00-0.19 [facility] ([place] Comment on above: Performed By: #### G FR, CMP, LIPID, TSH, ANEU, ADIFF, CBC #### [address] [address] #### A1C #### [address] [address] Basophils/100 WBC (Bld) 0.6 % Normal 0.0-2.5 [facility] ([place] Comment on above: Performed By: #### G FR, CMP, LIPID, TSH, ANEU, ADIFF, CBC #### [address] [address] #### A1C #### [address] [address] Eosinophils (Bld) [#/Vol] 0.10 10 3/mcL Normal 0.00-0.40 [facility] ([place]) Comment on above: Performed By: #### G FR, CMP, LIPID, TSH, ANEU, ADIFF, CBC #### [address] [address] #### A1C #### [address] [address] Eosinophils/100 WBC (Bld) 1.2 % Normal 0.0-7.0 [facility] ([place]) Comment on above: Performed By: #### G FR, CMP, LIPID, TSH, ANEU, ADIFF, CBC #### [place] [address] #### A1C #### [address] [address] Lymphocytes (Bld) [#/Vol] 3.40 10 3/mcL Normal 0.77-3.85 [facility] ([place]) Comment on above: Performed By: #### G FR, CMP, LIPID, TSH, ANEU, ADIFF, CBC #### [place] [address] #### A1C #### [address] [address] Lymphocytes/100 WBC (Bld) 27.8 % Normal 10.0-50.0 [facility] ([place]) Comment on above: Performed By: #### G FR, CMP, LIPID, TSH, ANEU, ADIFF, CBC #### [place] [address] #### A1C #### [address] [address] Monocytes/100 WBC (Bld) 5.9 % Normal 1.7-13.0 [facility] ([place] Comment on above: Performed By: #### G FR, CMP, LIPID, TSH, ANEU, ADIFF, CBC #### [place] [address] #### A1C #### [address] [address] Neutrophils/100 WBC (Bld) 64.5 % Normal 37.0-80.0 [facility] ([place] Comment on above: Performed By: #### G FR, CMP, LIPID, TSH, ANEU, ADIFF, CBC #### [address] [address] #### A1C #### [address] [address] .GFRon 11-23-2019 GFR 115 ml/min/1.73sqm Normal [facility] ([place] Comment on above: Result Comment: GFR Population mean for , Non- Americans Ages 20-29 = 116 mL/min/1.73 sq.m. Ages 30-39 = 107 mL/min/1.73 sq.m. Ages 40-49 = 99 mL/min/1.73 sq.m. Ages 50-59 = 93 mL/min/1.73 sq.m. Ages 60-69 = 85 mL/min/1.73 sq.m. Ages 70+ = 75 mL/min/1.73 sq.m. Chronic Kidney Disease: Less than 60 mL/min/1.73 square meters End Stage Renal Disease: Less than 15 mL/min/1.73 square meters Performed By: #### G FR, CMP, LIPID, TSH, ANEU, ADIFF, CBC #### [address] [address] #### A1C #### [address] [address] GFR Non- 95 ml/min/1.73sqm Normal [facility] ([place] Comment on above: Result Comment: GFR Population mean for , Non- Americans Ages 20-29 = 116 mL/min/1.73 sq.m. Ages 30-39 = 107 mL/min/1.73 sq.m. Ages 40-49 = 99 mL/min/1.73 sq.m. Ages 50-59 = 93 mL/min/1.73 sq.m. Ages 60-69 = 85 mL/min/1.73 sq.m. Ages 70+ = 75 mL/min/1.73 sq.m. Chronic Kidney Disease: Less than 60 mL/min/1.73 square meters End Stage Renal Disease: Less than 15 mL/min/1.73 square meters Performed By: #### G FR, CMP, LIPID, TSH, ANEU, ADIFF, CBC #### [place] [address] #### A1C #### [place] [address] .NEUABSon 11-23-2019 Neutrophils (Bld) [#/Vol] 7.80 10 3/mcL High 2.85-6.16 [facility] ([place] Comment on above: Performed By: #### G FR, CMP, LIPID, TSH, ANEU, ADIFF, CBC #### [place] [address] #### A1C #### [place] [address] A1Con 11-23-2019 HbA1c (Bld) [Mass fraction] 5.8 % Normal 4.3-6.4 [facility] ([place] Comment on above: Performed By: #### G FR, CMP, LIPID, TSH, ANEU, ADIFF, CBC #### [place] [address] #### A1C #### [place] [address] CBCon 11-23-2019 Erythrocyte distribution width (RBC) [Ratio] 14.4 % Normal 11.5-14.5 [facility] ([place] Comment on above: Performed By: #### G FR, CMP, LIPID, TSH, ANEU, ADIFF, CBC #### [place] [address] #### A1C #### [place] [address] Hematocrit (Bld) [Volume fraction] 37.0 % Normal 37.0-47.0 [facility] ([place] Comment on above: Performed By: #### G FR, CMP, LIPID, TSH, ANEU, ADIFF, CBC #### [place] [address] #### A1C #### [address] [address] Hemoglobin (Bld) [Mass/Vol] 11.8 G/dL Low 12.0-16.0 [facility] ([place] Comment on above: Performed By: #### G FR, CMP, LIPID, TSH, ANEU, ADIFF, CBC #### [address] [address] #### A1C #### [address] [address] MCH (RBC) [Entitic mass] 26.2 pg Low 27.0-31.2 [facility] ([place] Comment on above: Performed By: #### G FR, CMP, LIPID, TSH, ANEU, ADIFF, CBC #### [place] [id number] #### A1C #### [place] [address] MCHC (RBC) [Mass/Vol] 32.0 G/dL Low 33.0-37.0 [facility] ([place]) Comment on above: Performed By: #### G FR, CMP, LIPID, TSH, ANEU, ADIFF, CBC #### [place] [address] #### A1C #### [place] [address] MCV (RBC) [Entitic vol] 81.9 fL Normal 80.0-94.0 [facility] ([place] Comment on above: Performed By: #### G FR, CMP, LIPID, TSH, ANEU, ADIFF, CBC #### [place] [address] #### A1C #### [place] [address] Platelet mean volume (Bld) [Entitic vol] 8.4 fL Normal 7.4-10.4 [facility] ([place] Comment on above: Performed By: #### G FR, CMP, LIPID, TSH, ANEU, ADIFF, CBC #### [address] [place] [address] #### A1C #### [address] [address] Platelets (Bld) [#/Vol] 392 10 3/mcL Normal 130-400 [facility] ([place] Comment on above: Performed By: #### G FR, CMP, LIPID, TSH, ANEU, ADIFF, CBC #### [place] [address] #### A1C #### [address] [address] RBC (Bld) [#/Vol] 4.52 10 6/mcL Normal 4.20-5.40 [facility] ([place] Comment on above: Performed By: #### G FR, CMP, LIPID, TSH, ANEU, ADIFF, CBC #### [address] [address] #### A1C #### [place] [address] WBC (Bld) [#/Vol] 12.10 10 3/mcL High 4.60-10.80 [facility] ([place]) Comment on above: Performed By: #### G FR, CMP, LIPID, TSH, ANEU, ADIFF, CBC #### [address] [address] #### A1C #### [id number] [place] [address] 11-23-2019 Albumin [Mass/Vol] 3.8 G/dL Normal 3.5-5.0 [facility] ([place] Comment on above: Performed By: #### G FR, CMP, LIPID, TSH, ANEU, ADIFF, CBC #### [place] [address] #### A1C #### [place] [address] Albumin/Globulin [Mass ratio] 1.1 {ratio} Normal 1.1-2.5 [facility] ([place] Comment on above: Performed By: #### G FR, CMP, LIPID, TSH, ANEU, ADIFF, CBC #### [address] [address] #### A1C #### [address] [address] ALP [Catalytic activity/Vol] 103 U/L Normal 40-135 [facility] ([place] Comment on above: Performed By: #### G FR, CMP, LIPID, TSH, ANEU, ADIFF, CBC #### [place] [address] #### A1C #### [address] [address] ALT [Catalytic activity/Vol] 21 U/L Normal 14-59 [facility] ([place] Comment on above: Performed By: #### G FR, CMP, LIPID, TSH, ANEU, ADIFF, CBC #### [place] [address] #### A1C #### [address] [address] AST [Catalytic activity/Vol] 10 U/L Normal 10-40 [facility] ([place]) Comment on above: Performed By: #### G FR, CMP, LIPID, TSH, ANEU, ADIFF, CBC #### [place] [address] #### A1C #### [address] [address] Bili Total 0.3 mg/dL Normal 0.2-1.0 [facility] ([place] Comment on above: Result Comment: Use of this assay is not recommended for patients undergoing treatment with eltrombopag due to the potential for falsely elevated results. Performed By: #### G FR, CMP, LIPID, TSH, ANEU, ADIFF, CBC #### [place] [address] #### A1C #### [address] [address] Calcium [Mass/Vol] 9.5 mg/dL Normal 8.4-10.2 [facility] ([place] Comment on above: Performed By: #### G FR, CMP, LIPID, TSH, ANEU, ADIFF, CBC #### [address] [address] #### A1C #### [address] [address] Chloride [Moles/Vol] 104 mmol/L Normal 98-107 [facility] ([place] Comment on above: Performed By: #### G FR, CMP, LIPID, TSH, ANEU, ADIFF, CBC #### [place] [address] #### A1C #### [address] [address] CO2 [Moles/Vol] 28 mmol/L Normal 22-29 [facility] ([place] Comment on above: Performed By: #### G FR, CMP, LIPID, TSH, ANEU, ADIFF, CBC #### [place] [address] #### A1C #### [place] [address] Creatinine [Mass/Vol] 0.77 mg/dL Normal 0.55-1.02 [facility] ([place] Comment on above: Performed By: #### G FR, CMP, LIPID, TSH, ANEU, ADIFF, CBC #### [place] [address] #### A1C #### [address] [address] Electrolyte Balance 9.0 mEq/L Normal [facility] ([place] Comment on above: Performed By: #### G FR, CMP, LIPID, TSH, ANEU, ADIFF, CBC #### [place] [address] #### A1C #### [place] [id number] Globulin (S) [Mass/Vol] 3.4 G/dL Normal A [facility] ([place] Comment on above: Performed By: #### G FR, CMP, LIPID, TSH, ANEU, ADIFF, CBC #### [place] [address] #### A1C #### [address] [address] Glucose [Mass/Vol] 104 mg/dL Normal 70-105 [facility] ([place] Comment on above: Performed By: #### G FR, CMP, LIPID, TSH, ANEU, ADIFF, CBC #### [address] [address] #### A1C #### [address] [address] Potassium [Moles/Vol] 5.2 mmol/L High 3.5-5.1 [facility] ([place] Comment on above: Performed By: #### G FR, CMP, LIPID, TSH, ANEU, ADIFF, CBC #### [address] [address] #### A1C #### [address] [address] Protein [Mass/Vol] 7.2 G/dL Normal 6.4-8.2 [facility] ([place] Comment on above: Performed By: #### G FR, CMP, LIPID, TSH, ANEU, ADIFF, CBC #### [address] [address] #### A1C #### [address] [address] Sodium [Moles/Vol] 141 mmol/L Normal 136-145 [facility] ([place] Comment on above: Performed By: #### G FR, CMP, LIPID, TSH, ANEU, ADIFF, CBC #### [address] [address] #### A1C #### [address] [address] Urea nitrogen [Mass/Vol] 13 mg/dL Normal 7-18 [facility] ([place] Comment on above: Performed By: #### G FR, CMP, LIPID, TSH, ANEU, ADIFF, CBC #### [address] [address] #### A1C #### [address] [address] Urea nitrogen/Creatinine [Mass ratio] 17 ratio Normal 7-27 [facility] ([place] Comment on above: Performed By: #### G FR, CMP, LIPID, TSH, ANEU, ADIFF, CBC #### [address] [address] #### A1C #### [address] [address] LIPIDon 11-23-2019 Cholesterol [Mass/Vol] 159 mg/dL Normal 0-200 [facility] ([place] Comment on above: Result Comment: Chol esterol Reference Interval: Less than 200 Desirable 200-239 Borderline high risk 240 and above High risk Performed By: #### G FR, CMP, LIPID, TSH, ANEU, ADIFF, CBC #### [address] [address] #### A1C #### [address] [address] Cholesterol in HDL [Mass/Vol] 58 mg/dL Normal 40-60 [facility] ([place] Comment on above: Performed By: #### G FR, CMP, LIPID, TSH, ANEU, ADIFF, CBC #### [address] [address] #### A1C #### [address] [address] Cholesterol in LDL [Mass/Vol] 79 mg/dL Normal 0-130 [facility] ([place] Comment on above: Performed By: #### G FR, CMP, LIPID, TSH, ANEU, ADIFF, CBC #### [address] [address] #### A1C #### [address] [address] Triglyceride [Mass/Vol] 109 mg/dL Normal 0-150 [facility] ([place]) Comment on above: Result Comment: Trig lyceride Reference Interval: Less than 150 Normal 150-199 Borderline high risk 200-499 High risk 500 or higher Very high risk Performed By: #### G FR, CMP, LIPID, TSH, ANEU, ADIFF, CBC #### [address] [address] #### A1C #### [address] [address] TSHon 11-23-2019 TSH Qn 3.66 mcIU/mL Normal 0.36-3.74 [facility] ([place] Comment on above: Performed By: #### G FR, CMP, LIPID, TSH, ANEU, ADIFF, CBC #### [address] [address] #### A1C #### [address] [address] Vital Signs Date Time Vital Sign Value Performing Clinician Facility 07-11-2024 09:10-0400 Body height 157.48 cm No Primary Care Physician [facility] 07-11-2024 09:10-0400 Body mass index (BMI) [Ratio] 52.7 kg/m2 No Primary Care Physician [facility] 07-11-2024 09:10-0400 Body weight 130.86 kg No Primary Care Physician [facility] 07-11-2024 09:10-0400 Diastolic blood pressure 98 mm[Hg] No Primary Care Physician [facility] 07-11-2024 09:10-0400 Systolic blood pressure 148 mm[Hg] No Primary Care Physician [facility] 06-08-2024 21:30-0400 Body temperature 98.3 [degF] No Primary Care Physician [facility] 06-08-2024 21:30-0400 Diastolic blood pressure 100 mm[Hg] No Primary Care Physician [facility] 06-08-2024 21:30-0400 Heart rate 96 /min No Primary Care Physician [facility] 06-08-2024 21:30-0400 Respiratory rate 18 /min No Primary Care Physician [facility] 06-08-2024 21:30-0400 SaO2% (BldA) [Mass fraction] 100 % No Primary Care Physician [facility] 06-08-2024 21:30-0400 Systolic blood pressure 139 mm[Hg] No Primary Care Physician [facility] 06-08-2024 17:53-0400 Body mass index (BMI) [Ratio] 52.7 kg/m2 No Primary Care Physician [facility] 06-08-2024 17:53-0400 Body weight 130.9 kg No Primary Care Physician [facility] 06-08-2024 09:20-0400 Body mass index (BMI) [Ratio] 52.5 kg/m2 No Primary Care Physician [facility] 06-08-2024 09:20-0400 Body temperature 97 [degF] No Primary Care Physician [facility] 06-08-2024 09:20-0400 Body weight 130.35 kg No Primary Care Physician [facility] 06-08-2024 09:20-0400 Diastolic blood pressure 82 mm[Hg] No Primary Care Physician [facility] 06-08-2024 09:20-0400 Heart rate 102 /min No Primary Care Physician [facility] 06-08-2024 09:20-0400 Respiratory rate 16 /min No Primary Care Physician [facility] 06-08-2024 09:20-0400 SaO2% (BldA) [Mass fraction] 97 % No Primary Care Physician [facility] 06-08-2024 09:20-0400 Systolic blood pressure 132 mm[Hg] No Primary Care Physician [facility] 05-24-2024 11:59-0400 Body mass index (BMI) [Ratio] 52.3 kg/m2 No Primary Care Physician [facility] 05-24-2024 11:59-0400 Body weight 129.78 kg No Primary Care Physician [facility] 05-24-2024 11:59-0400 Diastolic blood pressure 95 mm[Hg] No Primary Care Physician [facility] 05-24-2024 11:59-0400 Systolic blood pressure 150 mm[Hg] No Primary Care Physician [facility] 05-14-2024 13:52-0400 Diastolic blood pressure 79 mm[Hg] No Primary Care Physician [facility] 05-14-2024 13:52-0400 Heart rate 114 /min No Primary Care Physician [facility] 05-14-2024 13:52-0400 Systolic blood pressure 140 mm[Hg] No Primary Care Physician [facility] 05-14-2024 13:26-0400 Body height 157.48 cm No Primary Care Physician [facility] 05-14-2024 13:26-0400 Body mass index (BMI) [Ratio] 52.1 kg/m2 No Primary Care Physician [facility] 05-14-2024 13:26-0400 Body temperature 97.1 [degF] No Primary Care Physician [facility] 05-14-2024 13:26-0400 Body weight 129.27 kg No Primary Care Physician [facility] 05-14-2024 13:26-0400 Respiratory rate 17 /min No Primary Care Physician [facility] 05-14-2024 13:26-0400 SaO2% (BldA) [Mass fraction] 97 % No Primary Care Physician [facility] 08-17-2023 13:11-0400 Body mass index (BMI) [Ratio] 48.77 kg/m2 Yareli Praisler-Wood 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.WOOL HANKER Work Phone: [facility] 08-17-2023 13:11-0400 Body temperature 98.49 [degF] Yareli Praisler-Wood 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.WOOL HANKER Work Phone: [facility] 08-17-2023 13:11-0400 Body weight 119 kg Yareli Praisler-Wood 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.WOOL HANKER Work Phone: [facility] 08-17-2023 13:11-0400 Diastolic blood pressure 70 mm[Hg] Yareli Praisler-Wood 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.WOOL HANKER Work Phone: [facility] 08-17-2023 13:11-0400 Heart rate 78 /min Yareli Praisler-Wood 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.WOOL HANKER Work Phone: [facility] 08-17-2023 13:11-0400 Respiratory rate 16 /min Yareli Praisler-Wood 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.WOOL HANKER Work Phone: [facility] 08-17-2023 13:11-0400 SaO2% (BldA) [Mass fraction] 98 % Yareli Praisler-Wood 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.WOOL HANKER Work Phone: [facility] 08-17-2023 13:11-0400 Systolic blood pressure 128 mm[Hg] Yareli Praisler-Wood 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.WOOL HANKER Work Phone: [facility] 04-26-2023 08:55-0400 Body height 157.48 cm [facility] 04-26-2023 08:55-0400 Body mass index (BMI) [Ratio] 46.7 kg/m2 [facility] 04-26-2023 08:55-0400 Body temperature 97.8 [degF] [facility] 04-26-2023 08:55-0400 Body weight 116 kg [facility] 04-26-2023 08:55-0400 Diastolic blood pressure 109 mm[Hg] [facility] 04-26-2023 08:55-0400 Heart rate 110 /min [facility] 04-26-2023 08:55-0400 Respiratory rate 20 /min [facility] 04-26-2023 08:55-0400 SaO2% (BldA) [Mass fraction] 95 % [facility] 04-26-2023 08:55-0400 Systolic blood pressure 124 mm[Hg] [facility] 04-22-2023 13:19-0400 Body temperature 98.6 [degF] Lionel Que 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.WOOL HANKER Work Phone: [facility] 04-22-2023 13:19-0400 Body weight 121.6 kg Lionel Que 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.WOOL HANKER Work Phone: [facility] 04-22-2023 13:19-0400 Diastolic blood pressure 70 mm[Hg] Lionel Que 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.WOOL HANKER Work Phone: [facility] 04-22-2023 13:19-0400 Heart rate 108 /min Lionel Que 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.WOOL HANKER Work Phone: [facility] 04-22-2023 13:19-0400 Respiratory rate 16 /min Lionel Que 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.WOOL HANKER Work Phone: [facility] 04-22-2023 13:19-0400 SaO2% (BldA) [Mass fraction] 97 % Lionel Que 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.WOOL HANKER Work Phone: [facility] 04-22-2023 13:19-0400 Systolic blood pressure 108 mm[Hg] Lionel Que 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.WOOL HANKER Work Phone: [facility] 12-27-2022 16:14-0500 Heart rate 79 /min [facility] 12-27-2022 16:14-0500 Respiratory rate 18 /min [facility] 12-27-2022 16:14-0500 SaO2% (BldA) [Mass fraction] 99 % [facility] 12-27-2022 12:15-0500 Body mass index (BMI) [Ratio] 48.4 kg/m2 [facility] 12-27-2022 12:15-0500 Body temperature 97 [degF] [facility] 12-27-2022 12:15-0500 Body weight 120.06 kg [facility] 12-27-2022 12:15-0500 Diastolic blood pressure 95 mm[Hg] [facility] 12-27-2022 12:15-0500 Systolic blood pressure 147 mm[Hg] [facility] 12-25-2022 15:03-0500 Body height 157.48 cm [facility] 12-25-2022 15:03-0500 Body mass index (BMI) [Ratio] 48.2 kg/m2 [facility] 12-25-2022 15:03-0500 Body temperature 96.3 [degF] [facility] 12-25-2022 15:03-0500 Body weight 119.7 kg [facility] 12-25-2022 15:03-0500 Diastolic blood pressure 90 mm[Hg] [facility] 12-25-2022 15:03-0500 Heart rate 105 /min [facility] 12-25-2022 15:03-0500 Respiratory rate 18 /min [facility] 12-25-2022 15:03-0500 SaO2% (BldA) [Mass fraction] 98 % [facility] 12-25-2022 15:03-0500 Systolic blood pressure 145 mm[Hg] [facility] 12-23-2022 06:13-0500 Body temperature 97 [degF] [facility] 12-23-2022 06:13-0500 Diastolic blood pressure 71 mm[Hg] [facility] 12-23-2022 06:13-0500 Heart rate 96 /min [facility] 12-23-2022 06:13-0500 Respiratory rate 16 /min [facility] 12-23-2022 06:13-0500 SaO2% (BldA) [Mass fraction] 98 % [facility] 12-23-2022 06:13-0500 Systolic blood pressure 144 mm[Hg] [facility] 12-23-2022 06:10-0500 Body height 157.48 cm [facility] 12-23-2022 06:10-0500 Body mass index (BMI) [Ratio] 42 kg/m2 [facility] 12-23-2022 06:100500 Body weight 104.32 kg [facility] 12-12-2022 07:39-0400 Body temperature 97.39 [degF] Lionel Que 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.WOOL HANKER Work Phone: [facility] 12-12-2022 07:39-0400 Body weight 119.3 kg Lionel Que 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.[employer]OL HANKER Work Phone: [facility] 12-12-2022 07:39-0400 Diastolic blood pressure 80 mm[Hg] Lionel Que 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.[employer]OL HANKER Work Phone: [facility] 12-12-2022 07:39-0400 Heart rate 120 /min Lionel Que 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.WOOL HANKER Work Phone: [facility] 12-12-2022 07:39-0400 Respiratory rate 22 /min Lionel Que 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.WOOL HANKER Work Phone: [facility] 12-12-2022 07:39-0400 SaO2% (BldA) [Mass fraction] 98 % Lionel Que 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.WOOL HANKER Work Phone: [facility] 12-12-2022 07:39-0400 Systolic blood pressure 120 mm[Hg] Lionel Que 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.WOOL HANKER Work Phone: [facility] 10-27-2022 14:43-0400 Body temperature 98.91 [degF] Love Almaraz 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.WOOL HANKER Work Phone: [facility] 10-27-2022 14:43-0400 Body weight 117.03 kg Love Almaraz 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.WOOL HANKER Work Phone: [facility] 10-27-2022 14:43-0400 Diastolic blood pressure 86 mm[Hg] Love Almaraz 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.WOOL HANKER Work Phone: [facility] 10-27-2022 14:43-0400 Heart rate 97 /min Love Almaraz 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.WOOL HANKER Work Phone: [facility] 10-27-2022 14:43-0400 Respiratory rate 18 /min Love Almaraz 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.WOOL HANKER Work Phone: [facility] 10-27-2022 14:43-0400 SaO2% (BldA) [Mass fraction] 100 % Love Almaraz 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.WOOL HANKER Work Phone: [facility] 10-27-2022 14:43-0400 Systolic blood pressure 129 mm[Hg] Love Almaraz 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.WOOL HANKER Work Phone: [facility] 05-08-2021 11:57-0400 Body temperature 97.39 [degF] Yareli Praisler-Wood 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.WOOL HANKER Work Phone: [facility] 05-08-2021 11:57-0400 Body weight 107.05 kg Yareli Praisler-Wood 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.WOOL HANKER Work Phone: [facility] 05-08-2021 11:57-0400 Diastolic blood pressure 80 mm[Hg] Yareli Praisler-Wood 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.WOOL HANKER Work Phone: [facility] 05-08-2021 11:57-0400 Heart rate 93 /min Yareli Praisler-Wood 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.WOOL HANKER Work Phone: [facility] 05-08-2021 11:57-0400 Respiratory rate 18 /min Yareli Praisler-Wood 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.WOOL HANKER Work Phone: [facility] 05-08-2021 11:57-0400 SaO2% (BldA) [Mass fraction] 96 % Yareli Praisler-Wood 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.WOOL HANKER Work Phone: [facility] 05-08-2021 11:57-0400 Systolic blood pressure 142 mm[Hg] Yareli Guzman APRN.WOOL HANKER Work Phone: [facility] Encounters Encounter Date Encounter Type Care Provider Facility Start: 08-31-2024 ambulatory No Primary Car e Physician Facility[place] Start: 07-26-2024 ambulatory Glenn AVILA Facilit y:[facility] Start: 07-15-2024 ambulatory No Primary Car e Physician Facility:[facility] Start: 07-11-2024 End: 07-11-2024 ambulatory No Primary Care Physician [facility] Work Phone: Start: 07-11-2024 End: 07-11-[address] Adriana Dickson MD -Laboratory Work Phone: Start: 07-11-2024 End: 07-11-[address] Adriana Dickson MD -[facility] Work Phone: Start: 07-11-2024 End: 07-11-2024 ambulatory No Primary Care Physician [facility] Work Phone: Start: 07-11-2024 End: 07-11-2024 ambulatory No Primary Care Physician Facility:[facility] Start: 06-08-2024 End: 06-08-2024 Emergency department patient visit Dr. Jonathan Cruz DO -Emergency Department Work Phone: Start: 06-08-2024 End: 06-08-2024 Patient encounter procedure Glenn AVILA -[facility] Work Phone: Start: 06-08-2024 End: 06-08-2024 ambulatory Glenn AVILA Facility:[facility] Start: 05-26-2024 End: 05-26-2024 ambulatory Katt Metzger RN NURSE CONSUMER MARKETING MANAGER Comment on above: Fever Start: 05-24-2024 End: 05-24-[address] Adriana Dickson MD -[facility] Work Phone: Start: 05-24-2024 End: 05-24-2024 ambulatory No Primary Care Physician [facility] Work Phone: Start: 05-24-2024 End: 05-24-2024 ambulatory No Primary Care Physician Facility:[facility] Start: 05-14-2024 End: 05-14-2024 Emergency department patient visit No Primary Care Physician -Emergency Department Work Phone: Start: 08-17-2023 End: 08-17-2023 ambulatory Facility:[facility] Start: 08-17-2023 End: 08-17-2023 Patient encounter procedure Yareli Guzman 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.WOOL HANKER Work Phone: [facility] Comment on above: Neck pain (Primary D x); Superficial bruising of head and neck region; Neck swelling Start: 04-26-2023 End: 04-26-2023 Emergency department patient visit [facility] Work Phone: Start: 04-22-2023 End: 04-22-2023 ambulatory Facility:[facility] Start: 04-22-2023 End: 04-22-2023 Patient encounter procedure Lionel Grey APRN.WOOL HANKER Work Phone: [facility] Comment on above: Acute conjunctivitis of left eye, unspecified acute conjunctivitis type (Primary Dx) Start: 12-27-2022 End: 12-27-2022 Emergency department patient visit [facility]Emergency [facility] Work Phone: Start: 12-26-2022 End: 12-26-2022 ambulatory Jessyrocío Mas 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.WOOL HANKER Work Phone: [facility] Comment on above: Treatment not availa ble (Primary Dx); Abdominal cramping Start: 12-26-2022 End: 12-26-2022 Telemedicine consultation with patient Jessy Tg KOVACSWOOL HANKER Work Phone: [facility] Start: 12-25-2022 End: 12-25-2022 Emergency department patient visit [facility] Work Phone: Start: 12-23-2022 End: 12-23-2022 ambulatory Facility:[facility] Start: 12-23-2022 End: 12-23-2022 Patient encounter procedure Hung Roland 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.WOOL HANKER Work Phone: [facility] Comment on above: Procedure not jamal d out (Primary Dx) Start: 12-23-2022 End: 12-23-2022 Emergency department patient visit [facility] Work Phone: Start: 12-19-2022 End: 12-19-2022 ambulatory Facility:[facility] Start: 12-12-2022 End: 12-12-2022 ambulatory Facility:[facility] Start: 12-12-2022 End: 12-12-2022 Patient encounter procedure Lionel Grey 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.WOOL HANKER Work Phone: [facility] Comment on above: URI, acute (Primary Dx) Start: 10-27-2022 End: 10-27-2022 ambulatory Facility:[facility] Start: 10-27-2022 End: 10-27-2022 Patient encounter procedure Love Almaraz 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.WOOL HANKER Work Phone: [facility] Comment on above: Sore throat (Primary Dx) Start: 05-08-2021 End: 05-08-2021 Patient encounter procedure Yareli Guzman 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.WOOL HANKER Work Phone: [facility] Comment on above: Viral illness (Prima ry Dx); Headache, unspecified headache type Start: 06-11-2018 End: 06-11-2018 Patient encounter procedure SHYLA SANDOVAL [facility] Procedures Date Procedure Procedure Detail Performing Clinician Start: 07-11-2024 Lymphocyte percent differential count No Primary Care Physician Start: 06-08-2024 Computed tomography of abdomen and pelvis with intravenous contrast No Primary Care Physician Start: 06-08-2024 Urnls dip stick/tabl et reagent auto microscopy No Primary Care Physician Start: 06-08-2024 Estimated creatinine clearance No Primary Care Physician Start: 06-08-2024 Urine culture No Primar y Care Physician Start: 05-24-2024 Follicle stimulating hormone measurement No Primary Care Physician Comment on above: FEMALE:Follicular: 1 .4 - 18.1 mIU/mLMidcycle: 3.4 - 33.4 mIU/mLLuteal: 1.5 - 9.1 mIU/mLPost Menopause: 23.0 - 116.3 mIU/mLMALE: 1.4 - 18.1 mIU/mL NORMAL REFERENCE RANGES FEMALE FOLLICULAR 2.3 - 12.6 mIU/mL MID-CYCLE PEAK 5.2 - 17.5 mIU/mL LUTEAL 1.7 - 12.9 mIU/mL POST-MENOPAUSAL ON MHT 5.9 - 72.8 mIU/mL NOT ON MHT 12.7 - 132.2 mlU/mL MALE 0.7 - 10.8 mIU/mL Start: 05-14-2024 Transvaginal echography No Primary Care Physician Start: 04-26-2023 SARS-CoV-2, Influenz a & RSV (PCR) Start: 04-26-2023 Streptococcus pyogen es rRNA assay Start: 12-27-2022 CT of abdomen and pe lvis without contrast Start: 12-27-2022 US scan of gallbladder Start: 12-23-2022 Plain chest X-ray Start: 12-12-2022 COVID & INFLUENZA A/ B & RSV NAAT, ROUTINE Lionel Grey APRN.ISAAC Work Phone: Start: 12-12-2022 Iadna respiratry pro be & rev trnscr 3-5 targets Lionel Grey APRN.ISAAC Work Phone: Start: 12-12-2022 Sars-cov-2 detection by dna/rna Lionel Grey APRN.ISAAC Work Phone: Start: 10-27-2022 STREP A MOLECULAR (POC) Love Almaraz 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.WOOL HANKER Work Phone: Plan of Treatment Date Care Activity Detail Author Start: 07-30-2028 Urine microalbumin profile [facility] Start: 06-08-2024 [facility] Start: 06-08-2024 Patient referral [facility] Work Phone: Start: 05-24-2024 17-Hydroxyprogestero ne [Mass/volume] in Serum or Plasma [facility] Start: 05-24-2024 Prolactin measurement [facility] Start: 05-24-2024 Testosterone Free [Mass/volume] in Serum or Plasma [facility] Start: 05-14-2024 [facility] Start: 05-14-2024 [facility] Start: 10-11-2023 Covid-19 Vaccine ( season) Covid-19 Vaccine ( season) [facility] Start: 10-11-2023 Influenza vaccination Influenza Vacc ine (#1) [facility] Start: 04-26-2023 [facility] Start: 12-27-2022 [facility] Start: 12-25-2022 [facility] Start: 12-23-2022 [facility] Start: 10-10-2022 Covid-19 Vaccine ( season) Covid-19 Vaccine () [facility] Start: 10-10-2022 Influenza vaccination Influenza Vacc ine (#1) [facility] Start: 05-08-2021 End: 05-22-2021 Influenza virus A and B RNA and SARS-CoV-2 (COVID-19) N gene panel - Respiratory specimen by RAFA with probe detection COVID WITH FLUA+B, ROUTINE Microbiology Routine Viral illness Expected: 05/08/2021, Expires: 05/22/2021 [facility] Work Phone: Comment on above: Expected: 05/08/2021 , Expires: 05/22/2021 Start: 10-28-2020 Urine microalbumin profile [facility] Start: 10-10-2020 Influenza vaccination INFLUENZA (#1) [facility] Start: 2019 PAP TESTING PAP TESTING [facility] Start: 2019 Screening for malign ant neoplasm of cervix [facility] Start: 02-06-2016 Anxiety Screening Anxiety Screening [facility] Start: 02-06-2016 CHLAMYDIA SCREENING (18-) CHLAMYDIA SCREENING (18-24) [facility] Start: 02-06-2016 GC (GONORRHEA) SCREENING (18-) GC (GONORRHEA) SCREENING (18-) [facility] Start: 02-06-2016 HEPATITIS C SCREENING HEPATITIS C [facility] Start: 02-06-2016 Hepatitis C screening Hepatitis C [facility] Start: 02-06-2016 HIV SCREENING HIV SCREENING [facility] Start: 02-06-2016 HIV screening HIV Screening [facility] Start: 01-18-2016 HPV Vaccine (3 - 3-d ose series) HPV Vaccine (3 - 3-dose series) [facility] Start: 2014 Meningococcal B Vaccine: Consider Based On Risk (1 of 2 - Patient Seeks Protection) Meningococcal B Vaccine: Consider Based On Risk (1 of 2 - Patient Seeks Protection) [facility] Start: 02-06-2012 PEDS TO ADULT TRANSITION ANNUAL ASSESSMENT PEDS TO ADULT TRANSITION ANNUAL ASSESSMENT [facility] Start: 2010 Adult depression screening assessment DEPRESSION SCREENING [facility] Start: 2010 PEDS TO ADULT TRANSITION INITIAL DISCUSSION PEDS TO ADULT TRANSITION INITIAL DISCUSSION [facility] Start: 2009 HPV VACCINE (1 - 2-d ose series) HPV VACCINE (1 - 2-dose series) [facility] Start: 02-06-2008 MENINGOCOCCAL B: Consider based on risk (1 of 2 - Risk Bexsero 2-dose series) MENINGOCOCCAL B: Consider based on risk (1 of 2 - Risk Bexsero 2-dose series) [facility] Start: 2007 HPV Vaccine (1 - 2-d ose series) HPV Vaccine (1 - 2-dose series) [facility] Start: 2003 COVID-19 VACCINE (1) COVID-19 VACCIN E (1) [facility] Start: 1998 Covid-19 Vaccine (#1) Covid-19 Vacci ne (#1) [facility] CBC W Auto Different ial panel - Blood [facility] Patient Education [facility] Work Phone: Patient referral [facility] Work Phone: [facility] Immunizations Immunization Date Immunization Notes Care Provider Bernard owen 12-19-2019 influenza, injectabl e, quadrivalent, contains preservative Yareli Guzman APRN.CNP Work Phone: [facility] 12-19-2019 influenza, injectabl e, quadrivalent, preservative free [facility] 12-19-2019 influenza virus vacc ine, unspecified formulation Love Almaraz 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.[facility] Work Phone: [facility] 07-30-2018 tetanus toxoid, redu libia diphtheria toxoid, and acellular pertussis vaccine, adsorbed [facility] 09-18-2015 hepatitis A vaccine, pediatric/adolescent dosage, 2 dose schedule [facility] 09-18-2015 human papilloma viru s vaccine, quadrivalent [facility] 12-13-2014 influenza, injectabl e, quadrivalent, preservative free [facility] 09-07-2014 hepatitis A vaccine, pediatric/adolescent dosage, 2 dose schedule [facility] 09-07-2014 human papilloma viru s vaccine, quadrivalent [facility] 09-07-2014 meningococcal polysaccharide (groups A, C, Y and W-135) diphtheria toxoid conjugate vaccine (MCV4P) [facility] 09-07-2014 varicella virus vaccine [facility] 01-17-2013 influenza virus vacc ine, live, attenuated, for intranasal use Yareli Guzman APRN.[facility] Work Phone: [facility] Work Phone: 10-28-2010 tetanus toxoid, redu libia diphtheria toxoid, and acellular pertussis vaccine, adsorbed Yareli Guzman APRN.[facility] Work Phone: [facility] Work Phone: 02-19-2007 diphtheria, tetanus toxoids and acellular pertussis vaccine Yareli Guzman APRN.[facility] Work Phone: [facility] Work Phone: 05-31-2003 diphtheria, tetanus toxoids and acellular pertussis vaccine Yareli Guzman APRN.[facility] Work Phone: [facility] Work Phone: 05-31-2003 measles, mumps and rubella virus vaccine Yareli Guzman APRN.[facility] Work Phone: [facility] Work Phone: 05-31-2003 poliovirus vaccine, inactivated Yareli Guzman APRN.[facility] Work Phone: [facility] Work Phone: 05-31-2003 trivalent poliovirus vaccine, live, oral [facility] 01-18-2003 influenza, injectabl e, quadrivalent, preservative free [facility] 06-20-2002 diphtheria, tetanus toxoids and acellular pertussis vaccine [facility] 06-20-2002 measles, mumps and rubella virus vaccine [facility] 06-20-2002 poliovirus vaccine, inactivated [facility] 08-21-2000 diphtheria, tetanus toxoids and acellular pertussis vaccine [facility] 08-21-2000 measles, mumps and rubella virus vaccine Yareli Guzman APRN.[facility] Work Phone: [facility] Work Phone: 08-21-2000 trivalent poliovirus vaccine, live, oral [facility] 08-22-1999 diphtheria, tetanus toxoids and acellular pertussis vaccine Yareli Guzman APRN.[facility] Work Phone: [facility] Work Phone: 08-22-1999 poliovirus vaccine, inactivated Yareli Guzman APRN.[facility] Work Phone: [facility] Work Phone: 06-25-1999 haemophilus influenz ae type b vaccine, PRP-T conjugate [facility] 04-25-1999 varicella virus vaccine Hilaria Guzman APRN.[facility] Work Phone: [facility] Work Phone: 02-19-1999 diphtheria, tetanus toxoids and acellular pertussis vaccine [facility] 02-19-1999 haemophilus influenz ae type b vaccine, PRP-T conjugate [facility] 02-19-1999 hepatitis B vaccine, pediatric or pediatric/adolescent dosage Yareli Guzman APRN.WOOL HANKER Work Phone: [facility] Work Phone: 1998 diphtheria, tetanus toxoids and acellular pertussis vaccine Yareli Guzman APRN.WOOL HANKER Work Phone: [facility] Work Phone: 1998 haemophilus influenz ae type b vaccine, PRP-T conjugate [facility] 1998 poliovirus vaccine, inactivated Yareli Praisler-Wood 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.WOOL HANKER Work Phone: [facility] Work Phone: 1998 trivalent poliovirus vaccine, live, oral [facility] 1998 diphtheria, tetanus toxoids and acellular pertussis vaccine Yareli Praisler-Nahun 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.WOOL HANKER Work Phone: [facility] Work Phone: 1998 haemophilus influenz ae type b vaccine, PRP-T conjugate [facility] 1998 poliovirus vaccine, inactivated Yareli Praisler-Wood 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.WOOL HANKER Work Phone: [facility] Work Phone: 1998 trivalent poliovirus vaccine, live, oral [facility] 1998 hepatitis B vaccine, pediatric or pediatric/adolescent dosage Yareli Praisler-Wood 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.WOOL HANKER Work Phone: [facility] Work Phone: 1998 hepatitis B vaccine, pediatric or pediatric/adolescent dosage Yareli Praisler-Wood 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.WOOL HANKER Work Phone: [facility] Work Phone: Payers Date Payer Category Payer Self-pay [id number] 2022 Medicaid [id number] 2022 Unknown [id number] 2018 Medicaid [employer] [place] [id number] 2018-Present [phone] [address] [address] [place] [address] Medicaid [id number] 1998 Unknown [id number] Unknown YVONNE [id number] Unknown [id number] Unknown [id number] Unknown [id number] Unknown [id number] Unknown [id number] Unknown [id number] Unknown [id number] Unknown [id number] Unknown [id number] Unknown [id number] Social History Date Type Detail Facility Start: 01-17-2013 End: 06-08-2024 Tobacco smoking status RIIS Never smoked tobacco [facility] Work Phone: Start: 01-17-2013 End: 10-27-2022 Tobacco use and exposure Smokeless tobacco non-user [facility] Work Phone: Start: 05-08-2021 End: 08-17-2023 Alcohol intake Current non-drinker of alcohol (finding) [facility] Start: 2000 Sex Assigned At Female C [facility] Start: 04-28-2021 End: 05-08-2021 Exposure to SARS-CoV-2 (event) Not sure [facility] History of tobacco use Passive smoker [facility] Start: 10-27-2022 End: 01-13-2024 History of Social function [facility] Start: 10-27-2022 End: 01-13-2024 Tobacco use panel [facility] National Score (1-10 0), lower number is lower risk 58 [facility] Start: 03-06-2021 Sexual orientation Heterosexual (ana rosa scarlet) [facility] Start: 12-23-2022 End: 04-26-2023 Tobacco smoking status NHIS Unknown if ever smoked [facility] Start: 09-16-2018 None [facility] Start: 05-14-2024 End: 05-26-2024 Sex Female (finding) [facility] Functional Status Date Assessment Result Facility 04-21-2014 Are you deaf, or do you have serious difficulty hearing No 04/21/2014 10:40 AM Nadege Smith RN No [facility] 04-21-2014 Are you blind, or do you have serious difficulty seeing, even when wearing glasses No 04/21/2014 10:40 AM Nadege Smith RN No [facility] 04-21-2014 Do you have serious difficulty walking or climbing stairs No 04/21/2014 10:40 AM Nadege Smith RN No [facility] 04-21-2014 Do you have difficul ty dressing or bathing No 04/21/2014 10:40 AM Nadege Smith RN No [facility] 04-21-2014 Because of a physica l, mental, or emotional condition, do you have difficulty doing errands alone such as visiting a physician's office or shopping No 04/21/2014 10:40 AM Nadege Smith RN No [facility] Mental Status Date Assessment Result Facility 04-21-2014 Because of a physica l, mental, or emotional condition, do you have serious difficulty concentrating, remembering, or making decisions Yes 04/21/2014 10:40 AM Nadege Smith RN Yes [facility] Clinical Notes 05-08-2021 to 05-26-2024 Telephone Encounter - Katt Metzger RN - 05/26/2024 10:04 PM EDTTelephone Encounter - Katt Metzger RN - 05/26/2024 10:04 PM EDT Note Date & Type Note Facility 05-26-2024 Telephone encounter Note Form atting of this note might be different from the original. Reason for Call: Hot and cold chills. Outcome: Home care. Reason for Disposition [1] Fever AND [2] no signs of serious infection or localizing symptoms (all other triage questions negative) Answer Assessment - Initial Assessment Questions 1. TEMPERATURE: Hot and cold chills. No thermometer. Denies subjective fever. 2. "When did the fever start?" 1300 today. 3. CHILLS: Onset 1300 today, intermittent episodes lasting a few seconds. 4. OTHER SYMPTOMS: Headache onset 1400 today, resolved 30 minutes later after eating. 5. CAUSE: Does not know. 6. CONTACTS: No. 7. TREATMENT: Adjusting thermostat in her home. 8. IMMUNOCOMPROMISE: No. 9. : 04/10/24; states started a control pill on that date and that is why her period is late. States last FISCAL ECONOMIST visit was 3 days ago. 10. TRAVEL: No. Protocols used: [id number] [facility] 05-26-2024 Miscellaneous Notes Formattin g of this note might be different from the original. Reason for Call: Hot and cold chills. Outcome: Home care. Reason for Disposition [1] Fever AND [2] no signs of serious infection or localizing symptoms (all other triage questions negative) Answer Assessment - Initial Assessment Questions 1. TEMPERATURE: Hot and cold chills. No thermometer. Denies subjective fever. 2. "When did the fever start?" 1300 today. 3. CHILLS: Onset 1300 today, intermittent episodes lasting a few seconds. 4. OTHER SYMPTOMS: Headache onset 1400 today, resolved 30 minutes later after eating. 5. CAUSE: Does not know. 6. CONTACTS: No. 7. TREATMENT: Adjusting thermostat in her home. 8. IMMUNOCOMPROMISE: No. 9. : 04/10/24; states started a control pill on that date and that is why her period is late. States last FISCAL ECONOMIST visit was 3 days ago. 10. TRAVEL: No. Protocols used: [id number] documented in this encounter [facility] 05-24-2024 Evaluation note Diagnosis Onset Date Resolution Abnormal uterine bleeding acute May 24, 2024 11:57am [facility] Work Phone: 1(915) 304-327804-15-2025 Evaluation note* Diagnosis Onset Date Resolution Status Admit Date Abnormal uterine bleeding acute May 24, 2024 11:57am Diabetes mellitus, type II acute June 08, 2024 9:05am Obesity acute June 08 9:05am Polycystic ovarian syndrome acute June 08, 2024 9:05am [facility] Work Phone: 1(449) 180-814804-15-2025 Evaluation note* Diagnosis Onset Date Resolution Status Admit Date Abnormal uterine bleeding acute May 24, 2024 11:57am Diabetes mellitus, type II acute June 08, 2024 9:05am Obesity acute June 08 9:05am Polycystic ovarian syndrome acute June 08, 2024 9:05am Diabetes mellitus, type II acute July 11, 2024 9:06am Encounter for IUD insertion acute July 11, 2024 9:06am Obesity acute July 11, 2024 9:06am Polycystic ovarian syndrome acute July 11, 2024 9:06am [facility] Work Phone: 1(578) 859-349704-05-2025 Discharge summary [facility] Medical Records Department [address] [place] [address] Emergency Department Summary 05/14/24 MR#: [id number] Acct: [id number] Name: NEVAEH WALL Rep #:[id number] : 2000 24 From: Mele Azul DO PCP: Care Physician,No Primary Status :DEP ER Location: ED HPI HPI - Female History of Present Illness Chief Complaint: Vag Bleeding Detail of Chief Complaint: Vaginal bleeding Informant: patient Narrative Narrative: Patient presents to the emergency department complaint of vaginal bleeding that started 3 days ago.Patient states that she is going through a pad an hour. Seems to have slowed down today. She statesthat prior to this bleeding starting she had gone about 2 weeks with persistent heavy bleeding similarly where she was going through a pad an hour. She complains of some fatigue. She states anemia runs in the family. She denies feeling lightheaded or dizzy. Shedenies significant abdominal pain. Rudolph had intermittent cramping. She is G1, P0. Does not think she is but she is not on hormone therapy. [facility] Medical History (Updated 05/14/24 @ 14:[address] Mele Azul DO) COVID-19 Hypertension 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 Depression Preeclampsia, severe Hypertension affecting in third trimester Home Medications ?Medication ?Instructions ?Recorded ?Last Taken ?Type aripiprazole 2 mg tablet 2 mg PO DAILY 12/23/22 Unkno wn History escitalopram oxalate 20 mg tablet 20 mg PO DAILY 12/23 Unknown History dicyclomine 10 mg capsule 20 mg (2 x 10 mg) PO Q6H PRN PRN 12/27/22 Unknown Rx abdominal pain #20 CAPSULES pantoprazole 40 mg tablet,delayed 40 mg PO DAILY #30 t abs 12/27/22 Unknown Rx release amoxicillin 500 mg tablet 500 mg PO TID #30 tabs 04/25 Unknown Rx norethindrone acetate 5 mg tablet 5 mg PO DAILY #30 ta bs 05/14/24 Unknown Rx Allergy/AdvReac Type Severity Reaction Status Date / Time No Known Allergies Allergy Verified 05/14/24 13:29 Family History Grandmother Diabetes Other Asthma Cancer Hypertension Thyroid disorder Surgical History History of delivery Social History Smoking Status: Never smoker alcohol intake: current alcohol intake frequency: a few times a month Alcohol type: other substance use type: does not use caffeine: Yes what type of physical activity do you participate in: none seatbelt use: always do you feel safe at home: Yes additional social history: Brbghl-Xteyocgpd-[employer]wo[employer] Patient does not work ROS ROS ED Review of Systems ROS Unobtainable: other Constitutional Constitutional ED: Reports lethargy; Denies chills, fever(s), sweats or weight loss Eyes Eyes: Denies blurry vision, change in vision or diplopia ENT ENT ED: Denies rhinorrhea or sore throat Cardiovascular Cardiovascular: Denies chest pain, orthopnea or racing heartbeat Respiratory/Chest Respiratory/Chest: Denies cough, dyspnea, dyspnea on exertion, orthopnea or sputum Gastrointestinal Gastrointestinal: Denies abdominal pain, diarrhea, nausea or vomiting Genitourinary Genitourinary ED: Reports other Details: Vaginal bleeding ; Denies dysuria, hematuria or urinary frequency Musculoskeletal Musculoskeletal: Denies arthralgias, back pain, myalgias or neck pain Integumentary Denies abscess, Abrasions or rash Neurologic Neurologic: Denies headache(s) or weakness Psychiatric Psychiatric: Denies anxiety, depression or suicidal thoughts Endocrine Endocrinology: Denies polydipsia, polyphagia or polyuria Hematologic/Lymphatic Hematologic/Lymphatic: Denies easy bleeding, easy bruising or lymphadenopathy Allergic/Immunologic Allergic/Immunologic ED: Denies mouth swelling, tongue swelling or urticaria EXAM Physical Exam Const Vital Signs: 05/14/24 13:26 05/14/24 13:52 Temperature 97.1 F L Temperature Source Oral Pulse Rate 105 H Pulse Rate [Lying] 102 H Pulse Rate [Sitting (for 1 minute prior to obtaining)] 116 H Pulse Rate [Standing (for 1 minute prior to obtaining)] 114 H Respiratory Rate 17 Blood Pressure 158/96 H Blood Pressure [Lying] 132/79 H Blood Pressure [Sitting (for 1 minute prior to obtaining)] 136/95 H Blood Pressure [Standing (for 1 minute prior to obtaining)] 140/79 H Blood Pressure Mean 116 Blood Pressure Mean [Lying] 96 Blood Pressure Mean [Sitting (for 1 minute prior to obtaining)] 108 Blood Pressure Mean [Standing (for 1 minute prior to obtaining)] 99 Pulse Ox 97 Oxygen Delivery Method Room Air Positive well nourished and well developed General Appearance ED: well developed and NAD HEENT Reports TM's clear and moist mucous membranes normocephalic and atraumatic; Negative for trauma or tenderness Tympanic Membrane ED: Yes TM's clear Eyes PERRL and EOMs intact bilaterally General Eye ED: Negative for pale conjunctiva or scleral icterus Neck no lymphadenopathy, supple and no JVD General: Negative for tenderness Chest Wall inspection of chest normal and palpation of chest normal Chest: Negative for tenderness Resp normal respiratory effort and clear to auscultation bilaterally Effort and Inspection: Negative for respiratory distress or pain with movement Auscultation: Negative for rhonchi, wheezes or diminished lung sounds Cardio regular rate, regular rhythm, S1 normal heart sound, S2 normal heart sound and no murmurs Peripheral Pulses: pulses 2+ throughout GI normal to inspection, nondistended, normoactive bowel sounds, soft to palpation,non-tender, non-distended and no masses Back/Spine no CVA tenderness and no thoracic nor lumbar tenderness Extremity normal to inspection General Extremety ED: Negative for edema General Extremity: Negative for edema Neuro oriented x3, CN's II-XII intact bilaterally, no sensory deficits noted and gait normal Sensorium / Orientation: awake, alert, oriented to person, oriented to place andoriented to time Motor Exam: strength 5/5 throughout and strength abnormal Psych mental status grossly normal Skin no rashes or lesions noted and no wounds MDM MDM MDM Narrative Medical decision making narrative: Patient presents with 3-day history of vaginal bleeding going through a pad an hour for 3 days. Shedenies any significant abdominal pain. Clinically looks well. IV line established. Orthostatic vital signs obtained were negative. CBC with differential white count of 12.5 with hemoglobin 10 platelet count of 422. hCG was negative. Discussed case with [facility] on-call Dr. Saeid Shah whorecommendedpelvic ultrasound to evaluate and starting patient on Aygestin. I will write her prescription for Aygestin and patient to follow-up with Dr. Saeid Shah as an outpatient. Lab Data Attestation: I reviewed the patient's lab results. Labs: Laboratory Results - last 24 hr 05/14/24 13:40 WBC 12.5 H RBC 3.63 L Hgb 10.0 L Hct 30.3 L MCV 83.5 MCH 27.5 MCHC 33.0 RDW Std Deviation 38.8 RDW Coeff of Kofi 12.8 Plt Count 422 MPV 10.0 Immature Gran % (Auto) 1.000 H Neut % (Auto) 61.3 Lymph % (Auto) 28.1 Rutherford % (Auto) 6.6 Eos % (Auto) 2.2 Baso % (Auto) 0.8 Absolute Neuts (auto) 7.6 Absolute Lymphs (auto) 3.50 Nucleated RBC % 0 Serum , Qual NEGATIVE Discharge Plan Triage Chief Complaint: Vag Bleeding ED Provider: Mele Azul Dx/Rx/DC Orders Clinical Impression: DUB (dysfunctional uterine bleeding) Instructions: ED Dysfunctional Uterine Bleeding Prescriptions: New norethindrone acetate 5 mg tablet 5 mg PO DAILY Qty: 30 0RF Rx Instructions: 1 tab p.o. twice daily x 3 days then 1 tab p.o. daily No Action escitalopram oxalate 20 mg tablet 20 mg PO DAILY Patient Comments: TAKE 1 TABLET BY MOUTH DAILY aripiprazole 2 mg tablet 2 mg PO DAILY Patient Comments: TAKE 1 TABLET BY MOUTH DAILY pantoprazole 40 mg tablet,delayed release (DR/EC) 40 mg PO DAILY Qty: 30 0RF dicyclomine 10 mg capsule 20 mg PO Q6H PRN PRN (Reason: abdominal pain) Qty: 20 0RF amoxicillin 500 mg tablet 500 mg PO TID Qty: 30 0RF Primary Care Provider: Care Physician,No Primary Referrals: Adriana Dickson MD [Med Staff - Active Staff] - 5-7 Days Care Physician,No Primary [Primary Care Provider] - Print Language: Turkmen Disposition Disposition: Home, Self Care What to do if you have Problems For any increased pain, shortness of breath, bleeding, nausea or vomiting, chestpain, or any unexpected problems, contact your Primary Care Provider. Call [facility] ([phone]) or report tothe closest Emergency Room. Call 911 if necessary. 05/14/24 1501 Cosigner Signature (if applicable): CC: No Primary Care Physician ~ Signed ADDENDUM by Dr. Stef Allen MD on 05/14/24 at 1537 Patient was endorsed to me by Dr. Mele Azul to check the ultrasound on this patient that was having dysfunctional uterine bleeding. I reviewed the radiology report of the ultrasound and there is noadnexal pathology, no uterine fibroids noted. At this point in time, I feel that she can be discharged to follow-up with [facility] as planned. Dr. Garcia had already written for medication and after discussion with Dr. Adriana Dickson. She will follow-up with the [facility] in the next few days. Return instructions to the emergency department reviewed. Disposition is discharged as planned in stable condition. 05/14/24 1537 Cosigner Signature (if applicable): cc: No Primary Care Physician ~* Signed [facility]04-05-2025 Radiology Diagnostic study note [facility] Imaging Services [address] [place], [place] [address] Transvaginal Non- MR#: [id number] Acct: [id number] Name: NEVAEH WALL Rep #: [id number] : 2000 F 24 From: Pet er Dylan SEG[place] PCP: Care Physician,No Primary Status: REG ER Study:Transvaginal Non- Date of Exam: 05/14/24 Exam# [id number] Ordering Dr: Hollie Azul DO PROCEDURE: TRANSVAGINAL NON- 05/14/2024 REASON FOR EXAM: VAGINAL BLEEDING , ANEMIA, heavy menses TECHNIQUE: Pelvic ultrasound is performed using a transvaginal transducer COMPARISON: None FINDINGS: The uterus is anteverted. Line uterus measures 8.7 cm LV 5.6 cm AP x 4.1 cm T. no fibroids are identified. Endometrium is 4 mm in thickness. Nabothian cysts in the cervix are incidentally noted. The right ovary measures 1.9 x 1.0 x 1.3 cm. The left ovary is visualized and measures 2.5 0.8 x 1.6 cm Normal blood flow detected in both ovaries. No adnexal findings. No free fluid in the cul-de-sac. US/Transvaginal Non- IMPRESSION: NORMAL ULTRASOUND OF THE HIPS. Reading Location: [facility] CC: Dr. Mele Azul DO; No Primary Care Physician ~ Proj Engineer: Signed [facility]04-05-2025 Discharge summary Author Mele Azul [facility] Note Date/Time May 14, 2024 3:[address] [facility] Medical Records Department [address] [place] [address] Emergency Department Summary 05/14/24 MR#: [id number] Acct: [id number] Name: NEVAEH WALL Rep #:[id number] : 2000 24 From: Mele Azul DO PCP: Care Physician,No Primary Status :DEP ER Location: ED HPI HPI - Female History of Present Illness Chief Complaint: Vag Bleeding Detail of Chief Complaint: Vaginal bleeding Informant: patient Narrative Narrative: Patient presents to the emergency department complaint of vaginal bleeding that started 3 days ago. Patient states that she is going through a pad an hour. Seems to have slowed down today. She states that prior to this bleeding starting she had gone about 2 weeks with persistent heavy bleeding similarly where she was going through a pad an hour. She complains of some fatigue. She states anemia runs in the family. She denies feeling lightheaded or dizzy. Shedenies significant abdominal pain. She has had intermittent cramping. She is G1, P0. Does not think she is but she is not on hormone therapy. [facility] Medical History (Updated 05/14/24 @ 14:[address] Mele Azul, DO) COVID-19 Hypertension 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 Depression Preeclampsia, severe Hypertension affecting in third trimester Home Medications ?Medication ?Instructions ?Recorded ?Last Taken ?Type aripiprazole 2 mg tablet 2 mg PO DAILY 12/23/22 Unkno wn History escitalopram oxalate 20 mg tablet 20 mg PO DAILY 12/23 Unknown History dicyclomine 10 mg capsule 20 mg (2 x 10 mg) PO Q6H PRN PRN 12/27/22 Unknown Rx abdominal pain #20 CAPSULES pantoprazole 40 mg tablet,delayed 40 mg PO DAILY #30 t abs 12/27/22 Unknown Rx release amoxicillin 500 mg tablet 500 mg PO TID #30 tabs 04/25 Unknown Rx norethindrone acetate 5 mg tablet 5 mg PO DAILY #30 ta bs 05/14/24 Unknown Rx Allergy/AdvReac Type Severity Reaction Status Date / Time No Known Allergies Allergy Verified 05/14/24 13:29 Family History Grandmother Diabetes Other Asthma Cancer Hypertension Thyroid disorder Surgical History History of delivery Social History Smoking Status: Never smoker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 Phone: Evaluation note* Diagnosis Procedure not carried out- Primary Procedure not carried out for other reasons documented in this encounter [facility]* Diagnosis Treatment not available- Primary Procedure not carried out for other reasons Abdominal cramping Abdominal pain, unspecified site documented in this encounter [facility]* Diagnosis Acute conjunctivitis of left eye, unspecified acute conjunctivitis type- Primary documented in this encounter [facility]* Diagnosis Neck pain- Primary Cervicalgia Superficial bruising of head and neck region Neck swelling Swelling, mass, or lump in head and neck [facility] Additional Instructions I would take Tylenol and Motrin for pain. Please establish primary careWOhioHealth [facility] General Hospital Work Phone: Reason for referral (narrative)No reason for referral information availableWOhioHealth [facility] Hospital Work Phone: Summary Purpose Family History No Family History Records Found Relationship Condition Age at Onset Recorded Date/T liz Not Specified Malignant neoplasm Unknown Hypertension Unknown Disorder of thyroid Unknown Asthma Unknown grandmother Diabetes mellitus Unknown Advance Directives No Advanced Directives Records Found Advance Directive Response Recorded Date/ Time Living Will No December 23, 023 6:10am Power of Glassware Defect Repairer No December 23, 2022 6:10am Advance Directive Response Recorded Date/ Time Living Will No December 25 023 6:03pm Power of Glassware Defect Repairer No December 25, 2022 6:03pm Advance Directive Response Recorded Date/ Time Living Will No April 26, 2023 9:09am Power of Glassware Defect Repairer No April 25 9:09am Advance Directive Response Recorded Date/ Time Living Will No May 14, 2024 1:26pm Do you have a Healthcare Power of Glassware Defect Repairer? No May 14, 2024 1:26pm Advance Directive Response Recorded Date/ Time Do you have a Healthcare Power of Glassware Defect Repairer? No June 08, 2024 5:52pm Living Will No May 14, 2024 1:26pm Do you have a Healthcare Power of Glassware Defect Repairer? No May 14, 2024 1:26pm Health Concerns Infection Onset Date Last Indicated Resolved Time COVID-19 Rule-Out 05/08/2021 05/08/2021 Chief Complaint and Reason for Visit Chief Complaint R SIDE PAIN Chief Complaint R SIDE PAIN RIGHT FLANK PAIN Chief Complaint abd paib COUGH Chief Complaint Admit Date vaginal bleeding May 14, 2024 1:26 pm Chief Complaint Admit Date vaginal bleeding May 14, 2024 1:26 pm ER F/U PT STATED WAS TOLD THIS DAY FROM [facility] ER May 24, 2024 11:57am INT LAB ORDERS May 24, 2024 12: 23pm Reason for Visit Admit Date Abnormal uterine bleeding May 24 11:57am Chief Complaint Admit Date vaginal bleeding May 14, 2024 1:26 pm ER F/U PT STATED WAS TOLD THIS DAY FROM [facility] May 24, 2024 11:57am INT LAB ORDERS May 24, 2024 12: 23pm ACUTE POSSIBLE DIABETES ISSUES-EST CARE IN AugustJune 08, 2024 9:05am R FLANK ARIZA June 08, 2024 5:5 2pm Discuss PCOS, insert IUD July 11, 2024 9:06am Reason for Visit Admit Date Abnormal uterine bleeding May 24 11:57am Diabetes mellitus, type II June 08, 2 025 9:05am Obesity June 08, 2024 9:0 5am Polycystic ovarian syndrome June 08, 2024 9:05am Chief Complaint Admit Date vaginal bleeding May 14, 2024 1:26 pm ER F/U PT STATED WAS TOLD THIS DAY FROM PER ER May 24, 2024 11:57am INT LAB ORDERS May 24, 2024 12: 23pm ACUTE POSSIBLE DIABETES ISSUES-EST CARE IN AugustJune 08, 2024 9:05am R FLANK ARIZA June 08, 2024 5:5 2pm Discuss PCOS, insert IUD July 11, 2024 9:06am INT LAB ORDERS July 11, 2024 10:12 am Reason for Visit Admit Date Abnormal uterine bleeding May 24 11:57am Diabetes mellitus, type II June 08, 025 9:05am Obesity June 08, 2024 9:0 5am Polycystic ovarian syndrome June 08, 2024 9:05am Diabetes mellitus, type II July 11 9:06am Encounter for IUD insertion July 11 9:06am Obesity July 11, 2024 9:06a m Polycystic ovarian syndrome July 11 9:06am Additional Source Comments INFORMATION SOURCE (unrecogn ized section and content) DATE CREATED AUTHOR 06/18/2018 [facility] DATE CREATED AUTHOR AUTHOR'S ORGANIZ ATION 04/19/2020 [facility] DATE CREATED AUTHOR AUTHOR'S ORGANIZ ATION 08/24/2023 [facility] DATE CREATED AUTHOR AUTHOR'S ORGANIZ ATION 08/19/2024 [facility] Source Comments (unrecognize d section and content) In the event this informatio n is protected by the Federal Confidentiality of Alcohol and Drug Abuse Patient Records regulations: The Federal rules restrict any use of the information to criminally investigate or prosecute any alcohol or drug abuse patient.[facility] HospitalIn the event this information is protected by the Federal Confidentiality of Alcohol and Drug Abuse Patient Records regulations: The Federal rules restrict any use of the information to criminally investigate or prosecute any alcohol or drug abuse patient.[facility] HospitalIn the event this information is protected by the Federal Confidentiality of Alcohol and Drug Abuse Patient Records regulations: The Federal rules restrict any use of the information to criminally investigate or prosecute any alcohol or drug abuse patient.[facility] HospitalIn the event this information is protected by the Federal Confidentiality of Alcohol and Drug Abuse Patient Records regulations: The Federal rules restrict any use of the information to criminally investigate or prosecute any alcohol or drug abuse patient.[facility] HospitalIn the event this information is protected by the Federal Confidentiality of Alcohol and Drug Abuse Patient Records regulations: The Federal rules restrict any use of the information to criminally investigate or prosecute any alcohol or drug abuse patient.[facility] HospitalIn the event this information is protected by the Federal Confidentiality of Alcohol and Drug Abuse Patient Records regulations: The Federal rules restrict any use of the information to criminally investigate or prosecute any alcohol or drug abuse patient.[facility] HospitalIn the event this information is protected by the Federal Confidentiality of Alcohol and Drug Abuse Patient Records regulations: The Federal rules restrict any use of the information to criminally investigate or prosecute any alcohol or drug abuse patient.[facility] HospitalIn the event this information is protected by the Federal Confidentiality of Alcohol and Drug Abuse Patient Records regulations: The Federal rules restrict any use of the information to criminally investigate or prosecute any alcohol or drug abuse patient.[facility] Reason for Visit (unrecogniz ed section and content) Reason Comments 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 Reason Comments Cough ST, congestion x1 da y Reason Comments Cough Congestion, upset st omach started this morning, was exposed to covid Reason Comments Abdominal Pain Reason Comments Eye Problem left red, swelling a nd drainage x today Reason Comments Neck Pain Left side of neck x1 days Reason Comments Fever Care Teams (unrecognized sec tion and content) Team Status: Active Member Role Status Dates No Primary Care Physician Family Provider Active No Primary Care Physician Primary Care Provider Active Team Status: Inactive Member Role Status Dates No Primary Care Physician Primary Care Provider Active Dr. Robb Mercado , Emergency Provider Active Team Status: Inactive Member Role Status Dates No Primary Care Physician Primary Care Provider Active Dr. Imtiaz Reyes , Emergency Provider Active Team Status: Inactive Member Role Status Dates No Primary Care Physician Primary Care Provider Active Dr. Robb Mercado DO Attending Provider, Emergency P donny Active Team Status: Inactive Member Role Status Dates No Primary Care Physician Primary Care Provider Active Dr. Jonatan Trujillo MD Attending Provider, Emergency Provider Active Team Status: Inactive Member Role Status Dates No Primary Care Physician Primary Care Provider Active Dr. Mele Azul DO Emergency Provider Active Team Status: Active Member Role Status Dates No Primary Care Physician Primary Care Provider Active Team Status: Inactive Member Role Status Dates No Primary Care Physician Primary Care Provider Active Start: May 14, 2024 End: May 14, 2024 Dr. Mele Azul DO Referring Provider Active S tart: May 14, 2024 End: May 14, 2024 Dr. Mele Azul DO Emergency Provider Active S tart: May 14, 2024 End: May 14, 2024 Team Status: Inactive Member Role Status Dates No Primary Care Physician Primary Care Provider Active Start: May 14, 2024 End: May 14, 2024 Dr. Mele Azul DO Attending Provider Active S tart: May 14, 2024 End: May 14, 2024 Dr. Mele Azul DO Referring Provider Active S tart: May 14, 2024 End: May 14, 2024 Dr. Mele Azul DO Emergency Provider Active S tart: May 14, 2024 End: May 14, 2024 Team Status: Inactive Member Role Status Dates No Primary Care Physician Primary Care Provider Active Start: May 24, 2024 End: May 24, 2024 No Primary Care Physician Referring Provider Active Start: May 24, 2024 End: May 24, 2024 Dr. Adriana Dickson MD Attending Provider Active Start: May 24, 2024 End: May 24, 2024 Team Status: Inactive Member Role Status Dates No Primary Care Physician Primary Care Provider Active Start: May 24, 2024 End: May 24, 2024 Dr. Adriana Dickson MD Attending Provider Active Start: May 24, 2024 End: May 24, 2024 Dr. Adriana Dickson MD Referring Provider Active Start: May 24, 2024 End: May 24, 2024 Team Status: Inactive Member Role Status Dates No Primary Care Physician Primary Care Provider Active Start: June 08, 2024 End: June 08, 2024 No Primary Care Physician Referring Provider Active Start: June 08, 2024 End: June 08, 2024 AUSTIN Mchugh Attending Provider Active St art: June 08, 2024 End: June 08, 2024 Team Status: Inactive Member Role Status Dates No Primary Care Physician Primary Care Provider Active Start: June 08, 2024 End: June 08, 2024 Dr. Jonathan Cruz DO Attending Provider Active Start: June 08, 2024 End: June 08, 2024 Dr. Jonathan Cruz DO Referring Provider Active Start: June 08, 2024 End: June 08, 2024 Dr. Jonathan Cruz DO Emergency Provider Active Start: June 08, 2024 End: June 08, 2024 Team Status: Inactive Member Role Status Dates No Primary Care Physician Primary Care Provider Active Start: July 11, 2024 End: July 11, 2024 No Primary Care Physician Referring Provider Active Start: July 11, 2024 End: July 11, 2024 Dr. Adriana Dickson MD Attending Provider Active Start: July 11, 2024 End: July 11, 2024 Team Status: Inactive Member Role Status Dates No Primary Care Physician Primary Care Provider Active Start: July 11, 2024 End: July 11, 2024 Dr. Adriana Dickson MD Attending Provider Active Start: July 11, 2024 End: July 11, 2024 Dr. Adriana Dickson MD Referring Provider Active Start: July 11, 2024 End: July 11, 2024 Goals (unrecognized section and content) Goals may be documented in a n alternate sectionGoals may be documented in an alternate sectionGoals may be documented in an alternate sectionGoals may be documented in an alternate sectionGoals may be documented in an alternate sectionGoals may be documented in an alternate sectionGoals may be documented in an alternate section FOR RECORDS PERTAINING TO PATIENTS WHO ARE [...] BE BASED ON THE PRIMARY CLINICAL RECORDS. [facility] CenterContent Syndicate: [employer] [facility]. provides no warranty or guarantee of the accuracy or completeness of information in this document.
[2024-08-31 22:34] LABS: Alcohol, Blood (Medical)-Serum < 10.1 mg/dL (<=10.0)
[2024-08-31 22:35] LABS: AST(SGOT) 57 U/L (<=31); Alanine Aminotransfer ALT/SGPT 44 U/L (<=34); Albumin, Serum 4.2 g/dL (3.5-5.0); Alkaline Phosphatase 135 U/L (35-104); Anion Gap 15 (5-15); BUN 13 mg/dL (4-19); BUN/Creat Ratio 16.3 RATIO (10-20); Calcium,Total 9.2 mg/dL (7.6-11.0); Carbon Dioxide 22.8 mmol/L (21.0-32.0); Chloride 102 mmol/L (98-108); Estimated Creatinine Clearance 134.68 ml/min (50-250); Globulin 3.6 g/dL (2.2-4.2); Glucose 137 mg/dL (70-99); Potassium 3.9 mmol/L (3.3-5.1)
[2024-08-31 22:38] VITALS: RESP 18; O2SAT 98
[2024-08-31 22:42] LABS: Internal QC Validated? YES +Cl - CLEAR BKGD; Pregnancy, Serum, hCG Quali. NEGATIVE Negative; Record Kit Lot#, Serum Preg. 962302
--- NOTE | 2024-08-31 22:52 | PCA ---
PT REFERRED TO CARO[facility] LAMBERT
[2024-08-31 23:26] LABS: Hematocrit 34.0 % (37-47); Hemoglobin 10.5 g/dL (12.0-15.0); Immature Granulocytes Count 0.120 X10^3/uL (0.0-0.0); Mean Corp Hgb Conc 30.9 g/dL (32-36); Mean Corpuscular Volume 72.2 fL (81-99); Mean Platelet Vol. 9.3 fl (6.2-12.0); NRBC Flagged by Analyzer 0 % (0-5); POSITIVE MORPHOLOGY YES; Platelet Count 420 K/mm3 (150-450); RBC Distribution Width CV 17.9 % (11.6-14.6); RBC Distribution Width SD 46.5 fl (35.1-43.9); Red Blood Count 4.71 M/mm3 (4.2-5.4); White Blood Count 13.3 K/mm3 (4.4-11.0)
--- NOTE | 2024-08-31 23:30 | ED.RN ---
Zak Saha/Robin by Dr. Lei at this time.
[2024-08-31 23:52] LABS: Differential Indicated SCAN CRITERIA MET
[2024-09-01] VITALS: BP 160/104; PULSE 106; RESP 20; O2SAT 98
[2024-09-01 00:03] LABS: Barbiturate Urine NEGATIVE (< 200 ng/mL); Benzodiazepine Urine NEGATIVE (< 200 ng/mL); PCP Urine NEGATIVE (< 25 ng/mL); THC Urine PRESUMPTIVE POSITIVE (< 50 ng/mL)
--- NOTE | 2024-09-01 00:11 | PCA ---
PT CHART FAXED TO [facility] PER [facility].
--- NOTE | 2024-09-01 00:24 | PCA ---
PT ACCEPTED [facility] [id number] [phone], CALL THIS NUMBER FOR RIDE TIME [phone]
[2024-09-01 07:13] VITALS: BP 143/94; PULSE 83; RESP 18; TEMP 36.8; O2SAT 97
--- NOTE | 2024-09-01 07:22 | ED.RN ---
attempted to call report x2 to [facility] no answer voicemail left.
--- NOTE | 2024-09-01 07:54 | ED.RN ---
attempted to call report again to [facility], again no answer, voicemail left. Transport here to take patient to [facility]
--- NOTE | 2024-09-01 08:15 | ED.RN ---
attempted to call report to [facility] at this time phone was answered sounded like they answered the phone put it back in there pocket then hung up the phone.
== END 2024-09-01 08:18 ==
PROVIDERS: Emergency Provider Emergency Medicine; Visit Provider Emergency Medicine
DX: F32.A Depression, unspecified (principal); R45.851 Suicidal ideations; I10 Essential (primary) hypertension; Z79.899 Other long term (current) drug therapy
CPT/HCPCS: 36415; 80053; 80307; 82077; 84703; 85025; 99285

== ENCOUNTER → 2024-11-10 | Outpatient (CLI) | payer MEDICAID, SELFPAY ==
[2024-11-14 20:08] LABS: Chlamydia By Nucleic Acid AMP Negative (Negative); Gonococcus By Nucleic Acid AMP Negative (Negative)
== END | disposition home or self-care (01) ==
LOC: LABSPEC 16:26
PROVIDERS: Visit Provider Advanced Practice Midwife
DX: A74.9 Chlamydial infection, unspecified (principal)
CPT/HCPCS: 87491; 87591

== ENCOUNTER 2024-11-29 21:06 | Emergency (ER) | payer MEDICAID, SELFPAY ==
[2024-11-29 21:07] VITALS: BP 162/100; PULSE 128; RESP 25; TEMP 36.8; O2SAT 100; BMI 54.8
--- NOTE | 2024-11-29 22:42 | ED.RN ---
2 unsuccessful IV attempts from this RN
[2024-11-29 23:07] VITALS: BP 179/105; PULSE 118; RESP 20; O2SAT 98
[2024-11-29 23:48] LABS: Mucous, Urine 0 SEEN /hpf (<or=2+)
[2024-11-29 23:49] LABS: Color, Urine Yellow (Yellow); Glucose, Dipstick Normal (Normal); Ketone-Dipstick Negative (Negative); Leukocyte Esterase-Dipstick 500 /ul (Negative); Nitrite-Dipstick Negative (Negative); Occult Blood-Urine 250 /ul (Negative); Protein-Dipstick 500 mg/dl (Negative); Specific Gravity, Urine 1.025 (1.002-1.030); Urine Bilirubin Dipstick Negative (Negative)
[2024-11-29 23:59] LABS: Red Blood Cells-Urine 5-10 SEEN /hpf (0-5); Squamous Epithelial Cells - UA 0-5 SEEN /hpf (5-10)
[2024-11-30 00:15] LABS: Hematocrit 40.2 % (37-47); Hemoglobin 13.3 g/dL (12.0-15.0); Immature Granulocytes Count 0.320 X10^3/uL (0.0-0.0); Mean Corp Hgb Conc 33.1 g/dL (32-36); Mean Corpuscular Volume 80.7 fL (81-99); Mean Platelet Vol. 9.9 fl (6.2-12.0); NRBC Flagged by Analyzer 0 % (0-5); Platelet Count 379 K/mm3 (150-450); RBC Distribution Width CV 17.3 % (11.6-14.6); RBC Distribution Width SD 50.8 fl (35.1-43.9); Red Blood Count 4.98 M/mm3 (4.2-5.4); White Blood Count 15.7 K/mm3 (4.4-11.0)
[2024-11-30 00:29] LABS: Internal QC Validated? YES +Cl - CLEAR BKGD; Pregnancy, Serum, hCG Quali. NEGATIVE Negative; Record Kit Lot#, Serum Preg. 0000980607
[2024-11-30 01:00] VITALS: BP 169/106; PULSE 113; RESP 18; O2SAT 96
[2024-11-30 01:23] LABS: Lipase 33 U/L (13-75)
[2024-11-30 01:41] LABS: AST(SGOT) 65 U/L (<=31); Alanine Aminotransfer ALT/SGPT 60 U/L (<=34); Albumin, Serum 4.0 g/dL (3.5-5.0); Alkaline Phosphatase 119 U/L (35-104); BUN 14 mg/dL (4-19); BUN/Creat Ratio 18.8 RATIO (10-20); Calcium,Total 9.5 mg/dL (7.6-11.0); Carbon Dioxide 20.6 mmol/L (21.0-32.0); Estimated Creatinine Clearance 151.56 ml/min (50-250); Globulin 3.8 g/dL (2.2-4.2); Glucose 218 mg/dL (70-99)
--- NOTE | 2024-11-30 01:53 | CT_ITS ---
PROCEDURE: ABDOMEN/PELVIS W IV CONT ONLY 11/30/2024 REASON FOR EXAM: RLQ PAIN TECHNIQUE: Procedure Code: [id number] Modality: CT Procedure: ABDOMEN/PELVIS W IV CONT ONLY Coronal and Sagittal reconstruction series were provided. CONTRAST: isovue 370 VOLUME: 100 mL One or more dose reduction techniques were used (e.g., Automated exposure control, adjustment of the mA and/or kV according to patient size, use of iterative reconstruction technique. RADIATION DOSE SUMMARY: CTDI Vol 13.71 mGy DLP :713.64 mGycm COMPARISON: 08-Jun-2024 FINDINGS: The appendix appears unremarkable. No right iliac inflammatory changes. The examined ascending colon, the transverse colon, the descending colon & small bowel loops are unremarkable. The stomach is unremarkable. Stable fatty hepatomegaly with no obvious masses. No dilated intra or extra-hepatic biliary tracts. Gall bladder showing no radiodense calculi. Normal appearance of the pancreas with clear surrounding fat planes. The spleen, adrenal glands, aorta and IVC are unremarkable. Both kidneys are of average size and showing smooth outline with preserved parenchymal thickness. No renal calculi. No hydronephrosis. Distension of the urinary bladder showing no obvious masses. No obvious masses related to the pelvic viscera. An IUCD is noted. No ascites or free air. No obvious pathologically enlarged lymph nodes. Scanned osseous structures show no osseous destruction. Scanned lung bases show no obvious abnormalities. CT/Abdomen/Pelvis W IV Cont ONLY IMPRESSION: No obvious appendicitis. Stable fatty hepatomegaly. Reading [facility] [id number]
[2024-11-30] MEDS: 0.9% Normal Saline (1000mL) 1,000 ML 999 ML IV (02:03)
[2024-11-30 02:13] LABS: Anion Gap 16 (5-15); Chloride 101 mmol/L (98-108); Potassium 4.0 mmol/L (3.3-5.1)
--- NOTE | 2024-11-30 02:45 | EX.ED.DYSGE1 ---
HPI History of Present Illness Chief Complaint: Abd Pain Informant: patient and spouse/S.O. Narrative Narrative: Patient is a 24-year-old female with past medical history of hypertension and PCOS. She states that she has had right sided abdominal pain throughout the day. She reports that there has been no fevers or chills. She denies any known sick contact. She states that there has been no vomiting diarrhea or dysuria. She denies any concern for . She states that the pain has been persistent throughout the day and has not resolved [id number] medication and time and therefore she comes in for evaluation [facility] Medical History COVID-19 Hypertension 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 Depression Preeclampsia, severe Hypertension affecting in third trimester Home Medications ?Medication ?Instructions ?Recorded ?Last Taken ?Type blood-glucose sensor (Dexcom G7 #12 ea 06/08/24 Unknown Rx Sensor device) blood-glucose,integration developer,cont #1 ea 06/08/24 Unknown Rx (Dexcom G7 Video Rental Clerk) hydroxyzine pamoate 25 mg capsule 25 mg PO BID 06/08/24 06/08/24 History trazodone 50 mg tablet 50 mg PO QHS 06/08/24 06/06/24 History tirzepatide (weight loss) 2.5 2.5 mg (0.5 mL) subcut QWEEK #2 mL 06/22/24 Unknown Rx mg/0.5 mL subcutaneous pen injector (Zepbound) levonorgestrel (Mirena) 1 device intrauterine ONCE 07/11/24 Unknown History lurasidone 60 mg tablet 60 mg PO QDAY 11/10/24 Unknown History cephalexin 500 mg capsule 500 mg PO TID 7 days #21 caps 11/30/24 Unknown Rx oxycodone-acetaminophen 5 mg-325 1 tab PO Q6H PRN pain 3 days #12 11/30/24 Unknown Rx mg tablet (Percocet) tabs Allergy/AdvReac Type Severity Reaction Status Date / Time No Known Allergies Allergy Verified 11/29/24 21:07 Family History Grandmother Diabetes Other Asthma Cancer Hypertension Thyroid disorder Surgical History History of delivery Social History adopted: No housing: apartment number of children: 1 current occupational status: unemployed pets and animals: No history of recent travel: No sexually active: Yes Smoking Status: Never smoker second hand exposure: No alcohol intake: current alcohol intake frequency: a few times a month Alcohol type: other substance use type: does not use caffeine: Yes what type of physical activity do you participate in: walking frequency: 3-4 times per week duration: 15-30 minutes/day seatbelt use: always do you feel safe at home: Yes additional social history: Single Patient does not work ROS ROS ED Constitutional Constitutional ED: Denies chills or fever(s) Eyes Eyes: Denies change in vision ENT ENT ED: Denies sore throat Cardiovascular Cardiovascular: Denies chest pain Respiratory/Chest Respiratory/Chest: Denies cough or dyspnea Gastrointestinal Gastrointestinal: Reports abdominal pain; Denies diarrhea, nausea or vomiting Genitourinary Genitourinary ED: Denies dysuria or hematuria Musculoskeletal Musculoskeletal: Denies back pain or myalgias Integumentary Denies rash Neurologic Neurologic: Denies headache(s) Hematologic/Lymphatic Hematologic/Lymphatic: Denies easy bleeding or easy bruising EXAM Physical Exam Const Vital Signs: 11/29/24 21:07 11/29/24 23:07 11/30/24 01:00 Temperature 98.2 F Temperature Source Oral Pulse Rate 128 H 118 H 113 H Respiratory Rate 25 H 20 H 18 Blood Pressure 162/100 H 179/105 H 169/106 H Blood Pressure Mean 120 129 127 Pulse Ox 100 98 96 Oxygen Delivery Method Room Air Room Air Room Air Positive well nourished, well developed and obese General Appearance ED: well developed; Negative for pallor Nutritional Appearance: obese HEENT Reports moist mucous membranes HEENT Narrative: Normocephalic atraumatic No tongue or lip swelling no oral lesions no airway edema or compromise; no secondary findings in the posterior pharynx to suggest infection Eyes PERRL and EOMs intact bilaterally General Eye ED: Negative for scleral icterus Neck supple Resp normal respiratory effort and clear to auscultation bilaterally Cardio regular rate and regular rhythm Rate: other Other Details: Heart is regular rate and rhythm without murmurs rubs or gallop Radial and carotid pulses are equal and symmetric GI non-distended and no masses GI Narrative: Abdomen is soft and nondistended with hyperactive bowel sound Patient has diffuse pain across the lower abdomen without voluntary guarding or rigidity No pulsatile mass or fluid wave No peritoneal signs Auscultation: hyperactive bowel sounds Palpation: soft Back/Spine no CVA tenderness Extremity normal to inspection Neuro oriented x3, CN's II-XII intact bilaterally and no sensory deficits noted Sensorium / Orientation: alert Motor Exam: strength 5/5 throughout Psych mental status grossly normal Skin no rashes or lesions noted General Skin Exam: Negative for jaundice or pallor MDM MDM MDM Narrative Medical decision making narrative: Patient arrived to the ER hypertensive but otherwise in no acute distress. She reported abdominal pain throughout the day without vomiting diarrhea or dysuria and she denied any concern for . She reported pain was greatest in the right lower quadrant but on exam there is diffuse abdominal pain and I feel the greatest pain is elicited with suprapubic palpation. In order to assess for UTI versus pyelonephritis versus pancreatitis versus biliary colic versus complication versus acute appendicitis I did elect to perform basic labs with urine sample and CT scan of the abdomen and pelvis. Patient's white count is elevated at 15.7 concerning for infection versus stress response. Otherwise she has no sign of acute kidney injury or clinically significant electrolyte abnormality. Her lipase is normal going against pancreatitis. CT of the abdomen pelvis revealed no sign of appendicitis pancreatitis or gallbladder dysfunction. Her urine sample does show changes consistent with infection and this would correlate with her lower abdominal pain greatest in the suprapubic region. As she does not have signs of urosepsis or acute kidney injury do not feel the need for admission. Patient will be started on antibiotics secondary to the infection but is otherwise safe for discharge. History & Record Review Discussion w/independent historian: Patient and Significant other Lab Data Attestation: I reviewed the patient's lab results. Labs: Laboratory Results - last 24 hr 11/29/24 11/30/24 23:44 00:03 WBC 15.7 H RBC 4.98 Hgb 13.3 Hct 40.2 MCV 80.7 L MCH 26.7 L MCHC 33.1 RDW Std Deviation 50.8 H RDW Coeff of Kofi 17.3 H Plt Count 379 MPV 9.9 Immature Gran % (Auto) 2.000 H Neut % (Auto) 68.1 Lymph % (Auto) 21.8 [place] % (Auto) 6.8 Eos % (Auto) 0.6 Baso % (Auto) 0.7 Absolute Neuts (auto) 10.7 H Absolute Lymphs (auto) 3.42 Nucleated RBC % 0 Sodium 137 Potassium 4.0 Chloride 101 Carbon Dioxide 20.6 L Anion Gap 16 H BUN 14 Creatinine 0.75 Estim Creat Clear Calc 151.56 Est GFR (MDRD) Non-Af 112 BUN/Creatinine Ratio 18.8 Glucose 218 H Calcium 9.5 Total Bilirubin 0.33 AST 65 H ALT 60 H Alkaline Phosphatase 119 H Total Protein 7.8 Albumin 4.0 Globulin 3.8 Albumin/Globulin Ratio 1.1 Lipase 33 Serum , Qual NEGATIVE Urine Color Yellow Urine Clarity Sl. Cloudy Urine pH 5.0 Ur Specific [place] 1.025 Urine Protein 500 H Urine Glucose (UA) Normal Urine Ketones Negative Urine Occult Blood 250 H Urine Nitrite Negative Urine Bilirubin Negative Urine Urobilinogen Normal Ur Leukocyte Esterase 500 H Urine RBC 5-10 SEEN Urine WBC 25-50 SEEN Ur Squamous Epith Cells 0-5 SEEN Urine Bacteria 2+ Hyaline Casts 0-5 SEEN Urine Mucus 0 SEEN Radiography Diagnostic Testing: Clinical Impression(s) from Imaging Studies Abdomen/Pelvis CT 11/30/24 01:53 IMPRESSION: No obvious appendicitis. Stable fatty hepatomegaly. Reading [facility] Triage Chief Complaint: Abd Pain ED Provider: John Lei Dx/Rx/DC Orders Clinical Impression: UTI (urinary tract infection), Polycystic ovarian syndrome, Hypertension Instructions: Abdominal Pain, Urinary Tract Infections in Women Prescriptions: New cephalexin 500 mg capsule 500 mg PO TID 7 Days Qty: 21 0RF oxycodone-acetaminophen [Percocet] 5-325 mg tablet 1 tab PO Q6H PRN (Reason: pain) 3 Days Qty: 12 0RF No Action Mirena 21 mcg/24hr (up to 8 yrs) 52 mg intrauterine device 1 device intrauterine ONCE Rx Instructions: as a single dose (DME) Dexcom G7 Sensor Device See Rx Instructions .Route Qty: 12 0RF Rx Instructions: As directed (DME) Dexcom G7 Video Rental Clerk Misc See Rx Instructions .Route Qty: 1 0RF Rx Instructions: To check sugars QID lurasidone 60 mg tablet 60 mg PO QDAY trazodone 50 mg tablet 50 mg PO QHS hydroxyzine pamoate 25 mg capsule 25 mg PO BID Zepbound 2.5 mg/0.5 mL pen injector 2.5 mg subcut QWEEK Qty: 2 0RF Rx Instructions: for 4 weeks Primary Care Provider: Kerri Durahm Referrals: Kerri Durham, [facility] [Primary Care Provider, Family Practice] Activity Restrictions/Additional Instructions: Your CT scan showed no signs of intestinal infection or appendicitis. Your urine is infected however. Please take the antibiotic as directed to resolve the infection. It will typically take 48 to 72 hours for this to improve. Use the pain medication in the meantime to help with symptom control. Return to the ER should you have any further concerns Print Language: Romansh Disposition Disposition: Home, Self Care Discharge Date/Time: 11/30/24 04:16
[2024-11-30 03:00] VITALS: BP 157/81; PULSE 99; RESP 18; O2SAT 100
[2024-11-30 03:08] VITALS: BP 157/81; PULSE 98; RESP 18; TEMP 36.8; O2SAT 97
== END 2024-11-30 04:16 | disposition home or self-care (01) ==
PROVIDERS: Emergency Provider Emergency Medicine; PCP Nurse Practitioner Family; Visit Provider Emergency Medicine
DX: N39.0 Urinary tract infection, site not specified (principal); I10 Essential (primary) hypertension; E28.2 Polycystic ovarian syndrome; R10.9 Unspecified abdominal pain
CPT/HCPCS: 74177; 80053; 81001; 83690; 84703; 85025; 87086; 87088; 96361; 96365; 96375; 99283; Q9967; A4216; J2405

== ENCOUNTER → 2024-12-20 | Outpatient (CLI) | payer MEDICAID, SELFPAY ==
[2024-12-20 16:56] LABS: Hematocrit 45.1 % (37-47); Hemoglobin 14.5 g/dL (12.0-15.0); Immature Granulocytes Count 0.190 X10^3/uL (0.0-0.0); Mean Corp Hgb Conc 32.2 g/dL (32-36); Mean Corpuscular Volume 83.1 fL (81-99); Mean Platelet Vol. 11.8 fl (6.2-12.0); NRBC Flagged by Analyzer 0 % (0-5); Platelet Count 359 K/mm3 (150-450); RBC Distribution Width CV 15.9 % (11.6-14.6); RBC Distribution Width SD 47.9 fl (35.1-43.9); Red Blood Count 5.43 M/mm3 (4.2-5.4); White Blood Count 12.3 K/mm3 (4.4-11.0)
[2024-12-20 17:24] LABS: Cholesterol 198 mg/dL (<=200); Low Density Lipoprotein Calc. 72 mg/dL; Triglycerides 433 mg/dL; Very Low Density Lipoprotein 87 mg/dL (5-40); Vitamin B12 700 pg/mL (180-914); Vitamin D,25 Hydroxy 25.4 ng/mL (30-100); cholesterol:hdl ratio screen 3.41
[2024-12-20 17:47] LABS: AST(SGOT) 74 U/L (<=31); Alanine Aminotransfer ALT/SGPT 99 U/L (<=34); Albumin, Serum 4.4 g/dL (3.5-5.0); Alkaline Phosphatase 201 U/L (35-104); Anion Gap 20 (5-15); BUN 18 mg/dL (4-19); BUN/Creat Ratio 21.6 RATIO (10-20); Calcium,Total 10.7 mg/dL (7.6-11.0); Carbon Dioxide 20.1 mmol/L (21.0-32.0); Chloride 90 mmol/L (98-108); Globulin 4.0 g/dL (2.2-4.2); Potassium 4.6 mmol/L (3.3-5.1)
[2024-12-21 03:01] LABS: Glucose 612 mg/dL (70-99)
== END | disposition home or self-care (01) ==
LOC: VSLAB 10:54
PROVIDERS: PCP Nurse Practitioner Family; Referring Provider Nurse Practitioner Family; Visit Provider Nurse Practitioner Family
DX: Z13.220 Encounter for screening for lipoid disorders (principal); E11.9 Type 2 diabetes mellitus without complications; E03.9 Hypothyroidism, unspecified; R53.83 Other fatigue
CPT/HCPCS: 36415; 80053; 80061; 82306; 82607; 84439; 84443; 85025

== ENCOUNTER 2024-12-21 10:07 | Inpatient (IN) | payer MEDICAID, SELFPAY ==
[2024-12-21] VITALS (18 sets, daily range): BP systolic 111–168; BP diastolic 59–115; PULSE 89–113; RESP 12–25; TEMP 36.6–37.1; O2SAT 92–98; BMI 54.5
--- NOTE | 2024-12-21 10:38 | EX.ED.DYSGE1 ---
HPI History of Present Illness Chief Complaint: Hyperglycemia Narrative Narrative: Patient is a 24-year-old female past medical history of depression, hypertension, type 2 diabetes who presented to the emergency department with a concern for elevated blood glucose and abnormal blood work in the outpatient setting. States that she had blood work obtained yesterday by her primary care physician and was told to go to the emergency department today as her labs were abnormal. She states that she has had some diarrhea starting yesterday but denies any other complaints PFSH PFS Medical History COVID-19 Hypertension 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 Depression Preeclampsia, severe Hypertension affecting in third trimester Home Medications Medication Instructions Recorded Last Taken Type blood-glucose sensor (Dexcom G7 #12 ea 06/08/24 Unknown Rx Sensor device) blood-glucose,bookkeeper,cont #1 ea 06/08/24 Unknown Rx (Dexcom G7 Mixer Operator Raw Salt) trazodone 50 mg tablet 50 mg PO QHS 06/08/24 12/20/24 History tirzepatide (weight loss) 2.5 2.5 mg (0.5 mL) subcut QWEEK #2 mL 06/22/24 Unknown Rx mg/0.5 mL subcutaneous pen injector (Zepbound) levonorgestrel (Mirena) 1 device intrauterine ONCE 07/11/24 Unknown History lurasidone 60 mg tablet 60 mg PO QDAY 11/10/24 12/21/24 History buspirone 5 mg tablet 5 mg PO BID PRN anxiety 12/21/24 12/21/24 History dulaglutide 0.75 mg/0.5 mL mg subcut DAILY 12/21/24 12/21/24 History subcutaneous pen injector (Trulicity) Allergy/AdvReac Type Severity Reaction Status Date / Time No Known Allergies Allergy Verified 12/21/24 10:07 Family History Grandmother Diabetes Other Asthma Cancer Hypertension Thyroid disorder Surgical History History of delivery Social History adopted: No housing: apartment number of children: 1 current occupational status: unemployed pets and animals: No history of recent travel: No sexually active: Yes Smoking Status: Never smoker second hand exposure: No alcohol intake: current alcohol intake frequency: a few times a month Alcohol type: other substance use type: does not use caffeine: Yes what type of physical activity do you participate in: walking frequency: 3-4 times per week duration: 15-30 minutes/day seatbelt use: always do you feel safe at home: Yes additional social history: Single Patient does not work ROS ROS ED ROS Narrative Constitutional: Denies any fevers, chills, headaches Eyes, ears, nose and throat: Denies change in vision double vision blurry vision denies any sore throats Cardiovascular: Denies chest pain Respiratory: Denies shortness of breath Abdomen: Denies abdominal pain nausea vomiting : Denies urinary symptoms Neurological: Denies numbness, weeks, tingling Musculoskeletal: Denies back pain Skin: Denies any rashes or lesions EXAM Physical Exam Narrative Exam Narrative: General: Patient was lying in bed rest comfortably did not appear to be in acute distress Head: Atraumatic, normocephalic Eyes: PERRL bilaterally, EOMI bilaterally, no conjunctival injection noted Neck: Soft, supple, trachea midline Cardiovascular: Patient tachycardic with a regular rhythm Respiratory: Clear to auscultation bilaterally Abdomen: Soft, nondistended, nontender to palpation Extremities: +5/5 strength noted in the bilateral lower extremities Neurological: Patient follow commands knew that she was at [facility] year is 2024 Skin: Warm, dry, tact no rashes or lesions noted Const Vital Signs: 12/21/24 10:07 12/21/24 11:36 12/21/24 12:07 Temperature 98.7 F Temperature Source Oral Pulse Rate 113 H 89 Respiratory Rate 18 16 Respiratory Effort Normal Non-Labored Blood Pressure 132/99 H 121/78 H Blood Pressure Mean 110 92 Pulse Ox 98 98 Oxygen Delivery Method Room Air Room Air MDM MDM MDM Narrative Medical decision making narrative: Patient is a 24-year-old female who presents to the emergency department the chief complaint of hyperglycemia. On the differential diagnose includes but not limited to HHS, hyperglycemia, DKA, UTI, . Once workup is obtained reviewed she will be reevaluated. Patient be given IV fluids. Patient CBC reviewed and showed a leukocytosis of 13,000, hemoglobin 14.7, plate count 02/11/1948. Patient's venous gas showed a pH 7.41, sodium normal 130, potassium normal 5.1, anion gap of 18 with a carbon dioxide of 19.7. Patient's lactic acid elevated 2.9, glucose was noted to be 382. Patient lipase normal at 52 beta-hydroxybutyrate elevated 0.4 test was negative. Patient will be given 10U subcutaneous insulin. Will discuss case with hospitalist for admission for new onset DKA. Spoke with hospitalist Dr. Rios for admission and he is recommending further IV fluid hydration before starting insulin and states that he will place the insulin order himself. Notified the patient to is agreeable this plan all question concerns answered. Critical care time 37 minutes Lab Data Labs: Laboratory Results - last 24 hr 12/21/24 12/21/24 12/21/24 11:16 11:25 12:05 WBC 13.6 H RBC 5.41 H Hgb 14.7 Hct 44.9 MCV 83.0 MCH 27.2 MCHC 32.7 RDW Std Deviation 46.4 H RDW Coeff of Kofi 15.5 H Plt Count 347 MPV 10.8 Immature Gran % (Auto) 1.700 H Neut % (Auto) 60.7 Lymph % (Auto) 27.4 [place] % (Auto) 7.4 Eos % (Auto) 1.5 Baso % (Auto) 1.3 H Absolute Neuts (auto) 8.2 H Absolute Lymphs (auto) 3.72 Nucleated RBC % 0 Sodium 130 L Potassium 5.1 Chloride 92 L Carbon Dioxide 19.7 L Anion Gap 18 H BUN 14 Creatinine 0.81 Est GFR (MDRD) Non-Af 102 BUN/Creatinine Ratio 17.4 Glucose 382 H Lactic Acid 2.9 H* Calcium 10.0 Total Bilirubin 0.49 AST 101 H ALT 89 H Alkaline Phosphatase 155 H Total Protein 8.4 Albumin 4.0 Globulin 4.3 H Albumin/Globulin Ratio 0.9 Lipase 52 b-Hydroxybutyric mmol/L 0.4 H Serum , Qual NEGATIVE Urine Color Yellow Urine Clarity Cloudy Urine pH 5.0 Ur Specific [place] 1.025 Urine Protein 500 H Urine Glucose (UA) 1000 H Urine Ketones 5 H Urine Occult Blood 250 H Urine Nitrite Positive H Urine Bilirubin Negative Urine Urobilinogen Normal Ur Leukocyte Esterase 500 H Urine RBC > 100 SEEN Urine WBC >100 SEEN Ur Squamous Epith Cells 25-50 SEEN Urine Bacteria 0 SEEN Hyaline Casts 0-5 SEEN Coarse Granular Casts 0-5 SEEN Urine Mucus 0 SEEN POC Glucose 371 H ABG Data ABG results: ABG 12/21/24 11:52 Specimen Type ABHISHEK Sample Site Not entered VBG pH 7.41 VBG pO2 42 H VBG HCO3 28 H VBG Total CO2 29 VBG O2 Sat (Calc) 77 H VBG Base Excess 3 POC Mix VBG pCO2 Pt Tmp 44.2 O2 Delivery Device Not entered Discharge Plan Dx/Rx/DC Orders Clinical Impression: DKA (diabetic ketoacidosis), History of hypertension Disposition Disposition: [facility] D/C Safety Score for UGIB Assessment Diane-Blatchford Bleeding Score (GBS): Stratifies upper GI bleeding patients who are "low-risk" and candidates for outpatient management. Hemoglobin, BUN, Recent Vital Signs: Hgb 14.7 g/dL (12.0-15.0) 12/21/24 11:25 BUN 14 mg/dL (4-19) 12/21/24 11:25 Pulse Rate 89 Blood Pressure 121/78 Total Risk Score: 0 Score Interpretation: Score of 0: A GBS of 0 is a “Low Risk” GI bleed, and is highly sensitive (99.6% in a 2007 retrospective study) for predicting which patients did not require any “medical intervention”: blood transfusion, endoscopy, or surgery. This was confirmed in a 2009 [facility] study where patients with a score of 0 were actually discharged and had no GI bleeding mortality at 6 month followup Score above 0: A GBS greater than zero suggests a “High Risk” GI bleed that is likely to require “medical intervention”: transfusion, endoscopy, or surgery. A higher GBS also correlated with a higher likelihood of needing intervention Scores >/= 6 are associated with >50% risk of needing intervention D/C Safety Score for LGIB Assessment Assessment Tool: Readmission and adverse event risk in patients with acute lower GI bleeding. Age, in years: <40 Hemoglobin and Recent Vital Signs: Hgb 14.7 g/dL (12.0-15.0) 12/21/24 11:25 Pulse Rate 89 12/21/24 12:07 Blood Pressure 121/78 12/21/24 12:07 Probability of safe discharge: 99% Total Risk Score: 0 Score Interpretation: Probability Percentage of safe discharge (absence of rebleeding, blood transfusion, therapeutic intervention, 28 day readmission, or ) Score of 8 or below: Consider discharge, with appropriate precautions. Score of 9 or above: Discharge NOT recommended. Consider admission with further workup and resuscitation as necessary.
[2024-12-21] MEDS: 0.9% Normal Saline (1000mL) 1,000 ML 999 ML IV ×2 (11:30→13:28)
[2024-12-21 11:39] LABS: Hematocrit 44.9 % (37-47); Hemoglobin 14.7 g/dL (12.0-15.0); Immature Granulocytes Count 0.230 X10^3/uL (0.0-0.0); Mean Corp Hgb Conc 32.7 g/dL (32-36); Mean Corpuscular Volume 83.0 fL (81-99); Mean Platelet Vol. 10.8 fl (6.2-12.0); NRBC Flagged by Analyzer 0 % (0-5); Platelet Count 347 K/mm3 (150-450); RBC Distribution Width CV 15.5 % (11.6-14.6); RBC Distribution Width SD 46.4 fl (35.1-43.9); Red Blood Count 5.41 M/mm3 (4.2-5.4); White Blood Count 13.6 K/mm3 (4.4-11.0)
[2024-12-21 11:43] LABS: Internal QC Validated? YES +Cl - CLEAR BKGD; Record Kit Lot#, Serum Preg. 0000980607
[2024-12-21 11:46] LABS: Pregnancy, Serum, hCG Quali. NEGATIVE Negative
[2024-12-21 11:56] LABS: SITE Not entered; VBG BASE EXCESS 3 mmol/L (-1.0-3.5); VBG PO2 42 mmHg (25-40); VBG SO2 77 % (50-70); VBG TCO2 29 mmol/L (23-33)
[2024-12-21 12:14] LABS: BETA-HYDROXYBUTYRATE 0.4 mmol/L (0.0-0.3); Lipase 52 U/L (13-75)
[2024-12-21 12:18] LABS: AST(SGOT) 101 U/L (<=31); Alanine Aminotransfer ALT/SGPT 89 U/L (<=34); Albumin, Serum 4.0 g/dL (3.5-5.0); Alkaline Phosphatase 155 U/L (35-104); Anion Gap 18 (5-15); BUN 14 mg/dL (4-19); BUN/Creat Ratio 17.4 RATIO (10-20); Calcium,Total 10.0 mg/dL (7.6-11.0); Carbon Dioxide 19.7 mmol/L (21.0-32.0); Chloride 92 mmol/L (98-108); Globulin 4.3 g/dL (2.2-4.2); Glucose 382 mg/dL (70-99); Potassium 5.1 mmol/L (3.3-5.1)
[2024-12-21 12:22] LABS: Mucous, Urine 0 SEEN /hpf (<or=2+)
[2024-12-21 12:28] LABS: Color, Urine Yellow (Yellow); Glucose, Dipstick 1000 mg/dl (Normal); Ketone-Dipstick 5 mg/dl (Negative); Leukocyte Esterase-Dipstick 500 /ul (Negative); Nitrite-Dipstick Positive (Negative); Occult Blood-Urine 250 /ul (Negative); Protein-Dipstick 500 mg/dl (Negative); Specific Gravity, Urine 1.025 (1.002-1.030); Urine Bilirubin Dipstick Negative (Negative)
[2024-12-21 12:45] LABS: Red Blood Cells-Urine > 100 SEEN /hpf (0-5); Squamous Epithelial Cells - UA 25-50 SEEN /hpf (5-10)
--- NOTE | 2024-12-21 14:19 | HP.PCM.HOS_ITS ---
HPI - General General Date of Admission: 12/21/24 Date of Service: 12/21/24 Chief Complaint: Diarrhea, hypoglycemia, labs shows more than 600 mg/dL glucose yesterday done by PCP office HPI Narrative VIVIEN WALL, is a 24 F who was sent to PCP office for hyperglycemia. She had lab work done yesterday and glucose was 612 mg/dL therefore advised to go to ED. She was also having loose bowel movement about 4-5 since yesterday night. She denies any food poisoning or unusual food intake. No fever. Denies vomiting, abdominal pain or fever. Recently diagnosed with diabetes mellitus couple months ago. Home medications shows Trulicity and tirzepatide. She also recently diagnosed hypertension. In ED, labs were consistent with DKA with elevated anion gap 18, bicarb 20, but VBG showed normal pH 7.41, bicarb 28. Patient is started on second liter of IV bolus normal saline in the ED and admitted in ICU for DKA. [facility] Medical History COVID-19 Hypertension 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 Depression Preeclampsia, severe Hypertension affecting in third trimester Home Medications Medication Instructions Recorded Last Taken Type blood-glucose sensor (Dexcom G7 #12 ea 06/08/24 Unknow n Rx Sensor device) blood-glucose,radio mechanic helper,cont #1 ea 06/08/24 Unknown Rx (Dexcom G7 Tool Liaison) trazodone 50 mg tablet 50 mg PO QHS 06/08/24 History tirzepatide (weight loss) 2.5 2.5 mg (0.5 mL) subcut Q WEEK #2 mL 06/22/24 Unknown Rx mg/0.5 mL subcutaneous pen injector (Zepbound) levonorgestrel (Mirena) 1 device intrauterine ONCE 0 07/11/24 Unknown History lurasidone 60 mg tablet 60 mg PO QDAY 11/10/2412/21 History buspirone 5 mg tablet 5 mg PO BID PRN anxiety 12/1012/21/24 History dulaglutide 0.75 mg/0.5 mL mg subcut DAILY 12/21/24 History subcutaneous pen injector (Trulicity) Allergy/AdvReac Type Severity Reaction Status Date / Time No Known Allergies Allergy Verified 12/21/24 10:07 Family History Grandmother Diabetes Other Asthma Cancer Hypertension Thyroid disorder Surgical History History of delivery Social History adopted: No housing: apartment number of children: 1 current occupational status: unemployed pets and animals: No history of recent travel: No sexually active: Yes Smoking Status: Never smoker second hand exposure: No alcohol intake: current alcohol intake frequency: a few times a month Alcohol type: other substance use type: does not use caffeine: Yes what type of physical activity do you participate in: walking frequency: 3-4 times per week duration: 15-30 minutes/day seatbelt use: always do you feel safe at home: Yes additional social history: Single Patient does not work ROS ROS Narrative Constitutional: Reports no acute fatigue and weakness. No fever. Morbid obesity on tirzepatide HEENT: Reports systems reviewed and no addt'l complaints, except as documented Respiratory/Chest: No acute shortness of breath or respiratory distress or wheezing. CVS: Denies chest pain. No CAD. Recent diagnosis of hypertension. Gastrointestinal: Denies coffee ground emesis, hematemesis or vomiting. No abdominal pain. Genitourinary: Recent UTI and completed antibiotic today preferably Macrobid. Complain of increased frequency and urgency but no burning micturition. Musculoskeletal: Denies acute joint pain or limited range of motion. No acute injury Neurologic: Denies seizure-like symptoms. No strokelike symptoms. skin: No ulcer. No rash Endocrinology: Reports systems reviewed and no addt'l complaints, except as documented Hematologic/Lymphatic: Reports systems reviewed and no addt'l complaints, except as documented Rest 14 ROS are negative except as mentioned in HPI Vital Signs Vital Signs Vital Signs: 12/21/24 10:07 12/21/24 11:36 12/21/24 12:07 Temperature 98.7 F Temperature Source Oral Pulse Rate 113 H 89 Respiratory Rate 18 16 Respiratory Effort Normal Non-Labored Blood Pressure 132/99 H 121/78 H Blood Pressure Mean 110 92 Pulse Ox 98 98 Oxygen Delivery Method Room Air Room Air 12/21/24 13:30 12/21/24 13:59 Temperature 98.7 F Temperature Source Pulse Rate 99 Respiratory Rate 18 Respiratory Effort Blood Pressure 168/102 H 168/102 H Blood Pressure Mean 124 124 Pulse Ox 98 Oxygen Delivery Method Physical Exam Narrative General: Alert, Oriented x3, Cooperative. Morbid obesity HEENT: Atraumatic, PERRLA, EOMI, Normocephalic. Oral: No Gingival or Mucosal Lesions/ Ulcerations Neck: Supple, No JVD, Negative Carotid Bruits Chest wall/Lungs: Air entry diminished in bilateral lung bases. Mild fine expiratory wheezing Cardiovascular: Regular rate and rhythm, Normal S1,S2, No M/G/R Abdomen: Bowel Sounds Present, Soft, Non Tender, Non-Distended : No dysuria. No renal angle tenderness. No suprapubic tenderness. Extremities: No pedal edema, Capillary Refill Less than 3 Seconds Skin: No rashes, No breakdown Musculoskeletal: No Tenderness to Palpation of Joints or Extremities Neurological: Cranial nerves II-XII grossly intact, DTR 2+/4. No acute focal neurological deficit. Psych/Mental Status: Normal Affect, Appropriate. Results Lab / Micro Data 12/21/24 11:25 12/21/24 11:25 Labs: Laboratory Results - last 24 hr 12/21/24 11:16: POC Glucose 371 H 12/21/24 11:25: WBC 13.6 H, RBC 5.41 H, Hgb 14.7, Hct 44.9, MCV 83.0, MCH 27.2, MCHC 32.7, RDW Std Deviation 46.4 H, RDW Coeff of Kofi 15.5 H, Plt Count 347, MPV 10.8, Immature Gran % (Auto) 1.700 H, Neut % (Auto) 60.7, Lymph % (Auto) 27.4, [place] % (Auto) 7.4, Eos % (Auto) 1.5, Baso % (Auto) 1.3 H, Absolute Neuts (auto) 8.2 H, Absolute Lymphs (auto) 3.72, Nucleated RBC % 0, Sodium 130 L, Potassium 5.1, Chloride 92 L, Carbon Dioxide 19.7 L, Anion Gap 18 H, BUN 14, Creatinine 0.81, Est GFR (MDRD) Non-Af 102, BUN/Creatinine Ratio 17.4, Glucose 382 H, L actic Acid 2.9 H*, Calcium 10.0, Total Bilirubin 0.49, AST 101 H, ALT 89 H, A lkaline Phosphatase 155 H, Total Protein 8.4, Albumin 4.0, Globulin 4.3 H, Albumin/Globulin Ratio 0.9, Lipase 52, b-Hydroxybutyric mmol/L 0.4 H, Serum , Qual NEGATIVE 12/21/24 12:05: Urine Color Yellow, Urine Clarity Cloudy, Urine pH 5.0, Ur Specific [place] 1.025, Urine Protein 500 H, Urine Glucose (UA) 1000 H, Urine Ketones 5 H, Urine Occult Blood 250 H, Urine Nitrite Positive H, Urine Bilirubin Negative, Urine Urobilinogen Normal, Ur Leukocyte Esterase 500 H, Urine RBC > 100 SEEN, Urine WBC >100 SEEN, Ur Squamous Epith Cells 25-50 SEEN, Urine Bacteria 0 SEEN, Hyaline Casts 0-5 SEEN, Coarse Granular Casts 0-5 SEEN, Urine Mucus 0 SEEN 12/21/24 13:23: POC Glucose 336 H ABG Data ABG results: ABG 12/21/24 11:52 Specimen Type ABHISHEK Sample Site Not entered VBG pH 7.41 VBG pO2 42 H VBG HCO3 28 H VBG Total CO2 29 VBG O2 Sat (Calc) 77 H VBG Base Excess 3 POC Mix VBG pCO2 Pt Tmp 44.2 O2 Delivery Device Not entered Assessment & Plan Assessment/Plan (1) DKA (diabetic ketoacidosis): (2) Diabetes mellitus, type II: 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 DKA with recent diagnosis of diabetes mellitus type 2: Patient is being admitted in ICU. Beta-hydroxybutyrate 0.4, bicarb about 19 BMP. Anion gap 18. VBG looks normal 7.41. Lactic acidosis. Patient started on IV fluid normal saline 2 L bolus and then IV insulin drip ordered. Follow electrolyte and IV fluid guidelines as an order set for DKA. Otr Driver consult. IV fluid ordered. At home she is on Trulicity. She said she cannot take metformin because of diarrhea 2. Severe dehydration with elevated lactic acidosis with decreased perfusion: Patient had diarrhea 4-5 times. Denies vomiting. 3. Recent UTI: Her burning micturition is resolved but still has increased frequency and urgency. UA shows WBC more than 100 cells, squamous epithelium 25-50 cells 0 bacteria, RBC 100 simple therefore seems contaminated sample. Urine culture ordered. 4. Hypertension: She said she was recently started on antihypertensive medication but does not know the name. In ED blood pressure elevated 168/102. Antihypertensive meds restarted 5. Morbid obesity with probability of sleep apnea: Patient on tirzepatide. She does not use CPAP or has diagnosis of JUAN. Needs nighttime pulse oximetry/polysomnography study to rule out JUAN 6. DVT prophylaxis, high risk due to morbid obesity. Lovenox 40 mg subcu ordered Living will/advanced directive/end of life care: Patient does not have living will or advanced directive. Her next of kin is her boyfriend. After discussion of benefits/risks procedures involved with full code, DNR CC arrest and DNR CC, the patient opted for full code. Patient does want artificial life support including intubation, tube feed, ventilator and/chest compression, central venous catheter, vasopressor and DC shock if needed Total time spent in [id number] encounter in discussion of advanced directive 17 minutes. Laboratory Results 12/21/24 11:16: POC Glucose 371 H 12/21/24 11:25: WBC 13.6 H, RBC 5.41 H, Hgb 14.7, Hct 44.9, MCV 83.0, MCH 27.2, MCHC 32.7, RDW Std Deviation 46.4 H, RDW Coeff of Kofi 15.5 H, Plt Count 347, MPV 10.8, Immature Gran % (Auto) 1.700 H, Neut % (Auto) 60.7, Lymph % (Auto) 27.4, [place] % (Auto) 7.4, Eos % (Auto) 1.5, Baso % (Auto) 1.3 H, Absolute Neuts (auto) 8.2 H, Absolute Lymphs (auto) 3.72, Nucleated RBC % 0, Sodium 130 L, Potassium 5.1, Chloride 92 L, Carbon Dioxide 19.7 L, Anion Gap 18 H, BUN 14, Creatinine 0.81, Est GFR (MDRD) Non-Af 102, BUN/Creatinine Ratio 17.4, Glucose 382 H, L actic Acid 2.9 H*, Calcium 10.0, Total Bilirubin 0.49, AST 101 H, ALT 89 H, A lkaline Phosphatase 155 H, Total Protein 8.4, Albumin 4.0, Globulin 4.3 H, Albumin/Globulin Ratio 0.9, Lipase 52, b-Hydroxybutyric mmol/L 0.4 H, Serum , Qual NEGATIVE 12/21/24 11:52: Specimen Type ABHISHEK, Sample Site Not entered, VBG pH 7.41, VBG pO2 42 H, VBG HCO3 28 H, VBG Total CO2 29, VBG O2 Sat (Calc) 77 H, VBG Base Excess 3, POC Mix VBG pCO2 Pt Tmp 44.2, O2 Delivery Device Not entered 12/21/24 12:05: Urine Color Yellow, Urine Clarity Cloudy, Urine pH 5.0, Ur Specific [place] 1.025, Urine Protein 500 H, Urine Glucose (UA) 1000 H, Urine Ketones 5 H, Urine Occult Blood 250 H, Urine Nitrite Positive H, Urine Bilirubin Negative, Urine Urobilinogen Normal, Ur Leukocyte Esterase 500 H, Urine RBC > 100 SEEN, Urine WBC >100 SEEN, Ur Squamous Epith Cells 25-50 SEEN, Urine Bacteria 0 SEEN, Hyaline Casts 0-5 SEEN, Coarse Granular Casts 0-5 SEEN, Urine Mucus 0 SEEN 12/21/24 13:23: POC Glucose 336 H Charges/Coding Visit Charges Inpatient E&M: 58295 Init Hosp L3 Procedures Hospitalists Procedures: 17856 Advncd Care Plan 30 Min D/C Safety Score for UGIB Assessment [place] Bleeding Score (GBS): Stratifies upper GI bleeding patients who are "low-risk" and candidates for outpatient management. Hemoglobin, BUN, Recent Vital Signs: Hgb 14.7 g/dL (12.0-15.0) 12/21/24 11:25 BUN 14 mg/dL (4-19) 12/21/24 11:25 Pulse Rate 99 Blood Pressure 168/102 Score Interpretation: Score of 0: A GBS of 0 is a “Low Risk” GI bleed, and is highly sensitive (99.6% in a 2007 retrospective study) for predicting which patients did not require any “medical intervention”: blood transfusion, endoscopy, or surgery. This was confirmed in a 2009 [facility] study where patients with a score of 0 were actually discharged and had no GI bleeding mortality at 6 month followup Score above 0: A GBS greater than zero suggests a “High Risk” GI bleed that is likely to require “medical intervention”: transfusion, endoscopy, or surgery. A higher GBS also correlated with a higher likelihood of needing intervention Scores >/= 6 are associated with >50% risk of needing intervention D/C Safety Score for LGIB Assessment Assessment Tool: Readmission and adverse event risk in patients with acute lower GI bleeding. Hemoglobin and Recent Vital Signs: Hgb 14.7 g/dL (12.0-15.0) 12/21/24 11:25 Pulse Rate 99 12/21/24 13:30 Blood Pressure 168/102 12/21/24 13:59 Score Interpretation: Probability Percentage of safe discharge (absence of rebleeding, blood transfusion, therapeutic intervention, 28 day readmission, or ) Score of 8 or below: Consider discharge, with appropriate precautions. Score of 9 or above: Discharge NOT recommended. Consider admission with further workup and resuscitation as necessary.
[2024-12-21] MEDS: KCL 20MEQ in 0.9% NS 20 MEQ/1,000 ML IV.SOLN. 500 MEQ IV (15:13)
[2024-12-21] MEDS: Insulin Lispro 100 UNIT in 0.9% Normal Saline (100mL Bag) 99 ML 5.3 UNIT CONT INF (15:18)
[2024-12-21 15:34] LABS: Reflex Lactate? Y
[2024-12-21] MEDS: Dext 5%-0.45% NS 1,000 ML 150 ML IV (17:53)
[2024-12-21 20:32] LABS: Magnesium 1.9 mg/dL (1.5-2.2)
[2024-12-21 20:54] LABS: Anion Gap 13 (5-15); Carbon Dioxide 24.7 mmol/L (21.0-32.0); Chloride 101 mmol/L (98-108); Potassium 4.1 mmol/L (3.3-5.1)
[2024-12-21] MEDS: 0.9% Saline Lock 10 ML Syringe IV ×2 (21:29→23:34)
[2024-12-21] MEDS: Potassium Chloride 10mEq/100mL 10 MEQ/100 ML IV.SOLN. 100 MEQ IV BOLUS ×3 (21:29→23:34)
[2024-12-21 23:36] LABS: Anion Gap 12 (5-15); Carbon Dioxide 23.1 mmol/L (21.0-32.0); Chloride 102 mmol/L (98-108); Magnesium 1.7 mg/dL (1.5-2.2); Potassium 3.9 mmol/L (3.3-5.1)
[2024-12-22] VITALS: BP 129/70; PULSE 97; RESP 20; TEMP 36.8; O2SAT 93
--- NOTE | 2024-12-22 00:11 | PN.HOSP_ITS ---
Hospitalist Note UA with noted positive nitrite, notable leukocyte esterase with greater than 100 urine WBCs although no urine marked urine bacteria noted, urine culture pending, in the interim to be cautious will initiate IV Rocephin. Anion gap closed x 2 and bicarb appropriate. Will initiate ADA diet with Accu-Cheks with insulin sliding scale and add low-dose twice daily long-acting insulin with last A1c less than 7%, current hemoglobin A1c pending upon current admission. Will de- escalate and transition off of insulin drip. Will transition from ICU to PCU status.
[2024-12-22] MEDS: Insulin Glargine-YFGN 100 UNIT/ML Pen SC ×2 (00:28→08:14)
[2024-12-22 03:00] VITALS: PULSE 96
[2024-12-22 03:15] VITALS: BP 116/84; PULSE 91; RESP 16; TEMP 37; O2SAT 96
[2024-12-22 03:16] VITALS: BMI 55.7
[2024-12-22] MEDS: 0.9% Saline Lock 10 ML Syringe IV ×2 (03:17→08:16)
[2024-12-22 03:28] LABS: Hematocrit 35.5 % (37-47); Hemoglobin 11.8 g/dL (12.0-15.0); Immature Granulocytes Count 0.170 X10^3/uL (0.0-0.0); Mean Corp Hgb Conc 33.2 g/dL (32-36); Mean Corpuscular Volume 82.6 fL (81-99); Mean Platelet Vol. 10.4 fl (6.2-12.0); NRBC Flagged by Analyzer 0 % (0-5); Platelet Count 319 K/mm3 (150-450); RBC Distribution Width CV 15.8 % (11.6-14.6); RBC Distribution Width SD 47.1 fl (35.1-43.9); Red Blood Count 4.30 M/mm3 (4.2-5.4); White Blood Count 12.6 K/mm3 (4.4-11.0)
[2024-12-22 04:45] LABS: AST(SGOT) 94 U/L (<=31); Alanine Aminotransfer ALT/SGPT 75 U/L (<=34); Albumin, Serum 3.4 g/dL (3.5-5.0); Alkaline Phosphatase 107 U/L (35-104); Anion Gap 12 (5-15); BUN 10 mg/dL (4-19); BUN/Creat Ratio 16.0 RATIO (10-20); Bilirubin, Direct 0.19 mg/dL (0.00-0.30); Calcium,Total 8.5 mg/dL (7.6-11.0); Carbon Dioxide 22.1 mmol/L (21.0-32.0); Chloride 102 mmol/L (98-108); Estimated Creatinine Clearance 181.62 ml/min (50-250); Globulin 2.8 g/dL (2.2-4.2); Glucose 246 mg/dL (70-99); Potassium 4.0 mmol/L (3.3-5.1)
--- NOTE | 2024-12-22 08:12 | DCINST_ITS ---
Discharge Instructions DC O2, CPAP, BIPAP needs Home O2 Discharge instructions: No Dressing / Incision Discharge Activity: Return to Normal Activity Weight Bearing Status: Weight bearing as tolerated Dressing / Incision Call your doctor if you observe: Fever of 101 or Higher, Coldness, Increased Pain, Numbness or Tingling, Change in Color, Inability to urinate, Inability to have a bowel movement, Shortness of breath, Dizziness, Fainting spells, Swelling in the ankles, Chest pain, Prolonged hiccupping, Increased palpitations (irregular heartbeat) and Calf discomfort Follow Up Care When: IN 2 WEEKS Test Results: Test results from this visit will be discussed in further detail at your follow- up appointment, if applicable. Discharge Plan Admission Admit Date/Time: 12/21/24 13:20 Attending Provider: Moshe Rios Primary Care Provider: Kerri Durham Discharge Orders/Prescriptions Prescriptions: New lisinopril 10 mg Tablet 10 mg PO DAILY 30 Days Qty: 30 0RF insulin lispro [Humalog KwikPen Insulin] 100 unit/mL insulin pen 8 unit subcut TIDCM 30 Days Qty: 7.2 0RF Rx Instructions: Hold if glucose less than 130 mg/dl Continued Mirena 21 mcg/24hr (up to 8 yrs) 52 mg intrauterine device 1 device intrauterine ONCE Rx Instructions: as a single dose (DME) Dexcom G7 Sensor Device See Rx Instructions .Route Qty: 12 0RF Rx Instructions: As directed (DME) Dexcom G7 Activity Therapy Specialist Misc See Rx Instructions .Route Qty: 1 0RF Rx Instructions: To check sugars QID lurasidone 60 mg tablet 60 mg PO QDAY trazodone 50 mg tablet 50 mg PO QHS buspirone 5 mg tablet 5 mg PO BID PRN (Reason: anxiety) Trulicity 0.75 mg/0.5 mL pen injector subcut DAILY Patient Comments: Pt unsure of dose Zepbound 2.5 mg/0.5 mL pen injector 2.5 mg subcut QWEEK Qty: 2 0RF Patient Comments: not picked up from pharmacy yet. Rx Instructions: for 4 weeks Referrals / Follow Up: Prabhakar Grey MD [Med Staff - Courtesy Staff, Endocrinology] - Within 1 Month Referral Note: New onset DM-2, DKA Kerri Durham, [facility] [Primary Care Provider, Family Practice] Disposition Disposition (needs filled in before D/C Order can be placed): Home, Self Care
[2024-12-22 08:13] LABS: BETA-HYDROXYBUTYRATE 0.2 mmol/L (0.0-0.3)
--- NOTE | 2024-12-22 08:19 | PCM.DC.SUM ---
Providers Date of Admission: 12/21/24 Date of Discharge: 12/22/24 Primary Care Physician: RUBA Beaver Reason For Visit: DKA Diagnosis Discharge Diagnosis (1) DKA (diabetic ketoacidosis): Status: Acute Code(s): E11.10 - Type 2 diabetes mellitus with ketoacidosis without coma (2) Diabetes mellitus, type II: Status: Acute Code(s): E11.9 - Type 2 diabetes mellitus without complications Qualifiers: Diabetes mellitus penitentiary insulin use: without penitentiary use Diabetes mellitus complication status: without complication Qualified Code(s): E11.9 - Type 2 diabetes mellitus without complications Plan This is a 24-year-old female being admitted for hyperglycemia, consistent with a DKA 1. DKA with recent diagnosis of diabetes mellitus type 2: Patient is being admitted in ICU. Beta-hydroxybutyrate 0.4, bicarb about 19 BMP. Anion gap 18. VBG looks normal 7.41. Lactic acidosis. Patient started on IV fluid normal saline 2 L bolus and then IV insulin drip ordered. Follow electrolyte and IV fluid guidelines as an order set for DKA. Design Engineering Technician consult. IV fluid ordered. At home she is on Trulicity. She said she cannot take metformin because of diarrhea 12/22: Patient improved rapidly after IV fluid. His diarrhea also resolved. Anion gap closed x 2. Patient had more than 5 L of IV fluid. Will rehydrated. Insulin drip transitioned to intermittent subcutaneous insulin. Patient does not have Humalog/short acting insulin at home therefore prescribed. She is on Trulicity at home. 2. Severe dehydration with elevated lactic acidosis with decreased perfusion: Patient had diarrhea 4-5 times. Denies vomiting. 12/22: Clinically patient is well rehydrated. She had about 5 L of IV fluid. Lactic acid was elevated 2.9 improved to 2.6. Dehydration corrected. Patient is able to take oral and a diet. Elevated 2.6, clinically does not correlate with hypoperfusion. 3. Recent UTI: Her burning micturition is resolved but still has increased frequency and urgency. UA shows WBC more than 100 cells, squamous epithelium 25-50 cells 0 bacteria, RBC 100 simple therefore seems contaminated sample. Urine culture ordered. 4. Hypertension: She said she was recently started on antihypertensive medication but does not know the name. In ED blood pressure elevated 168/102. Antihypertensive meds restarted 12/22: Patient was started on lisinopril 10 mg twice daily yesterday. Patient prescribed lisinopril 10 mg daily. Blood pressure is controlled. 121/78, 116/84 5. Morbid obesity with probability of sleep apnea: Patient on tirzepatide. She does not use CPAP or has diagnosis of JUAN. Needs nighttime pulse oximetry/polysomnography study to rule out JUAN 12/22: Advised follow-up with PCP and principal account clerk. 6. DVT prophylaxis, high risk due to morbid obesity. Lovenox 40 mg subcu ordered Living will/advanced directive/end of life care: Patient does not have living will or advanced directive. Her next of kin is her boyfriend. After discussion of benefits/risks procedures involved with full code, DNR CC arrest and DNR CC, the patient opted for full code. Patient does want artificial life support including intubation, tube feed, ventilator and/chest compression, central venous catheter, vasopressor and DC shock if needed Discharge medication reconciliation done. Discharge follow-up instructions completed. Discharge process discussed with the patient and all questions were answered to patient's satisfaction. Follow with PCP in 1 to 2 weeks Total time spent, exact 35 minutes on discharge meds reconciliation, examination, coordination of care with nurses and ancillary staff, review of imaging and blood test and discussion with the patient on follow-up instructions. Laboratory Results 12/21/24 11:16: POC Glucose 371 H 12/21/24 11:25: WBC 13.6 H, RBC 5.41 H, Hgb 14.7, Hct 44.9, MCV 83.0, MCH 27.2, MCHC 32.7, RDW Std Deviation 46.4 H, RDW Coeff of Kofi 15.5 H, Plt Count 347, MPV 10.8, Immature Gran % (Auto) 1.700 H, Neut % (Auto) 60.7, Lymph % (Auto) 27.4, [place] % (Auto) 7.4, Eos % (Auto) 1.5, Baso % (Auto) 1.3 H, Absolute Neuts (auto) 8.2 H, Absolute Lymphs (auto) 3.72, Nucleated RBC % 0, Sodium 130 L, Potassium 5.1, Chloride 92 L, Carbon Dioxide 19.7 L, Anion Gap 18 H, BUN 14, Creatinine 0.81, Est GFR (MDRD) Non-Af 102, BUN/Creatinine Ratio 17.4, Glucose 382 H, Lactic Acid 2.9 H*, Calcium 10.0, Total Bilirubin 0.49, AST 101 H, ALT 89 H, Alkaline Phosphatase 155 H, Total Protein 8.4, Albumin 4.0, Globulin 4.3 H, Albumin/Globulin Ratio 0.9, Lipase 52, b-Hydroxybutyric mmol/L 0.4 H, Serum , Qual NEGATIVE 12/21/24 11:52: Specimen Type ABHISHEK, Sample Site Not entered, VBG pH 7.41, VBG pO2 42 H, VBG HCO3 28 H, VBG Total CO2 29, VBG O2 Sat (Calc) 77 H, VBG Base Excess 3, POC Mix VBG pCO2 Pt Tmp 44.2, O2 Delivery Device Not entered 12/21/24 12:05: Urine Color Yellow, Urine Clarity Cloudy, Urine pH 5.0, Ur Specific [place] 1.025, Urine Protein 500 H, Urine Glucose (UA) 1000 H, Urine Ketones 5 H, Urine Occult Blood 250 H, Urine Nitrite Positive H, Urine Bilirubin Negative, Urine Urobilinogen Normal, Ur Leukocyte Esterase 500 H, Urine RBC > 100 SEEN, Urine WBC >100 SEEN, Ur Squamous Epith Cells 25-50 SEEN, Urine Bacteria 0 SEEN, Hyaline Casts 0-5 SEEN, Coarse Granular Casts 0-5 SEEN, Urine Mucus 0 SEEN 12/21/24 13:23: POC Glucose 336 H Medications at Discharge Home Medications blood-glucose sensor (Dexcom G7 Sensor device) #12 ea 06/08/24 blood-glucose,family welfare social work professor,cont (Dexcom G7 Occupational Therapy Technician) #1 ea 06/08/24 trazodone 50 mg tablet 50 mg PO QHS 06/08/24 tirzepatide (weight loss) 2.5 mg/0.5 mL subcutaneous pen injector (Zepbound) 2.5 mg (0.5 mL) subcut QWEEK #2 mL 06/22/24 levonorgestrel (Mirena) 1 device intrauterine ONCE 07/11/24 lurasidone 60 mg tablet 60 mg PO QDAY 11/10/24 buspirone 5 mg tablet 5 mg PO BID PRN anxiety 12/21/24 dulaglutide 0.75 mg/0.5 mL subcutaneous pen injector (Trulicity) mg subcut DAILY 12/21/24 insulin lispro 100 unit/mL subcutaneous pen (Humalog KwikPen (U-100) Insulin) 8 unit (0.08 mL) subcut TIDCM 1 month #7.2 mL 12/22/24 lisinopril 10 mg tablet 10 mg PO DAILY 30 days #30 tabs 12/22/24 Physical Exam Narrative Seen and examined Patient is well-hydrated. Diarrhea has resolved. No acute issues Physical exam: General: Alert, Oriented x3, Cooperative. Morbid obesity HEENT: Atraumatic, PERRLA, EOMI, Normocephalic. Oral: No Gingival or Mucosal Lesions/ Ulcerations Neck: Supple, No JVD, Negative Carotid Bruits Chest wall/Lungs: Air entry diminished in bilateral lung bases from morbid obesity. Mild fine expiratory wheezing, chronic Cardiovascular: Regular rate and rhythm, Normal S1,S2, No M/G/R Abdomen: Bowel Sounds Present, Soft, Non Tender, Non-Distended : No dysuria. No renal angle tenderness. No suprapubic tenderness. Extremities: No pedal edema, Capillary Refill Less than 3 Seconds Skin: No rashes, No breakdown Musculoskeletal: No Tenderness to Palpation of Joints or Extremities Neurological: Cranial nerves II-XII grossly intact, DTR 2+/4. No acute focal neurological deficit. Psych/Mental Status: Normal Affect, Appropriate. Weight / BMI Weight Weight: 302 lb 14.642 oz Body Mass Index (BMI) 55.7 ABG / Lab / Microbiology Data 12/22/24 03:15 12/22/24 04:01 Laboratory: Laboratory Results - last 24 hr 12/21/24 11:16: POC Glucose 371 H 12/21/24 11:25: WBC 13.6 H, RBC 5.41 H, Hgb 14.7, Hct 44.9, MCV 83.0, MCH 27.2, MCHC 32.7, RDW Std Deviation 46.4 H, RDW Coeff of Kofi 15.5 H, Plt Count 347, MPV 10.8, Immature Gran % (Auto) 1.700 H, Neut % (Auto) 60.7, Lymph % (Auto) 27.4, [place] % (Auto) 7.4, Eos % (Auto) 1.5, Baso % (Auto) 1.3 H, Absolute Neuts (auto) 8.2 H, Absolute Lymphs (auto) 3.72, Nucleated RBC % 0, Sodium 130 L, Potassium 5.1, Chloride 92 L, Carbon Dioxide 19.7 L, Anion Gap 18 H, BUN 14, Creatinine 0.81, Est GFR (MDRD) Non-Af 102, BUN/Creatinine Ratio 17.4, Glucose 382 H, Lactic Acid 2.9 H*, Calcium 10.0, Total Bilirubin 0.49, AST 101 H, ALT 89 H, Alkaline Phosphatase 155 H, Total Protein 8.4, Albumin 4.0, Globulin 4.3 H, Albumin/Globulin Ratio 0.9, Lipase 52, b-Hydroxybutyric mmol/L 0.4 H, Serum , Qual NEGATIVE 12/21/24 12:05: Urine Color Yellow, Urine Clarity Cloudy, Urine pH 5.0, Ur Specific [place] 1.025, Urine Protein 500 H, Urine Glucose (UA) 1000 H, Urine Ketones 5 H, Urine Occult Blood 250 H, Urine Nitrite Positive H, Urine Bilirubin Negative, Urine Urobilinogen Normal, Ur Leukocyte Esterase 500 H, Urine RBC > 100 SEEN, Urine WBC >100 SEEN, Ur Squamous Epith Cells 25-50 SEEN, Urine Bacteria 0 SEEN, Hyaline Casts 0-5 SEEN, Coarse Granular Casts 0-5 SEEN, Urine Mucus 0 SEEN 12/21/24 13:23: POC Glucose 336 H 12/21/24 15:09: POC Glucose 244 H 12/21/24 16:19: POC Glucose 273 H 12/21/24 17:21: POC Glucose 247 H 12/21/24 18:19: POC Glucose 163 H 12/21/24 19:26: POC Glucose 136 H 12/21/24 19:35: Sodium 139, Potassium 4.1, Chloride 101, Carbon Dioxide 24.7, Anion Gap 13, Phosphorus 3.0, Magnesium 1.9 12/21/24 20:33: POC Glucose 127 H 12/21/24 21:29: POC Glucose 113 H 12/21/24 22:29: POC Glucose 125 H 12/21/24 23:04: Sodium 137, Potassium 3.9, Chloride 102, Carbon Dioxide 23.1, Anion Gap 12, Phosphorus 3.4, Magnesium 1.7 12/21/24 23:33: POC Glucose 122 H 12/22/24 01:23: POC Glucose 194 H 12/22/24 03:15: WBC 12.6 H, RBC 4.30, Hgb 11.8 L, Hct 35.5 L, MCV 82.6, MCH 27.4, MCHC 33.2, RDW Std Deviation 47.1 H, RDW Coeff of Kofi 15.8 H, Plt Count 319, MPV 10.4, Immature Gran % (Auto) 1.400 H, Neut % (Auto) 58.9, Lymph % (Auto) 29.6, [place] % (Auto) 7.0, Eos % (Auto) 2.1, Baso % (Auto) 1.0, Absolute Neuts (auto) 7.4, Absolute Lymphs (auto) 3.72, Nucleated RBC % 0, Sodium Cancelled, Potassium Cancelled, Chloride Cancelled, Carbon Dioxide Cancelled, Anion Gap Cancelled, BUN Cancelled, Creatinine Cancelled, Estim Creat Clear Calc Cancelled, Est GFR (MDRD) Non-Af Cancelled, BUN/Creatinine Ratio Cancelled, Glucose Cancelled, Hemoglobin A1c 12.2 H, Calcium Cancelled, Total Bilirubin Cancelled, Direct Bilirubin Cancelled, AST Cancelled, ALT Cancelled, Alkaline Phosphatase Cancelled, Total Protein Cancelled, Albumin Cancelled, Globulin Cancelled 12/22/24 04:01: Sodium 136, Potassium 4.0, Chloride 102, Carbon Dioxide 22.1, Anion Gap 12, BUN 10, Creatinine 0.63 L, Estim Creat Clear Calc 181.62, Est GFR (MDRD) Non-Af 125, BUN/Creatinine Ratio 16.0, Glucose 246 H, Calcium 8.5, Total Bilirubin 0.29, Direct Bilirubin 0.19, AST 94 H, ALT 75 H, Alkaline Phosphatase 107 H, Total Protein 6.2, Albumin 3.4 L, Globulin 2.8 12/22/24 07:40: Lactic Acid 2.6 H*, b-Hydroxybutyric mmol/L 0.2 ABG: ABG 12/21/24 11:52 Specimen Type ABHISHEK Sample Site Not entered VBG pH 7.41 VBG pO2 42 H VBG HCO3 28 H VBG Total CO2 29 VBG O2 Sat (Calc) 77 H VBG Base Excess 3 POC Mix VBG pCO2 Pt Tmp 44.2 O2 Delivery Device Not entered D/C Instructions Weight Bearing Status: Weight bearing as tolerated Call your doctor if you observe: Fever of 101 or Higher, Coldness, Increased Pain, Numbness or Tingling, Change in Color, Inability to urinate, Inability to have a bowel movement, Shortness of breath, Dizziness, Fainting spells, Swelling in the ankles, Chest pain, Prolonged hiccupping, Increased palpitations (irregular heartbeat) and Calf discomfort DC O2, CPAP, BIPAP Needs Home O2 Discharge instructions: No When: IN 2 WEEKS Meaningful Use Info Meaningful Use Meaningful Use Diagnoses (Choose all that apply): None applicable Discharge Plan Admission Admit Date/Time: 12/21/24 13:20 Attending Provider: Moshe Rios Primary Care Provider: Kerri Durham Discharge Orders/Prescriptions Prescriptions: New lisinopril 10 mg Tablet 10 mg PO DAILY 30 Days Qty: 30 0RF insulin lispro [Humalog KwikPen Insulin] 100 unit/mL insulin pen 8 unit subcut TIDCM 30 Days Qty: 7.2 0RF Rx Instructions: Hold if glucose less than 130 mg/dl Continued Mirena 21 mcg/24hr (up to 8 yrs) 52 mg intrauterine device 1 device intrauterine ONCE Rx Instructions: as a single dose (DME) Dexcom G7 Sensor Device See Rx Instructions .Route Qty: 12 0RF Rx Instructions: As directed (DME) Dexcom G7 Occupational Therapy Technician Misc See Rx Instructions .Route Qty: 1 0RF Rx Instructions: To check sugars QID lurasidone 60 mg tablet 60 mg PO QDAY trazodone 50 mg tablet 50 mg PO QHS buspirone 5 mg tablet 5 mg PO BID PRN (Reason: anxiety) Trulicity 0.75 mg/0.5 mL pen injector subcut DAILY Patient Comments: Pt unsure of dose Zepbound 2.5 mg/0.5 mL pen injector 2.5 mg subcut QWEEK Qty: 2 0RF Patient Comments: not picked up from pharmacy yet. Rx Instructions: for 4 weeks Referrals / Follow Up: Prabhakar Grey MD [Med Staff - Courtesy Staff, Endocrinology] - Within 1 Month Referral Note: New onset DM-2, DKA Kreri Durham, ECHOCARDIOGRAPHY TECHNOLOGIST-C [Primary Care Provider, Family Practice] Disposition Disposition (needs filled in before D/C Order can be placed): Home, Self Care Charges/Coding Addendum Addendum: Patient was admitted as inpatient because of hyperglycemia and DKA and diarrhea but was discharged because of sooner recovery than expected at time of admission because of aggressive dehydration, correction of glucose and electrolytes and anion gap. Visit Charges Inpatient E&M: 55922 Disch Hosp >30min
[2024-12-22 08:25] VITALS: BP 141/94; PULSE 104; RESP 14; TEMP 37; O2SAT 96
[2024-12-22 09:33] VITALS: BP 141/94; PULSE 104; RESP 14; TEMP 37; O2SAT 96
--- NOTE | 2024-12-22 09:56 | PHA.DC_ITS ---
Pharmacy [facility] has performed discharge medication counseling for this patient. The patient was counseled on the following discharge medications and changes in medications for homegoing review. - Lisinopril 10 mg tablet, Insulin Lispro 8 units SC TIDAC The Reason for Use, instructions for use, and potential side effects were revi ewed for all new medications. The patient's questions regarding all of their medications were answered. - Discussed medications and their effects on blood sugars as well as her current home medications. Discussed that Zepbound and Trulicity are medications in the same class and should NOT be taken at the same time. The patient reported that she had not picked up the Zepbound at this time and too Trulicity 2 days ago. Also reported having a dexcom but has not used it at this time. She did not have any further questions at this time. The patient was able to verbally demonstrate an understanding of their discharge medications. Medications at Discharge Home Medications blood-glucose sensor (Dexcom G7 Sensor device) #12 ea 06/08/24 blood-glucose,molder offbearer,cont (Dexcom G7 Adventure Education Teacher) #1 ea 06/08/24 trazodone 50 mg tablet 50 mg PO QHS 06/08/24 tirzepatide (weight loss) 2.5 mg/0.5 mL subcutaneous pen injector (Zepbound) 2.5 mg (0.5 mL) subcut QWEEK #2 mL 06/22/24 levonorgestrel (Mirena) 1 device intrauterine ONCE 07/11/24 lurasidone 60 mg tablet 60 mg PO QDAY 11/10/24 buspirone 5 mg tablet 5 mg PO BID PRN anxiety 12/21/24 dulaglutide 0.75 mg/0.5 mL subcutaneous pen injector (Trulicity) mg subcut DAILY 12/21/24 insulin lispro 100 unit/mL subcutaneous pen (Humalog KwikPen (U-100) Insulin) 8 unit (0.08 mL) subcut TIDCM 1 month #7.2 mL 12/22/24 lisinopril 10 mg tablet 10 mg PO DAILY 30 days #30 tabs 12/22/24
--- NOTE | 2024-12-22 10:18 | CASEMGMT ---
Social Work- SW printed food resources, pantry information, and people to people information, as pt is unemployed and reports only eating once per day to signals intelligence analysis manager. Pt denies food scarcity. Pt reports no other needs. SW remains available to follow. MOLLY Canales
--- NOTE | 2024-12-22 10:22 | CASEMGMT ---
ESSENCE SANTILLAN Assessment Face to Face with patient for initial transition planning/care coordination assessment. ESSENCE SANTILLAN introduced self and role at [facility], pt voices understanding. Pt is A&Ox4 and is resting comfortably in bed and is calm. Pt's SO at the bedside. Care providers, pharmacy, and demographics verified. Admitting dx: DKA BRANT Strata: 2 PCP: Kerri Durham Specialists: Denies. Pt encouraged to get established with Endocrinology to help manage her DM. [facility] information provided. Dr Rios notified, the MD has already referred the pt Preferred Pharmacy: [facility] Insurance: [employer] Prescription Benefit: Yes. Pt does not have a copay LNOK: Jasbir (Father) Living Arrangements: Pt lives alone in a single story apartment with a flat entrance ADLs/IADLs: Pt states that she is indep. 6-Click score is 24 Transportation: Pt's SO DME: Pt states that her PCP wrote her an Rx for a glucometer and supplies but she has not picked it up yet. Dr Rios wrote rxs for an insulin pen and insulin pen needles. [facility] states that they can deliver the rxs to the bedside and the pt has a 0$ copay. Pt's RN notified. HHC/SNF: Denies hx or needs Pt’s goal: Home Plan: Home today. Pt states that she plans to go to [place] to get her glucometer and testing supplies after DC. Pt plans to follow up with [facility] as an OP. Pt will have insulin and pen needles to go home with. This ESSENCE SANTILLAN and the Occupational Therapy Teacher has discussed the importance of compliance with the pt regarding DM management. Pt denies further questions, concerns, or needs at this time. Danielle Fisher RN, CM
[2024-12-22 11:46] LABS: Reflex Lactate? Y
== END 2024-12-22 11:50 | disposition home or self-care (01) | DRG 420 ==
LOC: ED 10:55 → ICU 13:30
PROVIDERS: Admitting Provider Internal Medicine; Emergency Provider Emergency Medicine; PCP Nurse Practitioner Family; Visit Provider Internal Medicine
DX: E11.10 Type 2 diabetes mellitus with ketoacidosis without coma (principal); Z68.43 Body mass index [BMI] 50.0-59.9, adult; I10 Essential (primary) hypertension; E03.9 Hypothyroidism, unspecified; E66.01 Morbid (severe) obesity due to excess calories; E86.0 Dehydration; R19.7 Diarrhea, unspecified; N39.0 Urinary tract infection, site not specified; Z13.220 Encounter for screening for lipoid disorders; Z79.85 Long-term (current) use of injectable non-insulin antidiabetic drugs; Z79.899 Other long term (current) drug therapy; Z86.16 Personal history of COVID-19
CPT/HCPCS: 36415; 80048; 80051; 80053; 80061; 80076; 81001; 82010; 82306; 82607; 82803; 82962; 83036; 83605; 83690; 83735; 84100; 84439; 84443; 84703; 85025; 87086; 87088; 87186; 94668; 97802; 99284; A4216

== ENCOUNTER 2025-01-11 15:52 | Emergency (ER) | payer MEDICAID, SELFPAY ==
[2025-01-11 15:54] VITALS: BP 153/103; PULSE 114; RESP 18; TEMP 35.8; O2SAT 98; BMI 54.1
--- NOTE | 2025-01-11 16:22 | EDS_ITS ---
HPI HPI - Psych History of Present Illness Chief Complaint: Suicidal Informant: patient Onset/Context/Timing Onset: Today Context: Sudden Onset Conflict: - (Ex-boyfriend) Timing: Continuous Worsened by: Situational factors (Ex-boyfriend was cheating on her) Relieved by: Nothing Associated Symptoms Associated Symptoms - Psych: Positive for Depressed, Change in sleeping and Suicidal Thoughts; Negative for Change in Eating, Paranoia, Visual Hallucinations or Auditory Hallucinations Specific plan (suicidal thought): Overdosing on medication Narrative Narrative: Patient presents with depression and suicidal ideation that began today. Patient states it began rather suddenly. Patient states she found out her ex- boyfriend was cheating on her. Patient states she has had thoughts of overdosing on her pills. Patient states she has not been sleeping as well recently. Patient denies any changes in her eating habits. Patient denies any paranoid ideations. Patient denies any visual or auditory hallucinations. 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) trazodone 50 mg tablet 50 mg PO QHS 06/08/24 History tirzepatide (weight loss) 2.5 2.5 mg (0.5 mL) subcut Q WEEK #2 mL 06/22/24 Unknown Rx mg/0.5 mL subcutaneous pen injector (Zepbound) levonorgestrel (Mirena) 1 device intrauterine ONCE 0 07/11/24 Unknown History lurasidone 60 mg tablet 60 mg PO QDAY 11/10/2412/21 History buspirone 5 mg tablet 5 mg PO BID PRN anxiety 12/1012/21/24 History dulaglutide 0.75 mg/0.5 mL 0.75 mg subcut DAILY 12/21/24 History subcutaneous pen injector (Trulicity) needle (disp) 32 gauge 32 gauge x #100 ea 12/22/24 Unk nown Rx 06/24 escitalopram oxalate 20 mg tablet 20 mg PO DAILY 01/11 Unknown History insulin glargine 100 unit/mL (3 8 unit subcut QPM DIAB ETES MELLITUS 01/11/25 Unknown History mL) subcutaneous pen (Lantus Solostar U-100 Insulin) insulin glargine 100 unit/mL (3 8 unit subcut TIDCM Unknown History mL) subcutaneous pen (Lantus Solostar U-100 Insulin) levothyroxine 25 mcg tablet 25 mcg PO DAILY 01/11/25 U nknown History lisinopril 20 mg tablet 20 mg PO DAILY 01/11/25 Unkn own History melatonin 3 mg tablet 3 mg PO QHS 01/11/25 Unknown History metformin 500 mg tablet 500 mg PO DAILY 01/11/25 Unk nown History Allergy/AdvReac Type Severity Reaction Status Date / Time No Known Allergies Allergy Verified 01/11/25 15:54 Family History Grandmother Diabetes Other Asthma Cancer Hypertension Thyroid disorder Surgical History History of delivery Social History adopted: No housing: apartment number of children: 1 current occupational status: unemployed pets and animals: No history of recent travel: No sexually active: Yes Smoking Status: Never smoker second hand exposure: No alcohol intake: current alcohol intake frequency: a few times a month Alcohol type: other substance use type: does not use caffeine: Yes what type of physical activity do you participate in: walking frequency: 3-4 times per week duration: 15-30 minutes/day seatbelt use: always do you feel safe at home: Yes additional social history: Single Patient does not work ROS ROS ED Constitutional Constitutional ED: Denies chills or fever(s) Eyes Eyes: Denies blurry vision or change in vision ENT ENT ED: Denies rhinorrhea or sore throat Cardiovascular Cardiovascular: Denies chest pain or palpitations Respiratory/Chest Respiratory/Chest: Denies cough or dyspnea Gastrointestinal Gastrointestinal: Denies nausea or vomiting Genitourinary Genitourinary ED: Denies dysuria or hematuria Musculoskeletal Musculoskeletal: Denies back pain or neck pain Integumentary Denies abscess or rash Neurologic Neurologic: Denies headache(s) or weakness Psychiatric Psychiatric: Reports depression, suicidal ideation and suicidal thoughts Allergic/Immunologic Allergic/Immunologic ED: Denies mouth swelling or urticaria EXAM Physical Exam Const Vital Signs: 01/11/25 15:54 01/11/25 17:13 01/11/25 22:10 Temperature 96.4 F L Temperature Source Temporal Pulse Rate 114 H 110 H 100 Respiratory Rate 18 16 18 Blood Pressure 153/103 H 154/97 H 151/99 H Blood Pressure Mean 119 116 116 Pulse Ox 98 97 99 Oxygen Delivery Method Room Air Room Air Room Air Positive well nourished and well developed Constitutional Narrative: BMI is 54.1 General Appearance ED: well developed and NAD HEENT Reports moist mucous membranes normocephalic and atraumatic Neck supple and no JVD Resp normal respiratory effort and clear to auscultation bilaterally Cardio Rate: regular rate Rhythm: regular rhythm GI non-tender and non-distended Palpation: soft Neuro oriented x3, CN's II-XII intact bilaterally and no sensory deficits noted [place] Coma Scale: document GCS findings Spontaneous Obeys Commands Oriented 15 Sensorium / Orientation: alert Motor Exam: strength 5/5 throughout Psych cooperative, denies hallucinations and denies homicidal ideation Appearance: well kempt Attitude: calm Activity / Motor Behavior: appropriate eye contact Speech: minimal Mood & Affect: depressed and flat affect Thought Process: normal thought process Thought Content: suicidality, No phobia(s), No delusion(s) and No hallucination(s) MDM MDM MDM Narrative Medical decision making narrative: Medical screening labs will be obtained. CBC will be obtained to assess for leukocytosis and anemia. Basic metabolic profile will be obtained to assess for electrolyte abnormality and renal function. Serum hCG will be obtained to assess for . Serum alcohol level will be obtained to assess for alcohol intoxication. Urine drug screen will be obtained to assess for substance abuse. Lab Data Attestation: I reviewed the patient's lab results. Lab results narrative: CBC was reviewed. There is a slight leukocytosis of 11.4. The remainder is within normal limits. Basic metabolic profile was reviewed and was essentially within normal limits. Serum hCG was reviewed and was negative. Serum alcohol level was reviewed and was less than 10.1. Urine drug screen was reviewed and was positive for cannabinoids. Labs: Laboratory Results - last 24 hr 01/11/25 01/11/25 01/11/25 16:32 16:58 18:03 WBC 11.4 H RBC 5.31 Hgb 14.5 Hct 43.8 MCV 82.5 MCH 27.3 MCHC 33.1 RDW Std Deviation 41.4 RDW Coeff of Kofi 13.9 Plt Count 387 MPV 10.0 Immature Gran % (Auto) 1.300 H Neut % (Auto) 63.7 Lymph % (Auto) 25.5 [place] % (Auto) 7.2 Eos % (Auto) 1.4 Baso % (Auto) 0.9 Absolute Neuts (auto) 7.3 Absolute Lymphs (auto) 2.90 Nucleated RBC % 0 Sodium 140 Potassium 4.0 Chloride 101 Carbon Dioxide 22.2 Anion Gap 17 H BUN 10 Creatinine 0.74 Estim Creat Clear Calc 152.34 Est GFR (MDRD) Non-Af 115 BUN/Creatinine Ratio 13.0 Glucose 159 H Calcium 9.7 Serum , Qual NEGATIVE Urine Opiates Screen NEGATIVE U Buprenorphine Qual NEGATIVE Ur Oxycodone Screen NEGATIVE Urine Methadone Screen NEGATIVE Urine Fentanyl Screen NEGATIVE Ur Barbiturates Screen NEGATIVE Ur Phencyclidine Scrn NEGATIVE Ur Amphetamines Screen NEGATIVE U Benzodiazepines Scrn NEGATIVE Urine Cocaine Screen NEGATIVE U Cannabinoids Screen PRESUMPTIVE POSITIVE Ethyl Alcohol < 10.1 POC Glucose 159 H 01/11/25 21:15 WBC RBC Hgb Hct MCV MCH MCHC RDW Std Deviation RDW Coeff of Kofi Plt Count MPV Immature Gran % (Auto) Neut % (Auto) Lymph % (Auto) [place] % (Auto) Eos % (Auto) Baso % (Auto) Absolute Neuts (auto) Absolute Lymphs (auto) Nucleated RBC % Sodium Potassium Chloride Carbon Dioxide Anion Gap BUN Creatinine Estim Creat Clear Calc Est GFR (MDRD) Non-Af BUN/Creatinine Ratio Glucose Calcium Serum , Qual Urine Opiates Screen U Buprenorphine Qual Ur Oxycodone Screen Urine Methadone Screen Urine Fentanyl Screen Ur Barbiturates Screen Ur Phencyclidine Scrn Ur Amphetamines Screen U Benzodiazepines Scrn Urine Cocaine Screen U Cannabinoids Screen Ethyl Alcohol POC Glucose 214 H Treatment and Re-Evaluation Narrative: Suicide precautions were maintained. Patient was evaluated by crisis counselor. Patient was felt to need inpatient treatment. Crisis counselor arranged for inpatient treatment. Patient was accepted to the service of Dr. Zapata at [facility]. Patient will be transferred there when ambulance becomes available. Patient understood and was agreeable with the plan. All questions were answered. 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 See Rx Instructions .Route Qty: 1 0RF Rx Instructions: To check sugars QID lurasidone 60 mg tablet 60 mg PO QDAY trazodone 50 mg tablet 50 mg PO QHS buspirone 5 mg tablet 5 mg PO BID PRN (Reason: anxiety) Trulicity 0.75 mg/0.5 mL pen injector 0.75 mg subcut DAILY Patient Comments: Pt unsure of dose (DME) needle (disp) 32 gauge 32 gauge x 5/16 needle See Rx Instructions .ROUTE .MEDSUPPLY Qty: 100 2RF Rx Instructions: As directed metformin 500 mg tablet 500 mg PO DAILY lisinopril 20 mg tablet 20 mg PO DAILY levothyroxine 25 mcg tablet 25 mcg PO DAILY escitalopram oxalate 20 mg tablet 20 mg PO DAILY insulin glargine [Lantus Solostar U-100 Insulin] 100 unit/mL (3 mL) insulin pen 8 unit subcut TIDCM Rx Instructions: subcutaneously TIDCM; insulin glargine [Lantus Solostar U-100 Insulin] 100 unit/mL (3 mL) insulin pen 8 unit subcut QPM melatonin 3 mg tablet 3 mg PO QHS Zepbound 2.5 mg/0.5 mL pen injector 2.5 mg subcut QWEEK Qty: 2 0RF Patient Comments: not picked up from pharmacy yet. Rx Instructions: for 4 weeks Primary Care Provider: Kerri Durham Referrals: Kerri Durham, [employer] [Primary Care Provider, Family Practice] Print Language: Thai Disposition Disposition: Psychiatric Hospital or Unit Discharge Location: Other Acute Care Hospital
[2025-01-11 16:59] LABS: Internal QC Validated? YES +Cl - CLEAR BKGD; Pregnancy, Serum, hCG Quali. NEGATIVE Negative
[2025-01-11 17:00] LABS: Record Kit Lot#, Serum Preg. 980607
[2025-01-11 17:01] LABS: Hematocrit 43.8 % (37-47); Hemoglobin 14.5 g/dL (12.0-15.0); Immature Granulocytes Count 0.150 X10^3/uL (0.0-0.0); Mean Corp Hgb Conc 33.1 g/dL (32-36); Mean Corpuscular Volume 82.5 fL (81-99); Mean Platelet Vol. 10.0 fl (6.2-12.0); NRBC Flagged by Analyzer 0 % (0-5); Platelet Count 387 K/mm3 (150-450); RBC Distribution Width CV 13.9 % (11.6-14.6); RBC Distribution Width SD 41.4 fl (35.1-43.9); Red Blood Count 5.31 M/mm3 (4.2-5.4); White Blood Count 11.4 K/mm3 (4.4-11.0)
[2025-01-11 17:13] VITALS: BP 154/97; PULSE 110; RESP 16; O2SAT 97
[2025-01-11 17:18] LABS: Alcohol, Blood (Medical)-Serum < 10.1 mg/dL (<=10.0)
[2025-01-11 17:24] LABS: Anion Gap 17 (5-15); BUN 10 mg/dL (4-19); BUN/Creat Ratio 13.0 RATIO (10-20); Calcium,Total 9.7 mg/dL (7.6-11.0); Carbon Dioxide 22.2 mmol/L (21.0-32.0); Chloride 101 mmol/L (98-108); Estimated Creatinine Clearance 152.34 ml/min (50-250); Glucose 159 mg/dL (70-99); Potassium 4.0 mmol/L (3.3-5.1)
[2025-01-11 17:53] LABS: Barbiturate Urine NEGATIVE (< 200 ng/mL); Benzodiazepine Urine NEGATIVE (< 200 ng/mL); PCP Urine NEGATIVE (< 25 ng/mL); THC Urine PRESUMPTIVE POSITIVE (< 50 ng/mL)
[2025-01-11] MEDS: Insulin Glargine-YFGN 100 UNIT/ML Pen 8 UNIT SC (22:06)
[2025-01-11] MEDS: MELATONIN 3 MG TABLET PO (22:08)
[2025-01-11 22:10] VITALS: BP 151/99; PULSE 100; RESP 18; O2SAT 99
[2025-01-12 02:36] VITALS: BP 148/90; PULSE 88; RESP 18
--- NOTE | 2025-01-12 02:40 | ED.RN ---
attempted to call report and was to have dayshift call and speak to dayshift personell since pt will not be arriving until after 10am.
[2025-01-12 06:00] VITALS: RESP 16
[2025-01-12 09:11] VITALS: BP 143/93; PULSE 110; RESP 18; TEMP 37.1; O2SAT 97
--- NOTE | 2025-01-12 09:41 | PCA ---
ACCEPTED TO [facility]. DR BEY, INTAKE UNIT N2N [phone] OPTION 2
== END 2025-01-12 10:01 ==
PROVIDERS: Emergency Provider Emergency Medicine; PCP Nurse Practitioner Family; Visit Provider Emergency Medicine
DX: F32.A Depression, unspecified (principal); E11.9 Type 2 diabetes mellitus without complications; Z79.4 Long term (current) use of insulin; R45.851 Suicidal ideations; I10 Essential (primary) hypertension; Z79.899 Other long term (current) drug therapy; Z79.84 Long term (current) use of oral hypoglycemic drugs
CPT/HCPCS: 80048; 80307; 82077; 82962; 84703; 85025; 99284